=== PATIENT | female | born 1995 | race Caucasian/White ===

== ENCOUNTER → 2018-03-26 16:00 | Outpatient (REF) | payer BC, SELFPAY ==
[2018-04-01 08:29] LABS: Neisseria gonorrhoeae, NAA Negative (Negative)
== END ==
LOC: LAB 16:00
PROVIDERS: Visit Provider Obstetrics & Gynecology
DX: Z72.51 High risk heterosexual behavior (principal)
CPT/HCPCS: 87491; 87591

== ENCOUNTER → 2022-12-18 23:13 | Outpatient (CLI) | payer BC, SELFPAY ==
[2022-12-18 18:26] LABS: Alanine Aminotransferase 21 U/L (12-78); Albumin Level 4.2 g/dl (3.5-5.0); Albumin/Globulin Ratio 1.4 (1.1-1.8); Alkaline Phosphatase 84 U/L (38-126); Anion Gap 13.9 mEq/L (5-15); Aspartate Amino Transferase 23 U/L (14-36); Bilirubin,Total 0.5 mg/dl (0.2-1.3); Blood Urea Nitrogen 8 mg/dl (7-17); Calcium 8.8 mg/dl (8.4-10.2); Carbon Dioxide 27 mmol/L (22.0-30.0); Chloride 100 mmol/L (98-107); Chol/HDL Ratio 3.3 (1-3.5); Cholesterol 139 mg/dl (140-200); Estimated Glomerular Filt Rate 100 ml/min (>60); GFR (African American) 121 ML/MIN (>60); Globulin 3.1 g/dL (1.3-3.2); Glucose 91 mg/dl (74-100); HDL Cholesterol 42 mg/dl (40-60); Potassium 3.9 mmoL/L (3.5-5.1); Sodium 137 mmol/L (136-145); Total Protein,Serum 7.3 g/dl (6.3-8.2); Triglycerides 136 mg/dl (30-150); VLDL Cholesterol 27 mg/dL (0-40)
[2022-12-18 18:37] LABS: Direct LDL Cholesterol 79.33 mg/dL (100-129)
[2022-12-18 18:47] LABS: Basophils % 0.5 % (0.1-2.0); Eosinophils # 0.1 K/mm3 (0.0-0.4); Eosinophils % 1.4 % (0.1-12.0); Hematocrit 40.8 % (37.0-47.0); Hemoglobin 13.6 g/dL (12.2-16.2); Lymphocytes # 2.6 K/mm3 (0.7-4.5); Lymphocytes % 41.2 % (10-50); Mean Corpuscular HGB Conc 33.4 g/dL (31.8-35.4); Mean Corpuscular Hemoglobin 29.4 pg (27.0-31.2); Mean Corpuscular Volume 88.2 fl (81-99); Mean Platelet Volume 8.4 fl (7.4-10.4); Monocytes # 0.4 K/mm3 (0.1-1.0); Neutrophils # 3.3 K/mm3 (1.8-7.8); Neutrophils % 50.9 % (37.0-80.0); Platelet Count 321 K/mm3 (142-424); Red Blood Count 4.62 M/mm3 (4.20-5.40); Red Cell Distribution Width 13.3 % (11.5-17.5); White Blood Count 6.4 K/mm3 (4.8-10.8)
[2022-12-18 18:57] LABS: Thyroid Stimulating Hormone 1.04 uIU/mL (0.465-4.68)
[2022-12-18 19:16] LABS: Vitamin B12 236 pg/mL (239-931)
[2022-12-18 20:34] LABS: Iron 83 ug/dL (37-170)
[2022-12-18 20:44] LABS: Total Iron Binding Capacity 427 ug/dL (265-497)
[2022-12-18 21:10] LABS: Ferritin 17.1 ng/ml (6.24-137)
== END ==
PROVIDERS: PCP Physician Assistant; Visit Provider Physician Assistant
DX: R53.83 Other fatigue (principal); E55.9 Vitamin D deficiency, unspecified; Z79.899 Other long term (current) drug therapy
CPT/HCPCS: 80053; 80061; 82306; 82607; 82728; 83540; 83550; 84443; 85025

== ENCOUNTER → 2023-02-13 14:34 | Outpatient (CLI) | payer BC, SELFPAY | PROVIDERS: PCP Physician Assistant; Visit Provider Physician Assistant | DX: R07.9 Chest pain, unspecified (principal) | CPT/HCPCS: 93225; 93226 ==

== ENCOUNTER → 2023-02-20 07:24 | Outpatient (CLI) | payer BC, SELFPAY ==
--- NOTE | 2023-02-20 07:27 | NM_ITS ---
APPROVED REPORT Exam: Nuclear Stress Test Indication: chest pain..soa..fatigue Patient Location: Outpatient Stress Tech: María Elena Carrasco [place] Tech:Kori SanchezCRISTIANO RT(R)(N) Ht: 5 ft 5 in Wt: 230 lbs Bra Size: 38dd HR: 81 bpm BP: 123/64 mmHg BSA: 2.10 m2 Rhythm: NSR TID: 1.43 BMI: 38.2 History: chest pain..soa, fatigue Procedure: Patient exercised on Rishabh protocol 7 minutes and sec, resting heart rate 81 bpm, resting blood pressure 123/64 mmHg, with exercise maximum heart rate achived was 179 bpm which is 94 % of the maximum predicted heart rate and blood pressure was 170/70 mmHg. Patient denied any complaint of chest pain. Patient has average exercise capacity, achieved 10.1 METs of workload on treadmill, the blood pressure response to exercise was normal. Cardiac Stress and Resting SPECT Images: Cardiac Stress and Resting SPECT images were obtained using technetium 99m Myoview 31.1 mCi stress and 10.05 mCi at rest. Resting and stress imaging in both supine and prone positions demonstrate no evidence of fixed or reversible perfusion defects. There is marked increase in transient ischemic dilatation ratio (TID 1.43), suggestive of possible balanced ischemia or multivessel disease. Gated imaging demonstrates normal global and regional LV systolic function. LVEF is calculated at 65%. Conclusion: No evidence of fixed or reversible perfusion defects. There is marked increase in transient ischemic dilatation ratio (TID 1.43), suggestive of possible balanced ischemia or multivessel disease. Gated imaging demonstrates normal global and regional LV systolic function. LVEF is calculated at 65%. Electronically signed by : Marta Pires, 02/23/2023 16:39:30
--- NOTE | 2023-02-20 07:52 | US_ITS ---
FINAL REPORT CLINICAL HISTORY: BLE edema FINDINGS: COMPLETE ANKLE/BRACHIAL INDICES BILATERAL Complete ankle brachial indices was obtained. The right SRIDHAR is 1.1. The left SRIDHAR is 1.1. IMPRESSION: ABIs are within normal limits bilaterally. Reviewed, Interpreted and Dictated by Andrae Martinez III, MD Transcribed by Vicki Jarquin Authenticated and [facility]
--- NOTE | 2023-02-20 09:13 | CA_ITS ---
APPROVED REPORT Exam: Exercise Treadmill Technologist: María Elena Carrasco Ht: 5 ft 5 in Wt: 230 lbs BSA: 2.10 m2 HR: 74 bpm BP: 123/64 mmHg Rhythm: NSR Indications: Chest pain, BLE Edema 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 Medications: Vitamin D,,,,, Hydroxyzine pamoate,,,,, Furosemide,,,,, LUmateperone,,,,, Concerta,,,,, Stress Test Details Test: Rishabh HR Resting HR: 81 bpm Max Heart Rate (APMHR): 191 bpm Max HR Achieved: 179 bpm Target HR (85% APMHR): 162 bpm % of APMHR: 94 Recovery HR: 91 bpm HR response to stress: Normal HR response to stress BP Resting BP: 123.0/64.0 mmHg Max BP: 170.0/70.0 mmHg Recovery BP: 123.0/55.0 mmHg BP response to stress: Normal blood pressure response to stress. ECG Resting ECG: Normal sinus rhythm, incomplete right bundle branch block Stress ECG: minimal upsloping ST depression in inferolateral leads Arrhythmia: None Recovery ECG: Return to baseline within 3 minutes of recovery Recovery Arrhythmia: None Clinical Exercise duration: 07:00 min Highest Stage Achieved: Exercise capacity: 10.1 METs Overall Exercise Capacity for Age: Average Stress ECG Conclusion Patient walked 7:00 on Rishabh Protocol, achieving a total of 10.1 METs. She has an average exercise capacity compared to age and sex matched peers. She has a normal HR and BP response to exercise. Test stopped due to shortness of air, knee pain. She denied any chest pains. At baseline, ECG demonstrates normal sinus rhythm, no ST changes, incomplete RBBB. At peak stress, there are minimal upsloping ST depression in inferolateral leads. These findings are non-specific and are likely a normal response to exercise. Arrhythmias/Ectopy: None Conclusion: Normal exercise stress test. Myoview images reported separately. Test Summary REST . . . . . . . Sitting REST . . . . . . . Standing REST 06:02 0.0 0.0 81 . 123/ 64 . . Stage 1 01:00 10.0 1.7 117 . . . . Stage 1 02:00 10.0 1.7 117 . . . . Stage 1 03:00 10.0 1.7 124 . 158/ 66 . . Stage 2 01:00 12.0 2.5 133 . . . . Stage 2 02:00 12.0 2.5 149 . . . . Stage 2 03:00 12.0 2.5 161 . 170/ 70 . . Stage 3 01:00 14.0 3.4 179 . . . Stop exercise at 07:00 RECOVERY 01:00 0.0 0.0 150 . . . . RECOVERY 02:00 0.0 0.0 107 . 146/ 56 . . RECOVERY 03:00 0.0 0.0 96 . 146/ 56 . . RECOVERY 04:00 0.0 0.0 93 . 131/ 55 . . RECOVERY 05:00 0.0 0.0 92 . 123/ 55 . . RECOVERY 05:19 0.0 0.0 93 . 123/ 55 . . Electronically signed by : Marta Pires, 02/23/2023 16:35:10
== END ==
PROVIDERS: PCP Physician Assistant; Visit Provider Physician Assistant
DX: R07.9 Chest pain, unspecified (principal)
CPT/HCPCS: 78452; 93017; 93923; A9502

== ENCOUNTER → 2023-02-27 15:04 | Outpatient (CLI) | payer BC, SELFPAY | PROVIDERS: PCP Physician Assistant; Visit Provider Physician Assistant | DX: R07.9 Chest pain, unspecified (principal) | CPT/HCPCS: 93306 ==

== ENCOUNTER 2023-03-29 08:41 | Day surgery (SDC) | payer BC, SELFPAY ==
[2023-03-29] VITALS (11 sets, daily range): BP systolic 97–130; BP diastolic 49–82; PULSE 71–88; RESP 16–18; TEMP 36.9; O2SAT 94–98; BMI 37.9
--- NOTE | 2023-03-29 07:16 | IR_ITS ---
APPROVED REPORT Patient Location: Outpatient Certified Court/Medical Interpreter: CRISTIANO Tobias RT (R) PROCEDURES Left heart catheterization Left ventriculogram Selective coronary angiogram INDICATION Abnormal Myoview, Angina pectoris Informed consent was obtained prior to the procedure. COMPLICATIONS None Estimated Blood Loss: Less than 10 mls TECHNIQUE One percent lidocaine used to anesthetize the right anterior aspect of the wrist. The right radial artery was accessed via the Seldinger technique. A 6 Portuguese sheath was placed in the right radial artery. 2.5 mg of Verapamil, 800 mcg of nitroglycerin, 1mg Lidocaine and 5000 U Heparin were given through the arterial sheath. The papa catheter was also used to perform left heart catheterization, left ventriculogram and selective coronary angiogram. At the end of the procedure the sheath was removed good hemostasis was achieved using Traclet band, patient was transferred to the postop holding area in stable condition. ANGIOGRAPHIC RESULTS The left main artery Normal The left anterior descending artery Normal The circumflex artery Normal The right coronary artery Dominant normal The DE LEÓN ventriculogram reveals Normal 65% The left ventricular end-diastolic pressure 20 to 25 mmHg IMPRESSION Normal coronary arteries Normal ejection fraction Elevated LVEDP consistent with diastolic dysfunction PLAN 1. Treatment of diastolic dysfunction 2. Recommend sleep study Electronically signed by : Joe Zambrano MD 03/29/2023 11:19:39
[2023-03-29 09:22] LABS: Basophils % 0.3 % (0.1-2.0); Eosinophils # 0.1 K/mm3 (0.0-0.4); Eosinophils % 1.3 % (0.1-12.0); Hematocrit 42.3 % (37.0-47.0); Hemoglobin 14.3 g/dL (12.2-16.2); Lymphocytes # 2.4 K/mm3 (0.7-4.5); Lymphocytes % 35.4 % (10-50); Mean Corpuscular HGB Conc 33.7 g/dL (31.8-35.4); Mean Corpuscular Volume 88.9 fl (81-99); Mean Platelet Volume 8.2 fl (7.4-10.4); Monocytes # 0.3 K/mm3 (0.1-1.0); Monocytes % 4.2 % (1.7-9.3); Neutrophils # 3.9 K/mm3 (1.8-7.8); Neutrophils % 58.8 % (37.0-80.0); Platelet Count 255 K/mm3 (142-424); Red Blood Count 4.76 M/mm3 (4.20-5.40); Red Cell Distribution Width 12.6 % (11.5-17.5); White Blood Count 6.6 K/mm3 (4.8-10.8)
[2023-03-29 09:23] LABS: Chloride 104 mmol/L (98-107); Potassium 3.7 mmoL/L (3.5-5.1); Sodium 139 mmol/L (136-145)
[2023-03-29 09:26] LABS: Anion Gap 13.7 mEq/L (5-15); Blood Urea Nitrogen 9 mg/dl (7-17); Carbon Dioxide 25 mmol/L (22.0-30.0); Creatinine Clearance Estimated 194 mL/min (50-200); Estimated Glomerular Filt Rate 99 ml/min (>60); GFR (African American) 120 ML/MIN (>60)
[2023-03-29 09:27] LABS: Calcium 9.5 mg/dl (8.4-10.2); Glucose 92 mg/dl (74-100)
[2023-03-29 10:09] LABS: HCG Qualitative, Serum Negative (Negative)
== END 2023-03-29 14:39 | disposition home or self-care (01) ==
PROVIDERS: PCP Physician Assistant; Visit Provider Internal Medicine
DX: I25.118 Atherosclerotic heart disease of native coronary artery with other forms of angina pectoris (principal); F17.210 Nicotine dependence, cigarettes, uncomplicated; R94.31 Abnormal electrocardiogram [ECG] [EKG]; R94.39 Abnormal result of other cardiovascular function study; Z82.49 Family history of ischemic heart disease and other diseases of the circulatory system; Z79.899 Other long term (current) drug therapy
CPT/HCPCS: 80048; 84703; 85025; 93458; 99152; C1725; C1769; J1644; Q9967

== ENCOUNTER 2023-04-02 12:15 | Emergency (ER) | payer BC, SELFPAY ==
[2023-04-02 12:25] VITALS: BP 111/63; PULSE 104; RESP 20; TEMP 36.8; O2SAT 95; BMI 37.3
--- NOTE | 2023-04-02 13:16 | XR_ITS ---
PROCEDURE INFORMATION: Exam: XR Right Wrist Exam date and time: 04/02/2023 1:21 PM Age: 27 years old Clinical indication: Pain and injury or trauma; Fall; Blunt trauma (contusions or hematomas); Wrist; Right; Additional info: Fall, injury TECHNIQUE: Imaging protocol: Radiologic exam of the right wrist. Views: 3 or more views. COMPARISON: No relevant prior studies available. FINDINGS: Bones/joints: Osseous structures are intact. No fracture or malalignment. Visualized joint surfaces are preserved. Soft tissues: Unremarkable. IMPRESSION: Negative exam. No acute bony abnormalities.
--- NOTE | 2023-04-02 13:16 | XR_ITS ---
PROCEDURE INFORMATION: Exam: XR Right Forearm Exam date and time: 04/02/2023 1:23 PM Age: 27 years old Clinical indication: Pain and injury or trauma; Fall; Blunt trauma (contusions or hematomas); Arm, lower; Right; Lower or forearm; Additional info: Fall, injury TECHNIQUE: Imaging protocol: Radiologic exam of the right forearm. Views: 2 views. COMPARISON: CR Wrist R 04/02/2023 1:21 PM FINDINGS: Bones/joints: Osseous structures are intact. No fracture or malalignment. Visualized joint surfaces are preserved. Soft tissues: Unremarkable. IMPRESSION: Negative exam. No acute bony abnormalities.
--- NOTE | 2023-04-02 13:16 | HMH.EDGENADL ---
Discharge Plan Disposition Patient Disposition: Home, Self-Care Prescriptions Prescriptions: No Action bumetanide 0.5 mg tablet 0.5 mg PO DAILY PRN (Reason: .) cholecalciferol (vitamin D3) 1,250 mcg (50,000 unit) capsule 1,250 mcg PO WEEKLY Qty: 12 3RF Rx Instructions: Patient should also get an OTC Vitamin D 2,000 units daily. methylphenidate HCl [Concerta] 18 mg tablet extended release 24hr 18 mg PO DAILY hydroxyzine pamoate 25 mg capsule See Rx Instructions .ROUTE .COMPLEX Rx Instructions: TAKE 1 CAPSULE BY MOUTH THREE TIMES A DAY NEEDED FOR ITCHING/ANXIETY/HIVES Caplyta 21 mg capsule 21 mg PO DAILY Referrals Follow up/Referrals: Kimberly Avalos PA [Primary Care Provider] - See instructions Clinical Impressions Clinical Impression: Contusion of right wrist Discharge ED Provider: Demi Pan General Adult HPI General Chief complaint: PAIN Stated complaint: [id number], pain in Rt wrist/arm Time Seen by Provider: 04/02/23 13:13 Mode of Arrival: Ambulatory Source of Information: Patient Limitations: No Limitations Description of Symptoms (Recalled from ER Triage Doc. by RN): pt to ed c/o right wrist pain. pt states she had a heart cath on saturday, and was accesssed through her wrist. pt reports falling in the shower on saturday on the same writ. pt c/o swwelling and pain that radiates into her shoulder. pt denies LOC from the fall. History of Present Illness HPI narrative: 27-year-old female here with right upper extremity pain. States that she had a heart cath on Saturday and already had some trauma and swelling to the right wrist but was getting into a shower and she fell injuring the right wrist further subsequently having some significant soft tissue swelling and ecchymosis. She denies any injuries elsewhere. Denies any significant deformity just some nonspecific circumferential swelling of the right wrist the distal aspect. No numbness or motor weakness. No pain proximal to her elbow Related Data Home Medications Medication Instructions Recorded Confirmed bumetanide 0.5 mg tablet 0.5 mg PO DAILY PRN . 03/05/23 03/29/23 hydroxyzine pamoate 25 mg capsule See Rx Instructions .Route 03/29/23 03/29/23 .COMPLEX . lumateperone 21 mg capsule 21 mg PO DAILY . 03/29/23 03/29/23 (Caplyta) methylphenidate HCl 18 mg 18 mg PO DAILY . 03/29/23 03/29/23 tablet,extended release 24 hr (Concerta) Previous Rx's Medication Instructions Recorded cholecalciferol (vitamin D3) 1,250 1,250 mcg PO WEEKLY vitamin d 12/20/22 mcg (50,000 unit) capsule deficiency #12 caps Allergies Allergy/AdvReac Type Severity Reaction Status Date / Time morphine [MORPHINE] Allergy Unknown HALLUCINATIONS, Verified 03/05/23 09:13 PAIN ATTACKS [facility] Disclaimer: The information contained in this section may have been updated after the patient was seen, as this information can be updated by other users. Social History Smoking Status: Current every day smoker alcohol intake: never substance use type: denies use current occupational status: employed Travel in the last 8 weeks: None ROS Obtained: Yes All systems reviewed & no additional complaints except as documented Physical Exam General General appearance: alert and in no apparent distress Respiratory Respiratory exam: Present normal lung sounds bilaterally Cardiovascular Cardiovascular exam: Present regular rate; Absent tachycardia Extremities Exam Extremities exam: Present other (Right upper extremity swelling circumferentially around the distal aspect of the right forearm and mid forearm no deformity neurovascular intact distal) Neurological Exam Neurological exam: Present alert and oriented X3 Medical Decision Making Juan Antonio Inquiry Pt receiving controlled substance: No Vital Signs: 04/02/23 12:25 Temperature 98.2 F T
[2023-04-02 14:26] VITALS: BP 120/78; PULSE 78; RESP 17; TEMP 36.8; O2SAT 98
--- NOTE | 2023-04-05 02:43 | PC.NURSE ---
pt chart accessed for ortho demographics
== END 2023-04-02 14:32 | disposition home or self-care (01) ==
PROVIDERS: Emergency Provider Student in an Organized Health Care Education/Training Program; PCP Physician Assistant
DX: S60.211A Contusion of right wrist, initial encounter (principal); Y84.0 Cardiac catheterization as the cause of abnormal reaction of the patient, or of later complication, without mention of misadventure at the time of the procedure; F17.200 Nicotine dependence, unspecified, uncomplicated
CPT/HCPCS: 73090; 73110; 99284

== ENCOUNTER → 2023-08-07 23:38 | Outpatient (CLI) | payer BC, SELFPAY ==
[2023-08-07 18:55] LABS: Amphetamine/Metha Screen,Urine Negative ng/ml (<1000); Barbiturates Screen,Urine Negative ng/ml (<200)
[2023-08-07 18:57] LABS: Cannabinoid Screen,Urine Positive ng/ml (<50); Cocaine Screen,Urine Negative ng/ml (<300)
[2023-08-07 18:58] LABS: Methadone Screen,Urine Negative ng/ml (<300)
[2023-08-07 18:59] LABS: Opiate Screen,Urine Negative ng/ml (<300); Phencyclidine Screen,Urine Negative ng/ml (<25)
[2023-08-07 19:07] LABS: Benzodiazepines Screen,Urine Negative ng/ml (<200)
== END ==
PROVIDERS: PCP Internal Medicine; Visit Provider Physician Assistant
DX: F90.9 Attention-deficit hyperactivity disorder, unspecified type (principal)
CPT/HCPCS: 80305

== ENCOUNTER 2023-08-13 13:59 | Outpatient (CLI) | payer BC, SELFPAY ==
[2023-08-13 18:09] LABS: Amphetamine/Metha Screen,Urine Negative ng/ml (<1000); Barbiturates Screen,Urine Negative ng/ml (<200); Cannabinoid Screen,Urine Positive ng/ml (<50); Cocaine Screen,Urine Negative ng/ml (<300); Methadone Screen,Urine Negative ng/ml (<300); Opiate Screen,Urine Negative ng/ml (<300); Phencyclidine Screen,Urine Negative ng/ml (<25)
[2023-08-13 18:12] LABS: Benzodiazepines Screen,Urine Negative ng/ml (<200)
== END 2023-08-13 23:59 ==
LOC: LAB.DROPOF 13:59
PROVIDERS: PCP Physician Assistant; Visit Provider Physician Assistant
DX: E53.8 Deficiency of other specified B group vitamins (principal); Z79.899 Other long term (current) drug therapy
CPT/HCPCS: 80307

== ENCOUNTER 2023-09-02 18:40 | Emergency (ER) | payer BC, SELFPAY ==
[2023-09-02 19:00] VITALS: BP 144/78; PULSE 92; RESP 18; TEMP 37.2; O2SAT 98; BMI 38.1
--- NOTE | 2023-09-02 19:03 | ED_ITS ---
Discharge Plan Disposition Patient Disposition: Home, Self-Care Condition: Good Prescriptions Prescriptions: New amoxicillin [amoxicillin] 875 mg tablet 875 mg PO Q12H Qty: 20 0RF methylprednisolone 4 mg Tablets,Dose Pack 4 mg PO DIRECTED 6 Days Qty: 21 0RF Rx Instructions: Take 1 pack as directed for 6 days lpriywctudyhxwe-onjraaetu-HC [Bromfed DM] 2-30-10 mg/5 mL Syrup 5 ml PO Q6H PRN (Reason: Cough) Qty: 240 0RF No Action cholecalciferol (vitamin D3) 125 mcg (5,000 unit) capsule 125 mcg PO DAILY 30 Days Qty: 30 3RF ferrous sulfate 324 mg (65 mg iron) tablet,delayed release (DR/EC) 324 mg PO DAILY Qty: 30 5RF cholecalciferol (vitamin D3) 1,250 mcg (50,000 unit) capsule 1,250 mcg PO WEEKLY Qty: 12 3RF Rx Instructions: Patient should also get an OTC Vitamin D 2,000 units daily. bumetanide 0.5 mg tablet 0.5 mg PO DAILY PRN (Reason: .) Qty: 90 3RF Caplyta 42 mg capsule 42 mg PO DAILY Qty: 30 2RF mirtazapine [Remeron] 15 mg tablet 15 mg PO HS Qty: 30 2RF hydroxyzine pamoate 25 mg capsule See Rx Instructions .ROUTE .COMPLEX Qty: 90 0RF Dose Instruction: TAKE 1 CAPSULE BY MOUTH THREE TIMES A DAY NEEDED FOR ITCHING/ANXIETY/HIVES Rx Instructions: TAKE 1 CAPSULE BY MOUTH THREE TIMES A DAY NEEDED FOR ITCHING/ANXIETY/HIVES trazodone 50 mg tablet See Rx Instructions .ROUTE .COMPLEX Qty: 90 0RF Dose Instruction: TAKE 1 TABLET BY MOUTH EVERY NIGHT AT BEDTIME Rx Instructions: TAKE 1 TABLET BY MOUTH EVERY NIGHT AT BEDTIME methylphenidate HCl [Concerta] 27 mg tablet extended release 24hr 27 mg PO DAILY Qty: 30 0RF Referrals Follow up/Referrals: Kimberly Avalos PA [Primary Care Provider] - See instructions Activity Restrictions/Add. Instructions Additional Instructions/Restrictions: Drink plenty of fluids. Take tylenol or ibuprofen for pain or fever. Take the medications as directed. Follow up with your regular doctor. GO TO THE ER FOR ANY WORSENING SYMPTOMS Throw your tooth brush away and get a new one. Clinical Impressions Clinical Impression: Strep throat Instructions Patient Instructions: Strep Throat, DI for Strep Throat Discharge ED Provider: Chinedu Jacobson [facility] General Stated complaint: Cough,SOA Time Seen by Provider: 09/02/23 19:03 History of Present Illness Provider Complaint: She states that for the past 3 days she has had sore throat, chills, and a productive cough. Related Data Previous Rx's Medication Instructions Recorded cholecalciferol (vitamin D3) 1,250 1,250 mcg PO WEEKLY vitamin d 12/20/22 mcg (50,000 unit) capsule deficiency #12 caps bumetanide 0.5 mg tablet 0.5 mg PO DAILY PRN . #90 tabs 06/03/23 cholecalciferol (vitamin D3) 125 125 mcg PO DAILY 30 days #30 caps 06/12/23 mcg (5,000 unit) capsule lumateperone 42 mg capsule 42 mg PO DAILY #30 caps 06/21/23 (Caplyta) ferrous sulfate 324 mg (65 mg 324 mg PO DAILY #30 tabs 08/07/23 iron) tablet,delayed release mirtazapine 15 mg tablet (Remeron) 15 mg PO HS #30 tabs 08/14/23 hydroxyzine pamoate 25 mg capsule See Rx Instructions .Route 08/26/23 .COMPLEX #90 caps trazodone 50 mg tablet See Rx Instructions .Route 08/26/23 .COMPLEX #90 tabs methylphenidate HCl 27 mg 27 mg PO DAILY #30 tabs 08/27/23 tablet,extended release 24 hr (Concerta) amoxicillin 875 mg tablet 875 mg PO Q12H #20 tabs 09/02/23 wmuihsclwwgnxjm-ftfdijdedhaxljn-ON 5 ml PO Q6H PRN Cough #240 mL 09/02/23 2 mg-30 mg-10 mg/5 mL oral syrup (Bromfed DM) methylprednisolone 4 mg tablets in 4 mg PO DIRECTED 6 days #21 tabs 09/02/23 a dose pack Allergies Allergy/AdvReac Type Severity Reaction Status Date / Time morphine [MORPHINE] Allergy Unknown HALLUCINATIONS, Verified 09/02/23 19:23 PAIN ATTACKS [facility] Disclaimer: The information contained in this section may have been updated after the patient was seen, as this information can be updated by other users. Social History Smoking Status: Current every day smoker alcohol intake: never substance use type: denies use current occupational status: employed Travel in the last 8 weeks: None ROS Obtained: Yes All systems reviewed & no additional complaints except as documented Constitutional Constitutional: Reports chills and Reports fever(s) Eyes Eyes: Denies eye discharge ENT Ears, Nose, Mouth, and Throat: Reports as per HPI Cardiovascular Cardiovascular: Denies chest pain Respiratory Respiratory: Denies chest congestion and Reports cough Gastrointestinal Gastrointestingal: Reports nausea; Denies abdominal pain, constipation, cramping, diarrhea or vomiting Musculoskeletal Musculoskeletal: Denies arthralgias Integumentary/Breasts Skin/Breast: Denies rash Neurologic Neurologic: Denies paresthesias Physical Exam General General appearance: alert and in no apparent distress Head Head exam: atraumatic, normocephalic and normal inspection Eye Eye exam: Present normal appearance, PERRL and EOMI ENT ENT exam: Present mucous membranes moist and normal external ear exam Expanded ENT Exam TM/Canal exam: Bilateral TM: erythema and bulging Nose exam: Absent sinus tenderness Mouth exam: Present normal external inspection; Absent drooling Teeth exam: Present normal inspection Throat exam: Present tonsillar erythema, tonsillomegaly and tonsillar exudate Neck Neck exam: Present normal inspection, full ROM and trachea midline; Absent tenderness, meningismus or lymphadenopathy Chest Chest inspection: Present normal inspection and symmetric chest wall rise; Absent tenderness Respiratory Respiratory exam: Present normal lung sounds bilaterally; Absent respiratory distress, wheezes, stridor or accessory muscle use Cardiovascular Cardiovascular exam: Present regular rate and normal rhythm; Absent systolic murmur or diastolic murmur Abdominal Exam Abdominal exam: Present soft and normal bowel sounds; Absent distention, tenderness, guarding, rebound or rigidity Extremities Exam Extremities exam: Present normal inspection and normal capillary refill; Absent calf tenderness Back Exam Back exam: Present normal inspection and full ROM; Absent tenderness, CVA tenderness (R) or CVA tenderness (L) Neurological Exam Neurological exam: Present alert, oriented X3 and CN II-XII intact Psychiatric Psychiatric exam: Present normal affect and normal mood Skin Skin exam: Present warm, dry, intact and normal color Medical Decision Making Medical Records Medical records reviewed: No I reviewed the patient's medical records. Juan Antonio Inquiry Pt receiving controlled substance: No Lab Data Lab results reviewed: Yes I reviewed the patient's lab results.
[2023-09-02 19:24] LABS: UTC Strep Screen (Rapid) Positive (Negative)
[2023-09-02 19:47] VITALS: BP 144/78; PULSE 92; RESP 18; TEMP 37.2; O2SAT 98
== END 2023-09-02 19:46 | disposition home or self-care (01) ==
PROVIDERS: Emergency Provider Nurse Practitioner Family; PCP Physician Assistant
DX: J02.0 Streptococcal pharyngitis (principal); R07.0 Pain in throat; R05.9 Cough, unspecified; R50.9 Fever, unspecified; F17.210 Nicotine dependence, cigarettes, uncomplicated
CPT/HCPCS: 87880; 99204; 99212; G0463

== ENCOUNTER 2023-09-04 13:38 | Outpatient (CLI) | payer BC, SELFPAY ==
--- NOTE | 2023-09-04 13:44 | XR_ITS ---
FINAL REPORT CLINICAL HISTORY: foot pain for many years, no known injury. weightbearing views. FINDINGS: Right foot Three views were obtained. There is no acute fracture or dislocation. The joint spaces appear normal. No soft tissue abnormality is identified. IMPRESSION: No acute process. Reviewed, Interpreted and Dictated by Zane Maloney MD Transcribed by Vicki Jarquin Authenticated and [facility]
--- NOTE | 2023-09-04 13:44 | XR_ITS ---
FINAL REPORT CLINICAL HISTORY: foot pain for many years, no known injuries. weightbearing views. FINDINGS: Left foot Three views were obtained. There is no acute fracture or dislocation. The joint spaces appear normal. No soft tissue abnormality is identified. IMPRESSION: No acute process. Reviewed, Interpreted and Dictated by Zane Maloney MD Transcribed by Vicki Jarquin Authenticated and [facility]
== END 2023-09-04 23:59 ==
LOC: RAD 13:39
PROVIDERS: PCP Physician Assistant; Visit Provider Nurse Practitioner
DX: M79.671 Pain in right foot (principal); M79.672 Pain in left foot
CPT/HCPCS: 73630

== ENCOUNTER 2023-10-02 22:09 | Outpatient (CLI) | payer BC, SELFPAY ==
[2023-10-02 18:47] LABS: Basophils % 0.2 % (0.1-2.0); Hematocrit 42.1 % (37.0-47.0); Hemoglobin 13.7 g/dL (12.2-16.2); Lymphocytes # 2.5 K/mm3 (0.7-4.5); Lymphocytes % 31.8 % (10-50); Mean Corpuscular HGB Conc 32.6 g/dL (31.8-35.4); Mean Corpuscular Hemoglobin 30.5 pg (27.0-31.2); Mean Corpuscular Volume 93.7 fl (81-99); Mean Platelet Volume 8.3 fl (7.4-10.4); Monocytes # 0.4 K/mm3 (0.1-1.0); Monocytes % 5.4 % (1.7-9.3); Neutrophils # 4.9 K/mm3 (1.8-7.8); Neutrophils % 62.6 % (37.0-80.0); Platelet Count 274 K/mm3 (142-424); Red Blood Count 4.49 M/mm3 (4.20-5.40); Red Cell Distribution Width 13.6 % (11.5-17.5); White Blood Count 7.9 K/mm3 (4.8-10.8)
[2023-10-02 18:57] LABS: Alanine Aminotransferase 22 U/L (12-78); Albumin Level 4.6 g/dl (3.5-5.0); Albumin/Globulin Ratio 1.5 (1.1-1.8); Alkaline Phosphatase 92 U/L (38-126); Anion Gap 9.1 mEq/L (5-15); Aspartate Amino Transferase 31 U/L (14-36); Bilirubin,Total 0.2 mg/dl (0.2-1.3); Blood Urea Nitrogen 13 mg/dl (7-17); Calcium 9.7 mg/dl (8.4-10.2); Carbon Dioxide 29 mmol/L (22.0-30.0); Chloride 104 mmol/L (98-107); Cholesterol 190 mg/dl (140-200); Estimated Glomerular Filt Rate 99 ml/min (>60); GFR (African American) 120 ML/MIN (>60); Globulin 3.1 g/dL (1.3-3.2); Glucose 89 mg/dl (74-100); HDL Cholesterol 47 mg/dl (40-60); Potassium 4.1 mmoL/L (3.5-5.1); Sodium 138 mmol/L (136-145); Total Protein,Serum 7.7 g/dl (6.3-8.2); Triglycerides 231 mg/dl (30-150); VLDL Cholesterol 46 mg/dL (0-40)
[2023-10-02 19:09] LABS: Direct LDL Cholesterol 95.01 mg/dL (100-129)
[2023-10-02 19:14] LABS: 25-OH Vitamin D, Total 38.7 ng/mL (30-100)
[2023-10-02 19:27] LABS: Thyroid Stimulating Hormone 1.94 uIU/mL (0.465-4.68)
[2023-10-02 19:46] LABS: Vitamin B12 375 pg/mL (239-931)
== END 2023-10-02 23:59 ==
LOC: LAB.DROPOF 22:09
PROVIDERS: PCP Physician Assistant; Visit Provider Physician Assistant
DX: F90.9 Attention-deficit hyperactivity disorder, unspecified type; F31.9 Bipolar disorder, unspecified; E66.9 Obesity, unspecified; Z68.39 Body mass index [BMI] 39.0-39.9, adult; Z79.899 Other long term (current) drug therapy
CPT/HCPCS: 80053; 80061; 82306; 82607; 84443; 85025

== ENCOUNTER 2023-10-04 15:11 | Emergency (ER) | payer BC, SELFPAY ==
[2023-10-04 15:45] VITALS: BP 146/80; PULSE 94; RESP 18; TEMP 36.9; O2SAT 99; BMI 38.3
--- NOTE | 2023-10-04 15:47 | ED_ITS ---
Discharge Plan Disposition Patient Disposition: Home, Self-Care Condition: Good Prescriptions Prescriptions: New amoxicillin [amoxicillin] 875 mg tablet 875 mg PO Q12H Qty: 20 0RF [id number]-elollpvgs-PJ [Bromfed DM] 2-30-10 mg/5 mL Syrup 5 ml PO Q6H PRN (Reason: Cough) Qty: 240 0RF prednisone [prednisone] 20 mg tablet 20 mg PO BID 3 Days Qty: 6 0RF No Action methylphenidate HCl [Concerta] 27 mg tablet extended release 24hr 27 mg PO DAILY Qty: 30 0RF Caplyta 42 mg capsule See Rx Instructions .ROUTE .COMPLEX Qty: 30 2RF Dose Instruction: TAKE 1 CAPSULE BY MOUTH EVERY DAY Rx Instructions: TAKE 1 CAPSULE BY MOUTH EVERY DAY trazodone 50 mg tablet 50 mg PO HS Patient Comments: TAKE 1 TABLET BY MOUTH EVERY NIGHT AT BEDTIME meloxicam 7.5 mg tablet 7.5 mg PO DAILY Patient Comments: TAKE 1 TABLET BY MOUTH EVERY DAY FOR PAIN FOR 30 DAYS bumetanide 0.5 mg tablet 0.5 mg PO DAILY Patient Comments: TAKE 1 TABLET BY MOUTH EVERY DAY NEEDED mirtazapine 15 mg tablet 15 mg PO HS Patient Comments: TAKE 1 TABLET BY MOUTH EVERYDAY AT BEDTIME cholecalciferol (vitamin D3) 125 mcg (5,000 unit) capsule 125 mcg PO DAILY hydroxyzine pamoate 25 mg capsule 25 mg PO DAILY ferrous sulfate 324 mg (65 mg iron) tablet,delayed release (DR/EC) 324 mg PO DAILY Patient Comments: TAKE 1 TABLET BY MOUTH EVERY DAY Referrals Follow up/Referrals: Kimberly Avalos PA [Primary Care Provider] - See instructions Activity Restrictions/Add. Instructions Additional Instructions/Restrictions: Drink plenty of fluids. Take tylenol or ibuprofen for pain or fever. Take the medications as directed. Follow up with your regular doctor. GO TO THE ER FOR ANY WORSENING SYMPTOMS Clinical Impressions Clinical Impression: Otitis media, Pharyngitis Stand Alone Forms Stand Alone Forms: Work/School Release Instructions Patient Instructions: Middle Ear Infection Discharge ED Provider: Chinedu Jacobson [facility] [place] General Stated complaint: bilateral ear pain, sore throat, body aches Time Seen by Provider: 10/04/23 15:46 History of Present Illness Provider Complaint: She states that for the past 3 days she has had ear pain, head ache, malaise, and sinus congestion. Related Data Home Medications Medication Instructions Recorded Confirmed bumetanide 0.5 mg tablet 0.5 mg PO DAILY 10/04/23 10/04/23 cholecalciferol (vitamin D3) 125 125 mcg PO DAILY 10/04/23 10/04/23 mcg (5,000 unit) capsule ferrous sulfate 324 mg (65 mg 324 mg PO DAILY 10/04/23 10/04/23 iron) tablet,delayed release hydroxyzine pamoate 25 mg capsule 25 mg PO DAILY 10/04/23 10/04/23 meloxicam 7.5 mg tablet 7.5 mg PO DAILY 10/04/23 10/04/23 mirtazapine 15 mg tablet 15 mg PO HS 10/04/23 10/04/23 trazodone 50 mg tablet 50 mg PO HS 10/04/23 10/04/23 Previous Rx's Medication Instructions Recorded lumateperone 42 mg capsule See Rx Instructions .Route 09/30/23 (Caplyta) .COMPLEX #30 caps methylphenidate HCl 27 mg 27 mg PO DAILY #30 tabs 10/03/23 tablet,extended release 24 hr (Concerta) amoxicillin 875 mg tablet 875 mg PO Q12H #20 tabs 10/04/23 toorahzljkldbip-aeglghbscavgimo-RO 5 ml PO Q6H PRN Cough #240 mL 10/04/23 2 mg-30 mg-10 mg/5 mL oral syrup (Bromfed DM) prednisone 20 mg tablet 20 mg PO BID 3 days #6 tabs 10/04/23 Allergies Allergy/AdvReac Type Severity Reaction Status Date / Time morphine [MORPHINE] Allergy Unknown HALLUCINATIONS, Verified 10/02/23 14:37 PAIN ATTACKS [facility] Disclaimer: The information contained in this section may have been updated after the patient was seen, as this information can be updated by other users. Social History Smoking Status: Current every day smoker alcohol intake: never substance use type: denies use current occupational status: employed Travel in the last 8 weeks: None ROS Obtained: Yes All systems reviewed & no additional complaints except as documented Constitutional Constitutional: Reports chills and Reports fever(s) Eyes Eyes: Denies eye discharge ENT Ears, Nose, Mouth, and Throat: Reports as per HPI Cardiovascular Cardiovascular: Denies chest pain Respiratory Respiratory: Denies chest congestion and Reports cough Gastrointestinal Gastrointestingal: Reports nausea; Denies abdominal pain, constipation, cramping, diarrhea or vomiting Musculoskeletal Musculoskeletal: Denies arthralgias Integumentary/Breasts Skin/Breast: Denies rash Neurologic Neurologic: Denies paresthesias Physical Exam General General appearance: alert and in no apparent distress Head Head exam: atraumatic, normocephalic and normal inspection Eye Eye exam: Present normal appearance, PERRL and EOMI ENT ENT exam: Present mucous membranes moist and normal external ear exam Expanded ENT Exam TM/Canal exam: Bilateral TM: erythema and bulging Nose exam: Absent sinus tenderness Mouth exam: Present normal external inspection; Absent drooling Teeth exam: Present normal inspection Throat exam: Present tonsillar erythema, tonsillomegaly and tonsillar exudate Neck Neck exam: Present normal inspection, full ROM and trachea midline; Absent tenderness, meningismus or lymphadenopathy Chest Chest inspection: Present normal inspection and symmetric chest wall rise; Absent tenderness Respiratory Respiratory exam: Present normal lung sounds bilaterally; Absent respiratory distress, wheezes or stridor Cardiovascular Cardiovascular exam: Present regular rate and normal rhythm; Absent systolic murmur or diastolic murmur Abdominal Exam Abdominal exam: Present soft and normal bowel sounds; Absent distention, tenderness, guarding, rebound or rigidity Extremities Exam Extremities exam: Present normal inspection and normal capillary refill; Absent calf tenderness Back Exam Back exam: Present normal inspection and full ROM; Absent tenderness, CVA tenderness (R) or CVA tenderness (L) Neurological Exam Neurological exam: Present alert, oriented X3 and CN II-XII intact Psychiatric Psychiatric exam: Present normal affect and normal mood Skin Skin exam: Present warm, dry, intact and normal color Medical Decision Making Medical Records Medical records reviewed: No I reviewed the patient's medical records. Juan Antonio Inquiry Pt receiving controlled substance: No Lab Data Lab results reviewed: Yes I reviewed the patient's lab results.
[2023-10-04 16:05] LABS: UTC Strep Screen (Rapid) Negative (Negative)
[2023-10-04 16:06] LABS: UTC Influenza A Antigen Negative (Negative); UTC Influenza B Antigen Negative (Negative)
[2023-10-04 16:12] VITALS: BP 146/80; PULSE 94; RESP 18; TEMP 36.9; O2SAT 99
[2023-10-04 16:33] LABS: Coronavirus 19, PCR Not Detected (NotDetected); Influenza A, PCR Not Detected (NotDetected); Influenza B, PCR Not Detected (NotDetected)
== END 2023-10-04 16:29 | disposition home or self-care (01) ==
PROVIDERS: Emergency Provider Nurse Practitioner Family; PCP Physician Assistant
DX: H66.93 Otitis media, unspecified, bilateral (principal); J02.9 Acute pharyngitis, unspecified; R51.9 Headache, unspecified; R09.81 Nasal congestion; F17.210 Nicotine dependence, cigarettes, uncomplicated
CPT/HCPCS: 87636; 87804; 87880; 99212; 99214; G0463

== ENCOUNTER 2023-11-01 18:28 | Emergency (ER) | payer BC, SELFPAY ==
[2023-11-01 18:31] VITALS: BP 116/61; PULSE 94; RESP 16; TEMP 36.5; O2SAT 99; BMI 39.5
--- NOTE | 2023-11-01 18:49 | XR_ITS ---
PROCEDURE INFORMATION: Exam: XR Right Knee Exam date and time: 11/01/2023 6:56 PM Age: 27 years old Clinical indication: Pain; Knee; Right; Additional info: Fall in aug, persistent pain and instability TECHNIQUE: Imaging protocol: Radiologic exam of the right knee. Views: 3 views. COMPARISON: US ARTERIAL LOWER EXT REST 02/20/2023 9:05 AM FINDINGS: Bones/joints: Normal. Soft tissues: Normal. IMPRESSION: No acute findings.
--- NOTE | 2023-11-01 18:50 | HMH.EDGENADL ---
Discharge Plan Disposition Patient Disposition: Home, Self-Care Chief Complaint: Extremity Injury, Lower Prescriptions Prescriptions: No Action methylphenidate HCl [Concerta] 27 mg tablet extended release 24hr 27 mg PO DAILY Qty: 30 0RF Caplyta 42 mg capsule See Rx Instructions .ROUTE .COMPLEX Qty: 30 2RF Dose Instruction: TAKE 1 CAPSULE BY MOUTH EVERY DAY Rx Instructions: TAKE 1 CAPSULE BY MOUTH EVERY DAY cholecalciferol (vitamin D3) 125 mcg (5,000 unit) capsule See Rx Instructions .ROUTE .COMPLEX Qty: 30 3RF Dose Instruction: TAKE 1 CAPSULE BY MOUTH EVERY DAY Rx Instructions: TAKE 1 CAPSULE BY MOUTH EVERY DAY trazodone 50 mg tablet 50 mg PO HS Patient Comments: TAKE 1 TABLET BY MOUTH EVERY NIGHT AT BEDTIME meloxicam 7.5 mg tablet 7.5 mg PO DAILY Patient Comments: TAKE 1 TABLET BY MOUTH EVERY DAY FOR PAIN FOR 30 DAYS bumetanide 0.5 mg tablet 0.5 mg PO DAILY Patient Comments: TAKE 1 TABLET BY MOUTH EVERY DAY NEEDED mirtazapine 15 mg tablet 15 mg PO HS Patient Comments: TAKE 1 TABLET BY MOUTH EVERYDAY AT BEDTIME hydroxyzine pamoate 25 mg capsule 25 mg PO DAILY ferrous sulfate 324 mg (65 mg iron) tablet,delayed release (DR/EC) 324 mg PO DAILY Patient Comments: TAKE 1 TABLET BY MOUTH EVERY DAY amoxicillin [amoxicillin] 875 mg tablet 875 mg PO Q12H Qty: 20 0RF vpvwvvtrebxqxou-qlelqzcbw-JF [Bromfed DM] 2-30-10 mg/5 mL Syrup 5 ml PO Q6H PRN (Reason: Cough) Qty: 240 0RF prednisone [prednisone] 20 mg tablet 20 mg PO BID 3 Days Qty: 6 0RF Referrals Follow up/Referrals: Kimberly Avalos PA [Primary Care Provider] - See instructions Gus Ludwig DO [Staff Physician] - See instructions Activity Restrictions/Add. Instructions Additional Instructions/Restrictions: At this time it was felt you are safe to be discharged home. If new or worsening symptoms please do not hesitate to return the emergency department. Please wear your brace for stability as needed however do range her knee every day as discussed. Please call and schedule appoint with Dr. Ludwig as soon as you are able. Clinical Impressions Clinical Impression: Chronic knee pain Discharge ED Provider: Homer Coronel General Adult HPI General Chief complaint: Extremity Injury, Lower Stated complaint: Right knee swollen,painful injured in Aug 2023 Time Seen by Provider: 11/01/23 18:33 Mode of Arrival: Ambulatory Source of Information: Patient Limitations: No Limitations Description of Symptoms (Recalled from ER Triage Doc. by RN): Patient reports falling on right knee back in Aug. States since then her knee has been swollen and painful. Denies being seen for any evaluation regarding this knee. Patient states that she has bad knees and usually wears knee braces but has not been wearing them and when she does wear them it does not help her pain or swelling. Also reports taking extra of her fluid pills to reduce swelling with no results. History of Present Illness HPI narrative: Patient is a 27-year-old female who presents emergency department for evaluation of chronic knee pain and instability. In August patient fell while skating with a direct impact on her right knee. Originally she had some pain however pain has gotten progressively worse as time has gone on. She intermittently feels as if her knee locks and feels as if her knee is unstable. Has yet to receive MRI or orthopedic evaluation prior to presenting to the emergency department today. No other acute complaints at this time. Related Data Home Medications Medication Instructions Recorded Confirmed bumetanide 0.5 mg tablet 0.5 mg PO DAILY 10/04/23 10/04/23 ferrous sulfate 324 mg (65 mg 324 mg PO DAILY 10/04/23 10/04/23 iron) tablet,delayed release hydroxyzine pamoate 25 mg capsule 25 mg PO DAILY 10/04/23 10/04/23 meloxicam 7.5 mg tablet 7.5 mg PO DAILY 10/04/23 10/04/23 mirtazapine 15 mg tablet 15 mg PO HS 10/04/23 10/04/23 trazodone 50 mg tablet 50 mg PO HS 10/04/23 10/04/23 Previous Rx's Medication Instructions Recorded lumateperone 42 mg capsule See Rx Instructions .Route 09/30/23 (Caplyta) .COMPLEX #30 caps methylphenidate HCl 27 mg 27 mg PO DAILY #30 tabs 10/03/23 tablet,extended release 24 hr (Concerta) amoxicillin 875 mg tablet 875 mg PO Q12H #20 tabs 10/04/23 dypkxcsyghufyyc-sjllfztibkzkrmc-LY 5 ml PO Q6H PRN Cough #240 mL 10/04/23 2 mg-30 mg-10 mg/5 mL oral syrup (Bromfed DM) prednisone 20 mg tablet 20 mg PO BID 3 days #6 tabs 10/04/23 cholecalciferol (vitamin D3) 125 See Rx Instructions .Route 11/01/23 mcg (5,000 unit) capsule .COMPLEX #30 caps Allergies Allergy/AdvReac Type Severity Reaction Status Date / Time morphine [MORPHINE] Allergy Unknown HALLUCINATIONS, Verified 10/02/23 14:37 PAIN ATTACKS [facility] Disclaimer: The information contained in this section may have been updated after the patient was seen, as this information can be updated by other users. Social History Smoking Status: Current every day smoker alcohol intake: never substance use type: denies use current occupational status: employed Travel in the last 8 weeks: None ROS Obtained: Yes Systems reviewed as appropriate & no additional complaints except as documented Physical Exam General General appearance: alert and in no apparent distress Head Head exam: atraumatic and normocephalic Eye Eye exam: Present PERRL ENT ENT exam: Present mucous membranes moist Neck Neck exam: Present normal inspection Chest Chest inspection: Present normal inspection and symmetric chest wall rise Respiratory Respiratory exam: Absent respiratory distress Cardiovascular Cardiovascular exam: Present regular rate and normal rhythm Extremities Exam Extremities exam: Present other (Swelling of the right knee, no significant bruising, patella midline, no tenderness along the medial or lateral joint line. There appears to be anterior laxity compared to the contralateral side. Palpable dorsal pedal pulse on the right. Extensor mechanism intact.) Neurological Exam Neurological exam: Present alert Psychiatric Psychiatric exam: Present normal affect Skin Skin exam: Present warm and dry Medical Decision Making Juan Antonio Inquiry Pt receiving controlled substance: No Vital Signs: 11/01/23 18:31 Temperature 97.7 F Temperature Source Oral Pulse Rate [Radial] 94 H Respiratory Rate 16 Blood Pressure [Right Arm] 116/61 Blood Pressure Mean [Right Arm] 79 Blood Pressure Source [Right Arm] Automatic Cuff Blood Pressure Position [Right Arm] Sitting 02 Sat by Pulse Oximetry 99 Oxygen Delivery Method Room Air Orders (Tests/Meds): ED MEDICATIONS Discontinued Medications Generic Name Dose Route Start Last Admin Trade Name Freq PRN Reason Stop Dose Admin Acetaminophen 1,000 mg 11/01/23 18:49 11/01/23 19:08 Acetaminophen 500mg Tab PO 11/01/23 18:50 1,000 mg ONCE ONE Administration Ibuprofen 600 mg 11/01/23 18:49 11/01/23 19:08 Ibuprofen 600 Mg Tablet PO 11/01/23 18:50 600 mg ONCE ONE Administration ORDERS Category Date Time Status Knee XR right 3 views [XR knee RT 3V] Stat Exams 11/01/23 18:49 Completed Medical Decision Narrative: In summary patient is a 27-year-old female with past medical history described above presents emergency department for evaluation of knee pain. Patient is hemodynamically stable nontoxic-appearing upon arrival, afebrile. I suspect that patient has ligamentous or meniscal injury, however fracture cannot be ruled out and workup will be initiated with x-ray. Patient will likely require orthopedic referral and possible MRI. Initial inventions include Tylenol and ibuprofen. X-ray informally interpreted by me, no acute displaced fracture or patellar dislocation. Given this patient was placed in knee brace at bedside and is appropriate for outpatient management will be referred to Dr. Ludwig. Critical Care Critical Care Time Critical Care Time: No
[2023-11-01] MEDS: IBUPROFEN 600 MG TABLET PO (19:08)
[2023-11-01] MEDS: ACETAMINOPHEN 500MG TAB 1000 MG PO (19:08)
--- NOTE | 2023-11-01 19:29 | PC.NURSE ---
rounded on patient, no needs at this time
[2023-11-01 19:46] VITALS: BP 113/62; PULSE 82; RESP 18; TEMP 36.7; O2SAT 97
== END 2023-11-01 19:48 | disposition home or self-care (01) ==
PROVIDERS: Emergency Provider Emergency Medicine; PCP Physician Assistant
DX: M25.561 Pain in right knee (principal); G89.29 Other chronic pain; F17.200 Nicotine dependence, unspecified, uncomplicated
CPT/HCPCS: 73562; 99283

== ENCOUNTER 2023-12-07 13:19 | Emergency (ER) | payer BC, SELFPAY ==
[2023-12-07 13:19] VITALS: BP 133/63; PULSE 84; RESP 18; TEMP 36.8; O2SAT 96; BMI 39.2
[2023-12-07 14:14] LABS: UTC Strep Screen (Rapid) Negative (Negative)
--- NOTE | 2023-12-07 14:31 | EXP.UTC ---
Discharge Plan Disposition Patient Disposition: Home, Self-Care Condition: Good Prescriptions Prescriptions: No Action Caplyta 42 mg capsule See Rx Instructions .ROUTE .COMPLEX Qty: 30 2RF Dose Instruction: TAKE 1 CAPSULE BY MOUTH EVERY DAY Rx Instructions: TAKE 1 CAPSULE BY MOUTH EVERY DAY cholecalciferol (vitamin D3) 125 mcg (5,000 unit) capsule See Rx Instructions .ROUTE .COMPLEX Qty: 30 3RF Dose Instruction: TAKE 1 CAPSULE BY MOUTH EVERY DAY Rx Instructions: TAKE 1 CAPSULE BY MOUTH EVERY DAY ferrous sulfate 324 mg (65 mg iron) tablet,delayed release (DR/EC) 324 mg PO DAILY Qty: 30 2RF methylphenidate HCl [Concerta] 27 mg tablet extended release 24hr 27 mg PO DAILY 30 Days Qty: 30 0RF methylphenidate HCl [Concerta] 27 mg tablet extended release 24hr 27 mg PO DAILY Qty: 30 0RF hydroxyzine pamoate 25 mg capsule See Rx Instructions .ROUTE .COMPLEX Qty: 90 3RF Dose Instruction: TAKE 1 CAPSULE BY MOUTH THREE TIMES A DAY NEEDED FOR ITCHING/ANXIETY/HIVES Rx Instructions: TAKE 1 CAPSULE BY MOUTH THREE TIMES A DAY NEEDED FOR ITCHING/ANXIETY/HIVES trazodone 50 mg tablet See Rx Instructions .ROUTE .COMPLEX Qty: 90 0RF Dose Instruction: TAKE 1 TABLET BY MOUTH EVERY NIGHT AT BEDTIME Rx Instructions: TAKE 1 TABLET BY MOUTH EVERY NIGHT AT BEDTIME meloxicam 7.5 mg tablet 7.5 mg PO DAILY Patient Comments: TAKE 1 TABLET BY MOUTH EVERY DAY FOR PAIN FOR 30 DAYS bumetanide 0.5 mg tablet 0.5 mg PO DAILY Patient Comments: TAKE 1 TABLET BY MOUTH EVERY DAY NEEDED mirtazapine 15 mg tablet 15 mg PO HS Patient Comments: TAKE 1 TABLET BY MOUTH EVERYDAY AT BEDTIME Referrals Follow up/Referrals: Kimberly Avalos PA [Primary Care Provider] - See instructions Activity Restrictions/Add. Instructions Additional Instructions/Restrictions: No sign of a bacterial infection. Likely viral. Viruses can take 7-14 days to run their course. Nasal saline and bulb syringe or nose Verito to remove nasal drainage to help with nasal congestion. Hard to eat, drink, sleep with nasal congestion so important to keep this cleaned out. Monitor temp. Tylenol or Motrin as needed for pain or fever Encourage fluids, water, Gatorade, Powerade, Pedialyte if infant/toddler/child Warm salt water gargles Warm fluids Sore throat lozenges Sleep elevated Humidifier/vaporizer Follow-up immediately for new or worsening symptoms or no noticeable improvement over the next 48-72 hours. Clinical Impressions Clinical Impression: Upper respiratory infection, viral Stand Alone Forms Stand Alone Forms: Work/School Release Instructions Patient Instructions: DI for Viral Upper Respiratory Infection-Child Discharge ED Provider: José ([facility])Karina [facility] [place] HPI General Stated complaint: ear pain, sore throat, fever Mode of Arrival: Ambulatory Source of Information: Patient Time Seen by Provider: 12/07/23 14:31 Description of Symptoms (Recalled from Triage Doc. by RN): ears and throat are hurting HEENT Symptoms (Recalled from RN notes): Yes (hurting in ears) Resp Symptoms (Recalled from RN notes): No Skin Symptoms (Recalled from RN notes): No MS Symptoms (Recalled from RN notes): No Functional Status (Recalled from RN notes): na History of Present Illness Provider Complaint: 27 yr old female presents for congestion, sneezing, cough, ears full and sore throat Related Data Home Medications Medication Instructions Recorded Confirmed bumetanide 0.5 mg tablet 0.5 mg PO DAILY 10/04/23 11/27/23 meloxicam 7.5 mg tablet 7.5 mg PO DAILY 10/04/23 11/27/23 mirtazapine 15 mg tablet 15 mg PO HS 10/04/23 11/27/23 Previous Rx's Medication Instructions Recorded hydroxyzine pamoate 25 mg capsule See Rx Instructions .Route 11/04/23 .COMPLEX #90 caps trazodone 50 mg tablet See Rx Instructions .Route 11/25/23 .COMPLEX #90 tabs cholecalciferol (vitamin D3) 125 See Rx Instructions .Route 11/27/23 mcg (5,000 unit) capsule .COMPLEX #30 caps ferrous sulfate 324 mg (65 mg 324 mg PO DAILY #30 tabs 11/27/23 iron) tablet,delayed release lumateperone 42 mg capsule See Rx Instructions .Route 11/27/23 (Caplyta) .COMPLEX #30 caps methylphenidate HCl 27 mg 27 mg PO DAILY #30 tabs 11/28/23 tablet,extended release 24 hr (Concerta) methylphenidate HCl 27 mg 27 mg PO DAILY 30 days #30 tabs 11/28/23 tablet,extended release 24 hr (Concerta) Allergies Allergy/AdvReac Type Severity Reaction Status Date / Time morphine [MORPHINE] Allergy Unknown HALLUCINATIONS, Verified 11/27/23 13:23 PAIN ATTACKS Worker's Comp Is this a Worker's Comp case?: No [facility] Disclaimer: The information contained in this section may have been updated after the patient was seen, as this information can be updated by other users. 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) History of cholecystectomy Hx of tonsillectomy Hx of section Family History , DIAL REFINISHER) Diabetes Grandfather Cancer Mother Sister Social History , DIAL REFINISHER) Smoking Status: Current every day smoker tobacco type: e-cigarettes alcohol intake: never substance use type: denies use current occupational status: employed Travel in the last 8 weeks: None ROS Obtained: Yes All systems reviewed & no additional complaints except as documented Constitutional Constitutional: Reports system reviewed and no additional complaints, except as documented Eyes Eyes: Reports system reviewed and no additional complaints, except as documented ENT Ears, Nose, Mouth, and Throat: Reports system reviewed and no additional complaints, except as documented, Reports as per HPI, Reports otalgia, Reports nasal congestion, Reports nasal discharge and Reports sore throat Cardiovascular Cardiovascular: Reports system reviewed and no additional complaints, except as documented Respiratory Respiratory: Reports system reviewed and no additional complaints, except as documented Gastrointestinal Gastrointestingal: Reports system reviewed and no additional complaints, except as documented Musculoskeletal Musculoskeletal: Reports system reviewed and no additional complaints, except as documented Integumentary/Breasts Skin/Breast: Reports system reviewed and no additional complaints, except as documented Endocrine Endocrine: Reports system reviewed and no additional complaints, except as documented Hematologic/Lymphatic Henatologic/Lymphatic: Reports system reviewed and no additional complaints, except as documented Allergic/Immunologic Allergic/Immunologic: Reports system reviewed and no additional complaints, except as documented Physical Exam General General appearance: alert and in no apparent distress Head Head exam: atraumatic Eye Eye exam: Present normal appearance and PERRL ENT ENT exam: Present normal exam, normal oropharynx, mucous membranes moist and TM's normal bilaterally Respiratory Respiratory exam: Present normal lung sounds bilaterally Cardiovascular Cardiovascular exam: Present regular rate and normal rhythm Neurological Exam Neurological exam: Present alert and oriented X3 Skin Skin exam: Present warm and intact Medical Decision Making Medical Records Medical records reviewed: Yes I reviewed the patient's medical records. Juan Antonio Inquiry Pt receiving controlled substance: No Juan Antonio was queried for this patient: No Vital Signs: 12/07/23 13:19 Temperature 98.3 F Temperature Source Oral Pulse Rate [Left Radial] 84 Respiratory Rate 18 Blood Pressure [Right Arm] 133/63 Blood Pressure Mean [Right Arm] 86 02 Sat by Pulse Oximetry 96 Oxygen Delivery Method Room Air Lab Data Lab results reviewed: Yes I reviewed the patient's lab results. Lab Results 12/07/23 13:55: Strep Scn Rapid Clinic Negative Orders (Tests/Meds): ORDERS Category Date Time Status Strep Screen Confirmation Stat Micro 12/07/23 13:55 Received
[2023-12-07 15:00] VITALS: BP 133/63; PULSE 84; RESP 18; TEMP 36.8; O2SAT 96
[2023-12-07 15:03] LABS: Adenovirus,PCR Not Detected (NotDetected); Coronavirus 19, PCR Not Detected (NotDetected); Coronavirus 229E Not Detected (NotDetected); Coronavirus NL63 Not Detected (NotDetected); Coronavirus OC43 Not Detected (NotDetected); Coronovirus HKU1,PCR Not Detected (NotDetected); Human Metapneumovirus Not Detected (NotDetected); Influenza A, PCR Not Detected (NotDetected); Influenza AH1, 2009 Not Detected (NotDetected); Influenza AH1, PCR Not Detected (NotDetected); Influenza AH3,PCR Not Detected (NotDetected); Influenza B, PCR Not Detected (NotDetected); Parainfluenza 1, PCR Not Detected (NotDetected); Parainfluenza 2, PCR Not Detected (NotDetected); Parainfluenza 3, PCR Not Detected (NotDetected); Parainfluenza 4, PCR Not Detected (NotDetected); Respiratory Syncytial Virus Not Detected (NotDetected)
[2023-12-07 22:34] LABS: Rhinovirus/Enterovirus Detected (NotDetected)
== END 2023-12-07 15:01 | disposition home or self-care (01) ==
PROVIDERS: Emergency Provider Nurse Practitioner Family; PCP Physician Assistant
DX: R05.9 Cough, unspecified (principal); J06.9 Acute upper respiratory infection, unspecified; B34.9 Viral infection, unspecified; F17.290 Nicotine dependence, other tobacco product, uncomplicated
CPT/HCPCS: 87632; 87635; 87880; 99212; 99214; G0463

== ENCOUNTER 2024-01-22 11:07 | Outpatient (CLI) | payer BC, SELFPAY ==
[2024-01-22 21:49] LABS: Basophils % 0.4 % (0.1-2.0); Eosinophils % 0.2 % (0.1-12.0); Hematocrit 40.5 % (37.0-47.0); Hemoglobin 13.5 g/dL (12.2-16.2); Lymphocytes # 2.2 K/mm3 (0.7-4.5); Lymphocytes % 39.4 % (10-50); Mean Corpuscular HGB Conc 33.4 g/dL (31.8-35.4); Mean Corpuscular Hemoglobin 30.7 pg (27.0-31.2); Mean Corpuscular Volume 91.9 fl (81-99); Mean Platelet Volume 8.6 fl (7.4-10.4); Monocytes # 0.3 K/mm3 (0.1-1.0); Monocytes % 4.8 % (1.7-9.3); Neutrophils % 55.1 % (37.0-80.0); Platelet Count 250 K/mm3 (142-424); Red Cell Distribution Width 13.4 % (11.5-17.5); White Blood Count 5.5 K/mm3 (4.8-10.8)
[2024-01-22 22:01] LABS: Chloride 103 mmol/L (98-107)
[2024-01-22 22:02] LABS: Potassium 4.4 mmoL/L (3.5-5.1); Sodium 139 mmol/L (136-145)
[2024-01-22 22:04] LABS: Alanine Aminotransferase 22 U/L (12-78); Anion Gap 14.4 mEq/L (5-15); Aspartate Amino Transferase 27 U/L (14-36); Blood Urea Nitrogen 9 mg/dl (7-17); Carbon Dioxide 26 mmol/L (22.0-30.0); Cholesterol 179 mg/dl (140-200); Estimated Glomerular Filt Rate 74 ml/min (>60); GFR (African American) 89 ML/MIN (>60); Triglycerides 165 mg/dl (30-150); VLDL Cholesterol 33 mg/dL (0-40)
[2024-01-22 22:05] LABS: Albumin Level 4.5 g/dl (3.5-5.0); Albumin/Globulin Ratio 1.5 (1.1-1.8); Alkaline Phosphatase 74 U/L (38-126); Bilirubin,Total 0.4 mg/dl (0.2-1.3); Calcium 9.7 mg/dl (8.4-10.2); Chol/HDL Ratio 4.5 (1-3.5); Globulin 3.1 g/dL (1.3-3.2); Glucose 85 mg/dl (74-100); HDL Cholesterol 40 mg/dl (40-60); Total Protein,Serum 7.6 g/dl (6.3-8.2)
[2024-01-22 22:11] LABS: C-Reactive Protein 2.1 mg/L (0-4)
[2024-01-22 22:15] LABS: Erythrocyte Sedimentation Rate 16 mm/hr (0-20)
[2024-01-22 22:16] LABS: Direct LDL Cholesterol 100.04 mg/dL (100-129)
[2024-01-22 22:36] LABS: Thyroid Stimulating Hormone 0.68 uIU/mL (0.465-4.68)
[2024-01-24 08:20] LABS: RA Latex Turbid. 11.3 IU/mL (<14.0)
[2024-01-24 14:35] LABS: Anti-Centromere B Antibodies <0.2 AI (0.0-0.9); Anti-DNA (DS) Ab Qn 2 IU/mL (0-9); Anti-Jo-1 <0.2 AI (0.0-0.9); Anti-Smith Antibody <0.2 AI (0.0-0.9); Antichromatin Antibodies <0.2 AI (0.0-0.9); Antiscleroderma-70 Antibodies <0.2 AI (0.0-0.9); RNP Antibodies 0.3 AI (0.0-0.9); Sjogren's Anti-SS-A <0.2 AI (0.0-0.9); Sjogren's Anti-SS-B <0.2 AI (0.0-0.9)
[2024-01-24 18:10] LABS: Anti-Cyclic Citrullinated Pept 7 units (0-19)
== END 2024-01-22 23:59 | disposition home or self-care (01) ==
LOC: LAB.DROPOF 01-23 11:07
PROVIDERS: PCP Physician Assistant; Visit Provider Physician Assistant
DX: M22.41 Chondromalacia patellae, right knee (principal); R63.5 Abnormal weight gain; E55.9 Vitamin D deficiency, unspecified; Z68.38 Body mass index [BMI] 38.0-38.9, adult
CPT/HCPCS: 80050; 80053; 80061; 82306; 84443; 85025; 85651; 86140; 86200; 86225; 86235; 86431

== ENCOUNTER 2024-01-28 15:00 | Outpatient (RCR) | payer BC, SELFPAY ==
--- NOTE | 2023-11-28 16:21 | HMH.PTOPEV ---
PT Outpatient Evaluation Rehab PT Outpatient Evaluation Start: 11/28/23 15:37 Freq: Status: Active Protocol: Document 11/28/23 15:38 JHJENNIFER (Rec: 11/28/23 16:21 RAFA [id number]) E-signed By Baldev Moreno, PT Outpatient Therapy Subjective History Subjective History Pt reports h/o chronic bilateral knee pain for 'years ', with exacerbation over the last ~4 months. Pt also reports significant muscle pain in bilateral LE's from hips to feet for ~6months. ' When I got off work I can hardly walk, hardly get in and out of my car. It's terrible pain.' Pt reports left > right calf pain, as well as left > right thigh pain, and global knee pain with subluxation- type events intermittently mika . w/work-related standing- pivoting type activities. Pt also reports significant muscle weakness as well in bilateral LE's, with rapid decline since 'the beginning of the year.' New diagnosis of cancer in past 12 No months? Chief Complaint Pain,Stiff,Swelling,Weakness Symptom Type Ache,Throb,Sharp,Dull,Stabbing ,Burning Symptoms Relieved By Rest/Positioning Symptoms Aggravated By Standing,Physical Activity, Twisting,Walking Prior Functional Limitations Housework,Standing,Squatting, Walking,Stairs Current Functional Limitations Housework,Standing,Squatting, Walking,Stairs Symptom Description Constant but Variable Level of pain today (0-10) 4 Pain scale - at its best (0-10) 3 Pain scale - at its worst (0-10) 10 Hip/Knee Eval Gait Observation General Gait Pattern Observation Antalgic Gait Assistive Device Assistive Devices None / NA Palpation Tenderness bilateral Knee Palpation Finding Tenderness Knee Palpation Overall Comment 3-4/4 global gastroc,ant tib, quad,hs Hip Palpation Findings Tenderness MMT Hip Flexion Strength Grade 4- Good- Hip Abduction Strength Grade 3+ Fair+ Hip Adduction Strength Grade 4- Good- Hip Extension Strength Grade 3+ Fair+ Hip External Rotation Strength Grade 4- Good- Hip Internal Rotation Strength Grade 4- Good- Knee Extension Strength Grade 4- Good- Knee Flexion Strength Grade 4- Good- ROM right Knee Flexion Active Range of Motion ( 0-100 degrees) Knee ROM Limitations Soft Tissue Tightness,Pain left Knee Flexion Active Range of Motion ( 0-108 degrees) Knee ROM Limitations Soft Tissue Tightness,Pain Special Tests Patella Apprehension Test Positive Left,Positive Right Patellar Grind Test Positive Left,Positive Right Patellar Compression Test Positive Left,Positive Right Ankle/Foot Eval MMT bilateral Ankle Dorsiflexion Strength Grade 4- Good- Ankle Plantarflexion Strength Grade 4- Good- Lower Extremity Functional Index Activities Today, do you or would you have any difficulty at all with: a.Any of your usual work, housework or Moderate difficulty school activities b. Your usual hobbies, recreational or Extreme difficulty or unable sporting activities to perform activity c. Getting into or out of the bath Extreme difficulty or unable to perform activity d. Walking between rooms Moderate difficulty e. Putting on your shoes or socks A little bit of difficulty f. Squatting Extreme difficulty or unable to perform activity g. Lifting an object, like a bag of Moderate difficulty groceries from the floor h. Performing light activities around Moderate difficulty your home i. Performing heavy activities around Extreme difficulty or unable your home to perform activity j. Getting into or out of a car Extreme difficulty or unable to perform activity k. Walking 2 blocks Extreme difficulty or unable to perform activity l. Walking a mile Extreme difficulty or unable to perform activity m. Going up or down 10 stairs (about 1 Extreme difficulty or unable flight of stairs) to perform activity n. Standing for 1 hour Extreme difficulty or unable to perform activity o. Sitting for 1 hour No difficulty p. Running on even ground Extreme difficulty or unable to perform activity q. Running on uneven ground Extreme difficulty or unable to perform activity r. Making sharp turns while running fast Extreme difficulty or unable to perform activity s. Hopping Extreme difficulty or unable to perform activity t. Rolling over in bed Extreme difficulty or unable to perform activity LEFI Score Lower Extremity Functional Index Score 15 Outpatient Therapy Assessment Impairments Problems/Impairmments Palpation Tenderness,Impaired Range of Motion,Impaired Strength,Impaired Gait Pattern ,Impaired Walking,Impaired Standing,Impaired Household Care,Impaired Stair Climbing, Impaired Squatting,Impaired Work Activities,Subjective C/O Pain,Impaired Self Care/Self Management Prognosis Rehab Potential Good Clinical Impression Consistent with Diagnosis Yes Short Term Goals Number of Weeks 4 Decreased Palpation Tenderness Yes: 2-3/4 B/L LE'S Increase Range of Motion Yes: 0-110 B/L KNEE AROM FLX Increase Strength Yes: 4/5 B/L LE MM Increase Ability to Walk Yes: 30MIN Increase Ability to Stand Yes: 30MIN Improve Ability For Household Care Yes: 30MIN Improve LEFI Score Yes: 30-40 Decrease Subjective C/O Pain Yes: 3-4/10 W/ABOVE ACTIVITIES Patient to be Ind w/ HEP Yes Jail Goals Number of Weeks 8-10 Decreased Palpation Tenderness Yes: 0-1/4 B/L LE'S Increase Range of Motion Yes: 0-120 B/L KNEE FLX AROM Increase Strength Yes: 4+-5/5 B/L LE'S Improve Gait Pattern without Assistive Yes: WFL Device Increase Ability to Walk Yes: 60MIN Increase Ability to Stand Yes: 60MIN Improve Ability For Household Care Yes: 60MIN Improve Ability to Climb Stairs Yes: WFL Improve Ability to Squat Yes: WFL Improve Tolerance to Work Activities Yes: WFL FULL-DUTY Improve LEFI Score Yes: 45-50 Decrease Subjective C/O Pain Yes: 0-2/10 W/ABOVE ACTIVITIES Patient to be Ind w/ Advanced HEP Yes Outpatient Therapy Plan of Care Treatment Plan May Include Therapeutic Exercise Including Home Yes Exercise Program Manual Therapy Techniques Yes Neuromuscular Re-education Yes Therapeutic Activities to Return to Yes Previous Functional/Work Level Gait Training Yes ADL/Self Care Education Yes Dry Needling Yes Thermal Modalities Yes Electrical Stimulation Yes Ultrasound/Phonophoresis Yes Iontophoresis Yes Orthotics/Bracing/Splinting Yes Vasopneumatic Compression Pump Yes Manual Lymphatic Drainage Yes Eval/Re-Eval Yes Frequency Times per week 2-3 Duration Number of Weeks 8-10 Addendums This patient is a candidate for social No or vocational rehab? Patient/Guardian verbally acknowledges Yes understanding of treatment program and consents to further treatment? Patient/Guardian verbally acknowledges Yes understanding of diagnosis, prognosis and goals for treatment? Eval Complexity PT Charges 85086 - High Complexity Shoulder/Elbow Eval Shoulder Objective Measurements Elbow Objective Measurements PHYSICIAN CERTIFICATION: I certify the specified therapy services for Karlene Martinez are required, authorized, and reviewed every 30 days.
--- NOTE | 2024-01-14 15:53 | HMH.RHREAS ---
Rehab Reassessment Rehab OP Re-assessment Start: 11/28/23 15:37 Freq: Status: Active Protocol: Document 01/14/24 15:00 RAFA (Rec: 01/14/24 15:53 [employer] Laptop) E-signed By Baldev Moreno, PT Lower Extremity Functional Index Activities Today, do you or would you have any difficulty at all with: a.Any of your usual work, housework or A little bit of difficulty school activities b. Your usual hobbies, recreational or A little bit of difficulty sporting activities c. Getting into or out of the bath Quite a bit of difficulty d. Walking between rooms Moderate difficulty e. Putting on your shoes or socks No difficulty f. Squatting Moderate difficulty g. Lifting an object, like a bag of Moderate difficulty groceries from the floor h. Performing light activities around Moderate difficulty your home i. Performing heavy activities around Quite a bit of difficulty your home j. Getting into or out of a car Moderate difficulty k. Walking 2 blocks A little bit of difficulty l. Walking a mile Quite a bit of difficulty m. Going up or down 10 stairs (about 1 Quite a bit of difficulty flight of stairs) n. Standing for 1 hour A little bit of difficulty o. Sitting for 1 hour A little bit of difficulty p. Running on even ground Quite a bit of difficulty q. Running on uneven ground Quite a bit of difficulty r. Making sharp turns while running fast Quite a bit of difficulty s. Hopping Quite a bit of difficulty t. Rolling over in bed Extreme difficulty or unable to perform activity LEFI Score Lower Extremity Functional Index Score 37 Rehab Re-assessment Subjective Subjective Pt reports improved globally overall related to LE s/s, 'I don't have any issues in the left leg, it's just the right now.' Pt reports 3-4/10 right knee pain, and reports 'it feels like it's sorta out of alignment. It's all around the kneecap area.' Objective Objective Notes LEF 37 VS 15 ON I EVAL MMT: LEFT HIP ABD 4-4+/5, R HIP ABD 4+/5, B/L HIP ADD 4+-5 /5, B/L HIP IR,ER 4+-5/5, B/L KNEE FLX,EXT 5/5, B/L DF 5/5 TTP: right GASTROC 3/4, left GASTROC 1-2/4, right KNEE MEDIAL JT LINE 1/4, R KNEE LATERAL JT LINE 14 SPECIAL TESTS: right KNEE PATELLAR COMPRESSION/grind +, right KNEE PATELLAR APPREHENSION + GAIT: WFL ON LEVEL TERRAIN AROM: LEFT KNEE 0-114, RIGHT KNEE 0-98 W/PAIN Assessment Progress Assessment Progressing as Expected Assessment Notes improved left knee AROM, bilateral LE strength, gait, and LEF Patient goals met STG'S 03/20 LTG'S 09/24 Goals Not Met STG'S 08/20, LTG'S 06/24 Plan Plan Pt to continue w/skilled P.T. to make further improvements in bilateral LE/knee ROM, strength, TTP and gait to allow for optimal function Frequency of Therapy 1-2x/wk Duration of therapy 4-6wks Time and Billing Re-Eval Time 12 Re-Eval Billing Units 1 PHYSICIAN CERTIFICATION: I certify the specified therapy services for Karlene Martinez are required, authorized, and reviewed every 30 days.
== END 2024-01-28 16:30 | disposition home or self-care (01) ==
LOC: PT 15:00
PROVIDERS: Visit Provider Orthopaedic Surgery
DX: M25.562 Pain in left knee (principal); M25.561 Pain in right knee
CPT/HCPCS: 97010; 97014; 97110; 97163; 97164; G0283

== ENCOUNTER 2024-11-10 12:35 | Outpatient (CLI) | payer MEDICAID, SELFPAY ==
--- NOTE | 2024-11-10 12:38 | MR_ITS ---
FINAL REPORT TECHNIQUE: Multiplanar MR left knee without contrast CLINICAL HISTORY: INSTABILITY LT KNEE while going up steps lateral sided knee pain no injury FINDINGS: Articular cartilage: No focal defect Marrow signal: No evidence of bone contusion or fracture. Joint fluid: Small Menisci: Normal morphology without tear Ligaments: Collateral, cruciate and patellofemoral ligaments intact Tendons: Quadriceps and patellar tendon normal IMPRESSION: No meniscal or ligamentous injury. Reviewed, Interpreted and Dictated by Ирина Ramey MD Transcribed by Cheryl Feliciano Authenticated and [facility]
== END 2024-11-10 23:59 | disposition home or self-care (01) ==
LOC: RAD 12:36
PROVIDERS: PCP Physician Assistant; Visit Provider Physician Assistant
DX: M25.362 Other instability, left knee (principal); M25.562 Pain in left knee
CPT/HCPCS: 73721

== ENCOUNTER 2025-05-26 11:30 | Observation (INO) | payer MEDICAID, SELFPAY ==
[2025-05-26] VITALS (11 sets, daily range): BP systolic 105–163; BP diastolic 56–85; PULSE 78–102; RESP 13–21; TEMP 36.7–37.1; O2SAT 95–99; BMI 39.5; BMI 39.6
--- NOTE | 2025-05-26 11:35 | ED_ITS ---
<Statement entered by Mel Meneses DO - 05/26/25 15:17> I was consulted by the VINNIE, and we discussed the complexity of problems being addressed. I approved the treatment plan and management plan of this patient's care in the emergency department, thus performing a substantive portion of medical decision making. Mel Meneses DO Discharge Plan Disposition Patient Disposition: Admitted Condition: Fair Clinical Impressions Clinical Impression: Pericarditis, Myocarditis Discharge ED Provider: Mel Meneses General Adult HPI <TANK Restrepo - Last Filed: 05/26/25 14:50> General Chief complaint: Upper Respiratory Infection Stated complaint: Pain in lungs, Time Seen by Provider: 05/26/25 11:32 Mode of Arrival: Ambulatory Source of Information: Patient Limitations: No Limitations History of Present Illness HPI narrative: 29-year-old female presents emergency department with subjective fever chills, cough, congestion, shortness of air for the last 1 week, pleuritic chest pain,/ chest congestion , lung pain , for the last 2 days, patient also admits to nausea no abdominal pain, no constipation no diarrhea no melena no hematochezia no hematemesis or hemoptysis, patient denies any urinary type symptomatology, patient denies any alcohol tobacco or drug use, other past medical history is consistent with ARISTIDES, MDD, bipolar disorder, ADHD. Initial triage vitals notable for tachycardia otherwise unremarkable. Patient states I think I have a upper respiratory infection it happens to me every time this year . Please note that above description of symptoms, in this electronic medical record under categorization of recalled from ER triage doctor by RN are reflective of an initial nursing assessment, however, is not reflective of my full history and physical exam that was personally taken and clarified. Consequentially, this preceding description of symptoms, which may include the patient's categorized chief complaint in the EMR, do not reflect my personal clinical impression, and the ultimate description of history of present illness and patient stated complaints should be deferred to this section of the note. Unless stated otherwise or congruent with this section of the note, additional signs, symptoms, or incongruence should be interpreted as inaccurate with my clinical impression. Onset (ago): week(s) Related Data Home Medications ?Medication ?Instructions ?Recorded ?Confirmed ferrous sulfate 325 mg (65 mg 325 mg PO DAILY 10/15/24 05/26/25 iron) tablet mirtazapine 30 mg tablet 30 mg PO HS 10/15/24 5 cholecalciferol (vitamin D3) 125 125 mcg PO DAILY 05/1205/26/25 mcg (5,000 unit) capsule desvenlafaxine succinate 50 mg 50 mg PO DAILY 05/26/25 05/26/25 tablet,extended release 24 hr ergocalciferol (vitamin D2) 1,250 1,250 mcg PO WEEKLY 05/26/25 05/26/25 mcg (50,000 unit) capsule hydroxyzine pamoate 25 mg capsule 25 mg PO QIDP PRN An xiety 05/26/25 05/26/25 levocetirizine 5 mg tablet 5 mg PO DAILY 05/26/2505/12 lumateperone 42 mg capsule 42 mg PO DAILY 05/26/25 (Caplyta) sumatriptan succinate 100 mg tablet 100 mg PO DAILYP P RN Migraine 05/26/25 05/26/25 Headache Allergies Allergy/AdvReac Type Severity Reaction Status Date / Time morphine (MORPHINE) Allergy Unknown HALLUCINATIONS, Verified 05/13/25 15:00 PAIN ATTACKS [facility] <TANK Restrepo - Last Filed: 05/26/25 14:50> [facility] Disclaimer: The information contained in this section may have been updated after the patient was seen, as this information can be updated by other users. 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 No significant past medical history Surgical History History of cholecystectomy Hx of tonsillectomy Hx of section Family History Mother Cancer thyroid Sister Cancer thyroid Grandfather Diabetes Social History Smoking Status: Current every day smoker tobacco type: e-cigarettes alcohol intake: never substance use type: denies use current occupational status: employed Travel in the last 8 weeks?: None Have you lived/traveled outside [place] in past 30 days?: No Contact w/someone who lives/traveled outside US past 30 days?: No Exposure to someone with infectious disease in past 14 days?: No Do you have a fever (greater than 100.4 F or 38 C)?: No Have you tested positive for COVID-19?: No Exposed to someone with COVID-19 in past 14 days?: No Do you have a sore throat?: No Do you have a cough?: No Do you have any weakness?: No Do you have any diarrhea?: No Are you experiencing any unusual bleeding?: No Do you have any muscle aches/pain?: No Do you have any abdominal pain?: No Are you experiencing loss of taste or smell?: No Other 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 Have you received the Flu Vaccine for this season: No Have you received the Pneumonia Vaccine: No <TANK Restrepo - Last Filed: 05/26/25 14:50> ROS Obtained: Yes All systems reviewed & no additional complaints except as documented Physical Exam <TANK Restrepo - Last Filed: 05/26/25 14:50> General General appearance: alert and in no apparent distress Head Head exam: atraumatic and normocephalic Eye Eye exam: Present PERRL and EOMI ENT ENT exam: Present mucous membranes moist Neck Neck exam: Present normal inspection Chest Chest inspection: Present normal inspection and symmetric chest wall rise Respiratory Respiratory exam: Present normal lung sounds bilaterally; Absent respiratory distress or wheezes Cardiovascular Cardiovascular exam: Present regular rate and normal rhythm Abdominal Exam Abdominal exam: Present soft; Absent tenderness, guarding, rebound or rigidity Extremities Exam Extremities exam: Present normal inspection Neurological Exam Neurological exam: Present alert and oriented X3 Psychiatric Psychiatric exam: Present normal affect Skin Skin exam: Present warm and dry Medical Decision Making <TANK Restrepo - Last Filed: 05/26/25 14:50> Medical Records Medical records reviewed: Yes I reviewed the patient's medical records. Screening: Per USPSTF and CDC recommendations, given the prevalence of disease in our region, it is our hospital?s policy to screen for HIV and viral Hepatitis for all patients aged 18 and over and those with ongoing risk factors. Juan Antonio Inquiry Pt receiving controlled substance: No Juan Antonio was queried for this patient: No Vital Signs: 05/26/25 11:36 05/26/25 12:31 05/26/25 13:00 Temperature 98.5 F Temperature Source Oral Pulse Rate 86 Pulse Rate [Radial] 102 H Respiratory Rate 18 14 20 Blood Pressure 105/56 L 128/67 Blood Pressure [Right Arm] 130/85 Blood Pressure Mean [Right Arm] 100 Blood Pressure Source [Right Arm] Automatic Cuff Blood Pressure Position [Right Arm] Sitting 02 Sat by Pulse Oximetry 97 97 Oxygen Delivery Method Room Air 05/26/25 13:17 05/26/25 13:30 05/26/25 14:00 Temperature Temperature Source Pulse Rate 93 H 87 87 Pulse Rate [Radial] Respiratory Rate 20 21 13 Blood Pressure 128/67 126/74 120/71 Blood Pressure [Right Arm] Blood Pressure Mean [Right Arm] Blood Pressure Source [Right Arm] Blood Pressure Position [Right Arm] 02 Sat by Pulse Oximetry 96 97 95 Oxygen Delivery Method 05/26/25 14:44 Temperature 98.3 F Temperature Source Oral Pulse Rate Pulse Rate [Radial] 98 H Respiratory Rate 20 Blood Pressure Blood Pressure [Right Arm] 133/67 Blood Pressure Mean [Right Arm] 89 Blood Pressure Source [Right Arm] Automatic Cuff Blood Pressure Position [Right Arm] Supine 02 Sat by Pulse Oximetry 98 Oxygen Delivery Method Room Air Lab Data Lab results reviewed: Yes I reviewed the patient's lab results. Lab Results 05/26/25 11:36: Chlamy pneumoniae PCR Not detected, Adenovirus (PCR) Not detected, B. pertussis DNA (PCR) Not detected, Coronavirus OC43 (PCR) Not detected, Coronavirus HKU1 (PCR) Not detected, Coronavirus 229E (PCR) Not detected, SARS-CoV-2 (PCR) Not detected 05/26/25 11:36: SARS-CoV-2 (PCR) Not detected, Coronavirus NL63 (PCR) Not detected, Human Metapneumovir PCR Not detected, Influenza A (H1) PCR Not detected, Influ A (H1N1/09) PCR Not detected, Influenza A (H3) PCR Not detected, Influenza Type A (PCR) Not detected 05/26/25 11:36: Influenza Type A (PCR) Not detected, Influenza Type B (PCR) Not detected 05/26/25 11:36: Influenza Type B (PCR) Not detected, M. pneumoniae (PCR) Not detected, Parainfluenza 1 (PCR) Not detected, Parainfluenza 2 (PCR) Not detected, Parainfluenza 3 (PCR) Not detected, Parainfluenza 4 (PCR) Not detected, RSV (PCR) Not detected 05/26/25 11:36: RSV (PCR) Not detected, Rhinovirus (PCR) Not detected, Entero/Rhino (PCR) Not detected 05/26/25 11:53: WBC 6.8, RBC 4.21, Hgb 12.9, Hct 37.2, MCV 88.4, MCH 30.6, MCHC 34.7, RDW 12.4, Plt Count 218, MPV 9.6, Neut % (Auto) 65.2, Lymph % (Auto) 24.6, Lyon % (Auto) 9.5 H, Eos % (Auto) 0.0 L, Baso % (Auto) 0.3, Neut # (Auto) 4.4, Lymph # (Auto) 1.7, Lyon # (Auto) 0.7, Eos # (Auto) 0.0, Baso # (Auto) 0.0, S odium 133 L, Potassium 3.5, Chloride 98, Carbon Dioxide 27, Anion Gap 11.5, BUN 6 L, Creatinine 0.80, Estimated Creat Clear 179, Estimated GFR 84, Est GFR ( Amer) 101, Glucose 96, Calcium 8.4, Magnesium 1.9, Total Bilirubin 1.0, AST 29, ALT 22, Alkaline Phosphatase 98, Troponin I 0.59 H, NT-Pro-B Natriuret Pep 24.0, Total Protein 7.6, Albumin 4.2, Globulin 3.4 H, Albumin/Globulin Ratio 1.2, Serum HCG, Qual Negative, HCV Ab KIMBERLI w/Rflx PCR Qn Negative, HIV Ag/Ab Combo Qual Negative 05/26/25 12:56: Troponin I 0.80 H 05/26/25 11:53 05/26/25 11:53 Orders (Tests/Meds): ED MEDICATIONS Generic Name Dose Route Start Last Admin Trade Name Freq PRN Reason Stop Dose Admin Acetaminophen 650 mg 05/26/25 14:01 Acetaminophen 325mg Tab PO 06/25/25 14:00 Q4HP PRN Fever or Mild Pain (1-3) Heparin Sodium (Porcine) 5,000 unit 05/26/25 21:00 Heparin Sodium 5,000 Unit/Ml Vial SUBCUT 06/25/25 20:59 TID CECILIA Ondansetron HCl 4 mg 05/26/25 14:01 Ondansetron 4mg/2ml Vial IV 06/25/25 14:00 Q8HP PRN Nausea Discontinued Medications Generic Name Dose Route Start Last Admin Trade Name Freq PRN Reason Stop Dose Admin Acetaminophen 500 mg 05/26/25 12:32 05/26/25 12:35 Acetaminophen 500mg Tab PO 05/26/25 12:33 500 mg ONCE ONE Administration Iopamidol 85 ml 05/26/25 13:10 05/26/25 13:11 Iopamidol-370 (76%);100ml Bottle IV 05/26/25 13:11 85 ml ONCE ONE Administration Sodium Chloride 50 ml 05/26/25 13:10 05/26/25 13:11 0.9 % Sodium Chloride 50 Ml Vial IV 05/26/25 13:11 50 ml ONCE ONE Administration Sodium Chloride 10 ml 05/26/25 13:10 05/26/25 13:11 Sodium Chloride 0.9% 10ml Syr (Rad Only) IV 05/26/25 13:11 10 ml ONCE ONE Administration ORDERS Category Date Time Status CT angio chest PE protocol Stat Cat Scan 05/26/25 12:51 Completed Cardiology Consult [Consult to Cardiology] [CONS] Cons 05/26/25 14:01 Active Routine POCUS Point of Care (ER Only) Stat Exams 05/26/25 12:53 Taken XR chest portable Stat Exams 05/26/25 11:41 Completed CRP [C-Reactive Protein] Stat Lab 05/26/25 11:53 Received Complete Blood Count Auto Diff AMLAB Lab 05/27/25 06:00 Ordered Complete Blood Count Auto Diff AMLAB Lab 05/28/25 06:00 Ordered Complete Blood Count Auto Diff AMLAB Lab 05/29/25 06:00 Ordered Complete Blood Count Auto Diff Stat Lab 05/26/25 11:53 Completed Comprehensive Metabolic Panel AMLAB Lab 05/27/25 06:00 Ordered Comprehensive Metabolic Panel AMLAB Lab 05/28/25 06:00 Ordered Comprehensive Metabolic Panel AMLAB Lab 05/29/25 06:00 Ordered Comprehensive Metabolic Panel Stat Lab 05/26/25 11:53 Completed Full Resp Panel w/COVID ([facility]) Routine Lab 05/26/25 11:36 Completed HCG Qualitative, Serum Stat Lab 05/26/25 11:53 Completed HIV Combo Stat Lab 05/26/25 11:53 Completed Hepatitis C Ab Qual. W/ RFX Stat Lab 05/26/25 11:53 Completed Lipid Panel AMLAB Lab 05/27/25 06:00 Ordered Magnesium AMLAB Lab 05/27/25 06:00 Ordered Magnesium Stat Lab 05/26/25 11:53 Completed Mini Respiratory Panel Stat Lab 05/26/25 11:36 Completed NT Pro Brain Natriuretic Pep. Stat Lab 05/26/25 11:53 Completed Prothrombin Time INR Routine Lab 05/26/25 11:53 Received Trop I [Troponin I] Stat Lab 05/26/25 12:56 Completed Troponin I Q3H Lab 05/26/25 14:45 Ordered Troponin I Q3H Lab 05/26/25 17:45 Ordered Troponin I Stat Lab 05/26/25 11:53 Completed CA echo doppler complete Stat Y 05/26/25 13:33 Completed ECG Request NEEDED Y 05/26/25 14:01 Ordered Medical Decision Narrative: 29-year-old female presents emergency department with shortness of air, cough congestion fever chills, for 1 week, for the last 2 days chest tightness, differential diagnosis to include but not limited to, bronchitis, viral URI, pneumonia, pleurisy, costochondritis, cardiac arrhythmia, electrolyte disturbance, among others. I discussed this patient's case with the attending physician Dr. Meneses she saw and examined the patient as well Will obtain basic laboratory studies, hCG qualitative, magnesium level, mini respiratory panel, proBNP, troponin, CXR and EKG, will give 4 mg IV Zofran for nausea. CBC unremarkable Complaining of headache and will give 500 mg p.o. Tylenol for headache. hCG qualitative negative Hyponatremia is noted at 133 on CMP, otherwise unremarkable CMP proBNP within normal limits Initial troponin is elevated at 0.59, however unsure of validity, as patient's EKG was reviewed by myself and the attending physician and shows no ischemic changes, will obtain repeat troponin as well as CTA chest PE protocol with and without contrast. [id number] cardiac ultrasound performed with elevated troponin and chest pain limited Cardiac Ultrasound Indication: Chest pain Identified cardiac views: -Cardiac parasternal long axis -Cardiac parasternal short axis Findings: -Cardiac activity present -Gross wall motion normal -Pericardial effusion absent -Right heart strain absent Impression: - From above Images were saved/were not saved to permanent archive The study was/was not technically adequate Performed by Mel Meneses DO CPT: 07812 This study was performed by me, and I personally interpreted all images/videos. Based on my clinical judgement, these images were adequate/inadequate and did/did not necessitate further imaging. Mini respiratory panel is negative for COVID influenza RSV and rhinovirus, will expand to full respiratory panel. Repeat troponin is 0.81 which is elevated from previous. I discussed this patient's case with the on-call operations general agent Dr. Zambrano at approximately 1:30 PM, he reviewed the patient's EKGs, he believes the patient may have a david-/myocarditis, he recommends formal echocardiogram and admission to the hospital for serial troponins and to make sure the patient does not progress to fulminant myocarditis. Discussed this patient's case with Chanda Monique APRN the hospitalist service at approximately 1:45 PM pericarditis/myocarditis with serial troponins and formal echocardiogram with cardiology consultation. I did discuss that CTA formal radiology report is pending. However, per zenaida and the attending physician review, no large pulmonary embolism. I discussed need for admission with the patient at the bedside she is in agreement with current admission plan/treatment plan. I reviewed the patient's chest x-ray along the corresponding radiologic report, no acute process on portable exam. I reviewed the patient's CTA chest with and without contrast PE protocol, along the corresponding radiologic report, enlarged subcarinal and left hilar lymph nodes are present as described above, consider follow-up CT chest to reevaluate adenopathy mixed density nodule opacity in the superior segment of the left lower lobe favored infectious or inflammatory no evidence of pulmonary embolism aortic dissection. <Mel Meneses, DO - Last Filed: 05/26/25 13:19> Vital Signs: 05/26/25 11:36 05/26/25 12:31 05/26/25 13:00 Temperature 98.5 F Temperature Source Oral Pulse Rate 86 Pulse Rate [Radial] 102 H Respiratory Rate 18 14 20 Blood Pressure 105/56 L 128/67 Blood Pressure [Right Arm] 130/85 Blood Pressure Mean [Right Arm] 100 Blood Pressure Source [Right Arm] Automatic Cuff Blood Pressure Position [Right Arm] Sitting 02 Sat by Pulse Oximetry 97 97 Oxygen Delivery Method Room Air 05/26/25 13:17 05/26/25 13:30 05/26/25 14:00 Temperature Temperature Source Pulse Rate 93 H 87 87 Pulse Rate [Radial] Respiratory Rate 20 21 13 Blood Pressure 128/67 126/74 120/71 Blood Pressure [Right Arm] Blood Pressure Mean [Right Arm] Blood Pressure Source [Right Arm] Blood Pressure Position [Right Arm] 02 Sat by Pulse Oximetry 96 97 95 Oxygen Delivery Method 05/26/25 14:44 Temperature 98.3 F Temperature Source Oral Pulse Rate Pulse Rate [Radial] 98 H Respiratory Rate 20 Blood Pressure Blood Pressure [Right Arm] 133/67 Blood Pressure Mean [Right Arm] 89 Blood Pressure Source [Right Arm] Automatic Cuff Blood Pressure Position [Right Arm] Supine 02 Sat by Pulse Oximetry 98 Oxygen Delivery Method Room Air Lab Data Lab Results 05/26/25 11:36: Chlamy pneumoniae PCR Not detected, Adenovirus (PCR) Not detected, B. pertussis DNA (PCR) Not detected, Coronavirus OC43 (PCR) Not detected, Coronavirus HKU1 (PCR) Not detected, Coronavirus 229E (PCR) Not detected, SARS-CoV-2 (PCR) Not detected 05/26/25 11:36: SARS-CoV-2 (PCR) Not detected, Coronavirus NL63 (PCR) Not detected, Human Metapneumovir PCR Not detected, Influenza A (H1) PCR Not detected, Influ A (H1N1/09) PCR Not detected, Influenza A (H3) PCR Not detected, Influenza Type A (PCR) Not detected 05/26/25 11:36: Influenza Type A (PCR) Not detected, Influenza Type B (PCR) Not detected 05/26/25 11:36: Influenza Type B (PCR) Not detected, M. pneumoniae (PCR) Not detected, Parainfluenza 1 (PCR) Not detected, Parainfluenza 2 (PCR) Not detected, Parainfluenza 3 (PCR) Not detected, Parainfluenza 4 (PCR) Not detected, RSV (PCR) Not detected 05/26/25 11:36: RSV (PCR) Not detected, Rhinovirus (PCR) Not detected, Entero/Rhino (PCR) Not detected 05/26/25 11:53: WBC 6.8, RBC 4.21, Hgb 12.9, Hct 37.2, MCV 88.4, MCH 30.6, MCHC 34.7, RDW 12.4, Plt Count 218, MPV 9.6, Neut % (Auto) 65.2, Lymph % (Auto) 24.6, Lyon % (Auto) 9.5 H, Eos % (Auto) 0.0 L, Baso % (Auto) 0.3, Neut # (Auto) 4.4, Lymph # (Auto) 1.7, Lyon # (Auto) 0.7, Eos # (Auto) 0.0, Baso # (Auto) 0.0, S odium 133 L, Potassium 3.5, Chloride 98, Carbon Dioxide 27, Anion Gap 11.5, BUN 6 L, Creatinine 0.80, Estimated Creat Clear 179, Estimated GFR 84, Est GFR ( Amer) 101, Glucose 96, Calcium 8.4, Magnesium 1.9, Total Bilirubin 1.0, AST 29, ALT 22, Alkaline Phosphatase 98, Troponin I 0.59 H, NT-Pro-B Natriuret Pep 24.0, Total Protein 7.6, Albumin 4.2, Globulin 3.4 H, Albumin/Globulin Ratio 1.2, Serum HCG, Qual Negative, HCV Ab KIMBERLI w/Rflx PCR Qn Negative, HIV Ag/Ab Combo Qual Negative 05/26/25 12:56: Troponin I 0.80 H Orders (Tests/Meds): ED MEDICATIONS Generic Name Dose Route Start Last Admin Trade Name Freq PRN Reason Stop Dose Admin Acetaminophen 650 mg 05/26/25 14:01 Acetaminophen 325mg Tab PO 06/25/25 14:00 Q4HP PRN Fever or Mild Pain (1-3) Heparin Sodium (Porcine) 5,000 unit 05/26/25 21:00 Heparin Sodium 5,000 Unit/Ml Vial SUBCUT 06/25/25 20:59 TID CECILIA Ondansetron HCl 4 mg 05/26/25 14:01 Ondansetron 4mg/2ml Vial IV 06/25/25 14:00 Q8HP PRN Nausea Discontinued Medications Generic Name Dose Route Start Last Admin Trade Name Freq PRN Reason Stop Dose Admin Acetaminophen 500 mg 05/26/25 12:32 05/26/25 12:35 Acetaminophen 500mg Tab PO 05/26/25 12:33 500 mg ONCE ONE Administration Iopamidol 85 ml 05/26/25 13:10 05/26/25 13:11 Iopamidol-370 (76%);100ml Bottle IV 05/26/25 13:11 85 ml ONCE ONE Administration Sodium Chloride 50 ml 05/26/25 13:10 05/26/25 13:11 0.9 % Sodium Chloride 50 Ml Vial IV 05/26/25 13:11 50 ml ONCE ONE Administration Sodium Chloride 10 ml 05/26/25 13:10 05/26/25 13:11 Sodium Chloride 0.9% 10ml Syr (Rad Only) IV 05/26/25 13:11 10 ml ONCE ONE Administration ORDERS Category Date Time Status CT angio chest PE protocol Stat Cat Scan 05/26/25 12:51 Completed Cardiology Consult [Consult to Cardiology] [CONS] Cons 05/26/25 14:01 Active Routine POCUS Point of Care (ER Only) Stat Exams 05/26/25 12:53 Taken XR chest portable Stat Exams 05/26/25 11:41 Completed CRP [C-Reactive Protein] Stat Lab 05/26/25 11:53 Received Complete Blood Count Auto Diff AMLAB Lab 05/27/25 06:00 Ordered Complete Blood Count Auto Diff AMLAB Lab 05/28/25 06:00 Ordered Complete Blood Count Auto Diff AMLAB Lab 05/29/25 06:00 Ordered Complete Blood Count Auto Diff Stat Lab 05/26/25 11:53 Completed Comprehensive Metabolic Panel AMLAB Lab 05/27/25 06:00 Ordered Comprehensive Metabolic Panel AMLAB Lab 05/28/25 06:00 Ordered Comprehensive Metabolic Panel AMLAB Lab 05/29/25 06:00 Ordered Comprehensive Metabolic Panel Stat Lab 05/26/25 11:53 Completed Full Resp Panel w/COVID ([facility]) Routine Lab 05/26/25 11:36 Completed HCG Qualitative, Serum Stat Lab 05/26/25 11:53 Completed HIV Combo Stat Lab 05/26/25 11:53 Completed Hepatitis C Ab Qual. W/ RFX Stat Lab 05/26/25 11:53 Completed Lipid Panel AMLAB Lab 05/27/25 06:00 Ordered Magnesium AMLAB Lab 05/27/25 06:00 Ordered Magnesium Stat Lab 05/26/25 11:53 Completed Mini Respiratory Panel Stat Lab 05/26/25 11:36 Completed NT Pro Brain Natriuretic Pep. Stat Lab 05/26/25 11:53 Completed Prothrombin Time INR Routine Lab 05/26/25 11:53 Received Trop I [Troponin I] Stat Lab 05/26/25 12:56 Completed Troponin I Q3H Lab 05/26/25 14:45 Ordered Troponin I Q3H Lab 05/26/25 17:45 Ordered Troponin I Stat Lab 05/26/25 11:53 Completed CA echo doppler complete Stat Y 05/26/25 13:33 Completed ECG Request NEEDED Y 05/26/25 14:01 Ordered ECG Data Tracing #1: I reviewed this ECG and interpreted as documented below: EKG shows normal sinus rhythm at a rate of 87. Normal MD, QRS, and QTc intervals. Normal axis. No acute ST elevations or signs of acute subendocardial or transmural ischemia. Interpreted by Mel Dominguez DO Tracing #2: I reviewed this ECG and interpreted as documented below: EKG shows normal sinus rhythm at a rate of 82. Normal MD, QRS, and QTc intervals. Normal axis. No acute ST elevations or signs of acute subendocardial or transmural ischemia. No dynamic changes in comparison to first. Medical Decision Narrative: 29-year-old female presents emergency department with shortness of air, cough congestion fever chills, for 1 week, for the last 2 days chest tightness, differential diagnosis to include but not limited to, bronchitis, viral URI, pneumonia, pleurisy, costochondritis, cardiac arrhythmia, electrolyte disturbance, among others. I discussed this patient's case with the attending physician Dr. Meneses Will obtain basic laboratory studies, hCG qualitative, magnesium level, mini respiratory panel, proBNP, troponin, CXR and EKG, will give 4 mg IV Zofran for nausea, will obtain D-dimer because patient is Wells criteria negative. CBC unremarkable Complaining of headache and will give 500 mg p.o. Tylenol for headache. hCG qualitative negative Hyponatremia is noted at 133 on CMP, otherwise unremarkable CMP proBNP within normal limits Initial troponin is elevated at 0.59, however unsure of validity, as patient's EKG was reviewed by myself and the attending physician and shows no ischemic changes, will obtain repeat troponin as well as CTA chest PE protocol with and without contrast. [id number] cardiac ultrasound performed with elevated troponin and chest pain limited Cardiac Ultrasound Indication: Chest pain Identified cardiac views: -Cardiac parasternal long axis -Cardiac parasternal short axis Findings: -Cardiac activity present -Gross wall motion normal -Pericardial effusion absent -Right heart strain absent Impression: - From above Images were saved/were not saved to permanent archive The study was/was not technically adequate Performed by Mel Meneses DO CPT: 84780 This study was performed by me, and I personally interpreted all images/videos. Based on my clinical judgement, these images were adequate/inadequate and did/did not necessitate further imaging. Critical Care <TANK Restrepo - Last Filed: 05/26/25 14:50> Critical Care Time Critical Care Time: No
--- OUTSIDE RECORDS SUMMARY | 2025-05-26 11:37 | XMS_ITS | Clinical Summary ---
Author Organization Healthcare Address [address] [id number] Care Team Providers Care Cylindrical Mixer Name Role Phone Pcp, No Primary Care Provider Unavailabl e Allergies No known active allergies Medications Adderall XR 10 MG 24 hr capsule Take by mouth 1 (one) time each day. 07/12/2022 Active bumetanide (Bumex) 0.5 MG tablet Take 1 tablet (0.5 mg) by mouth 1 (one) time each day. 03/12/2023 Active Vitamin D3 1.25 MG (80356 UT) capsule TAKE 1 CAPSULE BY MOUTH ONCE WEEKLY. ALSO GET OTC VITAMIN D 200003/22/2023 Active furosemide (Lasix) 20 MG tablet Take 1 tablet (20 mg) by mouth 1 (one) time each day. 02/01/2023 Active hydrOXYzine pamoate (Vistaril) 25 MG capsule TAKE 1 CAPSULE BY MOUTH THREE TIMES A DAY NEEDED FOR ITCHING/ANXIE TY/HIVES 02/13/2023 Active Caplyta 21 MG capsule Take 1 tablet by mouth 1 (one) time each day. 03/22/2023 Active rOPINIRole (Requip) 0.25 MG tablet Take 1-2 tablets (0.25-0.5 mg) by mouth every night. 10/13/2022 Active Concerta 18 MG ER tablet Take 1 tablet (18 mg) by mouth 1 (one) time each day. 03/24/2023 Active traZODone (Desyrel) 50 MG tablet TAKE 1 TABLET BY MOUTH EVERYDAY AT BEDTIME 08/29/2022 Active Active Problems Problem Noted Date Diagnosed Date Excess skin of abdominal wall 04/05/2023 Social History Tobacco Use Types Packs/Day Years Used Date Smoking Tobacco: Heavy Smoker Cigarettes Smokeless Tobacco: Never Tobacco Cessation:Ready to Q uit: Not Asked; Counseling Given: Not Answered Alcohol Use Standard Drinks/Week Comments Never 0 (1 standard drink = 0.6 oz pur e alcohol) Comments Unknown Sex and Gender Information Value Date Recorded Sex Assigned at Not on file Legal Sex Female 6:19 PM EDT Gender Identity Not on file Sexual Orientation Not on file Last Filed Vital Signs Vital Sign Reading Time Taken Comments Blood Pressure 124/85 04/05/2023 9:33 AM EDT Pulse 98 04/05/2023 9:33 AM EDT Temperature 37.1 C (98.8 F) 04/05/2023 9:33 AM EDT Respiratory Rate 16 12/07/2019 10:19 AM EDT Oxygen Saturation 98% 04/05/2023 9:33 AM EDT Inhaled Oxygen Concentration - - Weight 104 kg (228 lb 11.2 oz) 04/05/2023 9:33 A M EDT Height 165.1 cm (5' 5 ) 04/05/2023 9:33 AM EDT Body Mass Index 38.06 04/05/2023 9:33 AM EDT Plan of Treatment Health Maintenance Due Date Last Done Comments [facility]-Depression Screening 1993 [facility]-/Child/Adol SDOH Screenings 1993 [facility]-IPV Vaccines (2 of 3 - 4-dose series) 04/29/1998 04/01/1998 [facility]-Varicella Vaccines (2 of 2 - 2-dose childhood series) 01/06/1999 10/14/1998 [facility]-DTaP,Tdap,and Td Vaccines (4 - Tdap) 03/15/2005 03/14/2005, 04/01/1998, 12/30/1995 HPV Vaccines (2 - 2-dose series) 09/04/2007 03/04/2007 [facility]- SDOH Screenings 12/29/2011 [facility]-Adult SDOH Screenings 12/29/2011 [facility]-Hepatitis B Vaccines (1 of 3 - 19+ 3-dose series) 2012 [facility]-Pap Smear 2014 [facility]-Cervical Cancer Screening 12/29/2023 [facility]-HPV/Cotest 12/29/2023 [id number] Vaccine (1 - season) 2025 [facility]-Influenza Vaccine (#1) 2025 [facility]-Zoster Vaccines (1 of 2) 12/29/2043 10/14/1998 [facility]-HIB Vaccines Aged Out No longer e ligible based on patient's age to complete this topic [facility]-Hepatitis A Vaccines Aged Out No longer eligible based on patient's age to complete this topic [facility]-Pneumococcal Vaccine: Pediatrics (0 to 5 Years) and At-Risk Patients (6 to 49 Years) Aged Out No longer eligible b ased on patient's age to complete this topic [facility]-Rotavirus Vaccines Aged Out No lo nger eligible based on patient's age to complete this topic Care Teams Cylindrical Mixer Relationship Specialty Start Date End Date Pcp, No [address] [place] [address] PCP - General 04/13/21
--- NOTE | 2025-05-26 11:41 | XR_ITS ---
FINAL REPORT CLINICAL HISTORY: Shortness of air, cough FINDINGS: A portable view of the chest is obtained. There is no prior exam for comparison. Cardiac and mediastinal silhouettes are normal. The lungs are clear. There is no pleural effusion or pneumothorax. IMPRESSION: No acute process on this portable exam. Reviewed, Interpreted and Dictated by Meera Raines MD Transcribed by Tonya Madsen Authenticated and [facility]
[2025-05-26 11:44] LABS: Coronavirus 19, PCR Not Detected (NotDetected); Influenza A, PCR Not Detected (NotDetected); Influenza B, PCR Not Detected (NotDetected)
--- NOTE | 2025-05-26 11:56 | PC.NURSE ---
Provider notified of patient having a headache. Rates pain as a 6/10
--- NOTE | 2025-05-26 11:59 | ECG_ITS ---
APPROVED REPORT Exam: Resting ECG HR:87 bpm ECG Measurements Heart Rate 87 AXES SD 162 P 19 QRSd 97 QRS 16 QT 335 T 52 QTc 380 Conclusion SINUS RHYTHM NORMAL ECG Electronically signed by : RIN SONI, 05/28/2025 16:12:29
[2025-05-26 12:01] LABS: Hematocrit 37.2 % (37.0-47.0); Hemoglobin 12.9 g/dL (12.2-16.2); Immature Granulocytes % 0.4 %; Mean Corpuscular HGB Conc 34.7 g/dL (31.8-35.4); Mean Corpuscular Hemoglobin 30.6 pg (27.0-31.2); Mean Corpuscular Volume 88.4 fl (81-99); Nucleated Red Blood Cells % 0 %; Platelet Count 218 K/mm3 (142-424); Red Blood Count 4.21 M/mm3 (4.20-5.40); Red Cell Distribution Width-SD 40.0 fL; White Blood Count 6.8 K/mm3 (4.8-10.8)
[2025-05-26 12:26] LABS: Albumin Level 4.2 g/dl (3.5-5.0); Chloride 98 mmol/L (98-107); Potassium 3.5 mmoL/L (3.5-5.1); Sodium 133 mmol/L (136-145)
[2025-05-26 12:29] LABS: Alanine Aminotransferase 22 U/L (12-78); Albumin/Globulin Ratio 1.2 (1.1-1.8); Alkaline Phosphatase 98 U/L (38-126); Anion Gap 11.5 mEq/L (5-15); Aspartate Amino Transferase 29 U/L (14-36); Bilirubin,Total 1.0 mg/dl (0.2-1.3); Blood Urea Nitrogen 6 mg/dl (7-17); Carbon Dioxide 27 mmol/L (22.0-30.0); Creatinine Clearance Estimated 179 mL/min (50-200); Creatinine,Serum 0.80 mg/dl (0.52-1.04); Estimated Glomerular Filt Rate 84 ml/min (>60); GFR (African American) 101 ML/MIN (>60); Globulin 3.4 g/dL (1.3-3.2); Total Protein,Serum 7.6 g/dl (6.3-8.2)
[2025-05-26 12:30] LABS: Calcium 8.4 mg/dl (8.4-10.2); Glucose 96 mg/dl (74-100); Magnesium 1.9 mg/dl (1.6-2.3)
[2025-05-26 12:34] LABS: HCG Qualitative, Serum Negative (Negative)
[2025-05-26] MEDS: ACETAMINOPHEN 500MG TAB 500 MG PO (12:35)
[2025-05-26 12:38] LABS: NT Pro Brain Natriuretic Pep. 24.0 pg/mL (0-125)
[2025-05-26 12:50] LABS: Troponin I 0.59 ng/ml (0.00-0.034)
--- NOTE | 2025-05-26 12:50 | PC.NURSE ---
Troponin 0.59 reported to [facility]
--- NOTE | 2025-05-26 12:51 | CT_ITS ---
FINAL REPORT TECHNIQUE: Axial imaging of the chest is obtained after the administration of contrast. 3-D MIP reformatted images were also obtained and reviewed per PE protocol. This study was performed with techniques to keep radiation doses as low as reasonably achievable (ALARA). Individualized dose reduction techniques using automated exposure control or adjustment of mA and/or kV according to the patient's size were employed. CLINICAL HISTORY: SOA/CP COMPARISON: None FINDINGS: The pulmonary arteries are well filled. There is no evidence of pulmonary embolus. There is no aortic dissection. Heart size is normal. There is no axillary lymphadenopathy. There are enlarged subcarinal and left hilar lymph nodes present. An example left hilar node measures 28 mm, with a subcarinal node measuring 29 mm. These may be reactive or neoplastic. There are mixed density nodular opacities in the superior segment of the left lower lobe, favor infectious or inflammatory. There is a trace left pleural effusion, with no right pleural effusion or pericardial effusion. There is fatty infiltration of the liver. No acute osseous abnormality. IMPRESSION: 1. Enlarged subcarinal and left hilar lymph nodes are present as described above. Consider follow-up CT of the chest to reevaluate adenopathy. 2. Mixed density nodular opacity in the superior segment of the left lower lobe, favor infectious or inflammatory. 3. No evidence of pulmonary embolus or aortic dissection. Reviewed, Interpreted and Dictated by Meera Raines MD Transcribed by Angelica Contreras Authenticated and [facility]
--- NOTE | 2025-05-26 12:57 | PC.NURSE ---
repeat trop sent to the lab, and notified lab of need to repeat trop.
--- NOTE | 2025-05-26 13:01 | PC.NURSE ---
provider at bedside performing cardiac ultrasound
[2025-05-26] MEDS: SODIUM CHLORIDE 0.9% 10ML SYR (RAD ONLY) 10 ML IV (13:11)
[2025-05-26] MEDS: IOPAMIDOL-370 (76%);100ML BOTTLE 85 ML IV (13:11)
[2025-05-26] MEDS: 0.9 % SODIUM CHLORIDE 50 ML VIAL IV (13:11)
--- NOTE | 2025-05-26 13:16 | ECG_ITS ---
APPROVED REPORT Exam: Resting ECG HR:82 bpm ECG Measurements Heart Rate 82 AXES DC 170 P 37 QRSd 100 QRS 15 QT 354 T 52 QTc 392 Conclusion SINUS RHYTHM INCOMPLETE RIGHT BUNDLE BRANCH BLOCK [90+ ms QRS DURATION, TERMINAL R IN V1/V2, 40+ ms S IN I/aVL/V4/V5/V6] BORDERLINE ECG Electronically signed by : RIN SONI, 05/28/2025 16:11:45
[2025-05-26 13:23] LABS: Troponin I 0.80 ng/ml (0.00-0.034)
[2025-05-26 13:25] LABS: Hepatitis C Ab Qual. W/ RFX NEGATIVE (Negative)
[2025-05-26 13:27] LABS: Adenovirus,PCR Not Detected (NotDetected); Chlamydophila Pneumoniae, PCR Not Detected (NotDetected); Coronavirus 19, PCR Not Detected (NotDetected); Coronovirus HKU1,PCR Not Detected (NotDetected); Influenza A, PCR Not Detected (NotDetected); Influenza AH1, 2009 Not Detected (NotDetected); Influenza AH1, PCR Not Detected (NotDetected); Influenza AH3,PCR Not Detected (NotDetected); Influenza B, PCR Not Detected (NotDetected); Mycoplasma Pneumoniae, PCR Not Detected (NotDetected); Parainfluenza 1, PCR Not Detected (NotDetected); Parainfluenza 2, PCR Not Detected (NotDetected); Parainfluenza 3, PCR Not Detected (NotDetected); Parainfluenza 4, PCR Not Detected (NotDetected)
--- NOTE | 2025-05-26 13:32 | PC.NURSE ---
Tavares FU speaking with Dr. Zambrano.
--- NOTE | 2025-05-26 13:33 | CA_ITS ---
APPROVED REPORT EXAM: Comprehensive 2D, Doppler, and color-flow Echocardiogram Second Rigger: Tracy Denson, RT(R) Ht: 5 ft 6 in Wt: 250lbs BSA: 2.20 BP: 128/67 mmHg Indications: elevated troponins, cp, smoker, shortness of breath, fever. 2D Dimensions Aortic Root 1.98 cm F: 2.7 - 3.3 LVEF (Schultz's) 59.10 % F: 54 - 74 Left Atrium 2.69 cm F: 2.7 - 3.8 LV Volume 74.10 mL F: 46 - 106 LV Volume Index 33.7 mL/m2 F: 29 - 61 EF AP4 60.50 % EF AP2 57.0 % EF BP 59.1 % GL Strain -18.4 % M-Mode Dimensions RVDd 2.36 cm (0.9-2.6) LVDd 4.75 cm (3.5-5.7) Ao Diam 2.69 cm (2.0-3.7) LVDs 3.50 cm (3.5-5.7) IVSd 0.68 cm (0.6-1.1) PWd 0.64 cm (0.6-1.1) EF (Teich) 51.50% FS 26.30% EDV (Teich) 104.90 mL ESV (Teich) 50.90 mL LV Diastology E Decel Time 156 (160-240 msec) E/A Ratio 1.5 MED E' 12.2 (>= 7 cm/sec) E'/MED E' Ratio 5.70 (<= 14) LAT E' 13.8 (>= 10 cm/sec) E/LAT E' Ratio 5.04 (<= 14) Mitral Valve MV E Max Brandyn. 69.0 (40-130 cm/s) MV A Velocity 46.0 (40-130 cm/s) E/A Ratio 1.52 MV Decel. Time 156 (160-240 ms) Left Ventricle The left ventricle is normal size. Left ventricular systolic function is normal. The left ventricular ejection fraction is within the normal range. There is normal left ventricular wall thickness. There is normal LV segmental wall motion. The left ventricular diastolic function is normal. LVEF is 55% Right Ventricle The right ventricle is normal size. The right ventricular systolic function is normal. Atria The left atrium size is normal. The right atrium size is normal. There is no color Doppler evidence of interatrial shunt. Aortic Valve The aortic valve opens well. There is no hemodynamically significant aortic valvular stenosis. No aortic regurgitation is present. Mitral Valve The mitral valve is normal in structure. No evidence of mitral valve stenosis. Trace mitral regurgitation is present. Tricuspid Valve The tricuspid valve leaflets are thin and pliable. Trace tricuspid regurgitation. There is insufficient TR jet to estimate RVSP. Pulmonic Valve The pulmonary valve is grossly normal in structure. Trace pulmonic valve regurgitation is present. Great Vessels The aortic root is normal in size. IVC is normal in size and collapses >50% with inspiration. Pericardium There is no pericardial effusion. Other Information Study Quality: Fair Conclusion Normal biventricular systolic function. No significant valvular stenosis or regurgitation. No obvious evidence of echodensities or vegetations on this TTE. Electronically signed by : Marta Pires MD 05/26/2025 14:49:57
--- NOTE | 2025-05-26 13:53 | PC.NURSE ---
supervisor wood room contacted for bed.
--- NOTE | 2025-05-26 14:22 | PC.NURSE ---
1418 report called to Anabell RUBIO
--- NOTE | 2025-05-26 14:26 | HMH.PHAINT1 ---
Pharmacy Intervention Comments: MEDICATION RECONCILIATION COMPLETED ON PATIENT USING EXTERNAL FILL HISTORY FROM PHARMACY AND KIMBERLY REPORT. -KARTHIK NAIDU, GHADAD
[2025-05-26 14:48] LABS: INR 1.05 (0.9-1.1); Prothrombin Time 11.6 seconds (10.1-12.5)
--- NOTE | 2025-05-26 14:52 | P.HP_ITS ---
<Statement entered by Chinedu Ayala MD - 05/26/25 18:44> discussed case with TOUR MANAGER, Agree with assessment and care plan as documented. History of Present Illness *Admission Date: 05/26/25 *Reason for visit:: cough, chest pain, shortness of breath *History of present illness: Ms. Martinez is a 29-year-old female who presented to the emergency department today with complaints of fever, chills, cough, congestion, nausea, shortness of air for the last week. She also complains of pleuritic chest pain/chest congestion for the last 2 days. She denies abdominal pain, diarrhea, vomiting, constipation, dysuria. Patient denies use of tobacco, alcohol, drugs. She has a primary medical history of anxiety, depression, bipolar disorder, migraines, and ADHD. Workup in the emergency department was significant for elevated troponin at 0.59 trending upward to 0.84. Patient's EKG shows no ischemic changes. Patient had CTA per PE protocol which was negative for PE or dissection, did show enlarged subcarinal and left hilar lymph nodes. Xedpm-qa-hzgi ultrasound was done at bedside to evaluate cardiac function, no notable findings. Patient had formal echo which showed a normal LVEF, no abnormalities. CMP and CBC were unremarkable, hCG was negative, mini respiratory panel also negative. Cardiology was consulted from the emergency department who recommended admission for possible david-/myocarditis. It does appear patient had a LHC approximately 2 years ago that showed normal Cors. Cardiology recommended admission and cardiac MRI for further evaluation of elevated troponin. [facility] Disclaimer: The information contained in this section may have been updated after the patient was seen, as this information can be updated by other users. 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 No significant past medical history Surgical History History of cholecystectomy Hx of tonsillectomy Hx of section Family History Mother Cancer thyroid Sister Cancer thyroid Grandfather Diabetes Social History Smoking Status: Current every day smoker tobacco type: e-cigarettes alcohol intake: never substance use type: denies use current occupational status: employed Travel in the last 8 weeks?: None Have you lived/traveled outside US in past 30 days?: No Contact w/someone who lives/traveled outside US past 30 days?: No Exposure to someone with infectious disease in past 14 days?: No Do you have a fever (greater than 100.4 F or 38 C)?: No Have you tested positive for COVID-19?: No Exposed to someone with COVID-19 in past 14 days?: No Do you have a sore throat?: No Do you have a cough?: No Do you have any weakness?: No Do you have any diarrhea?: No Are you experiencing any unusual bleeding?: No Do you have any muscle aches/pain?: No Do you have any abdominal pain?: No Are you experiencing loss of taste or smell?: No Other 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 Have you received the Flu Vaccine for this season: No Have you received the Pneumonia Vaccine: No Review of Systems Constitutional Constitutional: Reports chills, Reports fever(s), Reports headache(s), Reports lethargy and Reports malaise ENT Ears, Nose, Mouth, and Throat: Denies dizziness, Denies dysphagia, Reports headache(s), Reports sinus pain, Reports sinus pressure and Denies sore throat *Cardiovascular Cardiovascular: Reports chest pain at rest, Reports chest pain with activity, Reports dyspnea, Denies leg edema and Denies rapid heart rate *Respiratory Respiratory: Denies chest congestion, Denies cough, Reports dyspnea and Reports pain on inspiration *Gastrointestinal Gastrointestinal: Denies constipation, Denies diarrhea, Denies dysphagia and Denies vomiting *Genitourinary Genitourinary: Denies difficulty voiding, Denies dysuria and Denies pelvic pain *Neurologic Neurologic: Denies dizziness and Reports headache(s) Meds Home Medications and Allergies Home Medications ?Medication ?Instructions ?Recorded ?Confirmed ?Type ferrous sulfate 325 mg (65 mg 325 mg PO DAILY 10/15/24 05/26/25 History iron) tablet mirtazapine 30 mg tablet 30 mg PO HS 10/15/24 5 History cholecalciferol (vitamin D3) 125 125 mcg PO DAILY 05/1205/26/25 History mcg (5,000 unit) capsule desvenlafaxine succinate 50 mg 50 mg PO DAILY 05/26/25 05/26/25 History tablet,extended release 24 hr ergocalciferol (vitamin D2) 1,250 1,250 mcg PO WEEKLY 05/26/25 05/26/25 History mcg (50,000 unit) capsule hydroxyzine pamoate 25 mg capsule 25 mg PO QIDP PRN An xiety 05/26/25 05/26/25 History levocetirizine 5 mg tablet 5 mg PO DAILY 05/26/25 1001/03 History lumateperone 42 mg capsule 42 mg PO DAILY 05/26/25 History (Caplyta) sumatriptan succinate 100 mg tablet 100 mg PO DAILYP P RN Migraine 05/26/25 05/26/25 History Headache New Prescriptions to Start Prescriptions: Allergies Allergy/AdvReac Type Severity Reaction Status Date / Time morphine (MORPHINE) Allergy Unknown HALLUCINATIONS, Verified 05/13/25 15:00 PAIN ATTACKS Exam Data for Last 24 hours Vital signs and Labs for Last 24 Hours: Temp Pulse Resp BP Pulse Ox O2 Del Method 98.3 F 78 18 128/74 98 Room Air 05/26/25 14:45 05/26/25 14:45 05/26/25 14:45 05/26/25 14:45 05/26/25 14:44 05/26/25 14:45 Laboratory Results - last 24 hr 05/26/25 11:36: Chlamy pneumoniae PCR Not detected, Adenovirus (PCR) Not detected, B. pertussis DNA (PCR) Not detected, Coronavirus OC43 (PCR) Not detected, Coronavirus HKU1 (PCR) Not detected, Coronavirus 229E (PCR) Not detected, SARS-CoV-2 (PCR) Not detected 05/26/25 11:36: SARS-CoV-2 (PCR) Not detected, Coronavirus NL63 (PCR) Not detected, Human Metapneumovir PCR Not detected, Influenza A (H1) PCR Not detected, Influ A (H1N1/09) PCR Not detected, Influenza A (H3) PCR Not detected, Influenza Type A (PCR) Not detected 05/26/25 11:36: Influenza Type A (PCR) Not detected, Influenza Type B (PCR) Not detected 05/26/25 11:36: Influenza Type B (PCR) Not detected, M. pneumoniae (PCR) Not detected, Parainfluenza 1 (PCR) Not detected, Parainfluenza 2 (PCR) Not detected, Parainfluenza 3 (PCR) Not detected, Parainfluenza 4 (PCR) Not detected, RSV (PCR) Not detected 05/26/25 11:36: RSV (PCR) Not detected, Rhinovirus (PCR) Not detected, Entero/Rhino (PCR) Not detected 05/26/25 11:53: WBC 6.8, RBC 4.21, Hgb 12.9, Hct 37.2, MCV 88.4, MCH 30.6, MCHC 34.7, RDW 12.4, Plt Count 218, MPV 9.6, Neut % (Auto) 65.2, Lymph % (Auto) 24.6, [place] % (Auto) 9.5 H, Eos % (Auto) 0.0 L, Baso % (Auto) 0.3, Neut # (Auto) 4.4, Lymph # (Auto) 1.7, [place] # (Auto) 0.7, Eos # (Auto) 0.0, Baso # (Auto) 0.0, Sodium 133 L, Potassium 3.5, Chloride 98, Carbon Dioxide 27, Anion Gap 11.5, BUN 6 L, Creatinine 0.80, Estimated Creat Clear 179, Estimated GFR 84, Est GFR ( Amer) 101, Glucose 96, Calcium 8.4, Magnesium 1.9, Total Bilirubin 1.0, AST 29, ALT 22, Alkaline Phosphatase 98, Troponin I 0.59 H, NT-Pro-B Natriuret Pep 24.0, Total Protein 7.6, Albumin 4.2, Globulin 3.4 H, Albumin/Globulin Ratio 1.2, Serum HCG, Qual Negative, HCV Ab KIMBERLI w/Rflx PCR Qn Negative, HIV Ag/Ab Combo Qual Negative 05/26/25 12:56: Troponin I 0.80 H I & O for Last 24 hours: Intake & Output 05/23/25 05/24/25 05/25/25 05/26/25 23:59 23:59 23:59 23:59 Weight 111.584 kg Constitutional Constitutional: no acute distress, obese and cooperative *Routine HEENT Exam Head: Present normocephalic Eye: Present EOMI ENT: Present mucous membranes moist *Routine Neck Exam Neck: Present supple; Absent JVD *Routine Respiratory Exam Respiratory: Present CTA bilaterally and normal respiratory effort; Absent wheezes or crackles *Routine Cardiovascular Exam Cardiovascular: Present RRR; Absent murmur *Routine Abdominal Exam Abdominal: Present soft and normoactive bowel sounds; Absent tenderness or distended *Routine Rectal Exam Rectal:: deferred *Routine Genitalia Exam Genitalia:: deferred *Routine Extremities Exam Extremities: Present full ROM; Absent edema *Routine Neurological Exam Neurological: Present alert, oriented X3 and vision grossly intact Assessment and Plan *Assessment and plan (1) Elevated troponin: Status: Acute Category: Medical Code(s): R79.89 - Other specified abnormal findings of blood chemistry (2) Myocarditis: Status: Acute Qualifiers: Chronicity: acute Myocarditis type: unspecified Qualified Code(s): I40.9 - Acute myocarditis, unspecified Category: Medical Code(s): I51.4 - Myocarditis, unspecified (3) Pericarditis: Status: Acute Qualifiers: Chronicity: acute Pericarditis type: other type Qualified Code(s): I30.8 - Other forms of acute pericarditis Category: Medical Code(s): I31.9 - Disease of pericardium, unspecified (4) Depression: Status: Acute Category: Medical Code(s): F32.A - Depression, unspecified (5) Anxiety: Status: Acute Category: Medical Code(s): F41.9 - Anxiety disorder, unspecified Plan Ms. Martinez is a 29-year-old female who presented to the emergency department today with complaints of fever, chills, cough, congestion, nausea, shortness of air for the last week. She also complains of pleuritic chest pain/chest congestion for the last 2 days. She denies abdominal pain, diarrhea, vomiting, constipation, dysuria. Patient denies use of tobacco, alcohol, drugs. She has a primary medical history of anxiety, depression, bipolar disorder, migraines, and ADHD. Workup in the emergency department was significant for elevated troponin at 0.59 trending upward to 0.84. Patient's EKG shows no ischemic changes. Patient had CTA per PE protocol which was negative for PE or dissection, did show enlarged subcarinal and left hilar lymph nodes. [id number]-pbod ultrasound was done at bedside to evaluate cardiac function, no notable findings. Patient had formal echo which showed a normal LVEF, no abnormalities. CMP and CBC were unremarkable, hCG was negative, mini respiratory panel also negative. Cardiology was consulted from the emergency department who recommended admission for possible dvaid-/myocarditis. It does appear patient had a LHC approximately 2 years ago that showed normal Cors. Cardiology recommended admission and cardiac MRI for further evaluation of elevated troponin. Cardiac MRI scheduled for tomorrow morning at 11 AM. Patient does endorse claustrophobia, will order Valium 10 mg prior to cardiac MRI. Patient has remained hemodynamically stable, blood pressure within normal range. Lipid panel ordered for the a.m. Hospital medicine was consulted for admission for further management, I agreed to accept the patient. Plan of care as follows: #Elevated troponin/NSTEMI #Chest pain #Dyspnea #Myocarditis/pericarditis? ? Plans for cardiac MRI tomorrow at 11 AM. Patient placed on continuous cardiac telemetry. Currently in sinus rhythm. Patient currently denies chest pain, shortness of breath. ? CBC shows no anemia, no leukocytosis, slight hyponatremia at 133, normal kidney function, CRP elevated at 68.0. ? TSH pending, CBC, CMP, magnesium, lipid panel ordered for the a.m. #Anxiety #Mood disorder ? Continue hydroxyzine 25 mg 4 times daily as needed for anxiety, Caplyta 42 mg daily, mirtazapine 30 mg at bedtime, desvenlafaxine 50 mg daily. Full code Regular diet Heparin 5000 units 3 times daily Ambulate as tolerated
--- NOTE | 2025-05-26 15:20 | HMH.ITSTN ---
i just spoke with Lucía Ziegler, cardiac MRI to be done tomorrow (05/27) around 11:30 AM.
--- NOTE | 2025-05-26 15:21 | EXP.CARD.CON ---
History of Present Illness History of Present Illness Consult date: 05/26/25 Requesting physician: Chinedu Ayala Consult reason: chest pain and shortness of breath Chief complaint: Chest pain and shortness of breath History of present illness: This is a 29-year-old white female presented to the emergency department with a 2-day history of fever, chills, cough, congestion and shortness of breath. She states that she felt like she had pleuritic chest pain and chest congestion. The patient states that her lungs were hurting. She states that the chest pains started at the anterior top portion of her chest just below her collarbone and then started radiating down her chest with deep inhalation and cough. She states that her fevers would not go away. The patient felt like she had pneumonia or an upper respiratory infection so she decided to come to the emergency department. She denies any lower extremity edema. She denies any nausea, vomiting, diarrhea or constipation. Upon arrival to the emergency department she was initially found to be tachycardic but she is regular rate and rhythm now. The patient's troponin was initially elevated on admission and did elevate to 0.80. She was subsequently admitted to the hospital for concerns of myopericarditis. [facility] Disclaimer: The information contained in this section may have been updated after the patient was seen, as this information can be updated by other users. 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 (Updated 05/26/25 @ 15:25 by Lucía Ziegler APRN) Diastolic dysfunction Pericarditis Myocarditis Elevated troponin No significant past medical history Surgical History History of cholecystectomy Hx of tonsillectomy Hx of section Family History Mother Cancer thyroid Sister Cancer thyroid Grandfather Diabetes Social History Smoking Status: Current every day smoker tobacco type: e-cigarettes alcohol intake: never substance use type: denies use current occupational status: employed Travel in the last 8 weeks?: None Have you lived/traveled outside [place] in past 30 days?: No Contact w/someone who lives/traveled outside US past 30 days?: No Exposure to someone with infectious disease in past 14 days?: No Do you have a fever (greater than 100.4 F or 38 C)?: No Have you tested positive for COVID-19?: No Exposed to someone with COVID-19 in past 14 days?: No Do you have a sore throat?: No Do you have a cough?: No Do you have any weakness?: No Do you have any diarrhea?: No Are you experiencing any unusual bleeding?: No Do you have any muscle aches/pain?: No Do you have any abdominal pain?: No Are you experiencing loss of taste or smell?: No Review of Systems Review of Systems Review of systems:: pertinent systems reviewed and negative unless documented below Constitutional Constitutional: Reports system reviewed and no additional complaints, except as documented, Reports body ache(s), Reports chills, Reports fever(s) and Reports lethargy Eyes Eyes: Reports system reviewed and no additional complaints, except as documented ENT Ears, Nose, Mouth, and Throat: Reports system reviewed and no additional complaints, except as documented *Cardiovascular Cardiovascular: Reports system reviewed and no additional complaints, except as documented, Reports chest pain, Reports chest pain at rest, Reports chest pain with activity, Reports dyspnea and Reports dyspnea on exertion *Respiratory Respiratory: Reports system reviewed and no additional complaints, except as documented, Reports chest congestion, Reports cough, Reports dyspnea, Reports dyspnea on exertion, Reports pain on inspiration and Reports pain with cough *Gastrointestinal Gastrointestinal: Reports system reviewed and no additional complaints, except as documented *Genitourinary Genitourinary: Reports system reviewed and no additional complaints, except as documented *Musculoskeletal Musculoskeletal: Reports system reviewed and no additional complaints, except as documented Integumentary/Breasts Skin/Breast: Reports system reviewed and no additional complaints, except as documented *Neurologic Neurologic: Reports system reviewed and no additional complaints, except as documented Psychiatric Psychiatric: Reports system reviewed and no additional complaints, except as documented Endocrine Endocrine: Reports system reviewed and no additional complaints, except as documented Hematologic/Lymphatic Hematologic/Lymphatic: Reports system reviewed and no additional complaints, except as documented Allergic/Immunologic Allergic/Immunologic: Reports system reviewed and no additional complaints, except as documented Exam Data for Last 24 hours Vital signs and Labs for Last 24 Hours: Temp Pulse Resp BP Pulse Ox O2 Del Method 98.3 F 78 18 128/74 98 Room Air 05/26/25 14:45 05/26/25 14:45 05/26/25 14:45 05/26/25 14:45 05/26/25 14:44 05/26/25 14:45 Laboratory Results - last 24 hr 05/26/25 11:36: Chlamy pneumoniae PCR Not detected, Adenovirus (PCR) Not detected, B. pertussis DNA (PCR) Not detected, Coronavirus OC43 (PCR) Not detected, Coronavirus HKU1 (PCR) Not detected, Coronavirus 229E (PCR) Not detected, SARS-CoV-2 (PCR) Not detected 05/26/25 11:36: SARS-CoV-2 (PCR) Not detected, Coronavirus NL63 (PCR) Not detected, Human Metapneumovir PCR Not detected, Influenza A (H1) PCR Not detected, Influ A (H1N1/09) PCR Not detected, Influenza A (H3) PCR Not detected, Influenza Type A (PCR) Not detected 05/26/25 11:36: Influenza Type A (PCR) Not detected, Influenza Type B (PCR) Not detected 05/26/25 11:36: Influenza Type B (PCR) Not detected, M. pneumoniae (PCR) Not detected, Parainfluenza 1 (PCR) Not detected, Parainfluenza 2 (PCR) Not detected, Parainfluenza 3 (PCR) Not detected, Parainfluenza 4 (PCR) Not detected, RSV (PCR) Not detected 05/26/25 11:36: RSV (PCR) Not detected, Rhinovirus (PCR) Not detected, Entero/Rhino (PCR) Not detected 05/26/25 11:53: WBC 6.8, RBC 4.21, Hgb 12.9, Hct 37.2, MCV 88.4, MCH 30.6, MCHC 34.7, RDW 12.4, Plt Count 218, MPV 9.6, Neut % (Auto) 65.2, Lymph % (Auto) 24.6, M[place] % (Auto) 9.5 H, Eos % (Auto) 0.0 L, Baso % (Auto) 0.3, Neut # (Auto) 4.4, Lymph # (Auto) 1.7, Mingo # (Auto) 0.7, Eos # (Auto) 0.0, Baso # (Auto) 0.0, PT 11.6, INR 1.05, Sodium 133 L, Potassium 3.5, Chloride 98, Carbon Dioxide 27, Anion Gap 11.5, BUN 6 L, Creatinine 0.80, Estimated Creat Clear 179, Estimated GFR 84, Est GFR ( Amer) 101, Glucose 96, Calcium 8.4, Magnesium 1.9, Total Bilirubin 1.0, AST 29, ALT 22, Alkaline Phosphatase 98, Troponin I 0.59 H, NT-Pro-B Natriuret Pep 24.0, Total Protein 7.6, Albumin 4.2, Globulin 3.4 H, Albumin/Globulin Ratio 1.2, Serum HCG, Qual Negative, HCV Ab KIMBERLI w/Rflx PCR Qn Negative, HIV Ag/Ab Combo Qual Negative 05/26/25 12:56: Troponin I 0.80 H I & O for Last 24 hours: Intake & Output 05/23/25 05/24/25 05/25/25 05/26/25 23:59 23:59 23:59 23:59 Weight 246 lb Constitutional Constitutional: no acute distress and obese *Routine HEENT Exam Head: Present normocephalic and atraumatic ENT: Present mucous membranes moist *Routine Neck Exam Neck: Present supple, full ROM and normal carotid upstroke; Absent JVD, carotid bruit or lymphadenopathy *Routine Respiratory Exam Respiratory: Present CTA bilaterally, normal respiratory effort, able to speak in complete sentences and symmetric chest movement *Routine Cardiovascular Exam Cardiovascular: Present RRR, Normal S1 and Normal S2; Absent murmur or gallop *Routine Abdominal Exam Abdominal: Present soft and normoactive bowel sounds; Absent tenderness, distended or organomegaly *Routine Extremities Exam Extremities: Present full ROM, pulses intact and normal capillary refill; Absent cyanosis, clubbing or edema *Routine Skin Exam Skin: Present intact and warm; Absent erythema *Routine Neurological Exam Neurological: Present alert, oriented X3 and CN II-XII intact; Absent sensory deficit or motor deficit Routine Psychiatric Exam Psychiatric: Present normal affect Meds Home Medications and Allergies Home Medications ?Medication ?Instructions ?Recorded ?Confirmed ?Type ferrous sulfate 325 mg (65 mg 325 mg PO DAILY 10/15/24 05/26/25 History iron) tablet mirtazapine 30 mg tablet 30 mg PO HS 10/15/24 05/26/25 History cholecalciferol (vitamin D3) 125 125 mcg PO DAILY 05/26/25 05/26/25 History mcg (5,000 unit) capsule desvenlafaxine succinate 50 mg 50 mg PO DAILY 05/26/25 05/26/25 History tablet,extended release 24 hr ergocalciferol (vitamin D2) 1,250 1,250 mcg PO WEEKLY 05/26/25 05/26/25 History mcg (50,000 unit) capsule hydroxyzine pamoate 25 mg capsule 25 mg PO QIDP PRN Anxiety 05/26/25 05/26/25 History levocetirizine 5 mg tablet 5 mg PO DAILY 05/26/25 05/26/25 History lumateperone 42 mg capsule 42 mg PO DAILY 05/26/25 05/26/25 History (Caplyta) sumatriptan succinate 100 mg tablet 100 mg PO DAILYP PRN Migraine 05/26/25 05/26/25 History Headache New Prescriptions to Start Prescriptions: Allergies Allergy/AdvReac Type Severity Reaction Status Date / Time morphine (MORPHINE) Allergy Unknown HALLUCINATIONS, Verified 05/13/25 15:00 PAIN ATTACKS Assessment and Plan *Assessment and plan (1) Myocarditis: Status: Acute Qualifiers: Myocarditis type: unspecified Chronicity: acute Qualified Code(s): I40.9 - Acute myocarditis, unspecified Category: Medical Code(s): I51.4 - Myocarditis, unspecified (2) Pericarditis: Status: Acute Qualifiers: Pericarditis type: other type Chronicity: acute Qualified Code(s): I30.8 - Other forms of acute pericarditis Category: Medical Code(s): I31.9 - Disease of pericardium, unspecified (3) Elevated troponin: Status: Acute Category: Medical Code(s): R79.89 - Other specified abnormal findings of blood chemistry (4) Chest pain: Status: Acute Qualifiers: Chest pain type: other chest pain Qualified Code(s): R07.89 - Other chest pain Category: Medical Code(s): R07.9 - Chest pain, unspecified (5) Dyspnea: Status: Acute Qualifiers: Dyspnea type: dyspnea on exertion Qualified Code(s): R06.09 - Other forms of dyspnea Category: Medical Code(s): R06.00 - Dyspnea, unspecified Plan Plan: 1. The patient presented to the emergency department complaints of chest pain and shortness of breath. She had fever chills cough congestion for approximately 2 days prior to admission. She does have an elevated troponin. Concerned with myopericarditis. Will get a cardiac MRI to evaluate for myopericarditis. This will be completed tomorrow at around 11:15 AM. 2. The patient does have claustrophobia. Will give her Valium 10 mg x 1 dose prior to her cardiac MRI tomorrow. 3. Echocardiogram shows normal ejection fraction and no pericardial effusion. 4. Her blood pressure is well-controlled. 5. Her LDL goal is less than 100. Will get a lipid panel in the morning. 6. Further recommendations will be made pending the patient's response to treatment and the results of her cardiac MRI tomorrow. Thank you for the opportunity to help participate in the care of this patient. All recommendations and orders are per Dr. Pires.
[2025-05-26] MEDS: POTASSIUM CHLORIDE 20MEQ TAB 40 MEQ PO ×2 (15:25→18:31)
[2025-05-26 16:01] LABS: C-Reactive Protein 68.0 mg/L (0-4)
[2025-05-26 16:05] LABS: Troponin I 0.84 ng/ml (0.00-0.034)
[2025-05-26] MEDS: KETOROLAC 15MG/ML VIAL 15 MG IV (16:57)
--- NOTE | 2025-05-26 18:15 | PC.NURSE ---
pt was a new admit. Pt is A&Ox4. Vital signs stable tolerating room air. Potassium replaced per protocol. Pt c/o chest pain once this shift. Treated with pain medication per MAR with relief. KRISTEN Armas aware. Cardiac MRI ordered for tomorrow. Pt resting comfortably sitting up in bed with no further needs voiced at this time. Call light within reach.
[2025-05-26 19:23] LABS: Troponin I 1.42 ng/ml (0.00-0.034)
--- NOTE | 2025-05-26 19:26 | PC.NURSE ---
notified Jamie of critical troponin 1.42
[2025-05-26 19:38] LABS: Thyroid Stimulating Hormone 0.58 uIU/mL (0.465-4.68)
[2025-05-26] MEDS: HEPARIN SODIUM 5,000 UNIT/ML VIAL 5000 UNIT SUBCUT (20:16)
[2025-05-26] MEDS: MIRTAZAPINE 30 MG 30 EACH PO (20:16)
[2025-05-26] MEDS: ONDANSETRON 4MG/2ML VIAL 4 MG IV (23:38)
[2025-05-26] MEDS: ACETAMINOPHEN 325MG TAB 650 MG PO (23:38)
[2025-05-27] VITALS (9 sets, daily range): BP systolic 122–151; BP diastolic 54–78; PULSE 70–110; RESP 16–17; TEMP 36.4–38.3; O2SAT 97–100; BMI 40.0
[2025-05-27] MEDS: KETOROLAC 15MG/ML VIAL 15 MG IV (00:21)
[2025-05-27] MEDS: HYDROMORPHONE 2MG/ML SYRINGE 0.5 MG IV (01:07)
--- NOTE | 2025-05-27 01:10 | ECG_ITS ---
APPROVED REPORT Exam: Resting ECG HR:104 bpm ECG Measurements Heart Rate 104 AXES KS 141 P 27 QRSd 95 QRS 6 QT 311 T 52 QTc 372 Conclusion SINUS TACHYCARDIA MODERATE ST DEPRESSION [0.05+ mV ST DEPRESSION] ABNORMAL ECG UNCONFIRMED REPORT Electronically signed by : Fredy Davalos MD 05/28/2025 21:59:28
--- NOTE | 2025-05-27 02:16 | PC.NURSE ---
patient c/o nausea and was febrile, see VS - tx per OCT / roughly 30 min later pt was sitting on side of bed rocking and holding chest very anxiously gave toradol and vistral - shortly after pt chest pain was 8/10 and unrelieved - notified hospitalist, obtained EKG, administered diluadid - patient verbalized feeling better 20 minutes post medication admin and afebrile.
[2025-05-27 06:21] LABS: Hematocrit 39.9 % (37.0-47.0); Hemoglobin 13.0 g/dL (12.2-16.2); Immature Granulocytes % 0.7 %; Mean Corpuscular HGB Conc 32.6 g/dL (31.8-35.4); Mean Corpuscular Hemoglobin 29.3 pg (27.0-31.2); Mean Corpuscular Volume 90.1 fl (81-99); Nucleated Red Blood Cells % 0 %; Platelet Count 169 K/mm3 (142-424); Red Blood Count 4.43 M/mm3 (4.20-5.40); Red Cell Distribution Width-SD 41.1 fL; White Blood Count 5.8 K/mm3 (4.8-10.8)
[2025-05-27 06:30] LABS: Albumin Level 4.1 g/dl (3.5-5.0); Chloride 103 mmol/L (98-107); Sodium 136 mmol/L (136-145)
[2025-05-27 06:31] LABS: Potassium 4.6 mmoL/L (3.5-5.1)
[2025-05-27 06:33] LABS: Alanine Aminotransferase 32 U/L (12-78); Albumin/Globulin Ratio 1.3 (1.1-1.8); Alkaline Phosphatase 88 U/L (38-126); Anion Gap 12.6 mEq/L (5-15); Aspartate Amino Transferase 45 U/L (14-36); Bilirubin,Total 0.5 mg/dl (0.2-1.3); Blood Urea Nitrogen 6 mg/dl (7-17); Calcium 8.3 mg/dl (8.4-10.2); Carbon Dioxide 25 mmol/L (22.0-30.0); Cholesterol 175 mg/dl (140-200); Creatinine Clearance Estimated 182 mL/min (50-200); Creatinine,Serum 0.80 mg/dl (0.52-1.04); Estimated Glomerular Filt Rate 84 ml/min (>60); GFR (African American) 101 ML/MIN (>60); Globulin 3.2 g/dL (1.3-3.2); Glucose 104 mg/dl (74-100); Total Protein,Serum 7.3 g/dl (6.3-8.2); Triglycerides 121 mg/dl (30-150)
[2025-05-27 06:34] LABS: Magnesium 2.3 mg/dl (1.6-2.3)
[2025-05-27 07:07] LABS: HDL Cholesterol 42 mg/dl (40-60)
[2025-05-27] MEDS: VENLAFAXINE XR 75MG CAPSULE 75 MG PO (08:15)
[2025-05-27] MEDS: HEPARIN SODIUM 5,000 UNIT/ML VIAL 5000 UNIT SUBCUT ×3 (08:15→20:44)
[2025-05-27] MEDS: LORATADINE 10MG TABLET 10 MG PO (08:15)
[2025-05-27] MEDS: ACETAMINOPHEN 325MG TAB 650 MG PO (08:19)
[2025-05-27] MEDS: ONDANSETRON 4MG/2ML VIAL 4 MG IV (08:19)
--- NOTE | 2025-05-27 10:00 | MR_ITS ---
APPROVED REPORT Radiological Health Specialist: CLINICAL INDICATION Chest pain, troponin elevation. Evaluation for myocarditis. TECHNIQUE Image Acquisition: Cardiac magnetic resonance (CMR) was performed on Siemens Espree MRI 1.5T scanner. Software platform sequences were performed using the Siemens Fiteeza MR B19 platform. A set of three-plane, low-resolution, large [id number] localizers were initially acquired. Then axial, coronal, sagittal TrueFISP, as well as axial HASTE images, were obtained. These were followed by gated TrueFISP breathold cinematic sequences obtained in the short axis with 8 mm slices and 2 mm gaps, 2-chamber (vertical long axis), 3-chamber, 4-chamber (horizontal long axis). A bolus of contrast was injected intravenously with first-pass sequences obtained in the short axis and four-chamber planes. After approximately 10 minutes, a TI investigator claims sequence was performed to determine the optimal TI time. Using the optimized TI time, delayed contrast enhancement segmented inversion???recovery TurboFLASH sequences were obtained in the short axis, 2-chamber, 3-chamber, and 4-chamber projections. 2D-velocity phase mapping was performed. Functional parameters were calculated by offline analysis on an independent workstation ([employer], [employer]). Contrast: ProHance??? (Gadoteridol) FINDINGS MORPHOLOGY AND FUNCTION Left ventricle: The left ventricle is normal in size. The indexed left ventricular end-diastolic volume (LVEDVi) is 64 ml/m2 (reference range 57-105 ml/m2 in males, 56-96 ml/m2 in females). Normal left ventricular systolic function is present. There is normal left ventricular wall thickness. There are no regional wall motion abnormalities noted. LVEF is calculated at 60.6% (reference range 57-77%). Right ventricle: The right ventricle is normal in size. The indexed right ventricular end-diastolic volume (RVEDVi) is 67 ml/m2 (reference range 61-121 ml/m2 in males, 48-112 ml/m2 in females). Normal right ventricular systolic function is present. RVEF is calculated at 55.7% (reference range 52-72% in males, 51-71% in females). Atria: The left atrium is normal in size. The maximum indexed left atrial volume is 26 ml/m2 (reference range 26-52 ml/m2 in males, 27-53 ml/m2 in females). The right atrium is normal in size. The maximum indexed right atrial volume is 18 ml/m2 (reference range 18-90 ml/m2). Aorta: The diameter of the aortic annulus is normal, measuring 21 mm (coronal view reference range 21-30 mm in males, 19-27 mm in females). The diameter of the aortic sinus is normal, measuring 28 mm (coronal view reference range 25-42 mm in males, 24-36 mm in females). The diameter of the sinotubular junction is normal, measuring 22 mm (coronal view reference range 18-32 mm in males, 18-28 mm in females). The diameters of the ascending and descending thoracic aorta are normal. Main pulmonary artery: The main pulmonary artery diameter is normal. Pericardium: The pericardial thickness is normal. The pericardial thickness measures 2.0 mm (normal < 4.0 mm). There is no pericardial effusion. VALVES The valvular morphologies in the visualized sequences appear normal. There is no significant valvular stenosis or regurgitation of the mitral, aortic, tricuspid, or pulmonic valve noted visually. Systolic anterior motion of the mitral valve is not visualized. Ratio of pulmonary to systemic flow, Qp:Qs ratio = 1.04 (normal < or = 1.2, hemodynamically significant shunt > 1.5), demonstrating no evidence of hemodynamically significant shunt. TISSUE CHARACTERIZATION Resting Perfusion: Normal myocardial blood flow at rest. No evidence of resting hypoperfusion. Myocardial Fibrosis and/or edema: Normal gadolinium kinetics are present. No evidence of late gadolinium enhancement is noted, consistent with absence of myocardial scarring, infarction, or necrosis. T2-weighted imaging demonstrates no evidence of myocardial edema or inflammation. OTHER No other significant findings are noted. However, this exam is focused on the cardiac structure and function. IMPRESSION Normal LV size with normal LV systolic function. LVEDVi= 64 ml/m2 and LVEF= 60.6%. Normal RV size with normal RV systolic function. RVEDVi= 67 ml/m2 and RVEF= 55.7%. No atrial enlargement. No CMR evidence of myocardial scarring, infarction, or necrosis. No evidence of myocardial edema or inflammation. Perfusion analysis demonstrates normal blood flow at rest with no evidence of resting hypoperfusion. Ratio of pulmonary to systemic flow, Qp:Qs ratio = 1.04 (normal < or = 1.2, hemodynamically significant shunt > 1.5), demonstrating no evidence of hemodynamically significant shunt. COMPARISON None CRITICAL RESULT None COMMUNICATION The above findings were relayed to the inpatient cardiology consult team at the time of patient's hospital admission prior to dictation of this report. The findings of this cardiac MR were reviewed, reported, and signed by Walt Pires MD (Scheduling Analyst). Conclusion Electronically signed by : Marta Pires MD 06/08/2025 23:24:11
--- NOTE | 2025-05-27 10:25 | EXP.CARD.PN ---
Subjective Subjective Date: 05/27/25 Time: 09:00 Principal diagnosis: Chest pain and shortness of breath Interval history: This is a 29-year-old patient who presented to the emergency department with a 2-day history of fever, chills, cough, congestion and shortness of breath. She is being worked up for pericarditis/myocarditis. The patient states that she had a severe episode of chest pain last night. She was febrile with diaphoresis. Sharp pain in the left side of her chest radiating down her left arm. She states that she was given IV pain medications and after about an hour the pain finally resolved. This morning she is chest pain-free. She states her shortness of breath has resolved. She denies any edema. She states that she did have fevers throughout the night. She denies any chills, nausea, vomiting or diarrhea. Exam Data for Last 24 hours Vital signs and Labs for Last 24 Hours: Temp Pulse Resp BP Pulse Ox O2 Del Method 97.8 F 89 16 129/66 97 Room Air 05/27/25 08:00 05/27/25 08:00 05/27/25 08:00 05/27/25 08:00 05/27/25 08:00 05/27/25 09:00 Laboratory Results - last 24 hr 05/26/25 11:36: Chlamy pneumoniae PCR Not detected, Adenovirus (PCR) Not detected, B. pertussis DNA (PCR) Not detected, Coronavirus OC43 (PCR) Not detected, Coronavirus HKU1 (PCR) Not detected, Coronavirus 229E (PCR) Not detected, SARS-CoV-2 (PCR) Not detected 05/26/25 11:36: SARS-CoV-2 (PCR) Not detected, Coronavirus NL63 (PCR) Not detected, Human Metapneumovir PCR Not detected, Influenza A (H1) PCR Not detected, Influ A (H1N1/09) PCR Not detected, Influenza A (H3) PCR Not detected, Influenza Type A (PCR) Not detected 05/26/25 11:36: Influenza Type A (PCR) Not detected, Influenza Type B (PCR) Not detected 05/26/25 11:36: Influenza Type B (PCR) Not detected, M. pneumoniae (PCR) Not detected, Parainfluenza 1 (PCR) Not detected, Parainfluenza 2 (PCR) Not detected, Parainfluenza 3 (PCR) Not detected, Parainfluenza 4 (PCR) Not detected, RSV (PCR) Not detected 05/26/25 11:36: RSV (PCR) Not detected, Rhinovirus (PCR) Not detected, Entero/Rhino (PCR) Not detected 05/26/25 11:53: WBC 6.8, RBC 4.21, Hgb 12.9, Hct 37.2, MCV 88.4, MCH 30.6, MCHC 34.7, RDW 12.4, Plt Count 218, MPV 9.6, Neut % (Auto) 65.2, Lymph % (Auto) 24.6, [place] % (Auto) 9.5 H, Eos % (Auto) 0.0 L, Baso % (Auto) 0.3, Neut # (Auto) 4.4, Lymph # (Auto) 1.7, [place] # (Auto) 0.7, Eos # (Auto) 0.0, Baso # (Auto) 0.0, PT 11.6, INR 1.05, Sodium 133 L, Potassium 3.5, Chloride 98, Carbon Dioxide 27, Anion Gap 11.5, BUN 6 L, Creatinine 0.80, Estimated Creat Clear 179, Estimated GFR 84, Est GFR ( Amer) 101, Glucose 96, Calcium 8.4, Magnesium 1.9, Total Bilirubin 1.0, AST 29, ALT 22, Alkaline Phosphatase 98, Troponin I 0.59 H, C-Reactive Protein 68.0 H, NT-Pro-B Natriuret Pep 24.0, Total Protein 7.6, Albumin 4.2, Globulin 3.4 H, Albumin/Globulin Ratio 1.2, Serum HCG, Qual Negative, HCV Ab KIMBERLI w/Rflx PCR Qn Negative, HIV Ag/Ab Combo Qual Negative 05/26/25 12:56: Troponin I 0.80 H 05/26/25 14:45: Troponin I 0.84 H 05/26/25 18:07: Troponin I 1.42 H, TSH 0.58 05/27/25 06:12: WBC 5.8, RBC 4.43, Hgb 13.0, Hct 39.9, MCV 90.1, MCH 29.3, MCHC 32.6, RDW 12.4, Plt Count 169, MPV 10.5 H, Neut % (Auto) 57.2, Lymph % (Auto) 32.5, [place] % (Auto) 9.3, Eos % (Auto) 0.0 L, Baso % (Auto) 0.3, Neut # (Auto) 3.3, Lymph # (Auto) 1.9, [place] # (Auto) 0.5, Eos # (Auto) 0.0, Baso # (Auto) 0.0, Sodium 136, Potassium 4.6 D, Chloride 103, Carbon Dioxide 25, Anion Gap 12.6, BUN 6 L, Creatinine 0.80, Estimated Creat Clear 182, Estimated GFR 84, Est GFR ( Amer) 101, Glucose 104 H, Calcium 8.3 L, Magnesium 2.3 D, Total Bilirubin 0.5, AST 45 H D, ALT 32 D, Alkaline Phosphatase 88, Total Protein 7.3, Albumin 4.1, Globulin 3.2, Albumin/Globulin Ratio 1.3, Triglycerides 121, Cholesterol 175, LDL Cholesterol Direct 100.98, VLDL Cholesterol 24, HDL Cholesterol 42, Cholesterol/HDL Ratio 4.2 H I & O for Last 24 hours: Intake & Output 05/24/25 05/25/25 05/26/25 05/27/25 23:59 23:59 23:59 23:59 Intake Total 510 / 630 390 / 390 Output Total 300 / 300 0 / 0 Balance 210 / 330 390 / 390 Weight 246 lb 249 lb 3.2 oz Constitutional Constitutional: no acute distress and obese *Routine HEENT Exam Head: Present normocephalic and atraumatic ENT: Present mucous membranes moist *Routine Neck Exam Neck: Present supple, full ROM and normal carotid upstroke; Absent JVD, carotid bruit or lymphadenopathy *Routine Respiratory Exam Respiratory: Present CTA bilaterally, normal respiratory effort, able to speak in complete sentences and symmetric chest movement *Routine Cardiovascular Exam Cardiovascular: Present RRR, Normal S1 and Normal S2; Absent murmur or gallop *Routine Abdominal Exam Abdominal: Present soft and normoactive bowel sounds; Absent tenderness, distended or organomegaly *Routine Extremities Exam Extremities: Present full ROM, pulses intact and normal capillary refill; Absent cyanosis, clubbing or edema *Routine Skin Exam Skin: Present intact and warm; Absent erythema *Routine Neurological Exam Neurological: Present alert, oriented X3 and CN II-XII intact; Absent sensory deficit or motor deficit Routine Psychiatric Exam Psychiatric: Present normal affect Progress Note: A&P Assessment and plan (1) Elevated troponin: Status: Acute (2) Depression: Status: Acute (3) Anxiety: Status: Acute (4) Chest pain: Status: Acute (5) Dyspnea: Status: Acute (6) Hilar lymphadenopathy: Status: Acute Assessment and Plan Assessment and Plan for All Diagnoses:: Plan: 1. The patient presented to the emergency department complaints of chest pain and shortness of breath. She had fever chills cough congestion for approximately 2 days prior to admission. She does have an elevated troponin. Concerned with myopericarditis. Will get a cardiac MRI to evaluate for myopericarditis. This will be completed today at 11:15 AM. 2. The patient does have claustrophobia. Will give her Valium 10 mg x 1 dose prior to her cardiac MRI tomorrow. 3. Echocardiogram shows normal ejection fraction and no pericardial effusion. 4. Her blood pressure is well-controlled. 5. Her LDL goal is less than 100. Her LDL is 100. 6. Further recommendations will be made pending the patient's response to treatment and the results of her cardiac MRI.2 Thank you for the opportunity to help participate in the care of this patient. All recommendations and orders are per Dr. Pires. Addendum: Cardiac MRI shows no evidence of myocarditis or pericarditis. Her EF is normal. Right ventricular function is also normal. No scar no inflammation or ischemia noted. Hilar lymphadenopathy is noted. Consult pulmonology for hilar lymphadenopathy and to rule out pulmonology etiologies of her symptoms. Troponin is elevated with no visible cardiac cause. Will check urine and blood catecholamines and metanephrines.
[2025-05-27] MEDS: 0.9 % SODIUM CHLORIDE 50 ML VIAL 10 ML IV (12:07)
[2025-05-27] MEDS: GADOTERIDOL INJ 10ML SYRINGE 4 ML IV (12:07)
[2025-05-27] MEDS: GADOTERIDOL INJ 20ML SYRINGE 24 ML IV (12:07)
--- NOTE | 2025-05-27 16:14 | P.PN_ITS ---
<Statement entered by Chinedu Ayala MD - 05/27/25 17:50> Rounded on patient after nurse practitioner. Personally examined and interviewed patient. Agree with exam findings and care plan as documented. Subjective *Date: 05/27/25 *Time: 16:14 Interval history: Patient doing well, awaiting pulmonology recommendations. Cardiac MRI unremarkable. Patient feels well overall, intermittent chest pressure and dyspnea at times. Patient has been afebrile and hemodynamically stable today. Tolerating p.o. diet without issue. Medical Exam Vital signs and Labs for Last 24 Hours: Vital Signs Temp Pulse Pulse Resp BP Pulse Ox O2 Del Method 05/27/25 15:42 98.3 F 75 16 122/54 L 100 Room Air 05/27/25 15:00 Room Air 05/27/25 13:00 Room Air 05/27/25 12:00 85 16 135/76 99 Room Air 05/27/25 11:00 Room Air 05/27/25 09:00 Room Air 05/27/25 08:00 Room Air 05/27/25 08:00 97.8 F 89 16 129/66 97 Room Air 05/27/25 06:19 Room Air 05/27/25 05:00 Room Air 05/27/25 04:00 97.5 F L 77 16 131/57 L 99 Room Air 05/27/25 04:00 70 05/27/25 03:00 Room Air 05/27/25 01:05 98.7 F 92 H 17 151/78 H 97 Room Air 05/27/25 01:00 Room Air 05/27/25 00:00 100 H 05/27/25 00:00 101.0 F H 94 H 16 122/67 99 Room Air 05/26/25 23:00 Room Air 05/26/25 21:00 Room Air 05/26/25 20:00 100 H 05/26/25 20:00 Room Air 05/26/25 20:00 98.1 F 92 H 16 122/60 99 Room Air 05/26/25 18:44 Room Air 05/26/25 17:00 Room Air Intake and Output 05/27/25 05/27/25 05/27/25 07:59 15:59 23:59 Intake Total 120 / 390 270 / 390 Output Total 0 / 200 200 / 200 Balance 120 / 190 70 / 190 Intake: Intake, Oral Amount 120 / 390 270 / 390 Output: Output, Urine Amount 0 / 200 200 / 200 Other: Number of Unmeasured Voids 1 Number of Bowel Movements 3 Weight 113.035 kg Patient Weight 05/27/25 23:59 Weight 113.035 kg Laboratory Results - last 24 hr 05/26/25 18:07: Troponin I 1.42 H, TSH 0.58 05/27/25 06:12: WBC 5.8, RBC 4.43, Hgb 13.0, Hct 39.9, MCV 90.1, MCH 29.3, MCHC 32.6, RDW 12.4, Plt Count 169, MPV 10.5 H, Neut % (Auto) 57.2, Lymph % (Auto) 32.5, [place] % (Auto) 9.3, Eos % (Auto) 0.0 L, Baso % (Auto) 0.3, Neut # (Auto) 3.3, Lymph # (Auto) 1.9, [place] # (Auto) 0.5, Eos # (Auto) 0.0, Baso # (Auto) 0.0, Sodium 136, Potassium 4.6 D, Chloride 103, Carbon Dioxide 25, Anion Gap 12.6, BUN 6 L, Creatinine 0.80, Estimated Creat Clear 182, Estimated GFR 84, Est GFR ( Amer) 101, Glucose 104 H, Calcium 8.3 L, Magnesium 2.3 D, Total Bilirubin 0.5, AST 45 H D, ALT 32 D, Alkaline Phosphatase 88, Total Protein 7.3, Albumin 4.1, Globulin 3.2, Albumin/Globulin Ratio 1.3, Triglycerides 121, Cholesterol 175, LDL Cholesterol Direct 100.98, VLDL Cholesterol 24, HDL Cholesterol 42, Cholesterol/HDL Ratio 4.2 H I & O for Labs for Last 24 Hours: Intake & Output 05/24/25 05/25/25 05/26/25 05/27/25 23:59 23:59 23:59 23:59 Intake Total 510 / 630 390 / 390 Output Total 300 / 300 200 / 200 Balance 210 / 330 190 / 190 Weight 111.584 kg 113.035 kg Constitutional: Present no acute distress, morbidly obese and cooperative Head: Present atraumatic Eyes: Present as per HPI ENT: Present normal exam Neck: Present normal inspection Respiratory: Present CTA bilaterally, normal respiratory effort and symmetric chest movement; Absent wheezes or crackles Cardiac: Present Reg Rate and Rhythm; Absent No Murmur GI: Present soft and normal bowel sounds; Absent distention or tenderness Rectal (female): Present deferred (female): Present deferred Extremities: Present normal inspection and full ROM Skin: Present intact and dry; Absent erythema or rash Neuro: Present Grossly Intact, alert, awake, oriented x 3 and moves all extremities Assessment and Plan *Assessment and plan (1) Elevated troponin: Status: Acute Category: Medical Code(s): R79.89 - Other specified abnormal findings of blood chemistry (2) Myocarditis: Status: Ruled-out Qualifiers: Chronicity: acute Myocarditis type: unspecified Qualified Code(s): I40.9 - Acute myocarditis, unspecified Category: Medical Code(s): I51.4 - Myocarditis, unspecified (3) Pericarditis: Status: Resolved Qualifiers: Chronicity: acute Pericarditis type: other type Qualified Code(s): I30.8 - Other forms of acute pericarditis Category: Medical Code(s): I31.9 - Disease of pericardium, unspecified (4) Depression: Status: Acute Category: Medical Code(s): F32.A - Depression, unspecified (5) Anxiety: Status: Acute Category: Medical Code(s): F41.9 - Anxiety disorder, unspecified (6) Hilar lymphadenopathy: Status: Acute Category: Medical Code(s): R59.0 - Localized enlarged lymph nodes Plan Ms. Martinez is a 29-year-old female who presented to the emergency department today with complaints of fever, chills, cough, congestion, nausea, shortness of air for the last week. She also complains of pleuritic chest pain/chest congestion for the last 2 days. She denies abdominal pain, diarrhea, vomiting, constipation, dysuria. Patient denies use of tobacco, alcohol, drugs. She has a primary medical history of anxiety, depression, bipolar disorder, migraines, and ADHD. Workup in the emergency department was significant for elevated troponin at 0.59 trending upward to 0.84. Patient's EKG shows no ischemic changes. Patient had CTA per PE protocol which was negative for PE or dissection, did show enlarged subcarinal and left hilar lymph nodes. [id number] ultrasound was done at bedside to evaluate cardiac function, no notable findings. Patient had formal echo which showed a normal LVEF, no abnormalities. CMP and CBC were unremarkable, hCG was negative, mini respiratory panel also negative. Cardiology was consulted from the emergency department who recommended admission for possible david-/myocarditis. It does appear patient had a LHC approximately 2 years ago that showed normal Cors. Cardiology recommended admission and cardiac MRI for further evaluation of elevated troponin. Cardiac MRI scheduled for tomorrow morning at 11 AM. Patient does endorse claustrophobia, will order Valium 10 mg prior to cardiac MRI. Patient has remained hemodynamically stable, blood pressure within normal range. Lipid panel ordered for the a.. [facility] medicine was consulted for admission for further management, I agreed to accept the patient. Plan of care as follows: #Elevated troponin/NSTEMI #Chest pain #Dyspnea #Myocarditis/pericarditis-ruled out #Hilar lymphadenopathy ? Patient had cardiac MRI read by Dr. Lozano states that scan is unremarkable. Recommendations by cardiology were for patient to be seen by pulmonology for hilar lymphadenopathy that was present on CTA scan. Placed on continuous cardiac telemetry. Currently in sinus rhythm. Patient currently denies chest pain, shortness of breath. ? Patient did have episode of fever (101), diaphoresis, chest pain radiating to left arm, and dyspnea overnight. Was given Dilaudid IV which relieved symptoms. Patient denies having any further symptoms since that time. ? CBC shows no anemia, no leukocytosis, slight hyponatremia at 136, normal kidney function, CRP elevated at 68.0. TSH 0.58, ? Ordered CBC, CMP, magnesium, lipid panel ordered for the a.. #Anxiety #Mood disorder ? Continue hydroxyzine 25 mg 4 times daily as needed for anxiety, Caplyta 42 mg daily, mirtazapine 30 mg at bedtime, desvenlafaxine 50 mg daily. Full code Regular diet Heparin 5000 units 3 times daily Ambulate as tolerated
[2025-05-27 16:19] LABS: Ferritin 97.4 ng/ml (6.24-137)
[2025-05-27 16:33] LABS: C-Reactive Protein 61.1 mg/L (0-4)
--- NOTE | 2025-05-27 16:55 | EXP.PULM.CON ---
History of Present Illness History of present illness: Ms. Martinez is a 29-year-old female present to the ER complaining of nonspecific symptoms of chest tightness pressure along with difficulty breathing and burning sensation when taking deep breaths. Patient admits symptoms of exertional dyspnea at baseline with moderate to severe exertion. Family history of asthma. No childhood respiratory symptoms. [facility] Disclaimer: The information contained in this section may have been updated after the patient was seen, as this information can be updated by other users. 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 (Updated 05/27/25 @ 17:00 by Chloé Cedillo MD) Dyspnea on exertion Hilar lymphadenopathy Diastolic dysfunction Pericarditis Myocarditis Elevated troponin No significant past medical history Surgical History History of cholecystectomy Hx of tonsillectomy Hx of section Family History Mother Cancer thyroid Sister Cancer thyroid Grandfather Diabetes Social History Smoking Status: Current every day smoker tobacco type: e-cigarettes alcohol intake: never substance use type: denies use current occupational status: employed Travel in the last 8 weeks?: None Have you lived/traveled outside [place] in past 30 days?: No Contact w/someone who lives/traveled outside [place] past 30 days?: No Exposure to someone with infectious disease in past 14 days?: No Do you have a fever (greater than 100.4 F or 38 C)?: No Have you tested positive for COVID-19?: No Exposed to someone with COVID-19 in past 14 days?: No Do you have a sore throat?: No Do you have a cough?: No Do you have any weakness?: No Do you have any diarrhea?: No Are you experiencing any unusual bleeding?: No Do you have any muscle aches/pain?: No Do you have any abdominal pain?: No Are you experiencing loss of taste or smell?: No Review of Systems Constitutional Constitutional: Reports fatigue, Denies headache(s) and Reports snoring Eyes Eyes: Denies eye discharge, Denies dry eyes, Denies irritation and Denies itchy eyes ENT Ears, Nose, Mouth, and Throat: Denies dizziness, Denies headache(s), Denies lip swelling and Denies throat swelling *Cardiovascular Cardiovascular: Reports chest pain and Reports dyspnea on exertion *Respiratory Respiratory: Reports chest congestion, Reports cough, Reports dyspnea on exertion, Denies excessive phlegm production, Denies hemoptysis, Denies pain on inspiration, Denies pain with cough, Reports snoring and Reports wheezing *Gastrointestinal Gastrointestinal: Denies abdominal pain, Denies belching and Denies cramping *Musculoskeletal Musculoskeletal: Denies myalgias and Reports other (No small joint swelling or Pain) *Neurologic Neurologic: Reports system reviewed and no additional complaints, except as documented, Denies dizziness and Denies headache(s) Psychiatric Psychiatric: Denies homicidal ideation and Denies suicidal ideation Endocrine Endocrine: Reports fatigue and Denies heat intolerance Hematologic/Lymphatic Hematologic/Lymphatic: Denies easy bleeding and Denies lymphadenopathy Allergic/Immunologic Allergic/Immunologic: Denies itchy eyes, Denies lip swelling, Denies throat swelling and Reports wheezing Pulmonology Exam Inpatient Vital signs and Labs for Last 24 Hours: Temp Pulse Resp BP Pulse Ox O2 Del Method 98.3 F 75 16 122/54 L 100 Room Air 05/27/25 15:42 05/27/25 15:42 05/27/25 15:42 05/27/25 15:42 05/27/25 15:42 05/27/25 15:42 Laboratory Results - last 24 hr 05/26/25 18:07: Troponin I 1.42 H, TSH 0.58 05/27/25 06:12: WBC 5.8, RBC 4.43, Hgb 13.0, Hct 39.9, MCV 90.1, MCH 29.3, MCHC 32.6, RDW 12.4, Plt Count 169, MPV 10.5 H, Neut % (Auto) 57.2, Lymph % (Auto) 32.5, [place] % (Auto) 9.3, Eos % (Auto) 0.0 L, Baso % (Auto) 0.3, Neut # (Auto) 3.3, Lymph # (Auto) 1.9, [place] # (Auto) 0.5, Eos # (Auto) 0.0, Baso # (Auto) 0.0, Sodium 136, Potassium 4.6 D, Chloride 103, Carbon Dioxide 25, Anion Gap 12.6, BUN 6 L, Creatinine 0.80, Estimated Creat Clear 182, Estimated GFR 84, Est GFR ( Amer) 101, Glucose 104 H, Calcium 8.3 L, Magnesium 2.3 D, Total Bilirubin 0.5, AST 45 H D, ALT 32 D, Alkaline Phosphatase 88, Total Protein 7.3, Albumin 4.1, Globulin 3.2, Albumin/Globulin Ratio 1.3, Triglycerides 121, Cholesterol 175, LDL Cholesterol Direct 100.98, VLDL Cholesterol 24, HDL Cholesterol 42, Cholesterol/HDL Ratio 4.2 H 05/27/25 15:19: ESR 29 H, Ferritin 97.4 D, Lactate Dehydrogenase 226 L, C-Reactive Protein 61.1 H I & O for Labs for Last 24 Hours: Intake & Output 05/24/25 05/25/25 05/26/25 05/27/25 23:59 23:59 23:59 23:59 Intake Total 510 / 630 390 / 390 Output Total 300 / 300 200 / 200 Balance 210 / 330 190 / 190 Weight 246 lb 249 lb 3.2 oz Constitutional: Present mild distress Head: Present normocephalic and atraumatic ENT: Present normal exam, normal oropharynx and mucous membranes moist Neck: Present normal inspection and full ROM Respiratory: Present CTA bilaterally, normal respiratory effort and able to speak in complete sentences; Absent prolonged expiratory phase, respiratory distress, wheezes, crackles or diminished air movement Cardiac: Present S1/S2, Tachycardia and radial pulses present GI: Present soft and distention; Absent tenderness or guarding Rectal (female): Present deferred (female): Present deferred Skin: Present intact; Absent cyanosis or jaundice Neuro: Present alert, awake and oriented x 3 Extremities: Present normal inspection; Absent clubbing or cyanosis Psychiatric: Present normal affect and cooperative Meds Home Medications and Allergies Home Medications ?Medication ?Instructions ?Recorded ?Confirmed ?Type ferrous sulfate 325 mg (65 mg 325 mg PO DAILY 10/15/24 05/26/25 History iron) tablet mirtazapine 30 mg tablet 30 mg PO HS 10/15/24 05/26/25 History cholecalciferol (vitamin D3) 125 125 mcg PO DAILY 05/26/25 05/26/25 History mcg (5,000 unit) capsule desvenlafaxine succinate 50 mg 50 mg PO DAILY 05/26/25 05/26/25 History tablet,extended release 24 hr ergocalciferol (vitamin D2) 1,250 1,250 mcg PO WEEKLY 05/26/25 05/26/25 History mcg (50,000 unit) capsule hydroxyzine pamoate 25 mg capsule 25 mg PO QIDP PRN Anxiety 05/26/25 05/26/25 History levocetirizine 5 mg tablet 5 mg PO DAILY 05/26/25 05/26/25 History lumateperone 42 mg capsule 42 mg PO DAILY 05/26/25 05/26/25 History (Caplyta) sumatriptan succinate 100 mg tablet 100 mg PO DAILYP PRN Migraine 05/26/25 05/26/25 History Headache New Prescriptions to Start Prescriptions: Allergies Allergy/AdvReac Type Severity Reaction Status Date / Time morphine (MORPHINE) Allergy Unknown HALLUCINATIONS, Verified 05/13/25 15:00 PAIN ATTACKS Results Laboratory Findings 05/27/25 06:12 05/27/25 06:12 PT/INR, D-dimer PT 11.6 seconds (10.1-12.5) 05/26/25 11:53 INR 1.05 (0.9-1.1) 05/26/25 11:53 Abnormal lab findings: Abnormal Labs 05/26/25 05/26/25 05/26/25 11:53 12:56 14:45 MPV [place] % (Auto) 9.5 H Eos % (Auto) 0.0 L ESR Sodium 133 L BUN 6 L Glucose Calcium AST Lactate Dehydrogenase Troponin I 0.59 H 0.80 H 0.84 H C-Reactive Protein 68.0 H Globulin 3.4 H Cholesterol/HDL Ratio 05/26/25 05/27/25 05/27/25 18:07 06:12 15:19 MPV 10.5 H [place] % (Auto) Eos % (Auto) 0.0 L ESR 29 H Sodium BUN 6 L Glucose 104 H Calcium 8.3 L AST 45 H D Lactate Dehydrogenase 226 L Troponin I 1.42 H C-Reactive Protein 61.1 H Globulin Cholesterol/HDL Ratio 4.2 H Assessment and Plan *Assessment and plan (1) Hilar lymphadenopathy: Status: Acute Category: Medical Code(s): R59.0 - Localized enlarged lymph nodes (2) Dyspnea on exertion: Status: Acute Category: Medical Code(s): R06.09 - Other forms of dyspnea Plan Ms. Martinez is a 29-year-old female present to the ER complaining of nonspecific symptoms of chest tightness pressure along with difficulty breathing and burning sensation when taking deep breaths. Patient admits symptoms of exertional dyspnea at baseline with moderate to severe exertion. Family history of asthma. No childhood respiratory symptoms. Admits underwent extensive autoimmune workup around 2022 and was reported to be negative, no access to those results. CT chest no pulmonary parenchymal abnormalities, noted to have left hilar and mediastinal lymphadenopathy. Cardiac troponins continue to increase now at 1.42. Inflammatory markers elevated. It is not clear at this point of time regarding the relation between the noted lymphadenopathy on the elevated troponins in the setting of normal MRI. The possibility of sarcoid cannot be completely ruled out , within the limitations of cardiac MRI sensitivity in detecting early cardiac inflammation as without cardiac involvement troponin should likely be normal. Cardiology following. Plan: Initiate prednisone 40 mg daily Follow with autoimmune workup Advair 500 twice daily Follow-up with repeat CRP and lab work
[2025-05-27] MEDS: BELLADONNA ALKALOIDS 60 ML ML PO (18:17)
[2025-05-27] MEDS: MIRTAZAPINE 15 MG TABLET 30 MG PO (20:42)
[2025-05-27] MEDS: PANTOPRAZOLE 40MG VIAL 40 MG IV (20:49)
[2025-05-28] VITALS: BP 117/70; PULSE 75; PULSE 80; RESP 16; TEMP 36.8; O2SAT 97
--- NOTE | 2025-05-28 03:47 | PC.NURSE ---
Pt. is alert and orientated x 4. Pt. is on room air. Pt. c/o one or two twinges of burning type of pain in the left chest. Pt. had a GI cocktail at change of shift and it helped the pain. Pt. has a history of anxiety but states it has not been bad today or this evening. She did not want PRN anxiety med. Pt. states that when she is sitting up in bed or resting in bed she has minimal shortness of breath . When up to bathroom , Pt. c/o increased shortness of breath and heaviness to chest at times. Also c/o intermittent dizziness when up to bathroom. Pt, has had a hard time to fall asleep this shift. When sleeping pt. appears comfortable, resp. easy and non labored. Personal items and call cervantes in reach. Bed in low and locked position. safety measures in place.
[2025-05-28 04:00] VITALS: BP 122/71; PULSE 60; PULSE 63; RESP 16; TEMP 36.4; O2SAT 95; BMI 39.6
[2025-05-28 06:33] LABS: Hematocrit 39.1 % (37.0-47.0); Hemoglobin 12.9 g/dL (12.2-16.2); Immature Granulocytes % 0.8 %; Mean Corpuscular HGB Conc 33.0 g/dL (31.8-35.4); Mean Corpuscular Hemoglobin 29.5 pg (27.0-31.2); Mean Corpuscular Volume 89.5 fl (81-99); Nucleated Red Blood Cells % 0 %; Platelet Count 247 K/mm3 (142-424); Red Blood Count 4.37 M/mm3 (4.20-5.40); Red Cell Distribution Width-SD 40.5 fL; White Blood Count 6.1 K/mm3 (4.8-10.8)
[2025-05-28 06:44] LABS: Albumin Level 4.2 g/dl (3.5-5.0); Chloride 101 mmol/L (98-107); Potassium 4.7 mmoL/L (3.5-5.1); Sodium 138 mmol/L (136-145)
[2025-05-28 06:47] LABS: Alanine Aminotransferase 38 U/L (12-78); Albumin/Globulin Ratio 1.2 (1.1-1.8); Alkaline Phosphatase 94 U/L (38-126); Anion Gap 15.7 mEq/L (5-15); Aspartate Amino Transferase 37 U/L (14-36); Bilirubin,Total 0.3 mg/dl (0.2-1.3); Blood Urea Nitrogen 8 mg/dl (7-17); Carbon Dioxide 26 mmol/L (22.0-30.0); Creatinine Clearance Estimated 180 mL/min (50-200); Creatinine,Serum 0.80 mg/dl (0.52-1.04); Estimated Glomerular Filt Rate 84 ml/min (>60); GFR (African American) 101 ML/MIN (>60); Globulin 3.6 g/dL (1.3-3.2); Total Protein,Serum 7.8 g/dl (6.3-8.2)
[2025-05-28 06:48] LABS: Calcium 8.8 mg/dl (8.4-10.2); Glucose 115 mg/dl (74-100)
[2025-05-28 06:58] LABS: Troponin I 0.18 ng/ml (0.00-0.034)
[2025-05-28 07:39] LABS: C-Reactive Protein 54.0 mg/L (0-4)
[2025-05-28 08:00] VITALS: BP 121/70; PULSE 100; PULSE 75; RESP 20; TEMP 36.5; O2SAT 98
[2025-05-28] MEDS: HEPARIN SODIUM 5,000 UNIT/ML VIAL 5000 UNIT SUBCUT (09:11)
[2025-05-28] MEDS: VENLAFAXINE XR 75MG CAPSULE 75 MG PO (09:11)
[2025-05-28] MEDS: LORATADINE 10MG TABLET 10 MG PO (09:11)
--- NOTE | 2025-05-28 09:38 | P.DS_ITS ---
<Statement entered by Chinedu Ayala MD - 05/28/25 18:00> Rounded on patient after nurse practitioner. Personally examined and interviewed patient. Agree with exam findings and care plan as documented. General Admission date:: 05/26/25 Discharge date: 05/28/25 HPI HPI HPI: Ms. Martinez is a 29-year-old female who presented to the emergency department today with complaints of fever, chills, cough, congestion, nausea, shortness of air for the last week. She also complains of pleuritic chest pain/chest congestion for the last 2 days. She denies abdominal pain, diarrhea, vomiting, constipation, dysuria. Patient denies use of tobacco, alcohol, drugs. She has a primary medical history of anxiety, depression, bipolar disorder, migraines, and ADHD. Workup in the emergency department was significant for elevated troponin at 0.59 trending upward to 0.84. Patient's EKG shows no ischemic changes. Patient had CTA per PE protocol which was negative for PE or dissection, did show enlarged subcarinal and left hilar lymph nodes. [id number] ultrasound was done at bedside to evaluate cardiac function, no notable findings. Patient had formal echo which showed a normal LVEF, no abnormalities. CMP and CBC were unremarkable, hCG was negative, mini respiratory panel also negative. Cardiology was consulted from the emergency department who recommended admission for possible david-/myocarditis. It does appear patient had a LHC approximately 2 years ago that showed normal Cors. Cardiology recommended admission and cardiac MRI for further evaluation of elevated troponin. Hospital Course Hospital Course Hospital Course: Ms. Martinez is a 29-year-old female who presented to the emergency department with complaints of fever, chills, cough, congestion, nausea, shortness of air for the last week. She also complains of pleuritic chest pain/chest congestion for the last 2 days. She denies abdominal pain, diarrhea, vomiting, constipation, dysuria. Patient denies use of tobacco, alcohol, drugs. She has a primary medical history of anxiety, depression, bipolar disorder, migraines, and ADHD. Workup in the emergency department was significant for elevated troponin at 0.59 trending upward to 0.84. Patient's EKG shows no ischemic changes. Patient had CTA per PE protocol which was negative for PE or dissection, did show enlarged subcarinal and left hilar lymph nodes. [id number] ultrasound was done at bedside to evaluate cardiac function, no notable findings. Patient had formal echo which showed a normal LVEF, no abnormalities. CMP and CBC were unremarkable, hCG was negative, mini respiratory panel also negative. Cardiology was consulted from the emergency department who recommended admission for possible david-/myocarditis. It does appear patient had a LHC approximately 2 years ago that showed normal Cors. Cardiology recommended admission and cardiac MRI for further evaluation of elevated troponin. atient has remained hemodynamically stable, blood pressure within normal range. Hospital medicine was consulted for admission for further management, I agreed to accept the patient. Plan of care as follows: #Elevated troponin/NSTEMI #Chest pain #Dyspnea #Myocarditis/pericarditis-ruled out #Hilar lymphadenopathy ? Patient had cardiac MRI read by Dr. Lozano states that scan is unremarkable. Recommendations by cardiology were for patient to be seen by pulmonology for hilar lymphadenopathy that was present on CTA scan. Patient had continuous cardiac telemetry during admission which showed sinus rhythm. Day of discharge patient denies any chest pain or shortness of breath. States she feels well. Pulmonology was consulted who recommended autoimmune testing and possible EBUS FNA outpatient. They also recommended prednisone taper 40 mg x 5 days, 20 mg x 5 days, and 10 mg x 5 days. Additionally they started a Advair 500 inhaler twice daily. Patient discharged home with inhaler and instruction. ?Patient repeat troponin yesterday evening had trended downward to 0.18. CRP originally elevated at 68 also trending downward. Patient continued to have no anemia, no leukocytosis, normal kidney function. TSH WNL. ?Patient will follow-up with cardiology and pulmonology as an outpatient. Patient will follow-up with PCP on Saturday. #Anxiety #Mood disorder ? Continue hydroxyzine 25 mg 4 times daily as needed for anxiety, Caplyta 42 mg daily, mirtazapine 30 mg at bedtime, desvenlafaxine 50 mg daily at discharge. Total time spent on discharge 32 minutes in counseling, documentation, chart review, and direct care with patient. Exam Data for Last 24 hours Vital signs and Labs for Last 24 Hours: Temp Pulse Resp BP Pulse Ox O2 Del Method 97.7 F 75 20 121/70 98 Room Air 05/28/25 08:00 05/28/25 08:00 05/28/25 08:00 05/28/25 08:00 05/28/25 08:00 05/28/25 08:00 Laboratory Results - last 24 hr 05/27/25 15:19: ESR 29 H, Ferritin 97.4 D, Lactate Dehydrogenase 226 L, C- Reactive Protein 61.1 H 05/28/25 06:20: WBC 6.1, RBC 4.37, Hgb 12.9, Hct 39.1, MCV 89.5, MCH 29.5, MCHC 33.0, RDW 12.3, Plt Count 247 D, MPV 9.8, Neut % (Auto) 54.1, Lymph % (Auto) 36.6, [place] % (Auto) 8.3, Eos % (Auto) 0.0 L, Baso % (Auto) 0.2, Neut # (Auto) 3.3, Lymph # (Auto) 2.3, [place] # (Auto) 0.5, Eos # (Auto) 0.0, Baso # (Auto) 0.0, Sodium 138, Potassium 4.7, Chloride 101, Carbon Dioxide 26, Anion Gap 15.7 H, BUN 8 D, Creatinine 0.80, Estimated Creat Clear 180, Estimated GFR 84, Est GFR ( Amer) 101, Glucose 115 H, Calcium 8.8, Total Bilirubin 0.3, AST 37 H, ALT 38, Alkaline Phosphatase 94, Troponin I 0.18 H, C-Reactive Protein 54.0 H, Total Protein 7.8, Albumin 4.2, Globulin 3.6 H, Albumin/Globulin Ratio 1.2 I & O for Last 24 hours: Intake & Output 05/25/25 05/26/25 05/27/25 05/28/25 23:59 23:59 23:59 23:59 Intake Total 510 / 630 390 / 510 390 / 390 Output Total 300 / 300 550 / 850 1050 / 1050 Balance 210 / 330 -160 / -340 -660 / -660 Weight 111.584 kg 113.035 kg 112.03 kg Constitutional Constitutional: no acute distress, obese and cooperative *Routine HEENT Exam Head: Present normocephalic and atraumatic Eye: Present EOMI ENT: Present mucous membranes moist *Routine Neck Exam Neck: Present supple and full ROM; Absent JVD *Routine Respiratory Exam Respiratory: Present CTA bilaterally, normal respiratory effort, able to speak in complete sentences and symmetric chest movement; Absent wheezes or crackles *Routine Cardiovascular Exam Cardiovascular: Present RRR, Normal S1 and Normal S2; Absent murmur *Routine Abdominal Exam Abdominal: Present soft and normoactive bowel sounds; Absent tenderness, distended or organomegaly *Routine Rectal Exam Patient deferred: visual exam *Routine Exam Patient deferred: external exam *Routine Extremities Exam Extremities: Present full ROM, pulses intact and normal capillary refill; Absent cyanosis, clubbing or edema *Routine Skin Exam Skin: Present intact, dry and warm; Absent erythema or rash *Routine Neurological Exam Neurological: Present alert, oriented X3, CN II-XII intact, vision grossly intact, hearing grossly intact and normal speech; Absent sensory deficit or motor deficit Routine Psychiatric Exam Psychiatric: Present normal affect Results Data Completed and Pending Labs on day of discharge: Labs from last 24 hours 05/28/25 05/27/25 06:20 15:19 WBC 6.1 RBC 4.37 Hgb 12.9 Hct 39.1 MCV 89.5 MCH 29.5 MCHC 33.0 RDW 12.3 Plt Count 247 D MPV 9.8 Neut % (Auto) 54.1 Lymph % (Auto) 36.6 [place] % (Auto) 8.3 Eos % (Auto) 0.0 L Baso % (Auto) 0.2 Neut # (Auto) 3.3 Lymph # (Auto) 2.3 [place] # (Auto) 0.5 Eos # (Auto) 0.0 Baso # (Auto) 0.0 ESR 29 H Sodium 138 Potassium 4.7 Chloride 101 Carbon Dioxide 26 Anion Gap 15.7 H BUN 8 D Creatinine 0.80 Estimated Creat Clear 180 Estimated GFR 84 Est GFR ( Amer) 101 Glucose 115 H Calcium 8.8 Ferritin 97.4 D Total Bilirubin 0.3 AST 37 H ALT 38 Alkaline Phosphatase 94 Lactate Dehydrogenase 226 L Troponin I 0.18 H C-Reactive Protein 54.0 H 61.1 H Total Protein 7.8 Albumin 4.2 Globulin 3.6 H Albumin/Globulin Ratio 1.2 DS: Diagnosis Discharge Diagnosis (1) Hilar lymphadenopathy: Status: Acute Code(s): R59.0 - Localized enlarged lymph nodes (2) Dyspnea on exertion: Status: Acute Code(s): R06.09 - Other forms of dyspnea (3) Anxiety: Status: Acute Code(s): F41.9 - Anxiety disorder, unspecified (4) Elevated troponin: Status: Acute Code(s): R79.89 - Other specified abnormal findings of blood chemistry (5) Depression: Status: Acute Code(s): F32.A - Depression, unspecified (6) BMI 39.0-39.9,adult: Status: Chronic Code(s): Z68.39 - Body mass index [BMI] 39.0-39.9, adult Meds Home Medications and Allergies Home Medications ?Medication ?Instructions ?Recorded ?Confirmed ?Type ferrous sulfate 325 mg (65 mg 325 mg PO DAILY 10/15/24 05/26/25 History iron) tablet mirtazapine 30 mg tablet 30 mg PO HS 10/15/24 5 History cholecalciferol (vitamin D3) 125 125 mcg PO DAILY 05/1205/26/25 History mcg (5,000 unit) capsule desvenlafaxine succinate 50 mg 50 mg PO DAILY 05/26/25 05/26/25 History tablet,extended release 24 hr ergocalciferol (vitamin D2) 1,250 1,250 mcg PO WEEKLY 05/26/25 05/26/25 History mcg (50,000 unit) capsule hydroxyzine pamoate 25 mg capsule 25 mg PO QIDP PRN An xiety 05/26/25 05/26/25 History levocetirizine 5 mg tablet 5 mg PO DAILY 05/26/2505/12 History lumateperone 42 mg capsule 42 mg PO DAILY 05/26/25 History (Caplyta) sumatriptan succinate 100 mg tablet 100 mg PO DAILYP P RN Migraine 05/26/25 05/26/25 History Headache fluticasone 500 mcg-salmeterol 50 1 inh inhalation BID RT #60 ea 05/28/25 Rx mcg/dose blistr powdr for inhalation prednisone 10 mg tablet 10 mg PO DAILY #5 tabs 05/28 Rx prednisone 20 mg tablet 20 mg PO DAILY #5 tabs 05/28 Rx prednisone 20 mg tablet 40 mg (2 x 20 mg) PO DAILY 3 days 05/28/25 Rx #6 tabs New Prescriptions to Start Prescriptions: fluticasone propion-salmeterol Kayden,Chanda prednisone Kayden,Chanda prednisone [place],Chanda prednisone Chanda Monique Allergies Allergy/AdvReac Type Severity Reaction Status Date / Time morphine (MORPHINE) Allergy Unknown HALLUCINATIONS, Verified 05/13/25 15:00 PAIN ATTACKS Discharge Plan Disposition Patient Disposition: Home, Self-Care Condition: Fair Follow up Plan Follow up with: Kimberly Avalos PA [Primary Care Provider, Medical] - 05/31/25 Chloé Cedillo MD [Physician, Pulmonology] - 2 weeks Walt Pires MD [Staff Physician, Cardiology] - 1 week Prescriptions/Medication Reconciliation: New fluticasone propion-salmeterol 500-50 mcg/dose Blister With Device 1 inh inhalation BIDRT Qty: 60 0RF prednisone 20 mg Tablet 40 mg PO DAILY 3 Days Qty: 6 0RF prednisone 20 mg tablet 20 mg PO DAILY Qty: 5 0RF Rx Instructions: 40 mg x 5 days, 20 mg x 5 days, 10 mg x 5 days prednisone 10 mg tablet 10 mg PO DAILY Qty: 5 0RF Rx Instructions: 40 mg x 5 days, 20 mg x 5 days, 10 mg x 5 days Continued mirtazapine 30 mg tablet 30 mg PO HS Patient Comments: TAKE 1 TABLETBY MOUTH EVERY DAY AT BEDTIME FOR 90 DAYS, FOR SLEEP ferrous sulfate 325 mg (65 mg iron) tablet 325 mg PO DAILY Patient Comments: TAKE 1 TABLET EVERY DAY BY ORAL ROUTE DIRECTED FOR 90 DAYS, FOR IRON DEFICIENCY ANEMIA. sumatriptan succinate 100 mg tablet 100 mg PO DAILYP PRN (Reason: Migraine Headache) ergocalciferol (vitamin D2) 1,250 mcg (50,000 unit) capsule 1,250 mcg PO WEEKLY Patient Comments: TAKE 1 CAPSULE EVERY WEEK BY ORAL ROUTE FOR 90 DAYS, FOR VITAMIN D DEFICIENCY. levocetirizine 5 mg tablet 5 mg PO DAILY Caplyta 42 mg capsule 42 mg PO DAILY Patient Comments: TAKE 1 CAPSULE EVERY DAY BY ORAL ROUTE DIRECTED FOR 90 DAYS, FOR MOOD. cholecalciferol (vitamin D3) 125 mcg (5,000 unit) capsule 125 mcg PO DAILY hydroxyzine pamoate 25 mg capsule 25 mg PO QIDP PRN (Reason: Anxiety) desvenlafaxine succinate 50 mg tablet extended release 24 hr 50 mg PO DAILY Problem Reconciliation Problems Reviewed?: Yes Patient Discharge Instructions ACTIVITY: Continue current activity DIET: continue same diet Stand Alone Forms: [facility] Work Release Print Language: Mozambican Providers Primary Care Provider: Kimberly Avalos Admit Provider: Chinedu Ayala Attending Provider: Chinedu Ayala
--- NOTE | 2025-05-28 11:17 | P.PN_ITS ---
Subjective *Date: 05/28/25 *Time: 12:41 Interval history: No acute respiratory events overnight. Patient denies any new respiratory complaints. Pulmonology Exam Inpatient Vital signs and Labs for Last 24 Hours: Temp Pulse Resp BP Pulse Ox O2 Del Method 97.7 F 75 20 121/70 98 Room Air 05/28/25 08:00 05/28/25 08:00 05/28/25 08:00 05/28/25 08:00 05/28/25 08:00 05/28/25 08:00 Laboratory Results - last 24 hr 05/27/25 15:19: ESR 29 H, Ferritin 97.4 D, Lactate Dehydrogenase 226 L, C- Reactive Protein 61.1 H 05/28/25 06:20: WBC 6.1, RBC 4.37, Hgb 12.9, Hct 39.1, MCV 89.5, MCH 29.5, MCHC 33.0, RDW 12.3, Plt Count 247 D, MPV 9.8, Neut % (Auto) 54.1, Lymph % (Auto) 36.6, [place] % (Auto) 8.3, Eos % (Auto) 0.0 L, Baso % (Auto) 0.2, Neut # (Auto) 3.3, Lymph # (Auto) 2.3, [place] # (Auto) 0.5, Eos # (Auto) 0.0, Baso # (Auto) 0.0, Sodium 138, Potassium 4.7, Chloride 101, Carbon Dioxide 26, Anion Gap 15.7 H, BUN 8 D, Creatinine 0.80, Estimated Creat Clear 180, Estimated GFR 84, Est GFR ( Amer) 101, Glucose 115 H, Calcium 8.8, Total Bilirubin 0.3, AST 37 H, ALT 38, Alkaline Phosphatase 94, Troponin I 0.18 H, C-Reactive Protein 54.0 H, Total Protein 7.8, Albumin 4.2, Globulin 3.6 H, Albumin/Globulin Ratio 1.2 Temp Pulse Resp BP Pulse Ox O2 Del Method 98.3 F 75 16 122/54 L 100 Room Air 05/27/25 15:42 05/27/25 15:42 05/27/25 15:42 05/27/25 15:42 05/27/25 15:42 05/27/25 15:42 Laboratory Results - last 24 hr 05/26/25 18:07: Troponin I 1.42 H, TSH 0.58 05/27/25 06:12: WBC 5.8, RBC 4.43, Hgb 13.0, Hct 39.9, MCV 90.1, MCH 29.3, MCHC 32.6, RDW 12.4, Plt Count 169, MPV 10.5 H, Neut % (Auto) 57.2, Lymph % (Auto) 32.5, [place] % (Auto) 9.3, Eos % (Auto) 0.0 L, Baso % (Auto) 0.3, Neut # (Auto) 3.3, Lymph # (Auto) 1.9, [place] # (Auto) 0.5, Eos # (Auto) 0.0, Baso # (Auto) 0.0, Sodium 136, Potassium 4.6 D, Chloride 103, Carbon Dioxide 25, Anion Gap 12.6, BUN 6 L, Creatinine 0.80, Estimated Creat Clear 182, Estimated GFR 84, Est GFR ( Amer) 101, Glucose 104 H, Calcium 8.3 L, Magnesium 2.3 D, Total Bilirubin 0.5, AST 45 H D, ALT 32 D, Alkaline Phosphatase 88, Total Protein 7.3, Albumin 4.1, Globulin 3.2, Albumin/Globulin Ratio 1.3, Triglycerides 121, Cholesterol 175, LDL Cholesterol Direct 100.98, VLDL Cholesterol 24, HDL Cholesterol 42, Cholesterol/HDL Ratio 4.2 H 05/27/25 15:19: ESR 29 H, Ferritin 97.4 D, Lactate Dehydrogenase 226 L, C- Reactive Protein 61.1 H I & O for Labs for Last 24 Hours: Intake & Output 05/25/25 05/26/25 05/27/25 05/28/25 23:59 23:59 23:59 23:59 Intake Total 510 / 630 390 / 510 390 / 390 Output Total 300 / 300 550 / 850 1050 / 1050 Balance 210 / 330 -160 / -340 -660 / -660 Weight 246 lb 249 lb 3.2 oz 246 lb 15.742 oz Intake & Output 05/24/25 05/25/25 05/26/25 05/27/25 23:59 23:59 23:59 23:59 Intake Total 510 / 630 390 / 390 Output Total 300 / 300 200 / 200 Balance 210 / 330 190 / 190 Weight 246 lb 249 lb 3.2 oz Constitutional: Present mild distress Head: Present normocephalic and atraumatic ENT: Present normal exam, normal oropharynx and mucous membranes moist Neck: Present normal inspection and full ROM Respiratory: Present CTA bilaterally, normal respiratory effort and able to speak in complete sentences; Absent prolonged expiratory phase, respiratory distress, wheezes, crackles or diminished air movement Cardiac: Present S1/S2, Tachycardia and radial pulses present GI: Present soft and distention; Absent tenderness or guarding Rectal (female): Present deferred (female): Present deferred Skin: Present intact; Absent cyanosis or jaundice Neuro: Present alert, awake and oriented x 3 Extremities: Present normal inspection; Absent clubbing or cyanosis Psychiatric: Present normal affect and cooperative Assessment and Plan *Assessment and plan (1) Hilar lymphadenopathy: Status: Acute Category: Medical Code(s): R59.0 - Localized enlarged lymph nodes (2) Dyspnea on exertion: Status: Acute Category: Medical Code(s): R06.09 - Other forms of dyspnea Plan Ms. Martinez is a 29-year-old female present to the ER complaining of nonspecific symptoms of chest tightness pressure along with difficulty breathing and burning sensation when taking deep breaths. Patient admits symptoms of exertional dyspnea at baseline with moderate to severe exertion. Family history of asthma. No childhood respiratory symptoms. Admits underwent extensive autoimmune workup around 2022 and was reported to be negative, no access to those results. CT chest no pulmonary parenchymal abnormalities, noted to have left hilar and mediastinal lymphadenopathy. Cardiac troponins continue to increase now at 1.42. Inflammatory markers elevated. It is not clear at this point of time regarding the relation between the noted lymphadenopathy on the elevated troponins in the setting of normal MRI. The possibility of sarcoid cannot be completely ruled out , within the limitations of cardiac MRI sensitivity in detecting early cardiac inflammation as without cardiac involvement troponin carlos uld likely be normal. Cardiology following. Interval update: No acute respiratory vents overnight. Continue to remain on room air. CRP slightly improved from admission at 54.0. Troponins trending down. Patient admits slight improvement in her respiratory distress and chest burning sensation after using Advair inhaler. She still complains of intermittent chest tightness and chest discomfort. Plan: Continue prednisone 40 mg dailyx 5 days followed by 20mg x 5 days dayd and 10mg x 5 days Follow with autoimmune workup Continue Advair 500 twice daily #Will follow as an outpatient basis to schedule for EBUS FNA.
--- NOTE | 2025-05-31 09:58 | SW/DCPLANNER ---
Patient was discharged on the 28 of May and was readmitted on the 29 of May. I will do a follow up phone call when patient is discharged this last admission. Chris Mayer
[2025-05-31 15:14] LABS: Antinuclear Antibodies (ANA) Negative (Negative)
[2025-06-04 14:34] LABS: Dopamine, Plasma < 10.0 pg/mL (0.0-36.7); Epinephrine, Plasma 18.2 pg/mL (0.0-55.4); Norepinephrine, Plasma 580 pg/mL (115-524)
[2025-06-10 11:43] LABS: Metanephrine, U,24hr 86 ug/24 hr (36-209); Metanephrine, Ur 49 ug/L (Undefined); Normetanephr.,U,24h 380 ug/24 hr (131-612)
[2025-06-12 09:25] LABS: Dopamine, Ur, 24hr 226 ug/24 hr (0-510); Dopamine, Urine 129 ug/L (Undefined); Epinephrine, U, 24hr <5 ug/24 hr (0-20); Epinephrine, Urine <3 ug/L (Undefined); Norepinephrine, Ur <15 ug/L (Undefined); Norepinephrine,U,24h <26 ug/24 hr (0-135); VMA, Urine 2.1 mg/L (Undefined); VMA, Urine, 24hr 3.7 mg/24 hr (0.0-7.5)
== END 2025-05-28 12:43 | disposition home or self-care (01) ==
LOC: ER 13:48 → 2ND 14:17
PROVIDERS: Internal Medicine Pulmonary Disease; Nurse Practitioner Family; Physician Assistant; Admitting Provider Internal Medicine Adolescent Medicine; Emergency Provider Student in an Organized Health Care Education/Training Program; PCP Physician Assistant; Visit Provider Internal Medicine Adolescent Medicine
DX: R79.89 Other specified abnormal findings of blood chemistry (principal); J45.909 Unspecified asthma, uncomplicated; I51.4 Myocarditis, unspecified; I31.9 Disease of pericardium, unspecified; Z90.49 Acquired absence of other specified parts of digestive tract; F17.290 Nicotine dependence, other tobacco product, uncomplicated; Z88.5 Allergy status to narcotic agent; R59.0 Localized enlarged lymph nodes; R06.09 Other forms of dyspnea; F41.9 Anxiety disorder, unspecified; F31.9 Bipolar disorder, unspecified; F90.9 Attention-deficit hyperactivity disorder, unspecified type; G43.909 Migraine, unspecified, not intractable, without status migrainosus; I45.10 Unspecified right bundle-branch block; R00.0 Tachycardia, unspecified
CPT/HCPCS: 0223U; 36415; 71045; 71275; 75561; 80053; 80061; 82384; 82728; 83615; 83735; 83835; 83880; 84443; 84484; 84585; 84703; 85025; 85610; 85651; 86038; 86140; 86803; 87389; 87631; 93005; 93306; 94640; 96374; 96375; 96376; 99285; A9576; G0378; J1171; J1644; J1885; J2405; J2470; Q9967

== ENCOUNTER 2025-05-29 22:34 | Observation (INO) | payer MEDICAID, SELFPAY ==
--- NOTE | 2025-05-29 22:29 | ECG_ITS ---
APPROVED REPORT Exam: Resting ECG HR:90 bpm ECG Measurements Heart Rate 90 AXES HI 144 P 47 QRSd 101 QRS 23 QT 331 T 45 QTc 379 Conclusion SINUS RHYTHM WITH SINUS ARRHYTHMIA INCOMPLETE RIGHT BUNDLE BRANCH BLOCK [90+ ms QRS DURATION, TERMINAL R IN V1/V2, 40+ ms S IN I/aVL/V4/V5/V6] BORDERLINE ECG UNCONFIRMED REPORT Normal sinus rhythm. No ST elevation or depression. QTc normal at 379 Electronically signed by : COOPER PENA, 06/03/2025 10:41:59
[2025-05-29 22:36] VITALS: BP 126/76; PULSE 83; RESP 20; TEMP 36.6; O2SAT 98; BMI 39.6
--- OUTSIDE RECORDS SUMMARY | 2025-05-29 22:44 | XMS_ITS | Clinical Summary ---
Author Organization Healthcare Address [address] [id number] Care Team Providers Care Electronic Data Processing Auditor Name Role Phone Pcp, No Primary Care Provider Unavailabl e Allergies No known active allergies Medications Adderall XR 10 MG 24 hr capsule Take by mouth 1 (one) time each day. 07/12/2022 Active bumetanide (Bumex) 0.5 MG tablet Take 1 tablet (0.5 mg) by mouth 1 (one) time each day. 03/12/2023 Active Vitamin D3 1.25 MG (80423 UT) capsule TAKE 1 CAPSULE BY MOUTH [...] 2014 [facility]-Cervical Cancer Screening 12/29/2023 [facility]HPV/Cotest 12/29/2023 [id number] Vaccine (1 - season) 2025 [facility]-Influenza Vaccine [...] age to complete this topic Care Teams Electronic Data Processing Auditor Relationship Specialty Start Date End Date Pcp, No [address] [place] [address] PCP - General 04/13/21
--- OUTSIDE RECORDS SUMMARY | 2025-05-29 22:44 | XMS_ITS | Continuity of Care Document ---
Author Organization [place] [employer] [facility] Address [address] [place] [address] Assessment No assessment recorded. Plan of Treatment Reminders Order Date Submit Date Provider Last Modified By Organization Details Last Modified Time Details Appointments FOLLOW UP 15 2024 04:45P Brea Avalos PA-C Not available Not available Not available FOLLOW UP 30 2024 01:00P Brea Avalos PA-C Not available Not available Not available Lab None recorded. Referral None recorded. Procedures None recorded. Surgeries None recorded. Imaging None recorded. Medication Orders Imitrex 100 mg tablet 2024 025 [facility]3016, [address] [place], [address], 04/15/2025 14:12:45 Xifaxan 550 mg tablet 2024 025 [facility] #3016, [address] [place], [address], 05/06/2025 05:01:23 mirtazapi ne 30 mg tablet 2024 025 [facility]3016, [address] [place], [address], 04/15/2025 14:29:42 Caplyta 42 mg capsule 2024 025 [facility]3016, [address] [place], [address], 04/15/2025 14:29:41 desvenlaf axine succinate ER 50 mg tablet,ex tended release 24 hr 2024 025 [facility] [address] [place], [address], 04/15/2025 14:29:41 Xyzal 5 mg tablet 2024 025 [facility] [address] [place] [address], [address], 04/15/2025 14:12:44 hydroxyzi ne pamoate 25 mg capsule 2024 025 [facility] [address] [place] [address], [address], 04/15/2025 14:29:41 cholecalc iferol (vitamin D3) 125 mcg (5,000 unit) capsule 2024 025 [facility] [address] [place] [address], [address], 04/15/2025 14:29:41 ergocalci ferol (vitamin D2) 1,250 mcg (50,000 unit) capsule 2024 025 [facility] [address] [place] [address], [address], 04/15/2025 14:29:41 ferrous sulfate 324 mg (65 mg iron) tablet,de layed release 2024 025 [facility] [address] [place] [address], [address], 04/15/2025 14:29:40 Patient TargetsNo targets recorded. Patient InstructionsNo instructions recorded. Reason for Referral None Reported. Results Created Date Observation Date Name Description Value Unit Range Abnormal Flag Note LastModifiedBy Organization Detail LastModifiedTime 05/26/20 25 05/26/2025 XR, chest , 2 view No observ ation record ed. [email or web address] [facility] [address], [place], [address], 05/27/2025 12:09:22 05/26/2005/26/2025 CT, angio gram, chest , w/wo contr ast No observ ation record ed. [address], [place], [address], 05/27/2025 12:10:09 05/26/2005/26/2025 , [facility] ardio gram No observ ation record ed. [address], [place], [address], 05/27/2025 12:10:30 05/28/2005/26/2025 imagi ng/di agnos tic resul t No observ ation record ed. [address], [place], [address], 05/28/2025 16:20:49 05/28/2005/26/2025 imagi ng/di agnos tic resul t No observ ation record ed. [address], [place], [address], 05/28/2025 16:20:49 05/28/2005/27/2025 imagi ng/di agnos tic resul t No observ ation record ed. [facility] [address], [place], [address], 05/28/2025 22:01:39 Result Notes None recorded. Problems Name Problem SNOMED Code Status Onset Date Resolution Date Notes Provider Name and Address Organization Details Recorded Time Bipolar disorder 76769733 Active 2023 TANK Arango [address] [place] [address], [address], [facility] 4 15:16:30 Attention deficit hyperactivi ty disorder, predominant ly inattentive type 73933088 Active 2023 TANK Arango [address] [place] [address], [address], [employer] 4 15:16:24 Vitamin D deficiency 22629548 Active 2023 TANK Arango [address] [place] [address], [address], [employer] 4 15:16:33 Iron deficiency anemia 33139065 Active 2023 TANK Arango [address] [place] [address], [address] 8, [employer] 4 15:16:39 Generalized anxiety disorder 75684540 Active 2023 TANK Arango [address] [place] [address], [address], [employer] 4 15:16:35 Post-trauma tic stress disorder 50413143 Active 2023 TANK Arango [address] [place] [address], [address], [employer] 4 15:16:42 Vertigo 669909098 Active 2023 TANK Arango [address] [place] [address], [address], [employer] 4 15:31:47 Insomnia 985118589 Active 2023 TANK Arango [address] [place] [address], [address], [employer] 4 13:19:43 Pain in bilateral feet 8286602975410 9102 Active 2024 TANK Arango [address] [place] [address], [address], [employer] 5 13:58:03 Migraine without aura, not refractory 790317627 Active 2024 TANK Arango [address] [place] [address], [address], [employer] 5 14:09:19 Irritable bowel syndrome with diarrhea 892337433 Active 2024 TANK Arango [address] [place], [address], [employer] 5 14:09:33 Dysfunction of bilateral eustachian tubes 2865527192829 100 Active 2024 TANK Arango [address] [place], [address], [employer] 5 14:11:45 Problem Notes None recorded. Procedures Surgical History Date Name Laterality Status Provider Name and Address Organization Details Recorded Time Gallbladder Surgery completed [employer] 06/05/2024 14:41:59 Caesarean Section completed [employer] 06/05/2024 14:42:11 Imaging Results None recorded. Procedure Notes None recorded. Medical Equipment None Reported. Allergies Allergen ID Allergen Name Allergen Category Reaction Reaction Severity Criticality Documentation Date Start Date Code Code System Note Provider Name and Address Organization Details Recorded Time 05931 morphine medicatio n Not available Not available Not available 06/05/2024 7052 [facility] [employer] [facility], [employer] 14:29:38 Medications Name Sig Start Date Stop Date Status Note LastModified by Organization Details LastModified Time trazodone 50 mg tablet TAKE 1 TABLET BY MOUTH EVERY NIGHT AT BEDTIME 06/05 completed Not Available Not Available Not Available sumatriptan 100 mg tablet TAKE 1 TABLET EVERY DAY BY ORAL ROUTE FOR 30 DAYS, FOR MIGRAINE. 2024 active Not Available Not Available Not Avai lable prednisone 20 mg tablet TAKE 1 TABLET BY MOUTH TWICE A DAY FOR 5 DAYS 06/05 completed Not Available Not Available Not Available meloxicam 7.5 mg tablet TAKE 1 TABLET BY MOUTH EVERY DAY FOR PAIN FOR 30 DAYS 06/05 completed Not Available Not Available Not Available amoxicillin 875 mg tablet TAKE 1 TABLET BY MOUTH TWICE A DAY UNTIL FINISHED 06/05 completed Not Available Not Available Not Available temazepam 15 mg capsule TAKE 1 CAPSULE BY MOUTH NIGHTLY AT BEDTIME 06/05 completed Not Available Not Available Not Available mirtazapine 30 mg tablet TAKE 1 TABLET BY MOUTH EVERY DAY AT BEDTIME FOR SLEEP active Not Available Not Available No t Available ferrous sulfate 325 mg (65 mg iron) tablet TAKE 1 TABLET EVERY DAY BY ORAL ROUTE DIRECTED FOR 90 DAYS, FOR IRON DEFICIENC Y ANEMIA. 10/30 completed Not Available Not Available Not Available bumetanide 0.5 mg tablet TAKE 1 TABLET BY MOUTH EVERY DAY NEEDED active Not Available Not Available No t Available Concerta 36 mg tablet,exte nded release TAKE 1 TABLET BY MOUTH EVERY DAY active Not Available Not Available No t Available mirtazapine 15 mg tablet TAKE 1 TABLET EVERY DAY BY ORAL ROUTE AT BEDTIME FOR 90 DAYS, FOR ANXIETY/S LEEP. 12/31 completed Not Available Not Available Not Available ergocalcife rol (vitamin D2) 1,250 mcg (50,000 unit) capsule Take 1 capsule every week by oral route for 90 days, for Vitamin D deficienc y. 2024 active Not Available Not Available Not Avai lable methylpredn isolone 4 mg tablets in a dose pack TAKE 6 TABLETS ON DAY 1 DIRECTED ON PACKAGE AND DECREASE BY 1 TAB EACH DAY FOR A TOTAL OF 6 DAYS 06/05 completed Not Available Not Available Not Available bromphenira mine-pseudo ephedrine-D M 2 mg-30 mg-10 mg/5 mL oral syrup TAKE 5 ML ORALLY EVERY 6 HOURS NEEDED FOR COUGH 06/05 completed Not Available Not Available Not Available cefdinir 300 mg capsule TAKE ONE CAPSULE BY MOUTH TWICE A DAY 06/05 completed Not Available Not Available Not Available cholecalcif kayli (vitamin D3) 125 mcg (5,000 unit) capsule Take 1 capsule every day by oral route as directed for 90 days, for Vitamin D deficienc y. 2024 active Not Available Not Available Not Avai lable hydroxyzine pamoate 25 mg capsule Take 1 capsule 4 times a day by oral route as directed for 90 days, for anxiety. 2024 active Not Available Not Available Not Avai lable Concerta 27 mg tablet,exte nded release TAKE 1 TABLET BY MOUTH DAILY 06/05 completed Not Available Not Available Not Available cholecalcif kayli (vitamin D3) 1,250 mcg (50,000 unit) capsule Take 1 capsule every week by oral route as directed for 90 days, for Vitamin D deficienc y. 06/26 completed Not Available Not Available Not Available ferrous sulfate 324 mg (65 mg iron) tablet,braydon yed release Take 1 tablet every day by oral route for 90 days. 2024 active Not Available Not Available Not Avai lable Xyzal 5 mg tablet Take 1 tablet every day by oral route for 30 days. 2024 active Not Available Not Available Not Avai lable 12 Hour Decongestan t ER 120 mg tablet,exte nded release TAKE 1 TABLET BY MOUTH EVERY 12 HOURS 06/05 completed Not Available Not Available Not Available desvenlafax ine succinate ER 50 mg tablet,exte nded release 24 hr Take 1 tablet every day by oral route as directed for 90 days, for depressio n. 2024 active Not Available Not Available Not Avai lable Xifaxan 550 mg tablet TAKE 1 TABLET BY MOUTH THREE TIMES A DAY FOR 14 DAYS active Not Available Not Available No t Available Caplyta 42 mg capsule TAKE 1 CAPSULE EVERY DAY BY ORAL ROUTE DIRECTED FOR 90 DAYS, FOR MOOD. active Not Available Not Available No t Available Caplyta 21 mg capsule TAKE 1 CAPSULE BY MOUTH EVERY DAY 06/05 completed Not Available Not Available Not Available Auvelity 45 mg-105 mg tablet, extended release TAKE 1 TABLET BY MOUTH EVERY DAY FOR 3 DAYS,THEN TWICE A DAY 06/05 completed Not Available Not Available Not Available Vitals Date Recorded Body height Body mass index (BMI) Body weight Heart rate Oxygen saturation Oxygen saturation in Arterial blood by Pulse oximetry Body temperature Systolic And Diastolic Provider Name and Address Organization Details Last Updated DateTime 5 165.1 cm 41.7 kg/m2 698994. 97 g 88 /min 98 % 98 % 98.4 [degF] 114/80 mm[Hg] Katja Barbour [employer] 13:50:47 Social History Question Answer Notes LastModified by Organizat ion Details LastModified Time Tobacco Smoking Status Former Smoker Katja hedrick [employer] 06/05/2024 14:38:45 Do You Have An Advance Directive? No Information not available 06/05/2024 Is Your Home Air Conditioned? Yes Information not available 06/05/2024 Are You Blind Or Do You Have Difficulty Seeing? No Information not available 06/05/2024 What Is Your Level Of Caffeine Consumption? Heavy Information not available 06/05/2024 Have You Been To An Area Known To Be High Risk For COVID-19? No Information not available 06/05/2024 Are You Deaf Or Do You Have Serious Difficulty Hearing? No Information not available 06/05/2024 What Type Of Diet Are You Following? REGULAR Information not available 06/05/2024 Which Illicit Or Recreational Drugs Have You Used? Marijuana Information not available 06/05/2024 What Is The Highest Grade Or Level Of School You Have Completed Or The Highest Degree You Have Received? [id number] Information not available 06/05/2024 Who Is Your Employer? [employer] Information not available 06/05/2024 Have There Been Any Changes To Your Family Or Social Situation? No Information no t available 06/05/2024 When Did You Quit Smoking? 1-5yearssincel astcigarette Information not available 06/05/2024 Are There Any Guns Present In Your Home? No Information not available 06/05/2024 Which Of Your Hands Is Dominant? Right Information not available 06/05/2024 Do You Have A Medical Power Of Ground Support Agent? No Information not available 06/05/2024 What Was The Date Of Your Most Recent Tobacco Screening? 04/15/2025 Information not available 04/15/2025 Have You Ever Been Counseled For Unhealthy Alcohol Use? No Information not available 06/05/2024 Do You Have Any Pets? No Information not available 06/05/2024 What Is Your Relationship Status? Single Information not available 06/05/2024 Do You Use Your Seat Belt Or Car Seat Routinely? Yes Information not available 06/05/2024 Are You Sexually Active? No Information not available 06/05/2024 Do You Have Smoke And Carbon Monoxide Detectors In Your Home? Yes Information not available 06/05/2024 At What Age Did You Start Smoking Tobacco? 18 Information not available 06/05/2024 Are You Passively Exposed To Smoke? No Information no t available 06/05/2024 Are There Any Smokers In Your House? No Information not available 06/05/2024 Do You Participate In Social Media? Yes Information not available 06/05/2024 Do You Use Sunscreen Routinely? No Information not available 06/05/2024 Has Tobacco Cessation Counseling Been Provided? Yes Information not available 06/26/2024 On What Date Was Tobacco Cessation Counseling Provided? 04/15/2025 Information not available 04/15/2025 Have You Recently Traveled Abroad? No Information not available 06/05/2024 Have You Used IV Drugs? No Information not available 06/05/2024 Do You Have Difficulty Walking Or Climbing Stairs? No Information not available 06/05/2024 Are You Currently In School? No Information not available 06/05/2024 Do You Have Any Dietary Restrictions? Yes Information not available 06/05/2024 Sex: Female Functional Status Question Answer Note LastModified by GLG ion Details LastModified Time Do you use any illicit or recreational drugs? Yes Information not available 06/05/2024 Do you or have you ever used any other forms of tobacco or nicotine? Yes Information not available 06/05/2024 What is your level of alcohol consumption? Occasional Information not available 06/05/2024 Do you or have you ever used smokeless tobacco? Never used smokeless tobacco Information not available 06/05/2024 Are you currently employed? Yes Information not available 06/05/2024 Do you have transportation difficulties? No Information not available 06/05/2024 Are you able to walk independently without assistance or assistive devices? YESWOREST Information not available 06/05/2024 Do you have difficulty doing errands alone? No Information not available 06/05/2024 Are you able to care for yourself independently? 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 No Information not available 06/05/2024 Do you or have you ever used e-cigarettes or vape? Current user of electronic cigarettes Information not available 06/26/2024 Mental Status Question Answer Note LastModified by Organizat ion Details LastModified Time Do you feel stressed (tense, restless, nervous, or anxious, or unable to sleep at night)? [id number] Information not available 06/05/2024 Do you have difficulty concentrating, remembering or making decisions? No Information no t available 06/05/2024 Family History Relationship Description Onset Age of this Age Resolved Age Notes LastModified by Organization Details LastModified Time Mother Heart disease Not available 2023 14:34:50 Mother Diabetes mellitus Not available 2023 14:34:59 Mother Malignant neoplasm of cervix uteri Not available 14:35:11 Mother Malignant neoplasm of thyroid gland Not available 2023 14:35:35 Maternal Uncle Malignant neoplasm of colon Not available 2023 14:35:22 Maternal Uncle Malignant neoplasm of thyroid gland Not available 2023 14:35:43 Maternal Uncle Seizure Not available 06/05/2024 14:36:13 Paternal Grandmother Dementia Not available 06/05 14:35:52 Sister Seizure Not available 14:36:05 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 Condition Response Coronary Artery Disease N Other N Gout N Blood Diseases N Kidney Stones N Hyperthyroidism N Blood Transfusion N Breast Cancer N Emergency room visit since last appointm ent. N Lung Disease N COPD N Depression Y Hypothyroidism N Dermatologic Disorders N Defects or Inherited Disease N Developmental or Behavioral Disorders N Breast Problem N Difficulty Swallowing N Anesthesia Complications N History of STI N Anxiety Disorder Y Meniere's disease N Autoimmune disease N Muscle, Joint, or Bone Problems Y Vision or Eye Problems N Arthritis Y Infertility N Polyps N Mental Disorder Y Congenital Anomalies N Acid Reflux (GERD) N Cancer N Stroke N Neurologic/Epilepsy N Endometriosis N Bladder or Kidney Problems N High Cholesterol N Liver Disease N Organ Transplant N Psychiatric/Mental Health Condition N Dialysis N Headaches N Fibromyalgia N Schizophrenia N Kidney Disease N Allergies/Hayfever Y Heart Problems N Ear or Hearing Problems N Hospitalizations N Learning Disorder N Artificial Joints N Thyroid Problems N GI Problems N Acne N ADD/ADHD Y Eating Disorder N Anemia Y Constipation N Mental Illness Y Diabetes N Ovarian Cancer N Bedwetting N Hepatitis/Liver Disease N Tuberculosis N Eczema N Abuse/Domestic Violence N Diverticulitis N Asthma N Trauma/Violence N Substance Abuse N Reflux/GERD N Depression/ depression N Hepatitis N Heart Disease N Pulmonary Embolism N Tourette Syndrome N Chronic Ear Infections N Pre-Eclampsia N Hypertension N Chicken Pox N Autism Spectrum Disorder (ASD) N Osteoporosis N Thrombophilias N Gynecological History Statement/Question Response Flow Moderate Date of LMP 04/01/2025 Menses Monthly Y Date of Last Pap Smear Current Control Method None Most Recent Mammogram LMP Approximate Obstetrics History GPAL:G 3 P 2 0 1 2 Type Value Multiple Births 0 Full Term 2 Induced 0 Spontaneous 1 Premature 0 Living 2 Ectopics 0 Total 3 Immunizations Vaccine Type Date Status Note Provider Nam e and Address Organization Details Recorded Time Tdap 4 completed TANK Aarngo [address] [place] [address], [phone], [employer] 08/03/2024 14:27:57 MMR 8 completed Katja Vice null, [employer] 08/03/2024 12:59:13 varicella 9 completed Katja Vice null, [employer] 08/03/2024 12:59:13 OPV, trivalent 8 completed Katja Vice null, [employer] 08/03/2024 12:59:13 HPV, quadrivalent 7 completed Katja Vice null, [employer] 08/03/2024 12:59:13 Td (adult), 2 Lf tetanus toxoid, preservative free, adsorbed 5 completed Katja Vice null, [employer] 08/03/2024 12:59:13 DTaP, unspecified formulation 6 completed Katja Vice null, [employer] 08/03/2024 12:59:13 DTaP, unspecified formulation 8 completed Katja Vice null, [employer] 08/03/2024 12:59:13 Past Encounters Encounter ID Performer Location Encounter Start Date Encounter Closed Date Diagnosis/Indication Diagnosis SNOMED-CT Code Diagnosis ICD10 Code Diagnosis IMO Codes Diagnosis Note [id number] TANK Arango [facility] [address] [place] [address] 04/15/2025 13:40:23 04/15/2025 15:33:50 Migraine without aura, not refractory 906595883 G43.940 0416475 Irritable bowel syndrome with diarrhea 609173869 K58.0 169677 Dysfunctio n of bilateral eustachian tubes 8925107371 039630 H69.93 11964988 Bipolar disorder 1325852 4 F31.9 Vitamin D deficiency 347 45485 E55.9 Iron defic iency anemia 60727685 D50.9 Generalize d anxiety disorder 55590855 F41.1 Insomnia 337419274 G47.0 0 Health Concerns Section Related Observation LastModified by Organization Detai ls LastModified Time None Recorded Concern Status LastModified by Organization Details LastModified Time None Recorded Payers Encounter Date Sequence Insurance Name Policy Number Policy Bean Covered Member ID Bean Member ID Guarantor Name 04/15/2025 1 [facility] (MEDICAID REPLACEMENT - HMO) Karlene Martinez [id number] Karlene Martinez Notes Date Note Type Note Provider Name and Address Organization Details Recorded Time 04/15/2025 text/html ROS as noted in the HPI Patient states she has diarrhea pretty much every time she eats. Had gallbladder removed 10 or so years ago. Gets crampy pain, followed by loose stools. Doesn't seem to matter what she eats. Has tried to cut out dairy, gluten. Has urgency and bloating.Has also been having migraine headaches. Takes Motrin, Excedrin migraine which sometimes helps. TANK Arango [address] [place] [address], [phone], [place] [employer] [facility] 04/15/2025 16:31:06 OBGyn Episode No OBEpisode recorded.
--- OUTSIDE RECORDS SUMMARY | 2025-05-29 22:45 | XMS_ITS | Data Portability ---
Author Organization [facility] Address [address] [place] [address] Assessment No assessment recorded. Plan of Treatment Reminders Order Date Submit Date Provider Last Modified By Organization Details Last Modified Time Details Appointments FOLLOW UP 15 2024 04:45P Brea Avalos PA-C Not available Not available Not available FOLLOW UP 30 2024 01:00P Brea Avalos PA-C Not available Not available Not available Lab unlisted lab - toxassure flex 19, [id number] -[id number] 2024 025 [facility] [address] [place], [address], 01/06/2025 18:08:08 lipid panel, serum 2024 025 [facility] [address] [place], [address], 10/31/2024 11:08:01 CMP, serum or plasma 2024 025 [facility] [address] [place], [address], 10/31/2024 11:08:01 CBC w/ auto diff 2024 025 [facility] [address] [place], [address], 10/31/2024 11:08:00 TSH, ultra-sen sitive, serum 2024 025 JALEN [facility] ([place]), [address] [place], [address], 10/31/2024 11:08:02 cobalamin and folate panel, serum 2024 025 [facility] [address] [place], [address], 10/31/2024 11:08:02 vitamin D, 25-hydrox y, total, serum 2024 025 [facility] [address] [place], [address], 10/31/2024 11:08:02 iron + TIBC + ferritin, serum 2024 025 [facility] ([place]), [address] [place], [address], 10/31/2024 11:08:00 TSH, ultra-sen sitive, serum 2023 024 [facility] [address] [place], [address], 08/08/2024 12:06:46 unlisted lab - toxassure flex 19, [id number] -P 2023 024 [facility] ([place]), [address] [place], [address], 08/08/2024 12:06:44 CBC w/ auto diff 2023 024 [facility] [address] [place], [address], 07/09/2024 10:08:11 CMP, serum or plasma 2023 024 [facility] [address] [place], [address], 07/09/2024 10:08:12 vitamin D, 25-hydrox y, total, serum 2023 024 [facility] [address] [facility], [place], [address], 07/09/2024 10:08:14 TSH, ultra-sen sitive, serum 2023 024 [facility] [address] [place], [address], 07/09/2024 10:08:14 lipid panel, serum 2023 024 [facility] [address] [place], [address], 07/09/2024 10:08:12 vitamin B12 + folate, serum or blood 2023 024 [facility] ([place]), [address] [place], [address], 07/09/2024 10:08:13 iron + TIBC + ferritin, serum 2023 024 [facility] ([place]), [address] [facility], [place], [address], 07/09/2024 10:08:11 beta-HCG, qualitati ve, serum or plasma 2023 024 [facility] ([place]), [address] [place], [address], 07/09/2024 10:08:15 Referral podiatris t referral - first available appt 2024 025 [facility], [address], [place], [address], 11/16/2024 11:50:30 gynecolog ist referral 2023 024 RHINELANDER Yoanna Best DO, [address], [place], [place], [address], 12/03/2024 10:47:44 Procedures None recorded. Surgeries None recorded. Imaging MRI, knee, w/o contrast - first available appt 2024 025 [facility] [address], [place], [address], 11/17/2024 09:12:33 Medication Orders Imitrex 100 mg tablet 2024 025 [facility], [address] [place] [address], [address], 04/15/2025 14:12:45 Xifaxan 550 mg tablet 2024 025 [facility], [address] [place] [address], [address], 05/06/2025 05:01:23 mirtazapi ne 30 mg tablet 2024 025 [facility], [address] [place] [address], [address], 04/15/2025 14:29:42 Caplyta 42 mg capsule 2024 025 [facility], [address] [place] [address], [address], 04/15/2025 14:29:41 desvenlaf axine succinate ER 50 mg tablet,ex tended release 24 hr 2024 025 [facility], [address] [place] [address], [address], 04/15/2025 14:29:41 Xyzal 5 mg tablet 2024 025 [facility], [address] [place] [address], [address], 04/15/2025 14:12:44 hydroxyzi ne pamoate 25 mg capsule 2024 025 [facility], [address] [place], [place] [address], [place], [address], 04/15/2025 14:29:41 cholecalc iferol (vitamin D3) 125 mcg (5,000 unit) capsule 2024 025 [facility], [address] [place], [address], 04/15/2025 14:29:41 ergocalci ferol (vitamin D2) 1,250 mcg (50,000 unit) capsule 2024 025 [facility], [address] [place], [address], 04/15/2025 14:29:41 ferrous sulfate 324 mg (65 mg iron) tablet,de layed release 2024 025 [facility], [address] [place], [address], 04/15/2025 14:29:40 mirtazapi ne 30 mg tablet 2024 025 [facility], [address] [place], [address], 12/31/2024 13:26:35 Caplyta 42 mg capsule 2024 025 [facility], [address] [place], [address], 12/31/2024 13:26:36 desvenlaf axine succinate ER 50 mg tablet,ex tended release 24 hr 2024 025 [facility], [address] [place], [address], 12/31/2024 13:26:36 hydroxyzi ne pamoate 25 mg capsule 2024 025 [facility], [address] [place], [address], 12/31/2024 13:26:36 cholecalc iferol (vitamin D3) 125 mcg (5,000 unit) capsule 2024 025 [facility], [address] [place], [address], 12/31/2024 13:26:35 ergocalci ferol (vitamin D2) 1,250 mcg (50,000 unit) capsule 2024 025 [facility], [address] [place], [address], 12/31/2024 13:26:36 ferrous sulfate 324 mg (65 mg iron) tablet,de layed release 2024 025 [facility], [address] [place], [address], 12/31/2024 13:26:36 Remeron 30 mg tablet 2023 025 [facility], [address] [place], [address], 10/30/2024 13:22:55 hydroxyzi ne pamoate 25 mg capsule 2023 024 [facility], [address] [place], [address], 08/03/2024 13:20:56 Patient TargetsNo targets recorded. Patient Instructions Encounter Date Encounter Id Patient Instructions Last Modified By Organization Details Last Modified Time 08/03/2024 [id number] insomnia: care instructions [id number] Not available 08/03/2024 13:20:54 tetanus and diphtheria booster: care instructions [id number] Not available 08/03/2024 13:23:00 body mass index: care instructions [email or web address] Not available 08/03/2024 13:21:40 learning about healthy weight [id number] Not available 08/03/2024 13:21:40 10/30/2024 [id number] post-traumatic stress disorder (PTSD): care instructions [email or web address] Not available 10/30/2024 13:59:38 attention defici t hyperactivity disorder (ADHD) in adults: care instructions [email or web address] Not available 10/30/2024 13:59:37 body mass index: care instructions [email or web address] Not available 11/02/2024 12:09:10 learning about healthy weight [email or web address] Not available 11/02/2024 12:09:10 bipolar disorder : care instructions Not available 10/30/2024 13:59:37 learning about mood disorders Not available 10/30/2024 13:59:37 iron deficiency anemia: care instructions Not available 10/30/2024 13:59:38 12/31/2024 [id number] post-traumatic stress disorder (PTSD): care instructions [email or web address] Not available 12/31/2024 13:26:31 attention defici t hyperactivity disorder (ADHD) in adults: care instructions [email or web address] Not available 12/31/2024 13:26:31 bipolar disorder : care instructions [email or web address] Not available 12/31/2024 13:26:30 learning about mood disorders [email or web address] Not available 12/31/2024 13:26:30 iron deficiency anemia: care instructions [email or web address] Not available 12/31/2024 13:26:31 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) [address] [facility], [place], [address], 07/09/2024 08:13:39 07/07/2007/09/2024 HCV ANTIB JOSE MANUEL CASCA DE(PC R/GEN O) interpretati on: Commen t Not infec you with HCV unles s early or acute infec tion is suspe cted (whic h may be delay ed in an immun ocomp romis ed indiv idual ), or other evide nce exist s to indic ate HCV infec tion. Not Available [facility] ([facility]) [address] [place], [address], 07/09/2024 08:13:39 07/07/20 24 07/09/2024 HIV AB/P2 4 AG WITH REFLE X HIV Ab/P24 Ag screen Non Reacti ve non reacti ve HIV-1 /HIV- 2 antib odies and HIV-1 p24 antig en were NOT detec you. There is no labor atory evide nce of HIV infec tion. HIV Negat amy Not Available [facility] ([facility]) [address] [facility], [place], [address], 07/09/2024 08:13:40 07/07/2007/09/2024 FE+TI BC+FE R iron bind.cap.(TI BC) 347 ug/dL 250-45 0 normal Not Available [facility] ([facility]) [address] [facility], [place], [address], 07/09/2024 10:08:10 07/07/20 24 07/09/2024 FE+TI BC+FE R UIBC 302 ug/dL 131-42 5 normal Not Available [facility] ([facility]) [address] [place], [address], 07/09/2024 10:08:10 07/07/20 24 07/09/2024 FE+TI BC+FE R iron 45 ug/dL 27-159 normal Not Available [facility] ([facility]) [address] [place], [address], 07/09/2024 10:08:10 07/07/20 24 07/09/2024 FE+TI BC+FE R iron saturation 13 % 15-55 below low normal Not Available [facility] ([facility]) [address] [place], [address], 07/09/2024 10:08:10 07/07/20 24 07/09/2024 FE+TI BC+FE R ferritin 88 NG/mL 15-150 normal Not Available [facility] ([facility]) [address] [place], [address], 07/09/2024 10:08:10 07/07/20 24 07/09/2024 CBC WITH DIFFE RENTI AL/PL ATELE T WBC 5.7 x10e3 /uL 3.4-10 .8 normal Eff ectiv e Decem rosanna 2023 profi le [id number] 5 WBC will be made* * non-o rdera ble as a stand -luba e order code. Not Available [facility] ([facility]) [address] [facility], [place], [address], 07/09/2024 10:08:11 07/07/20 24 07/09/2024 CBC WITH DIFFE RENTI AL/PL ATELE T RBC 4.49 x10e6 /uL 3.77-5 .28 normal Not Available [facility] ([facility]) [address] [place], [address], 07/09/2024 10:08:11 07/07/20 24 07/09/2024 CBC WITH DIFFE RENTI AL/PL ATELE T hemoglobin 13.0 g/dL 11.1-1 5.9 normal Not Available [facility] ([facility]) [address] [facility], [place], [address], 07/09/2024 10:08:11 07/07/20 24 07/09/2024 CBC WITH DIFFE RENTI AL/PL ATELE T hematocrit 41.6 % 34.0-4 6.6 normal Not Available [facility] ([facility]) [address] [place], [address], 07/09/2024 10:08:11 07/07/20 24 07/09/2024 CBC WITH DIFFE RENTI AL/PL ATELE T MCV 93 fL 79-97 normal Not Available [facility] ([facility]) [address] [place], [address], 07/09/2024 10:08:11 07/07/20 24 07/09/2024 CBC WITH DIFFE RENTI AL/PL ATELE T MCH 29.0 pg 26.6-3 3.0 normal Not Available [facility] ([facility]) [address] [place], [address], 07/09/2024 10:08:11 07/07/20 24 07/09/2024 CBC WITH DIFFE RENTI AL/PL ATELE T MCHC 31.3 g/dL 31.5-3 5.7 below low normal Not Available [facility] ([facility]) [address] [place], [address], 07/09/2024 10:08:11 07/07/20 24 07/09/2024 CBC WITH DIFFE RENTI AL/PL ATELE T RDW 12.5 % 11.7-1 5.4 Not Available [facility] ([facility]) [address] [place], [address], 07/09/2024 10:08:11 07/07/20 24 07/09/2024 CBC WITH DIFFE RENTI AL/PL ATELE T platelets 257 x10e3 /uL 150-45 0 normal Not Available [facility] ([facility]) [address] [place], [address], 07/09/2024 10:08:11 07/07/20 24 07/09/2024 CBC WITH DIFFE RENTI AL/PL ATELE T neutrophils 50 % not estab. normal Not Available [facility] ([facility]) [address] [place], [address], 07/09/2024 10:08:11 07/07/20 24 07/09/2024 CBC WITH DIFFE RENTI AL/PL ATELE T lymphs 44 % not estab. normal Not Available [facility] ([facility]) [address] [facility], [place], [address], 07/09/2024 10:08:11 07/07/20 24 07/09/2024 CBC WITH DIFFE RENTI AL/PL ATELE T monocytes 6 % not estab. normal Not Available [facility] ([facility]) [address] [facility], [place], [address], 07/09/2024 10:08:11 07/07/20 24 07/09/2024 CBC WITH DIFFE RENTI AL/PL ATELE T eos 0 % not estab. normal Not Available [facility] ([facility]) [address] [facility], [place], [address], 07/09/2024 10:08:11 07/07/20 24 07/09/2024 CBC WITH DIFFE RENTI AL/PL ATELE T basos 0 % not estab. normal Not Available [facility] (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) [address] [place], [address], 07/09/2024 10:08:11 07/07/20 24 07/09/2024 CBC WITH DIFFE RENTI AL/PL ATELE T neutrophils (absolute) 2.9 x10e3 /uL 1.4-7. 0 normal Not Available [facility] ([facility]) [address] [place], [address], 07/09/2024 10:08:11 07/07/20 24 07/09/2024 CBC WITH DIFFE RENTI AL/PL ATELE T lymphs (absolute) 2.5 x10e3 /uL 0.7-3. 1 normal Not Available [facility] ([facility]) [address] [facility], [place], [address], 07/09/2024 10:08:11 07/07/20 24 07/09/2024 CBC WITH DIFFE RENTI AL/PL ATELE T monocytes(ab solute) 0.3 x10e3 /uL 0.1-0. 9 normal Not Available [facility] ([facility]) [address] [facility], [place], [address], 07/09/2024 10:08:11 07/07/20 24 07/09/2024 CBC WITH DIFFE RENTI AL/PL ATELE T eos (absolute) 0.0 x10e3 /uL 0.0-0. 4 normal Not Available [facility] ([facility]) [address] [facility], [place], [address], 07/09/2024 10:08:11 07/07/20 24 07/09/2024 CBC WITH DIFFE RENTI AL/PL ATELE T baso (absolute) 0.0 x10e3 /uL 0.0-0. 2 normal Not Available [facility] ([facility]) [address] [facility], [place], [address], 07/09/2024 10:08:11 07/07/20 24 07/09/2024 CBC WITH DIFFE RENTI AL/PL ATELE T immature granulocytes 0 % not estab. Not Available [facility] ([facility]) [address] [facility], [place], [address], 07/09/2024 10:08:11 07/07/20 24 07/09/2024 CBC WITH DIFFE RENTI AL/PL ATELE T immature grans (abs) 0.0 x10e3 /uL 0.0-0. 1 Not Available [facility] ([facility]) [address] [facility], [place], [address], 07/09/2024 10:08:11 07/07/20 24 07/09/2024 CBC WITH DIFFE RENTI AL/PL ATELE T NRBC MACHINIST SUPERVISOR OUTSIDE Not Available [facility] ([facility]) [address] [facility], [place], [address], 07/09/2024 10:08:11 07/07/20 24 07/09/2024 CBC WITH DIFFE MAURICIO AL/PL CHULA Holt hematology comments: MACHINIST SUPERVISOR OUTSIDE Not Available [facility] ([facility]) [address] [facility], [place], [address], 07/09/2024 10:08:11 07/07/20 24 07/09/2024 COMP. METAB OLIC PANEL (14) glucose 100 mg/dL 70-99 above high normal Not Available [facility] ([facility]) [address] [facility], [place], [address], 07/09/2024 10:08:12 07/07/20 24 07/09/2024 COMP. METAB OLIC PANEL (14) BUN 12 mg/dL 6-20 normal Not Available [facility] ([facility]) [address] [facility], [place], [address], 07/09/2024 10:08:12 07/07/20 24 07/09/2024 COMP. METAB OLIC PANEL (14) creatinine 0.75 mg/dL 0.57-1 .00 normal Not Available [facility] ([facility]) [address] [facility], [place], [address], 07/09/2024 10:08:12 07/07/20 24 07/09/2024 COMP. METAB OLIC PANEL (14) eGFR 110 mL/mi n/1.7 3 >59 normal Not Available [facility] ([facility]) [address] [facility] [place], [address], 07/09/2024 10:08:12 07/07/20 24 07/09/2024 COMP. METAB OLIC PANEL (14) BUN/creatini ne ratio 16 9-23 normal Not Available [facility] ([facility]) [address] [facility], [place], [address], 07/09/2024 10:08:12 07/07/20 24 07/09/2024 COMP. METAB OLIC PANEL (14) sodium 139 mmol/ L 134-14 4 normal Not Available [facility] ([facility]) [address] [facility] [place], [address], 07/09/2024 10:08:12 07/07/20 24 07/09/2024 COMP. METAB OLIC PANEL (14) potassium 4.3 mmol/ L 3.5-5. 2 normal Not Available [facility] ([facility]) [address] [facility] [place], [address], 07/09/2024 10:08:12 07/07/20 24 07/09/2024 COMP. METAB OLIC PANEL (14) chloride 105 mmol/ L 96-106 normal Not Available [facility] ([facility]) [address] [facility] [place], [address], 07/09/2024 10:08:12 07/07/20 24 07/09/2024 COMP. METAB OLIC PANEL (14) carbon dioxide, total 21 mmol/ L 20-29 normal Not Available [facility] ([facility]) [address] [facility] [place], [address], 07/09/2024 10:08:12 07/07/20 24 07/09/2024 COMP. METAB OLIC PANEL (14) calcium 9.1 mg/dL 8.7-10 .2 normal Not Available [facility] ([facility]) [address] [facility] [place], [address], 07/09/2024 10:08:12 07/07/20 24 07/09/2024 COMP. METAB OLIC PANEL (14) protein, total 6.9 g/dL 6.0-8. 5 normal Not Available [facility] ([facility]) [address] [facility] [place], [address], 07/09/2024 10:08:12 07/07/20 24 07/09/2024 COMP. METAB OLIC PANEL (14) albumin 4.1 g/dL 4.0-5. 0 normal Not Available [facility] ([facility]) [address] [facility] [place], [address], 07/09/2024 10:08:12 07/07/20 24 07/09/2024 COMP. METAB OLIC PANEL (14) globulin, total 2.8 g/dL 1.5-4. 5 Not Available [facility] ([facility]) [address] [facility] [place], [address], 07/09/2024 10:08:12 07/07/20 24 07/09/2024 COMP. METAB OLIC PANEL (14) bilirubin, total <0.2 mg/dL 0.0-1. 2 Not Available [facility] ([facility]) [address] [facility] [place], [address], 07/09/2024 10:08:12 07/07/20 24 07/09/2024 COMP. METAB OLIC PANEL (14) alkaline phosphatase 86 IU/L 44-121 normal Not Available [facility]) [address] [facility], [place], [address], 07/09/2024 10:08:12 07/07/20 24 07/09/2024 COMP. METAB OLIC PANEL (14) AST (SGOT) 19 IU/L 0-40 normal Not Available [facility] ([facility]) [address] [facility] [place], [address], 07/09/2024 10:08:12 07/07/20 24 07/09/2024 COMP. METAB OLIC PANEL (14) ALT (SGPT) 17 IU/L 0-32 normal Not Available [facility] ([facility]) [address] [facility] [place], [address], 07/09/2024 10:08:12 07/07/20 24 07/09/2024 LIPID PANEL cholesterol, total 161 mg/dL 100-19 9 normal Not Available [facility] ([facility]) [address] [facility], [place], [address], 07/09/2024 10:08:12 07/07/20 24 07/09/2024 LIPID PANEL triglyceride s 144 mg/dL 0-149 normal Not Available [facility] ([facility]) [address] [facility], [place], [address], 07/09/2024 10:08:12 07/07/20 24 07/09/2024 LIPID PANEL HDL cholesterol 39 mg/dL >39 below low normal Not Available [facility] ([facility]) [address] [facility], [place], [address], 07/09/2024 10:08:12 07/07/20 24 07/09/2024 LIPID PANEL VLDL cholesterol nurys 26 mg/dL 5-40 Not Available [facility] ([facility]) [address] [facility], [place], [address], 07/09/2024 10:08:12 07/07/20 24 07/09/2024 LIPID PANEL LDL chol calc ([facility]) 96 mg/dL 0-99 Not Available 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) [address] [facility], [place], [address], 07/09/2024 10:08:12 07/07/20 24 07/09/2024 VITAM IN B12 AND FOLAT E vitamin B12 381 pg/mL 232-12 45 normal Not Available [facility] ([facility]) [address] [facility], [place], [address], 07/09/2024 10:08:13 07/07/20 24 07/09/2024 VITAM IN B12 AND FOLAT E folate (folic acid), serum 7.0 NG/mL >3.0 normal A serum folat e west ntrat ion of less than 3.1 ng/mL is consi dered to repre sent clini nurys defic iency . Not Available [facility] ([facility]) [address] [facility], [place], [address], 07/09/2024 10:08:13 07/07/20 24 07/09/2024 TSH TSH 0.421 uIU/m L 0.450- 4.500 below low normal Not Available [facility] ([facility]) [address] [facility], [place], [address], 07/09/2024 10:08:13 07/07/20 24 07/09/2024 VITAM IN D, 25-HY DROXY vitamin D, 25-hydroxy 31.3 NG/mL 30.0-1 00.0 Vitam in D defic iency has been defin ed by the Insti tute of Medic ine and an Endoc rine Socie ty pract ice guide line as a level of serum 25-OH vitam in D less than 20 ng/mL (1,2) . The Endoc rine Socie ty went on to furth er defin e vitam in D insuf ficie ncy as a level betwe en 21 and 29 ng/mL (2). 1. IOM (Inst itute of Medic ine). 2010. Dieta ry refer ence jason es for calci um and D. iRk ibarra [place]: The Natio nal [facility] Press . 2. Cate valerio [place], Silvano rojas [place], Kaylan off-F errar i CAMARENA, et al. Evalu ation , treat ment, and preve ntion of vitam in D defic iency : an Endoc rine Socie ty clini nurys pract ice guide line. JCEM. 2010; 96(7) :1911 -30. Not Available [facility] ([facility]) [address] [facility], [place], [address], 07/09/2024 10:08:14 07/07/20 24 07/09/2024 HCG QL W/REF PONCE TO HCG QN HCG,beta subunit,qual Negati ve mIU/m L negati ve <6 Not Available [facility] ([facility]) [address] [facility], [place], [address], 07/09/2024 10:08:15 08/03/20 24 08/08/2024 TOXAS SURE FLEX 19, UR summary report FINAL ===== ===== ===== ===== ===== ===== ===== ===== ===== ===== ===== ===== ===== === Canna binoi ds, MS, Ur RFX ToxAs sure Flex 19, Ur Methy lphen idate , MS, Ur RFX ===== ===== ===== ===== ===== ===== ===== ===== ===== ===== ===== ===== ===== === Test Resul t Flag Units Drug Prese nt Carbo xy-TH C >313 ng/mg creat Carbo xy-TH C is a metab olite of tetra hydro canna binol (THC) . Sourc e of THC is most commo nly herba l marij uana or marij uana- based produ cts, but THC is also prese nt in a sched uled presc ripti on medic ation . Trace amoun ts of THC can be prese nt in hemp and canna bidio l (CBD) produ cts. This test is not inten ded to disti nguis h betwe en delta -9-te trahy droca nnabi nol, the predo minan t form of THC in most herba l or marij uana- based produ cts, and delta -8-te trahy droca nnabi nol. Rital inic Acid PRESE NT Rital inic acid is an expec you metab olite of methy lphen idate . Sourc e of methy lphen idate is a sched uled presc ripti on medic ation . ===== ===== ===== ===== ===== ===== ===== ===== ===== ===== ===== ===== ===== === Test Resul t Flag Units Ref Range Creat inine 319 mg/dL >=20 ===== ===== ===== ===== ===== ===== ===== ===== ===== ===== ===== ===== ===== === Decla red Medic ation s: Medic ation list was not provi ded. ===== ===== ===== ===== ===== ===== ===== ===== ===== ===== ===== ===== ===== === For clini nurys consu ltati on, pleas e call [phone]. ===== ===== ===== ===== ===== ===== ===== ===== ===== ===== ===== ===== ===== === Not Available [facility] ([facility]) [address] [place], [address], 08/08/2024 12:06:44 08/03/20 24 08/08/2024 TOXAS SURE FLEX 19, UR pdf . Not Available [facility] ([facility]) [address] [facility], [place], [address], 08/08/2024 12:06:44 08/03/20 24 08/08/2024 TOXAS SURE FLEX 19, UR creatinine 319 mg/dL REFER ENCE RANGE : Ref Range >=20 Not Available [facility] ([facility]) [address] [place], [address], 08/08/2024 12:06:44 08/03/20 24 08/08/2024 TOXAS SURE FLEX 19, UR amphetamines ia Negati ve NG/mL cutoff :300 Not Available [facility] ([facility]) [address] [place], [address], 08/08/2024 12:06:44 08/03/20 24 08/08/2024 TOXAS SURE FLEX 19, UR benzodiazepi dariel Negati ve Not Available [facility] ([facility]) [address] [place], [address], 08/08/2024 12:06:44 08/03/20 24 08/08/2024 TOXAS SURE FLEX 19, UR diazepam Not Detect ed NG/mg _crea t Not Available [facility] ([facility]) [address] [place], [address], 08/08/2024 12:06:44 08/03/20 24 08/08/2024 TOXAS SURE FLEX 19, UR desmethyldia zepam Not Detect ed NG/mg _crea t Not Available [facility] ([facility]) [address] [place], [address], 08/08/2024 12:06:44 08/03/20 24 08/08/2024 TOXAS SURE FLEX 19, UR oxazepam Not Detect ed NG/mg _crea t Not Available [facility] ([facility]) [address] [place], [address], 08/08/2024 12:06:44 08/03/20 24 08/08/2024 TOXAS SURE FLEX 19, UR temazepam Not Detect ed NG/mg _crea t Expec you metab olism of benzo diaze pine class drugs : Paren t Drug Detec you Metab olite s ----- ----- - ----- ----- ----- ----- Diaze gerard: Desme thyld iazep am, Temaz epam, Oxaze gerard Chlor diaze poxid e: Desme thyld iazep am, Oxaze gerard Clora zepat e: Desme thyld iazep am, Oxaze gerard Halaz epam: Desme thyld iazep am, Oxaze gerard Temaz epam: Oxaze gerard Oxaze gerard: None Not Available [facility] ([facility]) [address] [facility], [place], [address], 08/08/2024 12:06:44 08/03/20 24 08/08/2024 TOXAS SURE FLEX 19, UR alprazolam Not Detect ed NG/mg _crea t Not Available [facility] ([facility]) [address] [place], [address], 08/08/2024 12:06:44 08/03/20 24 08/08/2024 TOXAS SURE FLEX 19, UR alpha-hydrox yalprazolam Not Detect ed NG/mg _crea t Not Available [facility] ([facility]) [address] [place], [address], 08/08/2024 12:06:44 08/03/20 24 08/08/2024 TOXAS SURE FLEX 19, UR desalkylflur azepam Not Detect ed NG/mg _crea t Not Available [facility] ([facility]) [address] [place], [address], 08/08/2024 12:06:44 08/03/20 24 08/08/2024 TOXAS SURE FLEX 19, UR lorazepam Not Detect ed NG/mg _crea t Not Available [facility] ([facility]) [address] [place], [address], 08/08/2024 12:06:44 08/03/20 24 08/08/2024 TOXAS SURE FLEX 19, UR alpha-hydrox ytriazolam Not Detect ed NG/mg _crea t Not Available [facility] ([facility]) [address] [facility], [place], [address], 08/08/2024 12:06:44 08/03/20 24 08/08/2024 TOXAS SURE FLEX 19, UR clonazepam Not Detect ed NG/mg _crea t Not Available [facility] ([facility]) [address] [place], [address], 08/08/2024 12:06:44 08/03/20 24 08/08/2024 TOXAS SURE FLEX 19, UR 7-aminoclona zepam Not Detect ed NG/mg _crea t Not Available [facility] ([facility]) [address] [place], [address], 08/08/2024 12:06:44 08/03/20 24 08/08/2024 TOXAS SURE FLEX 19, UR midazolam Not Detect ed NG/mg _crea t Not Available [facility] ([facility]) [address] [place], [address], 08/08/2024 12:06:44 08/03/20 24 08/08/2024 TOXAS SURE FLEX 19, UR alpha-hydrox ymidazolam Not Detect ed NG/mg _crea t Not Available [facility] ([facility]) [address] [place], [address], 08/08/2024 12:06:44 08/03/20 24 08/08/2024 TOXAS SURE FLEX 19, UR flunitrazepa m Not Detect ed NG/mg _crea t Not Available [facility] ([facility]) [address] [place], [address], 08/08/2024 12:06:44 08/03/20 24 08/08/2024 TOXAS SURE FLEX 19, UR desmethylflu nitrazepam Not Detect ed NG/mg _crea t Not Available [facility] ([facility]) [address] [place], [address], 08/08/2024 12:06:44 08/03/20 24 08/08/2024 TOXAS SURE FLEX 19, UR cocaine metabolite ia Negati ve NG/mL cutoff :150 Not Available [facility] ([facility]) [address] [place], [address], 08/08/2024 12:06:44 08/03/20 24 08/08/2024 TOXAS SURE FLEX 19, UR ethanol biomarkers ia Negati ve NG/mL cutoff :500 Not Available [facility] ([facility]) [address] [place], [address], 08/08/2024 12:06:44 08/03/20 24 08/08/2024 TOXAS SURE FLEX 19, UR cannabinoids ia COMMEN T NG/mL cutoff :20 Furth er testi ng indic ated Not Available [facility] ([facility]) [address] [place], [address], 08/08/2024 12:06:44 08/03/20 24 08/08/2024 TOXAS SURE FLEX 19, UR 6-acetylmorp ciro ia Negati ve NG/mL cutoff :10 Not Available [facility] ([facility]) [address] [place], [address], 08/08/2024 12:06:44 08/03/20 24 08/08/2024 TOXAS SURE FLEX 19, UR opiate class ia Negati ve NG/mL cutoff :100 Not Available [facility] ([facility]) [address] [place], [address], 08/08/2024 12:06:44 08/03/20 24 08/08/2024 TOXAS SURE FLEX 19, UR oxycodone class ia Negati ve NG/mL cutoff :100 Not Available [facility] ([facility]) [address] [place], [address], 08/08/2024 12:06:44 08/03/20 24 08/08/2024 TOXAS SURE FLEX 19, UR methadone ia Negati ve NG/mL cutoff :100 Not Available [facility] ([facility]) [address] [place], [address], 08/08/2024 12:06:44 08/03/20 24 08/08/2024 TOXAS SURE FLEX 19, UR methadone mtb ia Negati ve NG/mL cutoff :100 Not Available [facility] ([facility]) [address] [place], [address], 08/08/2024 12:06:44 08/03/20 24 08/08/2024 TOXAS SURE FLEX 19, UR buprenorphin e ia Negati ve NG/mL cutoff :5.0 Not Available [facility] ([facility]) [address] [place], [address], 08/08/2024 12:06:44 08/03/20 24 08/08/2024 TOXAS SURE FLEX 19, UR fentanyl ia Negati ve NG/mL cutoff :2.0 Not Available [facility] ([facility]) [address] [place], [address], 08/08/2024 12:06:44 08/03/20 24 08/08/2024 TOXAS SURE FLEX 19, UR tapentadol ia Negati ve NG/mL cutoff :200 Not Available [facility] ([facility]) [address] [place] [address], [address], 08/08/2024 12:06:44 08/03/20 24 08/08/2024 TOXAS SURE FLEX 19, UR propoxyphene ia Negati ve NG/mL cutoff :300 Not Available [facility] ([facility]) [address] [place] [address], [address], 08/08/2024 12:06:44 08/03/20 24 08/08/2024 TOXAS SURE FLEX 19, UR tramadol ia Negati ve NG/mL cutoff :200 Not Available [facility] ([facility]) [address] [place], [address], 08/08/2024 12:06:44 08/03/20 24 08/08/2024 TOXAS SURE FLEX 19, UR methylphenid ate ia Commen t NG/mL cutoff :100 Furth er testi ng indic ated Not Available [facility] ([facility]) [address] [place], [address], 08/08/2024 12:06:44 08/03/20 24 08/08/2024 TOXAS SURE FLEX 19, UR barbiturates ia Negati ve NG/mL cutoff :200 Not Available [facility] ([facility]) [address] [place], [address], 08/08/2024 12:06:44 08/03/20 24 08/08/2024 TOXAS SURE FLEX 19, UR phencyclidin e ia Negati ve NG/mL cutoff :25 Not Available [facility] ([facility]) [address] [place], [address], 08/08/2024 12:06:44 08/03/20 24 08/08/2024 TOXAS SURE FLEX 19, UR gabapentin ia Negati ve ug/mL cutoff :1.0 Not Available [facility] ([facility]) [address] [place], [address], 08/08/2024 12:06:44 08/03/20 24 08/08/2024 TOXAS SURE FLEX 19, UR anticonvulsa nts Negati ve Not Available [facility] ([facility]) [address] [place], [address], 08/08/2024 12:06:44 08/03/20 24 08/08/2024 TOXAS SURE FLEX 19, UR pregabalin Not Detect ed Not Available [facility] ([facility]) [address] [place], [address], 08/08/2024 12:06:44 08/03/20 24 08/08/2024 TOXAS SURE FLEX 19, UR carisoprodol ia Negati ve NG/mL cutoff :100 Not Available [facility] ([facility]) [address] [facility], [place], [address], 08/08/2024 12:06:44 08/03/20 24 08/08/2024 RICHARDSON YOUNGER DS, MS, UR RFX cannabinoids +POSIT AMY+ Not Available [facility] ([facility]) [address] [facility], [place], [address], 08/08/2024 12:06:45 08/03/20 24 08/08/2024 RICHARDSON YOUNGER DS, MS, UR RFX carboxy-THC >313 NG/mg _crea t This test is not inten ded to jo ann peace en the metab olite s of delta -9-te trahy droca nnabi nol, the predo minan t form of THC in most herba l or marij uana- based produ cts, and delta -8-te trahy droca nnabi nol, a psych oacti ve compo und gener ally synth esize d from other krysa karleneoi ds. Not Available [facility] ([facility]) [address] [facility], [place], [address], 08/08/2024 12:06:45 08/03/20 24 08/04/2024 TSH TSH 1.040 uIU/m L 0.450- 4.500 normal Not Available [facility] ([facility]) [address] [place], [address], 08/08/2024 12:06:46 08/03/20 24 08/08/2024 METHY LPHEN IDATE , MS, UR RFX sympathomime tics +POSIT AMY+ Not Available [facility] ([facility]) [address] [place], [address], 08/08/2024 12:06:46 08/03/20 24 08/08/2024 METHY LPHEN IDATE , MS, UR RFX methylphenid ate Not Detect ed Not Available [facility] ([facility]) [address] [place], [address], 08/08/2024 12:06:46 08/03/20 24 08/08/2024 METHY LPHEN IDATE , MS, UR RFX ritalinic acid PRESEN T Not Available [facility] ([facility]) [address] [place], [address], 08/08/2024 12:06:46 10/31/1910/31/2024 FE+TI BC+FE R iron bind.cap.(TI BC) 370 ug/dL 250-45 0 normal Not Available [facility] ([facility]) [address] [place], [address], 10/31/2024 11:08:00 10/31/19 25 10/31/2024 FE+TI BC+FE R UIBC 299 ug/dL 131-42 5 normal Not Available [facility] ([facility]) [address] [place], [address], 10/31/2024 11:08:00 10/31/19 25 10/31/2024 FE+TI BC+FE R iron 71 ug/dL 27-159 normal Not Available [facility] ([facility]) [address] [place], [address], 10/31/2024 11:08:00 10/31/19 25 10/31/2024 FE+TI BC+FE R iron saturation 19 % 15-55 normal Not Available [facility] ([facility]) [address] [place], [address], 10/31/2024 11:08:00 10/31/19 25 10/31/2024 FE+TI BC+FE R ferritin 115 NG/mL 15-150 normal Not Available [facility] ([facility]) [address] [place], [address], 10/31/2024 11:08:00 10/31/19 25 10/31/2024 CBC WITH DIFFE RENTI AL/PL ATELE T WBC 7.0 x10e3 /uL 3.4-10 .8 normal Not Available [facility] ([facility]) [address] [facility], [place], [address], 10/31/2024 11:08:00 10/31/19 25 10/31/2024 CBC WITH DIFFE RENTI AL/PL ATELE T RBC 4.76 x10e6 /uL 3.77-5 .28 normal Not Available [facility] ([facility]) [address] [place], [address], 10/31/2024 11:08:00 10/31/19 25 10/31/2024 CBC WITH DIFFE RENTI AL/PL ATELE T hemoglobin 13.8 g/dL 11.1-1 5.9 normal Not Available [facility] ([facility]) [address] [place], [address], 10/31/2024 11:08:00 10/31/19 25 10/31/2024 CBC WITH DIFFE RENTI AL/PL ATELE T hematocrit 41.9 % 34.0-4 6.6 normal Not Available [facility] ([facility]) [address] [place], [address], 10/31/2024 11:08:00 10/31/19 25 10/31/2024 CBC WITH DIFFE RENTI AL/PL ATELE T MCV 88 fL 79-97 normal Not Available [facility] ([facility]) [address] [place], [address], 10/31/2024 11:08:00 10/31/19 25 10/31/2024 CBC WITH DIFFE RENTI AL/PL ATELE T MCH 29.0 pg 26.6-3 3.0 normal Not Available [facility] ([facility]) [address] [facility], [place], [address], 10/31/2024 11:08:00 10/31/19 25 10/31/2024 CBC WITH DIFFE RENTI AL/PL ATELE T MCHC 32.9 g/dL 31.5-3 5.7 normal Not Available [facility] ([facility]) [address] [facility], [place], [address], 10/31/2024 11:08:00 10/31/19 25 10/31/2024 CBC WITH DIFFE RENTI AL/PL ATELE T RDW 12.9 % 11.7-1 5.4 Not Available [facility] ([facility]) [address] [facility], [place], [address], 10/31/2024 11:08:00 10/31/19 25 10/31/2024 CBC WITH DIFFE RENTI AL/PL ATELE T platelets 280 x10e3 /uL 150-45 0 normal Not Available [facility] ([facility]) [address] [place], [address], 10/31/2024 11:08:00 10/31/19 25 10/31/2024 CBC WITH DIFFE RENTI AL/PL ATELE T neutrophils 56 % not estab. normal Not Available [facility] ([facility]) [address] [facility], [place], [address], 10/31/2024 11:08:00 10/31/19 25 10/31/2024 CBC WITH DIFFE RENTI AL/PL ATELE T lymphs 38 % not estab. normal Not Available [facility] ([facility]) [address] [place], [address], 10/31/2024 11:08:00 10/31/19 25 10/31/2024 CBC WITH DIFFE RENTI AL/PL ATELE T monocytes 6 % not estab. normal Not Available [facility] ([facility]) [address] [facility], [place], [address], 10/31/2024 11:08:00 10/31/19 25 10/31/2024 CBC WITH DIFFE RENTI AL/PL ATELE T eos 0 % not estab. normal Not Available [facility] ([facility]) [address] [facility], [place], [address], 10/31/2024 11:08:00 10/31/19 25 10/31/2024 CBC WITH DIFFE RENTI AL/PL ATELE T basos 0 % not estab. normal Not Available [facility] (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) [address] [facility], [place], [address], 10/31/2024 11:08:00 10/31/19 25 10/31/2024 CBC WITH DIFFE RENTI AL/PL ATELE T neutrophils (absolute) 3.9 x10e3 /uL 1.4-7. 0 normal Not Available [facility] ([facility]) [address] [place], [address], 10/31/2024 11:08:00 10/31/19 25 10/31/2024 CBC WITH DIFFE RENTI AL/PL ATELE T lymphs (absolute) 2.7 x10e3 /uL 0.7-3. 1 normal Not Available [facility] ([facility]) [address] [place], [address], 10/31/2024 11:08:00 10/31/19 25 10/31/2024 CBC WITH DIFFE RENTI AL/PL ATELE T monocytes(ab solute) 0.4 x10e3 /uL 0.1-0. 9 normal Not Available [facility] ([facility]) [address] [facility], [place], [address], 10/31/2024 11:08:00 10/31/19 25 10/31/2024 CBC WITH DIFFE RENTI AL/PL ATELE T eos (absolute) 0.0 x10e3 /uL 0.0-0. 4 normal Not Available [facility] ([facility]) [address] [facility], [place], [address], 10/31/2024 11:08:00 10/31/19 25 10/31/2024 CBC WITH DIFFE RENTI AL/PL ATELE T baso (absolute) 0.0 x10e3 /uL 0.0-0. 2 normal Not Available [facility] ([facility]) [address] [facility], [place], [address], 10/31/2024 11:08:00 10/31/19 25 10/31/2024 CBC WITH DIFFE RENTI AL/PL ATELE T immature granulocytes 0 % not estab. Not Available [facility] ([facility]) [address] [facility], [place], [address], 10/31/2024 11:08:00 10/31/19 25 10/31/2024 CBC WITH DIFFE RENTI AL/PL ATELE T immature grans (abs) 0.0 x10e3 /uL 0.0-0. 1 Not Available [facility] ([facility]) [address] [place], [address], 10/31/2024 11:08:00 10/31/19 25 10/31/2024 CBC WITH DIFFE RENTI AL/PL ATELE T NRBC MACHINIST SUPERVISOR OUTSIDE Not Available [facility] ([facility]) [address] [facility], [place], [address], 10/31/2024 11:08:00 10/31/19 25 10/31/2024 CBC WITH DIFFE RENTI AL/PL ATELE T hematology comments: MACHINIST SUPERVISOR OUTSIDE Not Available [facility] ([facility]) [address] [facility] [place], [address], 10/31/2024 11:08:00 10/31/19 25 10/31/2024 COMP. METAB OLIC PANEL (14) glucose 90 mg/dL 70-99 normal Not Available [facility] ([facility]) [address] [facility] [place], [address], 10/31/2024 11:08:01 10/31/19 25 10/31/2024 COMP. METAB OLIC PANEL (14) BUN 8 mg/dL 6-20 normal Not Available [facility] ([facility]) [address] [facility] [place], [address], 10/31/2024 11:08:01 10/31/19 25 10/31/2024 COMP. METAB OLIC PANEL (14) creatinine 0.68 mg/dL 0.57-1 .00 normal Not Available [facility] ([facility]) [address] [facility] [place], [address], 10/31/2024 11:08:01 10/31/19 25 10/31/2024 COMP. METAB OLIC PANEL (14) eGFR 120 mL/mi n/1.7 3 >59 normal Not Available [facility] ([facility]) [address] [facility] [place], [address], 10/31/2024 11:08:01 10/31/19 25 10/31/2024 COMP. METAB OLIC PANEL (14) BUN/creatini ne ratio 12 9-23 normal Not Available [facility] ([facility]) [address] [facility] [place], [address], 10/31/2024 11:08:01 10/31/19 25 10/31/2024 COMP. METAB OLIC PANEL (14) sodium 140 mmol/ L 134-14 4 normal Not Available [facility] ([facility]) [address] [facility] [place], [address], 10/31/2024 11:08:01 10/31/19 25 10/31/2024 COMP. METAB OLIC PANEL (14) potassium 4.1 mmol/ L 3.5-5. 2 normal Not Available [facility] ([facility]) [address] [facility], [place], [address], 10/31/2024 11:08:01 10/31/19 25 10/31/2024 COMP. METAB OLIC PANEL (14) chloride 104 mmol/ L 96-106 normal Not Available [facility] ([facility]) [address] [facility], [place], [address], 10/31/2024 11:08:01 10/31/19 25 10/31/2024 COMP. METAB OLIC PANEL (14) carbon dioxide, total 22 mmol/ L 20-29 normal Not Available [facility] ([facility]) [address] [facility], [place], [address], 10/31/2024 11:08:01 10/31/19 25 10/31/2024 COMP. METAB OLIC PANEL (14) calcium 9.0 mg/dL 8.7-10 .2 normal Not Available [facility] ([facility]) [address] [facility], [place], [address], 10/31/2024 11:08:01 10/31/19 25 10/31/2024 COMP. METAB OLIC PANEL (14) protein, total 7.3 g/dL 6.0-8. 5 normal Not Available [facility] ([facility]) [address] [facility], [place], [address], 10/31/2024 11:08:01 10/31/19 25 10/31/2024 COMP. METAB OLIC PANEL (14) albumin 4.4 g/dL 4.0-5. 0 normal Not Available [facility] ([facility]) [address] [facility] [place], [address], 10/31/2024 11:08:01 10/31/19 25 10/31/2024 COMP. METAB OLIC PANEL (14) globulin, total 2.9 g/dL 1.5-4. 5 Not Available [facility] ([facility]) [address] [place], [address], 10/31/2024 11:08:01 10/31/19 25 10/31/2024 COMP. METAB OLIC PANEL (14) bilirubin, total 0.2 mg/dL 0.0-1. 2 normal Not Available [facility] ([facility]) [address] [place], [address], 10/31/2024 11:08:01 10/31/19 25 10/31/2024 COMP. METAB OLIC PANEL (14) alkaline phosphatase 94 IU/L 44-121 normal Not Available [facility] ([facility]) [address] [place], [address], 10/31/2024 11:08:01 10/31/19 25 10/31/2024 COMP. METAB OLIC PANEL (14) AST (SGOT) 33 IU/L 0-40 normal Not Available [facility] ([facility]) [address] [place], [address], 10/31/2024 11:08:01 10/31/19 25 10/31/2024 COMP. METAB OLIC PANEL (14) ALT (SGPT) 35 IU/L 0-32 above high normal Not Available [facility] ([facility]) [address] [place], [address], 10/31/2024 11:08:01 10/31/19 25 10/31/2024 LIPID PANEL cholesterol, total 165 mg/dL 100-19 9 normal Not Available [facility] ([facility]) [address] [place], [address], 10/31/2024 11:08:01 10/31/19 25 10/31/2024 LIPID PANEL triglyceride s 203 mg/dL 0-149 above high normal Not Available [facility] ([facility]) [address] [facility] [place], [address], 10/31/2024 11:08:01 10/31/19 25 10/31/2024 LIPID PANEL HDL cholesterol 39 mg/dL >39 below low normal Not Available [facility] ([facility]) [address] [facility] [place], [address], 10/31/2024 11:08:01 10/31/19 25 10/31/2024 LIPID PANEL VLDL cholesterol nurys 35 mg/dL 5-40 Not Available [facility] ([facility]) [address] [facility] [place], [address], 10/31/2024 11:08:01 10/31/19 25 10/31/2024 LIPID PANEL LDL chol calc ([facility]) 91 mg/dL 0-99 Not Available [facility] (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) [address] [place], [address], 10/31/2024 11:08:01 10/31/19 25 10/31/2024 VITAM IN B12 AND FOLAT E vitamin B12 406 pg/mL 232-12 45 normal Not Available [facility] ([facility]) [address] [place], [address], 10/31/2024 11:08:01 10/31/19 25 10/31/2024 VITAM IN B12 AND FOLAT E folate (folic acid), serum 11.2 NG/mL >3.0 normal A serum folat e west ntrat ion of less than 3.1 ng/mL is consi dered to repre sent clini nurys defic iency . Not Available [facility] ([facility]) [address] [place], [address], 10/31/2024 11:08:01 10/31/19 25 10/31/2024 TSH TSH 0.828 uIU/m L 0.450- 4.500 normal Not Available [facility] ([facility]) [address] [facility], [place], [address], 10/31/2024 11:08:02 10/31/19 25 10/31/2024 VITAM IN D, 25-HY DROXY vitamin D, 25-hydroxy 27.0 NG/mL 30.0-1 00.0 below low normal Vitam in D defic iency has been defin ed by the Insti tute of Medic ine and an Endoc rine Socie ty pract ice guide line as a level of serum 25-OH vitam in D less than 20 ng/mL (1,2) . The Endoc rine Socie ty went on to furth er defin e vitam in D insuf ficie ncy as a level betwe en 21 and 29 ng/mL (2). 1. IOM (Inst itute of Medic ine). 2010. Dieta ry refer ence intak es for calci um and D. Rik ibarra DC: [facility] . 2. Cate valerio MF, Silvano rojas [place], Kaylan off-F errar i CAMARENA, et al. Evalu ation , treat ment, and preve ntion of vitam in D defic iency : an Endoc rine Socie ty clini nurys pract ice guide line. JCEM. 2010; 96(7) :1911 -30. Not Available [facility] ([facility]) [address] [facility], [place], [address], 10/31/2024 11:08:02 01/01/20 25 01/06/2025 TOXAS SURE FLEX 19, UR summary report FINAL ===== ===== ===== ===== ===== ===== ===== ===== ===== ===== ===== ===== ===== === Canna binoi ds, MS, Ur RFX ToxAs sure Flex 19, Ur Methy lphen idate , MS, Ur RFX ===== ===== ===== ===== ===== ===== ===== ===== ===== ===== ===== ===== ===== === Test Resul t Flag Units Drug Prese nt Carbo xy-TH C >325 ng/mg creat Carbo xy-TH C is a metab olite of tetra hydro canna binol (THC) . Sourc e of THC is most commo nly herba l marij uana or marij uana- based produ cts, but THC is also prese nt in a sched uled presc ripti on medic ation . Trace amoun ts of THC can be prese nt in hemp and canna bidio l (CBD) produ cts. This test is not inten ded to disti nguis h betwe en delta -9-te trahy droca nnabi nol, the predo minan t form of THC in most herba l or marij uana- based produ cts, and delta -8-te trahy droca nnabi nol. Rital inic Acid PRESE NT Rital inic acid is an expec you metab olite of methy lphen idate . Sourc e of methy lphen idate is a sched uled presc ripti on medic ation . ===== ===== ===== ===== ===== ===== ===== ===== ===== ===== ===== ===== ===== === Test Resul t Flag Units Ref Range Creat inine 308 mg/dL >=20 ===== ===== ===== ===== ===== ===== ===== ===== ===== ===== ===== ===== ===== === Decla red Medic ation s: Medic ation list was not provi ded. ===== ===== ===== ===== ===== ===== ===== ===== ===== ===== ===== ===== ===== === For clini nurys consu ltati on, pleas e call [phone]. ===== ===== ===== ===== ===== ===== ===== ===== ===== ===== ===== ===== ===== === Not Available [facility] ([facility]) [address] [place], [address], 01/06/2025 18:08:08 01/01/20 25 01/06/2025 TOXAS SURE FLEX 19, UR pdf . Not Available [facility] ([facility]) [address] [place], [address], 01/06/2025 18:08:08 01/01/2001/06/2025 TOXAS SURE FLEX 19, UR creatinine 308 mg/dL >=20 REFER ENCE RANGE : Ref Range >=20 Not Available [facility] ([facility]) [address] [place], [address], 01/06/2025 18:08:08 01/01/2001/06/2025 TOXAS SURE FLEX 19, UR amphetamines ia Negati ve NG/mL cutoff :300 Not Available [facility] ([facility]) [address] [place], [address], 01/06/2025 18:08:08 01/01/20 25 01/06/2025 TOXAS SURE FLEX 19, UR benzodiazepi dariel Negati ve Not Available [facility] ([facility]) [address] [place], [address], 01/06/2025 18:08:08 01/01/20 25 01/06/2025 TOXAS SURE FLEX 19, UR diazepam Not Detect ed NG/mg _crea t Not Available [facility] ([facility]) [address] [place], [address], 01/06/2025 18:08:08 01/01/20 25 01/06/2025 TOXAS SURE FLEX 19, UR desmethyldia zepam Not Detect ed NG/mg _crea t Not Available [facility] ([facility]) [address] [place], [address], 01/06/2025 18:08:08 01/01/20 25 01/06/2025 TOXAS SURE FLEX 19, UR oxazepam Not Detect ed NG/mg _crea t Not Available [facility] ([facility]) [address] [place], [address], 01/06/2025 18:08:08 01/01/20 25 01/06/2025 TOXAS SURE FLEX 19, UR temazepam Not Detect ed NG/mg _crea t Expec you metab olism of benzo diaze pine class drugs : Paren t Drug Detec you Metab olite s ----- ----- - ----- ----- ----- ----- Diaze gerard: Desme thyld iazep am, Temaz epam, Oxaze gerard Chlor diaze poxid e: Desme thyld iazep am, Oxaze gerard Clora zepat e: Desme thyld iazep am, Oxaze gerard Halaz epam: Desme thyld iazep am, Oxaze gerard Temaz epam: Oxaze gerard Oxaze gerard: None Not Available [facility] ([facility]) [address] [place], [address], 01/06/2025 18:08:08 01/01/20 25 01/06/2025 TOXAS SURE FLEX 19, UR alprazolam Not Detect ed NG/mg _crea t Not Available [facility] ([facility]) [address] [place], [address], 01/06/2025 18:08:08 01/01/20 25 01/06/2025 TOXAS SURE FLEX 19, UR alpha-hydrox yalprazolam Not Detect ed NG/mg _crea t Not Available [facility] ([facility]) [address] [place], [address], 01/06/2025 18:08:08 01/01/20 25 01/06/2025 TOXAS SURE FLEX 19, UR desalkylflur azepam Not Detect ed NG/mg _crea t Not Available [facility] ([facility]) [address] [facility], [place], [address], 01/06/2025 18:08:08 01/01/20 25 01/06/2025 TOXAS SURE FLEX 19, UR lorazepam Not Detect ed NG/mg _crea t Not Available [facility] ([facility]) [address] [place], [address], 01/06/2025 18:08:08 01/01/20 25 01/06/2025 TOXAS SURE FLEX 19, UR alpha-hydrox ytriazolam Not Detect ed NG/mg _crea t Not Available [facility] ([facility]) [address] [place], [address], 01/06/2025 18:08:08 01/01/20 25 01/06/2025 TOXAS SURE FLEX 19, UR clonazepam Not Detect ed NG/mg _crea t Not Available [facility] ([facility]) [address] [place], [address], 01/06/2025 18:08:08 01/01/20 25 01/06/2025 TOXAS SURE FLEX 19, UR 7-aminoclona zepam Not Detect ed NG/mg _crea t Not Available [facility] ([facility]) [address] [place], [address], 01/06/2025 18:08:08 01/01/20 25 01/06/2025 TOXAS SURE FLEX 19, UR midazolam Not Detect ed NG/mg _crea t Not Available [facility] ([facility]) [address] [place], [address], 01/06/2025 18:08:08 01/01/20 25 01/06/2025 TOXAS SURE FLEX 19, UR alpha-hydrox ymidazolam Not Detect ed NG/mg _crea t Not Available [facility] ([facility]) [address] [place], [address], 01/06/2025 18:08:08 01/01/20 25 01/06/2025 TOXAS SURE FLEX 19, UR flunitrazepa m Not Detect ed NG/mg _crea t Not Available [facility] ([facility]) [address] [place], [address], 01/06/2025 18:08:08 01/01/20 25 01/06/2025 TOXAS SURE FLEX 19, UR desmethylflu nitrazepam Not Detect ed NG/mg _crea t Not Available [facility] ([facility]) [address] [place], [address], 01/06/2025 18:08:08 01/01/20 25 01/06/2025 TOXAS SURE FLEX 19, UR cocaine metabolite ia Negati ve NG/mL cutoff :150 Not Available [facility] ([facility]) [address] [place], [address], 01/06/2025 18:08:08 01/01/20 25 01/06/2025 TOXAS SURE FLEX 19, UR ethanol biomarkers ia Negati ve NG/mL cutoff :500 Not Available [facility] ([facility]) [address] [place], [address], 01/06/2025 18:08:08 01/01/20 25 01/06/2025 TOXAS SURE FLEX 19, UR cannabinoids ia COMMEN T NG/mL cutoff :20 Furth er testi ng indic ated Not Available [facility] ([facility]) [address] [place], [address], 01/06/2025 18:08:08 01/01/20 25 01/06/2025 TOXAS SURE FLEX 19, UR 6-acetylmorp ciro ia Negati ve NG/mL cutoff :10 Not Available [facility] ([facility]) [address] [place], [address], 01/06/2025 18:08:08 01/01/20 25 01/06/2025 TOXAS SURE FLEX 19, UR opiate class ia Negati ve NG/mL cutoff :100 Not Available [facility] ([facility]) [address] [place], [address], 01/06/2025 18:08:08 01/01/20 25 01/06/2025 TOXAS SURE FLEX 19, UR oxycodone class ia Negati ve NG/mL cutoff :100 Not Available [facility] ([facility]) [address] [place], [address], 01/06/2025 18:08:08 01/01/20 25 01/06/2025 TOXAS SURE FLEX 19, UR methadone ia Negati ve NG/mL cutoff :100 Not Available [facility] ([facility]) [address] [place], [address], 01/06/2025 18:08:08 01/01/20 25 01/06/2025 TOXAS SURE FLEX 19, UR methadone mtb ia Negati ve NG/mL cutoff :100 Not Available [facility] ([facility]) [address] [place], [address], 01/06/2025 18:08:08 01/01/20 25 01/06/2025 TOXAS SURE FLEX 19, UR buprenorphin e ia Negati ve NG/mL cutoff :5.0 Not Available [facility] ([facility]) [address] [place], [address], 01/06/2025 18:08:08 01/01/20 25 01/06/2025 TOXAS SURE FLEX 19, UR fentanyl ia Negati ve NG/mL cutoff :2.0 Not Available [facility] ([facility]) [address] [place], [address], 01/06/2025 18:08:08 01/01/20 25 01/06/2025 TOXAS SURE FLEX 19, UR tapentadol ia Negati ve NG/mL cutoff :200 Not Available [facility] ([facility]) [address] [place], [address], 01/06/2025 18:08:08 01/01/20 25 01/06/2025 TOXAS SURE FLEX 19, UR propoxyphene ia Negati ve NG/mL cutoff :300 Not Available [facility] ([facility]) [address] [place], [address], 01/06/2025 18:08:08 01/01/20 25 01/06/2025 TOXAS SURE FLEX 19, UR tramadol ia Negati ve NG/mL cutoff :200 Not Available [facility] ([facility]) [address] [place], [address], 01/06/2025 18:08:08 01/01/20 25 01/06/2025 TOXAS SURE FLEX 19, UR methylphenid ate ia COMMEN T NG/mL cutoff :100 Furth er testi ng indic ated Not Available [facility] ([facility]) [address] [place], [address], 01/06/2025 18:08:08 01/01/20 25 01/06/2025 TOXAS SURE FLEX 19, UR barbiturates ia Negati ve NG/mL cutoff :200 Not Available [facility] ([facility]) [address] [place], [address], 01/06/2025 18:08:08 01/01/20 25 01/06/2025 TOXAS SURE FLEX 19, UR phencyclidin e ia Negati ve NG/mL cutoff :25 Not Available [facility] ([facility]) [address] [place], [address], 01/06/2025 18:08:08 01/01/20 25 01/06/2025 TOXAS SURE FLEX 19, UR gabapentin ia Negati ve ug/mL cutoff :1.0 Not Available [facility] ([facility]) [address] [place], [address], 01/06/2025 18:08:08 01/01/20 25 01/06/2025 TOXAS SURE FLEX 19, UR anticonvulsa nts Negati ve Not Available [facility] ([facility]) [address] [place], [address], 01/06/2025 18:08:08 01/01/20 25 01/06/2025 TOXAS SURE FLEX 19, UR pregabalin Not Detect ed Not Available [facility] ([facility]) [address] [place], [address], 01/06/2025 18:08:08 01/01/20 25 01/06/2025 TOXAS SURE FLEX 19, UR carisoprodol ia Negati ve NG/mL cutoff :100 Not Available [facility] ([facility]) [address] [place], [address], 01/06/2025 18:08:08 01/01/20 25 01/06/2025 CANNA KARLENEOI DS, MS, UR RFX cannabinoids +POSIT AMY+ Not Available [facility] ([facility]) [address] [place], [address], 01/06/2025 18:08:09 01/01/20 25 01/06/2025 RICHARDSON YOUNGER DS, MS, UR RFX carboxy-THC >325 NG/mg _crea t This test is not inten ded to disti antonio peace en the metab olite s of delta -9-te trahy droca nnabi nol, the predo minan t form of THC in most herba l or marij uana- based produ cts, and delta -8-te trahy droca nnabi nol, a psych oacti ve compo und gener ally synth esize d from other richardson younger ds. Not Available [facility] ([facility]) [address] [facility], [place], [address], 01/06/2025 18:08:09 01/01/20 25 01/06/2025 METHY LPHEN IDATE , MS, UR RFX sympathomime tics +POSIT AMY+ Not Available [facility] ([facility]) [address] [facility], [place], [address], 01/06/2025 18:08:09 01/01/20 25 01/06/2025 METHY LPHEN IDATE , MS, UR RFX methylphenid ate Not Detect ed Not Available [facility] ([facility]) [address] [facility], [place], [address], 01/06/2025 18:08:09 01/01/20 25 01/06/2025 METHY LPHEN IDATE , MS, UR RFX ritalinic acid PRESEN T Not Available [facility] ([facility]) [address] [place], [address], 01/06/2025 18:08:09 11/18/19 25 11/10/2024 MRI, knee, w/o contr ast No observ ation record ed. [facility] ([facility]) [address], [place], [address], 11/17/2024 11:34:12 05/26/2005/26/2025 XR, chest , 2 view No observ ation record ed. [address], [place], [address], 05/27/2025 12:09:22 05/26/2005/26/2025 CT, angio gram, chest , w/wo contr ast No observ ation record ed. [address], [place], [address], 05/27/2025 12:10:09 05/26/2005/26/2025 US, echoc ardio gram No observ ation record ed. [address], [place], [address], 05/27/2025 12:10:30 05/28/2005/26/2025 imagi ng/di agnos tic resul t No observ ation record ed. [address], [place], [address], 05/28/2025 16:20:49 05/28/2005/26/2025 imagi ng/di agnos tic resul t No observ ation record ed. [address], [place], [place], [address], 05/28/2025 16:20:49 05/28/2005/27/2025 imagi ng/di agnos tic resul t No observ ation record ed. [facility] [address], [place], [address], 05/28/2025 22:01:39 Result Notes None recorded. Problems Name Problem SNOMED Code Status Onset Date Resolution Date Notes Provider Name and Address Organization Details Recorded Time Bipolar disorder 72897536 Active 2023 TANK Arango [address] [place] [address], [address], [facility] [employer] 15:16:30 Attention deficit hyperactivi ty disorder, predominant ly inattentive type 31208848 Active 2023 TANK Arango [address] [place] [address], 86[address] 8, [employer] 15:16:24 Vitamin D deficiency 67172460 Active 2023 TANK Arango [address] [place] [address], 42930-[address] 8, [employer] 15:16:33 Iron deficiency anemia 15280813 Active 2023 TANK Arango [address] [place] [address], 872[address] 8, [employer] 15:16:39 Generalized anxiety disorder 28813133 Active 2023 TANK Arango [address] [place] [address], 95515-[address] 8, [employer] 15:16:35 Post-trauma tic stress disorder 67485952 Active 2023 TANK Arango [address] [place] [address], 76068-296 8, [employer] 15:16:42 Vertigo 311892870 Active 2023 TANK Arango [address] [place] [address], 09900[address]69 8, [employer] 4 15:31:47 Insomnia 448296933 Active 2023 TANK Arango [address] [place] [address], 14455-355 8, [employer] 4 13:19:43 Pain in bilateral feet 9254982086511 9102 Active 2024 TANK Arango [address] [place] [address], 10394-161 8, [employer] 5 13:58:03 Migraine without aura, not refractory 773088487 Active 2024 TANK Arango [address] [place] [address] [place], [address], [employer] 5 14:09:19 Irritable bowel syndrome with diarrhea 699724522 Active 2024 TANK Arango [address] [place] [address], 42988-755 8, [employer] 5 14:09:33 Dysfunction of bilateral eustachian tubes 6290220237111 100 Active 2024 TANK Arango [address] [place] [address], [address] 8, [employer] 5 14:11:45 Problem Notes None recorded. Procedures Surgical History Date Name Laterality Status Provider Name and Address Organization Details Recorded Time Gallbladder Surgery completed [employer] 06/05/2024 14:41:59 Caesarean Section completed [employer] 06/05/2024 14:42:11 Imaging Results None recorded. Procedure Notes None recorded. Medical Equipment None Reported. Allergies Allergen ID Allergen Name Allergen Category Reaction Reaction Severity Criticality Documentation Date Start Date Code Code System Note Provider Name and Address Organization Details Recorded Time 51231 morphine medicatio n Not available Not available Not available 06/05/2024 7052 RxNorm [employer] [facility], [employer] 4 14:29:38 Medications Name Sig Start Date Stop [...] height Body mass index (BMI) Body weight Oxygen saturation Oxygen saturation in Arterial blood by Pulse oximetry Heart rate Body temperature Systolic And Diastolic Provider Name and Address Organization Details Last Updated DateTime 5 165.1 cm 43.1 kg/m2 196898. 42 g 98 % 98 % 100 /min 98.3 [degF] 122/80 mm[Hg] [facility] [employer], [facility]. 5 13:19:07 Date Recorded Body height Body mass index (BMI) Body weight Body temperature Heart rate Oxygen saturation Oxygen saturation in Arterial blood by Pulse oximetry Systolic And Diastolic Provider Name and Address Organization Details Last Updated DateTime 5 165.1 cm 42.3 kg/m2 144302. 86 g 98.5 [degF] 79 /min 96 % 96 % 121/76 mm[Hg] Lucía Healy [employer]. 5 13:03:47 Date Recorded Body height Body mass index (BMI) Body weight Heart rate Oxygen saturation Oxygen saturation in Arterial blood by Pulse oximetry Body temperature Systolic And Diastolic Provider Name and Address Organization Details Last Updated DateTime 5 165.1 cm 41.7 kg/m2 702132. 97 g 88 /min 98 % 98 % 98.4 [degF] 114/80 mm[Hg] Katja [employer]. 5 13:50:47 Date Recorded Body height Body mass index (BMI) Body weight Oxygen saturation Oxygen saturation in Arterial blood by Pulse oximetry Heart rate Systolic And Diastolic Provider Name and Address Organization Details Last Updated DateTime 4 165.1 cm 43.2 kg/m2 071149. 58 g 96 % 96 % 82 /min 113/73 mm[Hg] Katja [employer]. 4 15:11:48 Date Recorded Body height Body mass index (BMI) Body weight Oxygen saturation Oxygen saturation in Arterial blood by Pulse oximetry Heart rate Systolic And Diastolic Provider Name and Address Organization Details Last Updated DateTime 4 165.1 cm 42.2 kg/m2 323467. 31 g 98 % 98 % 86 /min 123/63 mm[Hg] Katja [employer]. 4 13:01:21 Social History Question Answer Notes LastModified by Organizat ion Details LastModified Time Tobacco Smoking Status Former Smoker [employer] 06/05/2024 14:38:45 Do You Have An Advance [...] Or The Highest Degree You Have Received? [id number] Information not available 06/05/2024 Who Is Your Employer? [employer] Information not available 06/05/2024 Have There Been Any Changes To Your Family Or Social Situation? No Information no t available 06/05/2024 When Did You Quit Smoking? 1-5yearssincel astcigarette Information not available 06/05/2024 Are There Any Guns Present In Your Home? No Information not available 06/05/2024 Which Of Your Hands Is Dominant? Right Information not available 06/05/2024 Do You Have A Medical Power Of Mower Mechanic? No Information not available 06/05/2024 What Was [...] Functional Status Question Answer Note LastModified by [employer] Details LastModified Time Do you use [...] anxious, or unable to sleep at night)? [id number] Information not available 06/05/2024 Do you have [...] History Condition Response Coronary Artery Disease N Gout N Other N Blood Diseases N Kidney Stones N Hyperthyroidism N Blood Transfusion N Breast Cancer N Emergency room visit since last appointm ent. N COPD N Depression Y Dermatologic Disorders N Lung Disease N Hypothyroidism N Defects or Inherited Disease N Developmental or Behavioral Disorders N Breast Problem N Difficulty Swallowing N Anesthesia Complications N History of STI N Meniere's disease N Anxiety Disorder Y Muscle, Joint, or Bone Problems Y Autoimmune disease N Vision or Eye Problems N Arthritis Y Polyps N Infertility N Mental Disorder Y Congenital Anomalies N Acid Reflux (GERD) N Cancer N Stroke N Neurologic/Epilepsy N Endometriosis N Bladder or Kidney Problems N High Cholesterol N Liver Disease N Psychiatric/Mental Health Condition N Organ Transplant N Fibromyalgia N Dialysis N Schizophrenia N Headaches N Kidney Disease N Allergies/Hayfever Y Heart Problems N Ear or Hearing Problems N Hospitalizations N Learning Disorder N Artificial Joints N Thyroid Problems N GI Problems N Acne N ADD/ADHD Y Eating Disorder N Anemia Y Constipation N Mental Illness Y Ovarian Cancer N Diabetes N Bedwetting N Hepatitis/Liver Disease N Tuberculosis N Eczema N Diverticulitis N Abuse/Domestic Violence N Asthma N Trauma/Violence N Substance Abuse N Reflux/GERD N Depression/ depression N Hepatitis N Heart Disease N Pulmonary Embolism N Tourette Syndrome N Pre-Eclampsia N Hypertension N Chronic Ear Infections N Osteoporosis N Chicken Pox N Autism Spectrum Disorder (ASD) N Thrombophilias N Gynecological History Statement/Question Response [...] Details Recorded Time Tdap 4 completed TANK Arango [address] [place] [address], [address], [employer] 08/03/2024 14:27:57 MMR 8 completed Katja Vice null, [employer] 08/03/2024 12:59:13 varicella 9 completed Katja Vice null, [employer] 08/03/2024 12:59:13 OPV, trivalent 8 completed Katja Vice null, [employer] 08/03/2024 12:59:13 HPV, quadrivalent 7 completed Katja Vice null, [employer] 08/03/2024 12:59:13 Td (adult), 2 Lf tetanus toxoid, preservative free, adsorbed 5 completed Katja Vice null, [employer] 08/03/2024 12:59:13 DTaP, unspecified formulation 6 completed Katja Vice null, [employer] 08/03/2024 12:59:13 DTaP, unspecified formulation 8 completed Katja Vice null, [employer] 08/03/2024 12:59:13 Past Encounters Encounter ID Performer Location Encounter Start Date Encounter Closed Date Diagnosis/Indication Diagnosis SNOMED-CT Code Diagnosis ICD10 Code Diagnosis IMO Codes Diagnosis Note [id number] TANK Arango [address] [address] 06/05/2024 14:12:54 06/05/2024 15:07:03 Bipolar disorder 91866033 F31.9 Restart Caplyta and PristiqMHI packet givenSpoke at length about PHQ/[place] screen and she states that she has no intention of ever acting on the intrusive thoughts, but would like to seek more treatment to get them to stop Counseling 783956004 Z71 .9 Attention deficit hyperactivity disorder, predominantly inattentive type 40435992 F90.0 Vitamin D deficiency 347 78827 E55.9 Iron defic iency anemia 31132465 D50.9 Generalize d anxiety disorder 62362817 F41.1 Post-traum atic stress disorder 12983676 F43.10 [id number] TANK Arango [address] [address] 06/26/2024 14:38:23 06/26/2024 16:17:44 Vertigo 637220294 R42 [id number] TANK Arango [address] [address] 08/03/2024 12:50:35 08/03/2024 13:51:18 Thyroid stimulating hormone level below reference range 440552734 R94.6 Insomnia 068201818 G47.0 0 Generalize d anxiety disorder 00558662 F41.1 Body mass index 40+ - severely obese 357598692 Z68.41 Administra tion of diphtheria, pertussis, and tetanus vaccine 828307431 Z23 penitentiary current use of drug therapy for attention deficit hyperactivity disorder 0402505465 06264 Z79.899 Gynecologi c examination 29152512 Z01.419 Adult heal th examination 544374688 Z00.00 [id number] TANK Arango [address] [address] 10/30/2024 12:47:01 10/30/2024 13:57:33 Attention deficit hyperactivity disorder, predominantly inattentive type 97587306 F90.0 Bipolar disorder 4438923 4 F31.9 Generalize d anxiety disorder 99259671 F41.1 Iron defic iency anemia 17046344 D50.9 Post-traum atic stress disorder 53462809 F43.10 Vitamin D deficiency 347 81061 E55.9 Pain in bi lateral feet 8429158626 1281160 M79.671 M79.672 Instabilit y of joint of left knee 8655814352 967004 M25.362 Vertigo 035298819 R42 Body mass index 40+ - severely obese 292396138 Z68.41 [id number] Kimberly Avalos[address] [address] 12/31/2024 12:37:59 12/31/2024 13:24:43 Long-term current use of drug therapy 862632011 Z79.899 44808935 Bipolar disorder 2704948 4 F31.9 Attention deficit hyperactivity disorder, predominantly inattentive type 43411868 F90.[address] Geoffrey garay done today Generalize d anxiety disorder 39936355 F41.1 Post-traum atic stress disorder 26581485 F43.10 Iron defic iency anemia 16266504 D50.9 Vitamin D deficiency 347 21070 E55.9 Insomnia 199735320 G47.0 0 [id number] Kimberly [address] [address] 04/15/2025 13:40:23 04/15/2025 15:33:50 Migraine without aura, not refractory 828378417 G43.031 5698049 Irritable bowel syndrome with diarrhea 180642651 K58.0 573727 Dysfunctio n of bilateral eustachian tubes 8712862036 902254 H69.93 83343828 Bipolar disorder 3465365 4 F31.9 Vitamin D deficiency 347 40283 E55.9 Iron defic iency anemia 80716465 D50.9 Generalize d anxiety disorder 20661322 F41.1 Insomnia 472047444 G47.0 0 Health Concerns Section Related Observation LastModified by Organization Detai ls LastModified Time None Recorded Concern Status LastModified by Organization Details LastModified Time None Recorded Advance Directives Directive N: Payers Insurance Date Sequence Insurance Name Policy Number Policy Bean Covered Member ID Bean Member ID Guarantor Name 05/29/2025 1 [employer] - [place] (MEDICAID REPLACEMENT - HMO) Karlene Guidry Juan [id number] Karlene Juan 10/30/2024 1 [place] [id number] Karlene Guidry Martinez [id number] Karlene Juan Notes Date Note Type Note Provider Name and Address Organization Details Recorded Time 06/26/2024 text/html Patient states that she has had several episodes where she is shaky, sweaty, nauseous. Sees spots and feels like she will pass out. Happened at work and they checked her blood pressure and said it was normal. Checked her blood sugar and states it was 100. Sometimes she feels better when she eats and sometimes she doesn't. Family history of diabetes. [address] [place], [id number], [employer]. 06/26/2024 17:38:21 08/03/2024 text/html Patient presents for followup on ADHD. States Concerta is working well. Denies side effects. Due for refills.Anxiety is better at times, but is not sleeping well. Due for refills on hydroxyzine. Would like to increase Remeron.Needs repeat TSH due to abnormal TSH last visit. [address] [place], [id number], [employer] 08/03/2024 14:30:48 10/30/2024 text/html ROS as noted in the HPI Patient presents for followup.History of ADHD - doing well. Due for refills.HIstory of anxiety, bipolar disorder, PTSD, iron deficiency anemia.C/O pain in both feet. Has seen podiatry in the past and gotten injections. Needs new referral.Left knee clicking, catching, giving out. Nearly fell down the stairs because her knee just collapsed. No injury. [address] [place], [id number], [employer]. 11/03/2024 09:51:09 12/31/2024 text/html ROS as noted in the HPI Patient presents for followup. History of bipolar disorder, anxiety, ADHD. She has been taking her Caplyta as directed and is doing well. She stopped her Pristiq for a bit because she thought it was causing constipation, but restarted it a few weeks ago and has been fine. She stopped Concerta for a while because she forgot to go pick it up, then the script , and then she states she just wanted to see how she did without it. She recently started a new job and states that she can definitely tell that she needs it when she is working. Cannot focus or block out distractions and makes mistakes. [address] [place], [id number], [employer], [employer]. 12/31/2024 16:19:51 04/15/2025 text/html ROS as noted in the [...] Excedrin migraine which sometimes helps. [address] [place], [id number], [employer] 04/15/2025 16:31:06 OBGyn Episode No OBEpisode recorded.
--- NOTE | 2025-05-29 22:49 | XR_ITS ---
PROCEDURE INFORMATION: Exam: XR Chest Exam date and time: 05/29/2025 11:14 PM Age: 29 years old Clinical indication: Pain; Shortness of breath; Additional info: Chest pain, shortness of breath TECHNIQUE: Imaging protocol: Radiologic exam of the chest. Views: 1 view. COMPARISON: CT ANGIO CHEST PE PROTOCOL 05/26/2025 1:11 PM FINDINGS: Lungs: Unremarkable. No consolidation. Pleural spaces: Unremarkable. No pleural effusion. No pneumothorax. Heart/Mediastinum: Unremarkable. No cardiomegaly. Bones/joints: Unremarkable. IMPRESSION: No acute findings.
[2025-05-29 22:54] LABS: Hematocrit 42.8 % (37.0-47.0); Hemoglobin 14.3 g/dL (12.2-16.2); Immature Granulocytes % 1.5 %; Mean Corpuscular HGB Conc 33.4 g/dL (31.8-35.4); Mean Corpuscular Hemoglobin 30.1 pg (27.0-31.2); Mean Corpuscular Volume 90.1 fl (81-99); Nucleated Red Blood Cells % 0 %; Platelet Count 354 K/mm3 (142-424); Red Blood Count 4.75 M/mm3 (4.20-5.40); Red Cell Distribution Width-SD 41.4 fL; White Blood Count 10.7 K/mm3 (4.8-10.8)
[2025-05-29] MEDS: KETOROLAC 15MG/ML VIAL 15 MG IV (22:55)
[2025-05-29 22:58] LABS: Albumin Level 4.6 g/dl (3.5-5.0); Chloride 100 mmol/L (98-107); Sodium 137 mmol/L (136-145)
[2025-05-29 22:59] LABS: Potassium 3.5 mmoL/L (3.5-5.1)
[2025-05-29 23:01] VITALS: BP 122/69; PULSE 78; RESP 12; O2SAT 92
[2025-05-29 23:01] LABS: Alanine Aminotransferase 44 U/L (12-78); Alkaline Phosphatase 114 U/L (38-126); Anion Gap 14.5 mEq/L (5-15); Aspartate Amino Transferase 45 U/L (14-36); Bilirubin,Total 0.4 mg/dl (0.2-1.3); Blood Urea Nitrogen 7 mg/dl (7-17); Carbon Dioxide 26 mmol/L (22.0-30.0); Creatinine Clearance Estimated 205 mL/min (50-200); Creatinine,Serum 0.70 mg/dl (0.52-1.04); Estimated Glomerular Filt Rate 98 ml/min (>60); GFR (African American) 118 ML/MIN (>60)
[2025-05-29 23:02] LABS: Albumin/Globulin Ratio 1.2 (1.1-1.8); Calcium 9.1 mg/dl (8.4-10.2); Globulin 4.0 g/dL (1.3-3.2); Glucose 88 mg/dl (74-100); Lipase 60 U/L (23-300); Total Protein,Serum 8.6 g/dl (6.3-8.2)
[2025-05-29 23:11] LABS: NT Pro Brain Natriuretic Pep. 63.4 pg/mL (0-125)
[2025-05-29 23:25] LABS: Troponin I 0.21 ng/ml (0.00-0.034)
[2025-05-29 23:26] LABS: C-Reactive Protein 10.3 mg/L (0-4)
--- NOTE | 2025-05-29 23:48 | ED_ITS ---
Discharge Plan Disposition Patient Disposition: Admitted Condition: Good Clinical Impressions Clinical Impression: Elevated troponin Chest pain Qualifiers: Chest pain type: other chest pain Qualified Code(s): R07.89 - Other chest pain Discharge ED Provider: Conor Joel General Chief Complaint: Chest Pain Stated Complaint: chest pain Time Seen by Provider: 05/29/25 22:40 Mode of Arrival: Ambulatory Source of Information: Patient Description of Symptoms (Recalled from ER Triage Doc. by RN): patient states she was discharged from the hospital yesterday. she was admitted for elevated heart enzymes and is having chest pain and SOB. History of Present Illness HPI narrative: Karlene Martinez is a 29y female with a history of bipolar disorder, ADHD, diastolic heart failure, and recent admission for elevated troponin with concern for perimyocarditis who presents tot he emergency department for complaints of worsening chest pain, shortness of breath, and dizziness. Patient reports that on Saturday of this week, she had chest pain that is not worsened with positional changes, shortness of breath and was seen in the emergency department at that time with a diagnosis of myopericarditis from unknown cause. She had elevated troponin x 2 in the emergency department and subsequently admitted. She reports that she had a cardiac MRI that was negative. She reports having echocardiograms in the past that showed diastolic heart failure but had an echo on admission and was told that it was okay. She was discharged from the hospital yesterday and stated that she was overall having improvement in her symptoms and is currently taking steroids. She states that her troponin was downtrending at the time of discharge. She states that today, however, her symptoms returned with worsening chest pain, shortness of breath and dizziness. She states it was difficult to walk to the mailbox due to her symptoms. She reports that there concerned that the cause of her perimyocarditis is likely autoimmune in nature and was good to have this worked up on an outpatient basis. She denies any recent fevers or cough. Related Data Home Medications ?Medication ?Instructions ?Recorded ?Confirmed ferrous sulfate 325 mg (65 mg 325 mg PO DAILY 10/15/24 05/26/25 iron) tablet mirtazapine 30 mg tablet 30 mg PO HS 10/15/24 5 cholecalciferol (vitamin D3) 125 125 mcg PO DAILY 05/1205/26/25 mcg (5,000 unit) capsule desvenlafaxine succinate 50 mg 50 mg PO DAILY 05/26/25 05/26/25 tablet,extended release 24 hr ergocalciferol (vitamin D2) 1,250 1,250 mcg PO WEEKLY 05/26/25 05/26/25 mcg (50,000 unit) capsule hydroxyzine pamoate 25 mg capsule 25 mg PO QIDP PRN An xiety 05/26/25 05/26/25 levocetirizine 5 mg tablet 5 mg PO DAILY 05/26/2505/12 lumateperone 42 mg capsule 42 mg PO DAILY 05/26/25 (Caplyta) sumatriptan succinate 100 mg tablet 100 mg PO DAILYP P RN Migraine 05/26/25 05/26/25 Headache Previous Rx's ?Medication ?Instructions ?Recorded fluticasone 500 mcg-salmeterol 50 1 inh inhalation BID RT #60 ea 05/28/25 mcg/dose blistr powdr for inhalation prednisone 20 mg tablet 20 mg PO DAILY #14 tabs 05/12 03/05 Allergies Allergy/AdvReac Type Severity Reaction Status Date / Time morphine (MORPHINE) Allergy Unknown HALLUCINATIONS, Verified 05/13/25 15:00 PAIN ATTACKS [facility] Disclaimer: The information contained in this section may have been updated after the patient was seen, as this information can be updated by other users. 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 (Updated 05/30/25 @ 02:01 by Conor Joel MD) Dyspnea on exertion Hilar lymphadenopathy Diastolic dysfunction Pericarditis Myocarditis Elevated troponin Surgical History History of cholecystectomy Hx of tonsillectomy Hx of section Family History Mother Cancer thyroid Sister Cancer thyroid Grandfather Diabetes Social History (Updated 05/30/25 @ 00:53 by Rose Rivera RN) Smoking Status: Current every day smoker tobacco type: e-cigarettes alcohol intake: never substance use type: denies use current occupational status: employed Travel in the last 8 weeks?: None Have you lived/traveled outside US in past 30 days?: No Contact w/someone who lives/traveled outside US past 30 days?: No Exposure to someone with infectious disease in past 14 days?: No Do you have a fever (greater than 100.4 F or 38 C)?: No Have you tested positive for COVID-19?: No Exposed to someone with COVID-19 in past 14 days?: No Do you have a sore throat?: No Do you have a cough?: No Do you have any weakness?: No Are you experiencing any nausea/vomitting?: No Do you have any diarrhea?: No Are you experiencing any unusual bleeding?: No Do you have any muscle aches/pain?: No Do you have any abdominal pain?: No Are you experiencing loss of taste or smell?: No Other 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 Have you received the Flu Vaccine for this season: No Have you received the Pneumonia Vaccine: No ROS Obtained: Yes Systems reviewed as appropriate & no additional complaints except as documented Physical Exam General General appearance: alert, in no apparent distress and anxious Head Head exam: atraumatic Eye Eye exam: Present normal appearance ENT ENT exam: Present normal external ear exam Neck Neck exam: Present full ROM Chest Chest inspection: Present symmetric chest wall rise Respiratory Respiratory exam: Present normal lung sounds bilaterally; Absent respiratory distress, wheezes or stridor Cardiovascular Cardiovascular exam: Present normal rhythm and tachycardia Abdominal Exam Abdominal exam: Present soft and tenderness (Epigastric); Absent guarding or rigidity Extremities Exam Extremities exam: Present normal inspection Back Exam Back exam: Present normal inspection Neurological Exam Neurological exam: Present alert and oriented X3 Psychiatric Psychiatric exam: Present normal affect and anxious Skin Skin exam: Present warm and dry HEART Score HEART Score HEART Score assessment performed?: Yes History (anamnesis): Slightly suspicious ECG: Normal Age: <45 years Risk factors: 1-2 risk factors Troponin: > 3x normal limit HEART Score: 3 Critical Care Critical Care Time Critical Care Time: No Medical Decision Making Juan Antonio Inquiry Pt receiving controlled substance: No Vital Signs Vital Signs: 05/29/25 22:36 05/29/25 23:01 05/30/25 00:00 Temperature 97.8 F 97.7 F Temperature Source Oral Oral Pulse Rate 78 Pulse Rate [Left] 83 85 Respiratory Rate 20 12 19 Blood Pressure 122/69 Blood Pressure [Right Arm] 126/76 134/87 Blood Pressure Mean [Right Arm] 92 102 Blood Pressure Source [Right Arm] Automatic Cuff Automatic Cuff Blood Pressure Position [Right Arm] Sitting 02 Sat by Pulse Oximetry 98 92 L 95 Oxygen Delivery Method Room Air Room Air 05/30/25 00:18 Temperature 98.4 F Temperature Source Pulse Rate 109 H Pulse Rate [Left] Respiratory Rate 17 Blood Pressure 117/49 L Blood Pressure [Right Arm] Blood Pressure Mean [Right Arm] Blood Pressure Source [Right Arm] Blood Pressure Position [Right Arm] 02 Sat by Pulse Oximetry Oxygen Delivery Method Room Air Lab Data Labs: Lab Results 05/29/25 22:37: WBC 10.7 D, RBC 4.75, Hgb 14.3, Hct 42.8, MCV 90.1, MCH 30.1, MCHC 33.4, RDW 12.4, Plt Count 354 D, MPV 10.0, Neut % (Auto) 45.1, Lymph % (Auto) 44.6, [place] % (Auto) 8.3, Eos % (Auto) 0.0 L, Baso % (Auto) 0.5, Neut # (Auto) 4.8, Lymph # (Auto) 4.8 H, [place] # (Auto) 0.9, Eos # (Auto) 0.0, Baso # (Auto) 0.1, ESR 19, Sodium 137, Potassium 3.5 D, Chloride 100, Carbon Dioxide 26, Anion Gap 14.5, BUN 7, Creatinine 0.70, Estimated Creat Clear 205, Estimated GFR 98, Est GFR ( Amer) 118, Glucose 88, Calcium 9.1, Total Bilirubin 0.4, AST 45 H, ALT 44, Alkaline Phosphatase 114, Troponin I 0.21 H, C-Reactive Protein 10.3 H D, NT-Pro-B Natriuret Pep 63.4, Total Protein 8.6 H, Albumin 4.6, Globulin 4.0 H, Albumin/Globulin Ratio 1.2, Lipase 60 05/29/25 22:37 05/29/25 22:37 Response Orders (Tests/Meds): ED MEDICATIONS Generic Name Dose Route Start Last Admin Trade Name Freq PRN Reason Stop Dose Admin Hydrocodone Bitart/Acetaminophen 1 tab 05/29/25 23:35 Hydrocodone/Apap 5/325 Mg Tablet PO 06/28/25 23:34 Q4HP PRN Mild to Moderate Pain (1-6) Enoxaparin Sodium 40 mg 05/30/25 09:00 Enoxaparin 40mg/0.4ml Syringe SUBCUT 06/29/25 08:59 DAILY [facility] Ketorolac Tromethamine 30 mg 05/29/25 23:35 Ketorolac 30mg/Ml Vial IV 06/03/25 23:34 Q6HP PRN Moderate Pain (4-6) Ondansetron HCl 4 mg 05/29/25 23:35 Ondansetron 4mg/2ml Vial IV 06/28/25 23:34 Q8HP PRN Nausea Pantoprazole Sodium 40 mg 05/30/25 21:00 Pantoprazole 40mg Tablet PO 06/29/25 20:59 HS CECILIA Prednisone 40 mg 05/30/25 09:00 Prednisone 20mg Tab PO 06/29/25 08:59 DAILY CECILIA Discontinued Medications Generic Name Dose Route Start Last Admin Trade Name Freq PRN Reason Stop Dose Admin Hydromorphone HCl 0.5 mg 05/29/25 23:37 05/30/25 00:17 Hydromorphone 2mg/Ml Syringe IV 05/29/25 23:38 0.5 mg ONCE ONE Administration Ketorolac Tromethamine 15 mg 05/29/25 22:49 05/29/25 22:55 Ketorolac 15mg/Ml Vial IV 05/29/25 22:50 15 mg ONCE ONE Administration ORDERS Category Date Time Status CXR --portable [XR chest portable] Stat Exams 05/29/25 22:49 Completed BNP [NT Pro Brain Natriuretic Pep.] Stat Lab 05/29/25 22:37 Completed CBC w/Auto Diff [Complete Blood Count Auto Diff] Stat Lab 05/29/25 22:37 Completed CMP [Comprehensive Metabolic Panel] Stat Lab 05/29/25 22:37 Completed CRP [C-Reactive Protein] Stat Lab 05/29/25 22:37 Completed Complete Blood Count Auto Diff AMLAB Lab 05/30/25 06:00 Ordered Comprehensive Metabolic Panel AMLAB Lab 05/30/25 06:00 Ordered ESR [Erythrocyte Sedimentation Rate] Stat Lab 05/29/25 22:37 Completed Lipase Stat Lab 05/29/25 22:37 Completed Troponin I Q3H Lab 05/30/25 02:00 Ordered Troponin I Q3H Lab 05/30/25 05:00 Ordered Troponin I Stat Lab 05/29/25 22:37 Completed 12-lead EKG Request [ECG Request] Stat Y 05/29/25 22:37 Ordered ECG Data Tracing #1: Attestation: I reviewed this ECG and interpreted as documented below: ECG Narrative: Normal sinus rhythm. No ST elevation or depression. Unchanged from previous EKG MDM Narrative Medical Decision Narrative: Karlene Martinez is a 29y female with a history of bipolar disorder, ADHD, diastolic heart failure, and recent admission for elevated troponin with concern for perimyocarditis who presents tot he emergency department for complaints of worsening chest pain, shortness of breath, and dizziness. Patient reports that on Saturday of this week, she had chest pain that is not worsened with positional changes, shortness of breath and was seen in the emergency department at that time with a diagnosis of myopericarditis from unknown cause. She had elevated troponin x 2 in the emergency department and subsequently admitted. She reports that she had a cardiac MRI that was negative. She reports having echocardiograms in the past that showed diastolic heart failure but had an echo on admission and was told that it was okay. She was discharged from the hospital yesterday and stated that she was overall having improvement in her symptoms and is currently taking steroids. She states that her troponin was downtrending at the time of discharge. She states that today, however, her symptoms returned with worsening chest pain, shortness of breath and dizziness. She states it was difficult to walk to the mailbox due to her symptoms. She reports that there concerned that the cause of her perimyocarditis is likely autoimmune in nature and was good to have this worked up on an outpatient basis. She denies any recent fevers or cough. On arrival, patient is normotensive, heart rate within normal limits but borderline tachycardic at the time my evaluation, afebrile, breathing comfortably on room air with appropriate oxygen saturation. Physical exam, as stated above, feeling anxious. Female in no respiratory distress. She is speaking full sentences and is alert and oriented. She has some mild epigastric tenderness on exam but without guarding or rebound. Cardiopulmonary exam is unremarkable with no wheezing or rhonchi and no murmurs or rubs. Differential diagnosis includes, but is not limited to: Myocarditis, pericarditis, ACS, pneumonia, pleural effusion, pericardial effusion, among others. The most morbid conditions were considered and workup was based on these. Workup in the emergency department included: EKG, troponin, CRP, ESR, BNP, CBC, CMP, lipase, chest x-ray. Patient was treated with 15 mg of IV Toradol given her recent workup was concerning for myopericarditis and may be responsive to anti-inflammatories. EKG without STEMI or significant changes from previous EKGs. See interpretation above. Workup showed no leukocytosis but white blood cell count is elevated compared to yesterday. It is 10.7 today it was 6.1 yesterday , however this could be secondary to her steroid use. No anemia. Platelets within normal limits. ESR is normal at 19. Electrolytes gross unremarkable nonactionable. Patient's potassium is borderline low at 3.5 and was 4.7 yesterday. AST is mildly elevated at 45 but liver enzymes otherwise within normal limits. Bilirubin normal. Patient's troponin is continuing to elevate and is 0.21 today (was 0.18 on discharge yesterday). Her CRP is continuing to downtrend and is 10.3 (was 54 upon discharge yesterday). Chart review shows the patient had an echocardiogram performed on 05/26/2025 that showed normal biventricular systolic function. No significant valvular stenosis or regurgitation. No obvious evidence of echodensities or vegetation on TTE. No report is available for patient's cardiac MRI that was performed on 05/27/2025. Chest x-ray interpreted by me personally. No focal consolidation, no pneumothorax, no widened mediastinum, no enlargement of the cardiac silhouette. Unremarkable chest x-ray. See radiology report for details. Given concern for worsening myocarditis from unknown cause with worsening symptoms, I do feel that patient would benefit for admission for continued trending of her troponin and symptomatic control. On reassessment, patient is still in pain and will be given 0.5 mg of Dilaudid IV. I discussed admission with the patient and she is in agreement with admission at this time. I discussed patient's case with the hospitalist KRISTEN who was in agreement to admit the patient. Patient was subsequently admitted to the hospital service for further management.
[2025-05-30] VITALS (9 sets, daily range): BP systolic 109–147; BP diastolic 49–87; PULSE 70–118; RESP 14–20; TEMP 35.9–36.9; O2SAT 95–100; BMI 39.4
[2025-05-30] MEDS: HYDROMORPHONE 2MG/ML SYRINGE 0.5 MG IV (00:17)
--- NOTE | 2025-05-30 00:20 | PC.NURSE ---
Admission report called to Sofiya RUBIO.
--- NOTE | 2025-05-30 00:56 | P.HP_ITS ---
<Statement entered by Chinedu Ayala MD - 05/30/25 20:10> Rounded on patient after nurse practitioner. Personally examined and interviewed patient. Agree with exam findings and care plan as documented. History of Present Illness *Admission Date: 05/30/25 *Reason for visit:: chest pain, dyspnea, weakness *History of present illness: 29-year-old female patient presents to ER with complaints of fatigue, weakness and no energy. She was discharged from the hospital just yesterday. She had initially been admitted for suspicion of pericarditis/myocarditis. She was evaluated by cardiology as well as pulmonology. It was felt her symptoms were more likely due to an autoimmune disorder. CRP and sed rate were elevated. During that admission she was started on prednisone and given NSAIDs. Her symptoms did improve. When she was home she states she felt pretty good for a while and decided to run some errands. By the time she got done going to the gas station and the post office she had no energy. She states she felt like she was too weak to walk. She did rest but had no improvement. She did continue to have some chest pain. Initially it was a slight squeeze intermittently and then it became achy and constant. She does complain of some shortness of breath and epigastric abdominal pain. She does have history of GERD. She tried hydroxyzine at home because she thought it may be her anxiety but that did not help. She also took an albuterol inhaler without relief. Denied fever or chills. Had some nausea but no vomiting. Lightheadedness and dizziness present. Workup in the ER showed an essentially normal CBC and chemistry panel. Troponin peaked at 0.84 during her last visit, upon discharge it was 0.18 and tonight it is 0.21. CRP has improved from 61 to10.3. Sed rate improved from 29-19. In the ER she received Toradol as well as Dilaudid and she states her symptoms are much better. She does report she feels anxiety and reflux are playing a role in her symptoms. [facility] Disclaimer: The information contained in this section may have been updated after the patient was seen, as this information can be updated by other users. 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 (Updated 05/30/25 @ 01:52 by Yoanna Sanon APRN) Dyspnea on exertion Hilar lymphadenopathy Diastolic dysfunction Pericarditis Myocarditis Elevated troponin Surgical History History of cholecystectomy Hx of tonsillectomy Hx of section Family History Mother Cancer thyroid Sister Cancer thyroid Grandfather Diabetes Social History (Updated 05/30/25 @ 00:53 by Rose Rivera RN) Smoking Status: Current every day smoker tobacco type: e-cigarettes alcohol intake: never substance use type: denies use current occupational status: employed Travel in the last 8 weeks?: None Have you lived/traveled outside [place] in past 30 days?: No Contact w/someone who lives/traveled outside US past 30 days?: No Exposure to someone with infectious disease in past 14 days?: No Do you have a fever (greater than 100.4 F or 38 C)?: No Have you tested positive for COVID-19?: No Exposed to someone with COVID-19 in past 14 days?: No Do you have a sore throat?: No Do you have a cough?: No Do you have any weakness?: No Are you experiencing any nausea/vomitting?: No Do you have any diarrhea?: No Are you experiencing any unusual bleeding?: No Do you have any muscle aches/pain?: No Do you have any abdominal pain?: No Are you experiencing loss of taste or smell?: No Other 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 Have you received the Flu Vaccine for this season: No Have you received the Pneumonia Vaccine: No Review of Systems Constitutional Constitutional: Denies body ache(s), Denies chills, Reports fatigue, Denies fever(s) and Reports weakness Eyes Eyes: Denies change in vision ENT Ears, Nose, Mouth, and Throat: Reports dizziness, Denies dysphagia, Denies hoarseness and Denies sore throat *Cardiovascular Cardiovascular: Reports chest pain and Reports dyspnea on exertion *Respiratory Respiratory: Reports dyspnea on exertion *Gastrointestinal Gastrointestinal: Denies dysphagia, Reports heartburn and Reports nausea *Musculoskeletal Musculoskeletal: Denies arthralgias and Denies back pain Integumentary/Breasts Skin/Breast: Denies erythema, Denies lesions and Denies rash *Neurologic Neurologic: Denies confusion, Reports dizziness and Reports weakness Psychiatric Psychiatric: Reports anxiety, Denies confusion and Denies depression Endocrine Endocrine: Reports fatigue Hematologic/Lymphatic Hematologic/Lymphatic: Denies easy bleeding and Denies easy bruising Meds Home Medications and Allergies Home Medications ?Medication ?Instructions ?Recorded ?Confirmed ?Type ferrous sulfate 325 mg (65 mg 325 mg PO DAILY 10/15/24 05/26/25 History iron) tablet mirtazapine 30 mg tablet 30 mg PO HS 10/15/24 10/ 5 History cholecalciferol (vitamin D3) 125 125 mcg PO DAILY 05/1205/26/25 History mcg (5,000 unit) capsule desvenlafaxine succinate 50 mg 50 mg PO DAILY 05/26/25 05/26/25 History tablet,extended release 24 hr ergocalciferol (vitamin D2) 1,250 1,250 mcg PO WEEKLY 05/26/25 05/26/25 History mcg (50,000 unit) capsule hydroxyzine pamoate 25 mg capsule 25 mg PO QIDP PRN An xiety 05/26/25 05/26/25 History levocetirizine 5 mg tablet 5 mg PO DAILY 05/26/2505/12 History lumateperone 42 mg capsule 42 mg PO DAILY 05/26/25 History (Caplyta) sumatriptan succinate 100 mg tablet 100 mg PO DAILYP P RN Migraine 05/26/25 05/26/25 History Headache fluticasone 500 mcg-salmeterol 50 1 inh inhalation BID RT #60 ea 05/28/25 Rx mcg/dose blistr powdr for inhalation prednisone 20 mg tablet 20 mg PO DAILY #14 tabs 05/12 03/05 Rx New Prescriptions to Start Prescriptions: Allergies Allergy/AdvReac Type Severity Reaction Status Date / Time morphine (MORPHINE) Allergy Unknown HALLUCINATIONS, Verified 05/13/25 15:00 PAIN ATTACKS Exam Data for Last 24 hours Vital signs and Labs for Last 24 Hours: Temp Pulse Resp BP Pulse Ox O2 Del Method 98.4 F 109 H 17 117/49 L 92 L Room Air 05/30/25 00:18 05/30/25 00:18 05/30/25 00:18 05/30/25 00:18 05/29/25 23:01 05/30/25 00:18 Laboratory Results - last 24 hr 05/29/25 22:37: WBC 10.7 D, RBC 4.75, Hgb 14.3, Hct 42.8, MCV 90.1, MCH 30.1, MCHC 33.4, RDW 12.4, Plt Count 354 D, MPV 10.0, Neut % (Auto) 45.1, Lymph % (Auto) 44.6, [place] % (Auto) 8.3, Eos % (Auto) 0.0 L, Baso % (Auto) 0.5, Neut # (Auto) 4.8, Lymph # (Auto) 4.8 H, [place] # (Auto) 0.9, Eos # (Auto) 0.0, Baso # (Auto) 0.1, ESR 19, Sodium 137, Potassium 3.5 D, Chloride 100, Carbon Dioxide 26, Anion Gap 14.5, BUN 7, Creatinine 0.70, Estimated Creat Clear 205, Estimated GFR 98, Est GFR ( Amer) 118, Glucose 88, Calcium 9.1, Total Bilirubin 0.4, AST 45 H, ALT 44, Alkaline Phosphatase 114, Troponin I 0.21 H, C-Reactive Protein 10.3 H D, NT-Pro-B Natriuret Pep 63.4, Total Protein 8.6 H, Albumin 4.6, Globulin 4.0 H, Albumin/Globulin Ratio 1.2, Lipase 60 I & O for Last 24 hours: Intake & Output 05/27/25 05/28/25 05/29/25 05/30/25 23:59 23:59 23:59 23:59 Weight 111.584 kg Constitutional Constitutional: no acute distress and cooperative *Routine HEENT Exam Head: Present normocephalic and atraumatic Eye: Present PERRL ENT: Present mucous membranes moist *Routine Neck Exam Neck: Present supple *Routine Respiratory Exam Respiratory: Present CTA bilaterally *Routine Cardiovascular Exam Cardiovascular: Present RRR, Normal S1 and Normal S2 *Routine Abdominal Exam Abdominal: Present soft and normoactive bowel sounds; Absent tenderness *Routine Rectal Exam Rectal:: deferred *Routine Genitalia Exam Genitalia:: deferred *Routine Extremities Exam Extremities: Present pulses intact *Routine Skin Exam Skin: Present intact *Routine Neurological Exam Neurological: Present alert, oriented X3 and moving all extremities Routine Psychiatric Exam Psychiatric: Present anxious Assessment and Plan *Assessment and plan (1) Weakness: Status: Acute Category: Medical Code(s): R53.1 - Weakness (2) Inflammatory process: Status: Acute Category: Medical (3) Chest pain: Status: Acute Qualifiers: Chest pain type: other chest pain Qualified Code(s): R07.89 - Other chest pain Category: Medical Code(s): R07.9 - Chest pain, unspecified (4) Elevated troponin: Status: Acute Category: Medical Code(s): R79.89 - Other specified abnormal findings of blood chemistry (5) GERD (gastroesophageal reflux disease): Status: Acute Category: Medical Code(s): K21.9 - Gastro-esophageal reflux disease without esophagitis (6) Anxiety: Status: Acute Category: Medical Code(s): F41.9 - Anxiety disorder, unspecified (7) Hilar lymphadenopathy: Status: Acute Category: Medical Code(s): R59.0 - Localized enlarged lymph nodes Plan After discussion with the ER this patient will be admitted observation. EKG no eveidence of ischemia. Will continue oral prednisone, Toradol and pantoprazole. Trend troponins and monitor on telemetry. Will continue her home medications once reconciled and reviewed. Will need further autoimmune workup once discharged. She has been taking her medications which include some psychiatric medicines, these may need to be adjusted to help control some of her anxiety.
[2025-05-30 03:37] LABS: Troponin I 0.23 ng/ml (0.00-0.034)
[2025-05-30 07:30] LABS: Hematocrit 37.5 % (37.0-47.0); Immature Granulocytes % 1.3 %; Mean Corpuscular HGB Conc 33.3 g/dL (31.8-35.4); Mean Corpuscular Hemoglobin 30.3 pg (27.0-31.2); Mean Corpuscular Volume 91.0 fl (81-99); Nucleated Red Blood Cells % 0 %; Platelet Count 275 K/mm3 (142-424); Red Blood Count 4.12 M/mm3 (4.20-5.40); Red Cell Distribution Width-SD 41.9 fL; White Blood Count 7.2 K/mm3 (4.8-10.8)
[2025-05-30 07:36] LABS: Albumin Level 3.9 g/dl (3.5-5.0); Chloride 100 mmol/L (98-107); Sodium 136 mmol/L (136-145)
[2025-05-30 07:37] LABS: Potassium 3.6 mmoL/L (3.5-5.1)
[2025-05-30 07:39] LABS: Alanine Aminotransferase 33 U/L (12-78); Anion Gap 11.6 mEq/L (5-15); Aspartate Amino Transferase 28 U/L (14-36); Blood Urea Nitrogen 11 mg/dl (7-17); Carbon Dioxide 28 mmol/L (22.0-30.0); Creatinine Clearance Estimated 159 mL/min (50-200); Creatinine,Serum 0.90 mg/dl (0.52-1.04); Estimated Glomerular Filt Rate 73 ml/min (>60); GFR (African American) 88 ML/MIN (>60)
[2025-05-30 07:40] LABS: Albumin/Globulin Ratio 1.2 (1.1-1.8); Alkaline Phosphatase 94 U/L (38-126); Bilirubin,Total 0.2 mg/dl (0.2-1.3); Calcium 8.2 mg/dl (8.4-10.2); Globulin 3.2 g/dL (1.3-3.2); Glucose 94 mg/dl (74-100); Total Protein,Serum 7.1 g/dl (6.3-8.2)
[2025-05-30 07:51] LABS: Troponin I 0.16 ng/ml (0.00-0.034)
[2025-05-30 08:04] LABS: Hemoglobin 12.4 g/dL (12.2-16.2)
[2025-05-30] MEDS: INDOMETHACIN 25 MG CAPSULE 50 MG PO ×3 (08:22→17:02)
[2025-05-30 09:17] LABS: Adenovirus,PCR Not Detected (NotDetected); Chlamydophila Pneumoniae, PCR Not Detected (NotDetected); Coronavirus 19, PCR Not Detected (NotDetected); Coronovirus HKU1,PCR Not Detected (NotDetected); Influenza A, PCR Not Detected (NotDetected); Influenza AH1, 2009 Not Detected (NotDetected); Influenza AH1, PCR Not Detected (NotDetected); Influenza AH3,PCR Not Detected (NotDetected); Influenza B, PCR Not Detected (NotDetected); Mycoplasma Pneumoniae, PCR Not Detected (NotDetected); Parainfluenza 1, PCR Not Detected (NotDetected); Parainfluenza 2, PCR Not Detected (NotDetected); Parainfluenza 3, PCR Not Detected (NotDetected); Parainfluenza 4, PCR Not Detected (NotDetected)
[2025-05-30] MEDS: VENLAFAXINE XR 75MG CAPSULE 75 MG PO (09:29)
[2025-05-30] MEDS: HYDROCODONE/APAP 5/325 MG TABLET 1 TAB PO ×2 (09:32→20:52)
[2025-05-30 09:49] LABS: Amphetamine/Metha Screen,Urine Negative ng/ml (<1000)
[2025-05-30 09:50] LABS: Barbiturates Screen,Urine Positive ng/ml (<200)
[2025-05-30 09:51] LABS: Benzodiazepines Screen,Urine Positive ng/ml (<200)
[2025-05-30 09:52] LABS: Methadone Screen,Urine Negative ng/ml (<300)
[2025-05-30 09:53] LABS: Opiate Screen,Urine Negative ng/ml (<300)
[2025-05-30 09:54] LABS: Phencyclidine Screen,Urine Negative ng/ml (<25)
--- NOTE | 2025-05-30 10:00 | HMH.PHAINT1 ---
Pharmacy Intervention Comments: MEDICATION RECONCILIATION COMPLETED ON PATIENT USING EXTERNAL FILL HISTORY FROM PHARMACY AND DISCHARGE SUMMARY FROM PREVIOUS ADMISSION. -KARTHIK NAIDU, GHADAD
[2025-05-30] MEDS: ISOSORBIDE MONO 30MG TAB.ER.24H 30 MG PO (10:55)
[2025-05-30] MEDS: NICOTINE 21MG/24HR PATCH 21 MG TD (10:55)
[2025-05-30] MEDS: LACTATED RINGERS 1000ML 500 ML IV (10:57)
[2025-05-30] MEDS: ONDANSETRON 4MG/2ML VIAL 4 MG IV (18:28)
--- NOTE | 2025-05-30 19:10 | EXP.ACUTE.PN ---
Subjective *Date: 05/30/25 *Time: 23:39 Interval history: Patient very anxious this morning. States she did not sleep well. Frustrated that we did not provide something for sleep at 5 this morning. Explained the impact that would have had on her ability to have conversation today. Extensive discussion about her symptoms and presentation with chest pain. Seems to be made worse by her anxiety. Worsened after using albuterol as well. Denies any nausea or vomiting at home. Attempted to review other etiologies for possible chest pain and elevated troponin. Concerned she may be having some vaso arterial spasm given her negative MRI and unremarkable heart catheter earlier this year. Has been on sumatriptan before but did not tolerated due to full body cramping. Takes stimulant medication for ADHD. Vapes daily and smokes marijuana. Given worsening pain with a beta agonist (albuterol), will evaluate this potential with cardiology in the morning. Medical Exam Vital signs and Labs for Last 24 Hours: Vital Signs Temp Pulse Pulse Resp BP BP Pulse Ox 05/30/25 17:00 05/30/25 16:00 70 05/30/25 15:38 98.1 F 84 20 117/65 100 05/30/25 14:09 05/30/25 13:00 05/30/25 12:00 90 05/30/25 11:56 98.3 F 87 18 121/71 96 05/30/25 08:43 05/30/25 08:00 110 H 05/30/25 08:00 05/30/25 08:00 98.1 F 118 H 20 147/80 H 99 05/30/25 06:42 05/30/25 05:00 05/30/25 04:00 96.6 F L 93 H 20 109/60 L 96 05/30/25 04:00 90 05/30/25 03:00 05/30/25 01:00 05/30/25 00:21 05/30/25 00:18 98.4 F 109 H 17 117/49 L 05/30/25 00:00 97.7 F 85 19 134/87 95 05/29/25 23:01 78 12 122/69 92 L 05/29/25 22:36 97.8 F 83 20 126/76 98 O2 Del Method 05/30/25 17:00 Room Air 05/30/25 16:00 05/30/25 15:38 Room Air 05/30/25 14:09 Room Air 05/30/25 13:00 Room Air 05/30/25 12:00 05/30/25 11:56 Room Air 05/30/25 08:43 Room Air 05/30/25 08:00 05/30/25 08:00 Room Air 05/30/25 08:00 Room Air 05/30/25 06:42 Room Air 05/30/25 05:00 Room Air 05/30/25 04:00 Room Air 05/30/25 04:00 05/30/25 03:00 Room Air 05/30/25 01:00 Room Air 05/30/25 00:21 Room Air 05/30/25 00:18 Room Air 05/30/25 00:00 Room Air 05/29/25 23:01 05/29/25 22:36 Room Air Intake and Output 05/30/25 05/30/25 05/30/25 07:59 15:59 23:59 Intake Total 860 / 1120 260 / 1120 Output Total 0 / 200 200 / 200 Balance 0 / 920 660 / 920 260 / 920 Intake: Intake, Oral Amount 360 / 620 260 / 620 Intake, Total IV Amount 500 / 500 Lactated Ringers 1000ML 500 ml 500 / 500 @ 500 mls/hr IV .Q1H ONE Rx#: [id number] Output: Output, Urine Amount 0 / 200 200 / 200 Other: Number of Unmeasured Voids 1 0 Weight 111.5 kg Patient Weight 05/30/25 23:59 Weight 111.5 kg Laboratory Results - last 24 hr 05/29/25 22:37: WBC 10.7 D, RBC 4.75, Hgb 14.3, Hct 42.8, MCV 90.1, MCH 30.1, MCHC 33.4, RDW 12.4, Plt Count 354 D, MPV 10.0, Neut % (Auto) 45.1, Lymph % (Auto) 44.6, [place] % (Auto) 8.3, Eos % (Auto) 0.0 L, Baso % (Auto) 0.5, Neut # (Auto) 4.8, Lymph # (Auto) 4.8 H, [place] # (Auto) 0.9, Eos # (Auto) 0.0, Baso # (Auto) 0.1, ESR 19, Sodium 137, Potassium 3.5 D, Chloride 100, Carbon Dioxide 26, Anion Gap 14.5, BUN 7, Creatinine 0.70, Estimated Creat Clear 205, Estimated GFR 98, Est GFR ( Amer) 118, Glucose 88, Calcium 9.1, Total Bilirubin 0.4, AST 45 H, ALT 44, Alkaline Phosphatase 114, Troponin I 0.21 H, C-Reactive Protein 10.3 H D, NT-Pro-B Natriuret Pep 63.4, Total Protein 8.6 H, Albumin 4.6, Globulin 4.0 H, Albumin/Globulin Ratio 1.2, Lipase 60 05/30/25 02:48: Troponin I 0.23 H 05/30/25 06:55: WBC 7.2 D, RBC 4.12 L, Hgb 12.4 D, Hct 37.5, MCV 91.0, MCH 30.3, MCHC 33.3, RDW 12.6, Plt Count 275, MPV 9.8, Neut % (Auto) 51.6, Lymph % (Auto) 38.1, [place] % (Auto) 8.7, Eos % (Auto) 0.0 L, Baso % (Auto) 0.3, Neut # (Auto) 3.7, Lymph # (Auto) 2.7, [place] # (Auto) 0.6, Eos # (Auto) 0.0, Baso # (Auto) 0.0, Sodium 136, Potassium 3.6, Chloride 100, Carbon Dioxide 28, Anion Gap 11.6, BUN 11 D, Creatinine 0.90 D, Estimated Creat Clear 159, Estimated GFR 73, Est GFR ( Amer) 88 D, Glucose 94, Calcium 8.2 L, Total Bilirubin 0.2, AST 28 D, ALT 33, Alkaline Phosphatase 94, Troponin I 0.16 H, Total Protein 7.1, Albumin 3.9 D, Globulin 3.2, Albumin/Globulin Ratio 1.2 05/30/25 08:10: Chlamy pneumoniae PCR Not detected, Adenovirus (PCR) Not detected, B. pertussis DNA (PCR) Not detected, Coronavirus OC43 (PCR) Not detected, Coronavirus HKU1 (PCR) Not detected, Coronavirus 229E (PCR) Not detected, SARS-CoV-2 (PCR) Not detected, Coronavirus NL63 (PCR) Not detected, Human Metapneumovir PCR Not detected, Influenza A (H1) PCR Not detected, Influ A (H1N1/09) PCR Not detected, Influenza A (H3) PCR Not detected, Influenza Type A (PCR) Not detected, Influenza Type B (PCR) Not detected, M. pneumoniae (PCR) Not detected, Parainfluenza 1 (PCR) Not detected, Parainfluenza 2 (PCR) Not detected, Parainfluenza 3 (PCR) Not detected, Parainfluenza 4 (PCR) Not detected, RSV (PCR) Not detected, Entero/Rhino (PCR) Not detected 05/30/25 09:31: Urine Opiates Screen Negative, Urine Methadone Screen Negative, Ur Barbituates Screen Positive H, Ur Phencyclidine Scrn Negative, Ur Amphetamines Screen Negative, U Benzodiazepines Scrn Positive H, Urine Cocaine Screen Negative, U Marijuana (THC) Screen Positive H I & O for Labs for Last 24 Hours: Intake & Output 05/27/25 05/28/25 05/29/25 05/30/25 23:59 23:59 23:59 23:59 Intake Total 1120 / 1120 Output Total 200 / 200 Balance 920 / 920 Weight 111.584 kg 111.5 kg Constitutional: Present no acute distress, morbidly obese and cooperative Head: Present atraumatic Eyes: Present as per HPI ENT: Present normal exam Neck: Present normal inspection Respiratory: Present CTA bilaterally, normal respiratory effort and symmetric chest movement; Absent wheezes or crackles Cardiac: Present Reg Rate and Rhythm; Absent No Murmur GI: Present soft and normal bowel sounds; Absent distention or tenderness Rectal (female): Present deferred (female): Present deferred Extremities: Present normal inspection and full ROM Skin: Present intact and dry; Absent erythema or rash Neuro: Present Grossly Intact, alert, awake, oriented x 3 and moves all extremities Comment:: Patient very anxious today Assessment and Plan *Assessment and plan (1) Elevated troponin: Status: Acute Category: Medical Code(s): R79.89 - Other specified abnormal findings of blood chemistry (2) Myocarditis: Status: Ruled-out Qualifiers: Chronicity: acute Myocarditis type: unspecified Qualified Code(s): I40.9 - Acute myocarditis, unspecified Category: Medical Code(s): I51.4 - Myocarditis, unspecified (3) Pericarditis: Status: Resolved Qualifiers: Chronicity: acute Pericarditis type: other type Qualified Code(s): I30.8 - Other forms of acute pericarditis Category: Medical Code(s): I31.9 - Disease of pericardium, unspecified (4) Depression: Status: Acute Category: Medical Code(s): F32.A - Depression, unspecified (5) Anxiety: Status: Acute Category: Medical Code(s): F41.9 - Anxiety disorder, unspecified (6) Hilar lymphadenopathy: Status: Acute Category: Medical Code(s): R59.0 - Localized enlarged lymph nodes Plan Ms. Martinez is a 29-year-old female who presented with recurrent chest pain. Found to have slight increase in her troponin. Readmitted for evaluation of unexplained troponemia. Still having some chest pain. Had fever overnight to 102.9. Cardiology and pulmonology consulted to evaluate in the morning. Problems addressed as follows: #Elevated troponin/NSTEMI #Chest pain #Dyspnea #Myocarditis/pericarditis-ruled out #Hilar lymphadenopathy ? Patient had cardiac MRI read by Dr. Lozano last week at previous visit that was unremarkable for pericarditis or myocarditis. Left heart cath performed earlier this year with no significant CAD. - Unexplained elevation in her troponin. Concerned it may be from vasospastic angina. On review of history, does vape nicotine, smokes marijuana, takes stimulant medication occasionally with Concerta for her ADHD. Symptoms made worse by beta agonist (albuterol) - Will trial long-acting nitrate 30 mg isosorbide mononitrate today. Monitor for improvement. - Troponin trended down to 0.16 this morning - Repeat troponin, CRP, ESR, CBC, CMP, magnesium ordered for the morning -Kidney function remains normal BUN 11, creatinine 0.9. Hemoglobin 12.4. -Continuing steroids 40 mg prednisone daily - Indomethacin 50 mg 3 times a day with meals for pain #Anxiety #Mood disorder ? Continue hydroxyzine 25 mg 4 times daily as needed for anxiety, Caplyta 42 mg daily, mirtazapine 30 mg at bedtime, desvenlafaxine 50 mg daily. - Mirtazapine 30 mg nightly for sleep disorder Full code Regular diet [place] 40 mg subcu daily Ambulate as tolerated
[2025-05-30] MEDS: PANTOPRAZOLE 40MG TABLET 40 MG PO (20:46)
[2025-05-30] MEDS: MIRTAZAPINE 15 MG TABLET 30 MG PO (20:46)
[2025-05-30] MEDS: LUMATEPERONE 42 MG 42 EACH PO (20:46)
[2025-05-30] MEDS: PROMETHAZINE HCL 25MG/ML 1ML VIAL 12.5 MG IV (20:52)
[2025-05-31] VITALS: PULSE 70
[2025-05-31 04:00] VITALS: PULSE 80
--- NOTE | 2025-05-31 04:23 | PC.NURSE ---
Pt AOx4, pleasant. Reported some nausea and pain earlier in the shift. Treated with prn medications, given per OCT. New IV inserted in NATACHA, d/t old one being occluded. Currently resting in bed with eyes closed. Respirations even and unlabored. Bed is low, locked, and call light is in reach.
[2025-05-31 06:36] LABS: Hematocrit 35.4 % (37.0-47.0); Hemoglobin 11.7 g/dL (12.2-16.2); Immature Granulocytes % 1.9 %; Mean Corpuscular HGB Conc 33.1 g/dL (31.8-35.4); Mean Corpuscular Hemoglobin 30.1 pg (27.0-31.2); Mean Corpuscular Volume 91.0 fl (81-99); Nucleated Red Blood Cells % 0 %; Platelet Count 273 K/mm3 (142-424); Red Blood Count 3.89 M/mm3 (4.20-5.40); Red Cell Distribution Width-SD 41.1 fL; White Blood Count 6.7 K/mm3 (4.8-10.8)
[2025-05-31 06:39] LABS: Albumin Level 3.6 g/dl (3.5-5.0); Chloride 102 mmol/L (98-107); Potassium 3.8 mmoL/L (3.5-5.1); Sodium 138 mmol/L (136-145)
[2025-05-31 06:42] LABS: Alanine Aminotransferase 40 U/L (12-78); Albumin/Globulin Ratio 1.2 (1.1-1.8); Alkaline Phosphatase 88 U/L (38-126); Anion Gap 11.8 mEq/L (5-15); Aspartate Amino Transferase 27 U/L (14-36); Bilirubin,Total 0.2 mg/dl (0.2-1.3); Blood Urea Nitrogen 13 mg/dl (7-17); Calcium 8.6 mg/dl (8.4-10.2); Carbon Dioxide 28 mmol/L (22.0-30.0); Creatinine Clearance Estimated 159 mL/min (50-200); Creatinine,Serum 0.90 mg/dl (0.52-1.04); Estimated Glomerular Filt Rate 73 ml/min (>60); GFR (African American) 88 ML/MIN (>60); Globulin 3.1 g/dL (1.3-3.2); Glucose 146 mg/dl (74-100); Total Protein,Serum 6.7 g/dl (6.3-8.2)
[2025-05-31 06:43] LABS: Magnesium 1.9 mg/dl (1.6-2.3)
[2025-05-31 06:53] LABS: Troponin I 0.04 ng/ml (0.00-0.034)
[2025-05-31 07:15] LABS: C-Reactive Protein 11.1 mg/L (0-4)
[2025-05-31 08:00] VITALS: BP 125/66; PULSE 79; PULSE 81; RESP 15; TEMP 36.9; O2SAT 97
[2025-05-31] MEDS: INDOMETHACIN 25 MG CAPSULE 50 MG PO ×2 (08:14→12:18)
[2025-05-31] MEDS: ISOSORBIDE MONO 30MG TAB.ER.24H 30 MG PO ×2 (08:15→12:17)
[2025-05-31] MEDS: VENLAFAXINE XR 75MG CAPSULE 75 MG PO (08:15)
--- NOTE | 2025-05-31 09:29 | EXP.PULM.CON ---
History of Present Illness History of present illness: Ms. Martinez is a 29-year-old female recently seen in the hospital for symptoms of chest pain tightness and difficulty breathing discharged home on steroid taper along with Advair inhaler presented to the ER again presented with complaint of continued symptoms of chest pain tightness along with shortness of breath and pulmonary was called for further evaluation and management. [facility] Disclaimer: The information contained in this section may have been updated after the patient was seen, as this information can be updated by other users. 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 (Updated 05/30/25 @ 02:01 by Conor Joel MD) Dyspnea on exertion Hilar lymphadenopathy Diastolic dysfunction Pericarditis Myocarditis Elevated troponin Surgical History History of cholecystectomy Hx of tonsillectomy Hx of section Family History Mother Cancer thyroid Sister Cancer thyroid Grandfather Diabetes Social History (Updated 05/30/25 @ 00:53 by Rose Rivera RN) Smoking Status: Current every day smoker tobacco type: e-cigarettes alcohol intake: never substance use type: denies use current occupational status: employed Travel in the last 8 weeks?: None Have you lived/traveled outside [place] in past 30 days?: No Contact w/someone who lives/traveled outside [place] past 30 days?: No Exposure to someone with infectious disease in past 14 days?: No Do you have a fever (greater than 100.4 F or 38 C)?: No Have you tested positive for COVID-19?: No Exposed to someone with COVID-19 in past 14 days?: No Do you have a sore throat?: No Do you have a cough?: No Do you have any weakness?: No Are you experiencing any nausea/vomitting?: No Do you have any diarrhea?: No Are you experiencing any unusual bleeding?: No Do you have any muscle aches/pain?: No Do you have any abdominal pain?: No Are you experiencing loss of taste or smell?: No Review of Systems Constitutional Constitutional: Reports fatigue and Reports snoring Eyes Eyes: Denies eye discharge, Denies dry eyes, Denies irritation and Denies itchy eyes ENT Ears, Nose, Mouth, and Throat: Denies dizziness, Denies lip swelling and Denies throat swelling *Cardiovascular Cardiovascular: Reports chest pain and Reports dyspnea on exertion *Respiratory Respiratory: Reports chest congestion, Reports dyspnea on exertion, Denies excessive phlegm production, Denies hemoptysis, Denies pain on inspiration, Denies pain with cough, Reports snoring and Denies wheezing *Gastrointestinal Gastrointestinal: Denies abdominal pain, Denies belching and Denies cramping *Musculoskeletal Musculoskeletal: Denies myalgias *Neurologic Neurologic: Denies confusion and Denies dizziness Psychiatric Psychiatric: Denies confusion Endocrine Endocrine: Reports fatigue and Denies heat intolerance Hematologic/Lymphatic Hematologic/Lymphatic: Denies easy bleeding and Denies lymphadenopathy Allergic/Immunologic Allergic/Immunologic: Denies itchy eyes, Denies lip swelling, Denies throat swelling and Denies wheezing Pulmonology Exam Inpatient Vital signs and Labs for Last 24 Hours: Temp Pulse Resp BP Pulse Ox O2 Del Method 98.4 F 79 15 125/66 97 Room Air 05/31/25 08:00 05/31/25 08:00 05/31/25 08:00 05/31/25 08:00 05/31/25 08:00 05/31/25 08:00 Laboratory Results - last 24 hr 05/30/25 08:10: Chlamy pneumoniae PCR Not detected, Adenovirus (PCR) Not detected, B. pertussis DNA (PCR) Not detected, Coronavirus OC43 (PCR) Not detected, Coronavirus HKU1 (PCR) Not detected, Coronavirus 229E (PCR) Not detected, SARS-CoV-2 (PCR) Not detected, Coronavirus NL63 (PCR) Not detected, Human Metapneumovir PCR Not detected, Influenza A (H1) PCR Not detected, Influ A (H1N1/09) PCR Not detected, Influenza A (H3) PCR Not detected, Influenza Type A (PCR) Not detected, Influenza Type B (PCR) Not detected, M. pneumoniae (PCR) Not detected, Parainfluenza 1 (PCR) Not detected, Parainfluenza 2 (PCR) Not detected, Parainfluenza 3 (PCR) Not detected, Parainfluenza 4 (PCR) Not detected, RSV (PCR) Not detected, Entero/Rhino (PCR) Not detected 05/30/25 09:31: Urine Opiates Screen Negative, Urine Methadone Screen Negative, Ur Barbituates Screen Positive H, Ur Phencyclidine Scrn Negative, Ur Amphetamines Screen Negative, U Benzodiazepines Scrn Positive H, Urine Cocaine Screen Negative, U Marijuana (THC) Screen Positive H 05/31/25 05:51: WBC 6.7, RBC 3.89 L, Hgb 11.7 L, Hct 35.4 L, MCV 91.0, MCH 30.1, MCHC 33.1, RDW 12.5, Plt Count 273, MPV 9.9, Neut % (Auto) 46.9, Lymph % (Auto) 44.2, [place] % (Auto) 6.8, Eos % (Auto) 0.1, Baso % (Auto) 0.1, Neut # (Auto) 3.1, Lymph # (Auto) 3.0, [place] # (Auto) 0.5, Eos # (Auto) 0.0, Baso # (Auto) 0.0, ESR 23 H, Sodium 138, Potassium 3.8, Chloride 102, Carbon Dioxide 28, Anion Gap 11.8, BUN 13, Creatinine 0.90, Estimated Creat Clear 159, Estimated GFR 73, Est GFR ( Amer) 88, Glucose 146 H D, Calcium 8.6, Magnesium 1.9, Total Bilirubin 0.2, AST 27, ALT 40, Alkaline Phosphatase 88, Troponin I 0.04 H, C-Reactive Protein 11.1 H, Total Protein 6.7, Albumin 3.6, Globulin 3.1, Albumin/Globulin Ratio 1.2 I & O for Labs for Last 24 Hours: Intake & Output 05/28/25 05/29/25 05/30/25 05/31/25 23:59 23:59 23:59 23:59 Intake Total 1120 / 1120 840 / 840 Output Total 200 / 200 Balance 920 / 920 840 / 840 Weight 246 lb 245 lb 13.047 oz Constitutional: Present mild distress Head: Present normocephalic and atraumatic ENT: Present normal exam, normal oropharynx and mucous membranes moist Neck: Present normal inspection and full ROM Respiratory: Present CTA bilaterally, normal respiratory effort and able to speak in complete sentences; Absent prolonged expiratory phase, respiratory distress, wheezes, crackles or diminished air movement Cardiac: Present S1/S2, Tachycardia and radial pulses present GI: Present soft and distention; Absent tenderness or guarding Rectal (female): Present deferred (female): Present deferred Skin: Present intact; Absent cyanosis or jaundice Neuro: Present alert, awake and oriented x 3 Extremities: Present normal inspection; Absent clubbing or cyanosis Psychiatric: Present normal affect and cooperative Meds Home Medications and Allergies Home Medications ?Medication ?Instructions ?Recorded ?Confirmed ?Type ferrous sulfate 325 mg (65 mg 325 mg PO DAILY 10/15/24 05/30/25 History iron) tablet mirtazapine 30 mg tablet 30 mg PO HS 10/15/24 05/30/25 History cholecalciferol (vitamin D3) 125 125 mcg PO DAILY 05/26/25 05/30/25 History mcg (5,000 unit) capsule desvenlafaxine succinate 50 mg 50 mg PO DAILY 05/26/25 05/30/25 History tablet,extended release 24 hr ergocalciferol (vitamin D2) 1,250 1,250 mcg PO WEEKLY 05/26/25 05/30/25 History mcg (50,000 unit) capsule hydroxyzine pamoate 25 mg capsule 25 mg PO QIDP PRN Anxiety 05/26/25 05/30/25 History levocetirizine 5 mg tablet 5 mg PO DAILY 05/26/25 05/30/25 History lumateperone 42 mg capsule 42 mg PO HS 05/26/25 05/30/25 History (Caplyta) sumatriptan succinate 100 mg tablet 100 mg PO DAILYP PRN Migraine 05/26/25 05/30/25 History Headache fluticasone 500 mcg-salmeterol 50 1 inh inhalation BIDRT #60 ea 05/28/25 05/30/25 Rx mcg/dose blistr powdr for inhalation prednisone 20 mg tablet 20 mg PO DAILY #14 tabs 05/28/25 05/30/25 Rx New Prescriptions to Start Prescriptions: Allergies Allergy/AdvReac Type Severity Reaction Status Date / Time morphine (MORPHINE) Allergy Unknown HALLUCINATIONS, Verified 05/13/25 15:00 PAIN ATTACKS Results Laboratory Findings 05/31/25 05:51 05/31/25 05:51 Abnormal lab findings: Abnormal Labs 05/29/25 05/30/25 05/30/25 22:37 02:48 06:55 RBC 4.12 L Hgb Hct Eos % (Auto) 0.0 L 0.0 L Lymph # (Auto) 4.8 H ESR Glucose Calcium 8.2 L AST 45 H Troponin I 0.21 H 0.23 H 0.16 H C-Reactive Protein 10.3 H D Total Protein 8.6 H Globulin 4.0 H Ur Barbituates Screen U Benzodiazepines Scrn U Marijuana (THC) Screen 05/30/25 05/31/25 09:31 05:51 RBC 3.89 L Hgb 11.7 L Hct 35.4 L Eos % (Auto) Lymph # (Auto) ESR 23 H Glucose 146 H D Calcium AST Troponin I 0.04 H C-Reactive Protein 11.1 H Total Protein Globulin Ur Barbituates Screen Positive H U Benzodiazepines Scrn Positive H U Marijuana (THC) Screen Positive H Assessment and Plan *Assessment and plan (1) Dyspnea on exertion: Status: Acute Category: Medical Code(s): R06.09 - Other forms of dyspnea Plan Ms. Martinez is a 29-year-old female recently seen in the hospital for symptoms of chest pain tightness and difficulty breathing discharged home on steroid taper along with Advair inhaler presented to the ER again presented with complaint of continued symptoms of chest pain tightness along with shortness of breath and pulmonary was called for further evaluation and management. Afebrile. Hemodynamically stable. No evidence of leukocytosis. CRP improving now at 11. Chest x-ray upon admission clear with no acute pulmonary infiltrates. ENIO screen negative. RF and CCP within normal limits. Hypocalcemia with serum calcium at 8.2. Renal function within normal limits. Admits smoking marijuana. UDS positive for benzodiazepines barbiturates and marijuana. Taking medications for her bipolar disease and migraine disorder including sumatriptan Predominant complaints including chest tightness shortness of breath. Significant symptoms of acid reflux disease. Chest clear to auscultate. No respiratory distress. Plan: Continue Advair 500 along with albuterol 4 times daily as needed Continue prednisone taper as planned uncontrolled most recent discharge Will schedule for outpatient bronchoscopy EBUS FNA as planned previously.
--- NOTE | 2025-05-31 09:32 | CA_ITS ---
APPROVED REPORT EXAM: Limited 2D Echocardiogram Canvas Shrinker: Tracy Denson RT(R) Ht: 5 ft 6 in Wt: 246lbs BSA: 2.18 BP: 117/49 mmHg Indications: concern for myopericarditis, chest pain. Recent echo 05/26/25, ordered as a limited. 2D Dimensions EF AP4 72.10 % GL Strain -19.5 % M-Mode Dimensions RVDd 2.74 cm (0.9-2.6) LVDd 4.64 cm (3.5-5.7) LVDs 3.46 cm (3.5-5.7) IVSd 0.99 cm (0.6-1.1) PWd 0.91 cm (0.6-1.1) EF (Teich) 50.20% FS 25.40% EDV (Teich) 99.30 mL ESV (Teich) 49.50 mL Other Information Study Quality: Fair Conclusion This is a limited TTE to evaluate for possible myopericarditis. Limited windows are obtained. The left ventricle is normal in size. There is normal LV wall thickness. There is normal global LV systolic function. No regional wall motion abnormalities are noted. LVEF is 60%. There is a trivial, anterior pericardial effusion noted. No evidence of chamber collapse or tamponade. Compared to recent TTE from 05/26/2025, the trivial pericardial effusion is new. Electronically signed by : Marta Pires MD 05/31/2025 23:33:44
[2025-05-31 11:50] VITALS: BP 126/65; PULSE 78; RESP 18; TEMP 36.7; O2SAT 98
[2025-05-31 12:00] VITALS: PULSE 80
--- NOTE | 2025-05-31 12:04 | P.DS_ITS ---
<Statement entered by Chinedu Ayala MD - 05/31/25 14:10> Rounded on patient after nurse practitioner. Personally examined and interviewed patient. Agree with exam findings and care plan as documented. In discussion about plan, 0.6 mg colchicine was sent due to difficulty getting medication approved by insurance. No other changes General Admission date:: 05/29/25 Discharge date: 05/31/25 HPI HPI HPI: 29-year-old female patient presents to ER with complaints of fatigue, weakness and no energy. She was discharged from the hospital just yesterday. She had initially been admitted for suspicion of pericarditis/myocarditis. She was evaluated by cardiology as well as pulmonology. It was felt her symptoms were more likely due to an autoimmune disorder. CRP and sed rate were elevated. During that admission she was started on prednisone and given NSAIDs. Her symptoms did improve. When she was home she states she felt pretty good for a while and decided to run some errands. By the time she got done going to the gas station and the post office she had no energy. She states she felt like she was too weak to walk. She did rest but had no improvement. She did continue to have some chest pain. Initially it was a slight squeeze intermittently and then it became achy and constant. She does complain of some shortness of breath and epigastric abdominal pain. She does have history of GERD. She tried hydroxyzine at home because she thought it may be her anxiety but that did not help. She also took an albuterol inhaler without relief. Denied fever or chills. Had some nausea but no vomiting. Lightheadedness and dizziness present. Workup in the ER showed an essentially normal CBC and chemistry panel. Troponin peaked at 0.84 during her last visit, upon discharge it was 0.18 and tonight it is 0.21. CRP has improved from 61 to10.3. Sed rate improved from 29-19. In the ER she received Toradol as well as Dilaudid and she states her symptoms are much better. She does report she feels anxiety and reflux are playing a role in her symptoms. Hospital Course Hospital Course Hospital Course: Ms. Martinez is a 29-year-old female who presented to the emergency department with recurrent chest pain. Patient was recently admitted to our facility for elevated troponin, chest pain, and dyspnea. Troponin last admission peaked at 1.42. Patient was evaluated in the emergency department and continued to have elevated troponin of 0.21, trending downward day of discharge 0.04. During previous admission patient had extensive cardiac and pulmonary workup. Patient had LHC in 03/2023 which showed normal Cors. She had a cardiac MRI and CT which were both unremarkable. Cardiology her chest pain and dyspnea could be of pulmonary origin, pulmonary was consulted and recommended a steroid taper for hilar lymphadenopathy found on CT and to follow-up for possible outpatient bronchoscopy. Autoimmune workup was also done which resulted with no acute findings. Patient was discharged home on Advair 500 twice daily and steroid taper. Patient was subsequently admitted to hospital medicine for further recommendations due to continued elevated troponin and chest pain. Plan of care was as follows: #Elevated troponin/NSTEMI #Chest pain #Dyspnea #Myocarditis/pericarditis, suspected #Hilar lymphadenopathy ? On previous admission patient had cardiac MRI read by Dr. Lozano states that scan is unremarkable for pericarditis or myocarditis. LHC performed 03/2023 showed no significant CAD. Patient had echo on previous admission which showed normal EF and normal function, repeat limited echo day of discharge continues to show normal EF and no abnormalities. Cardiology consulted and recommended colchicine 1.2 mg x 2 doses, then decrease to 0.5 mg twice daily, as well as Indocin 50 mg 3 times daily with meals for suspected myocarditis/pericarditis. While cardiac MRI was unremarkable patient continues to have symptomatic angina with elevated troponin-cardiology recommends adding these medications out of precaution. Patient started on isosorbide 60 mg daily for anginal chest pain. In addition to isosorbide patient was discharged home with nitro 0.4 mg sublingual as needed for chest pain/pressure. ? Concern for vasospastic angina, patient does vape nicotine and smokes marijuana. These aspects may increase chest pain, she also takes stimulant medication for her ADHD which may also increase chance of vasospasm which could increase her chest pain/pressure. Patient will follow-up with Dr. Lozano tomorrow afternoon. ? Day of discharge patient denies any chest pain or shortness of breath. States she feels well. Pulmonology also saw patient and recommends continuing prednisone taper, Advair 500 twice daily, and adding an albuterol inhaler 4 times daily as needed for shortness of breath. Patient's lungs have remained CTA during admission, no shortness of breath noted on any exam. Pulmonology recommends possible bronchoscopy with FNA as an outpatient, will have patient follow-up in 1 to 2 weeks. ? Inflammatory markers have trended downward, ESR initially 29, trending downward to 23. CRP trending downward to 11.1. No other electrolyte abnormalities noted, BUN and creatinine within normal limits, AST and ALT within normal limits. ? Discharged home with pantoprazole 40 mg at bedtime due to increased use of NSAIDs and steroids for GI protection. #Anxiety #Mood disorder ? Continue hydroxyzine 25 mg 4 times daily as needed for anxiety, Caplyta 42 mg daily, mirtazapine 30 mg at bedtime, desvenlafaxine 50 mg daily at discharge. Total time spent on discharge 32 minutes in counseling, documentation, chart review, and direct care with patient. Exam Data for Last 24 hours Vital signs and Labs for Last 24 Hours: Temp Pulse Resp BP Pulse Ox O2 Del Method 98.0 F 78 18 126/65 98 Room Air 05/31/25 11:50 05/31/25 11:50 05/31/25 11:50 05/31/25 11:50 05/31/25 11:50 05/31/25 11:50 Laboratory Results - last 24 hr 05/31/25 05:51: WBC 6.7, RBC 3.89 L, Hgb 11.7 L, Hct 35.4 L, MCV 91.0, MCH 30.1, MCHC 33.1, RDW 12.5, Plt Count 273, MPV 9.9, Neut % (Auto) 46.9, Lymph % (Auto) 44.2, [place] % (Auto) 6.8, Eos % (Auto) 0.1, Baso % (Auto) 0.1, Neut # (Auto) 3.1, Lymph # (Auto) 3.0, [place] # (Auto) 0.5, Eos # (Auto) 0.0, Baso # (Auto) 0.0, ESR 23 H, Sodium 138, Potassium 3.8, Chloride 102, Carbon Dioxide 28, Anion Gap 11.8, BUN 13, Creatinine 0.90, Estimated Creat Clear 159, Estimated GFR 73, Est GFR ( Amer) 88, Glucose 146 H D, Calcium 8.6, Magnesium 1.9, Total Bilirubin 0.2, AST 27, ALT 40, Alkaline Phosphatase 88, Troponin I 0.04 H, C- Reactive Protein 11.1 H, Total Protein 6.7, Albumin 3.6, Globulin 3.1, Albumin/Globulin Ratio 1.2 I & O for Last 24 hours: Intake & Output 05/28/25 05/29/25 05/30/25 05/31/25 23:59 23:59 23:59 23:59 Intake Total 1120 / 1120 840 / 840 Output Total 200 / 200 0 / 0 Balance 920 / 920 840 / 840 Weight 111.584 kg 111.5 kg Constitutional Constitutional: no acute distress, obese and cooperative *Routine HEENT Exam Head: Present normocephalic and atraumatic Eye: Present EOMI ENT: Present mucous membranes moist *Routine Neck Exam Neck: Present supple and full ROM; Absent JVD *Routine Respiratory Exam Respiratory: Present CTA bilaterally, normal respiratory effort, able to speak in complete sentences and symmetric chest movement; Absent wheezes or crackles *Routine Cardiovascular Exam Cardiovascular: Present RRR, Normal S1 and Normal S2; Absent murmur *Routine Abdominal Exam Abdominal: Present soft and normoactive bowel sounds; Absent tenderness, distended or organomegaly *Routine Rectal Exam Patient deferred: visual exam *Routine Exam Patient deferred: external exam *Routine Extremities Exam Extremities: Present full ROM, pulses intact and normal capillary refill; Absent cyanosis, clubbing or edema *Routine Skin Exam Skin: Present intact, dry and warm; Absent erythema or rash *Routine Neurological Exam Neurological: Present alert, oriented X3, CN II-XII intact, vision grossly intact, hearing grossly intact and normal speech; Absent sensory deficit or motor deficit Routine Psychiatric Exam Psychiatric: Present normal affect Results Data Completed and Pending Labs on day of discharge: Labs from last 24 hours 05/31/25 05:51 WBC 6.7 RBC 3.89 L Hgb 11.7 L Hct 35.4 L MCV 91.0 MCH 30.1 MCHC 33.1 RDW 12.5 Plt Count 273 MPV 9.9 Neut % (Auto) 46.9 Lymph % (Auto) 44.2 [place] % (Auto) 6.8 Eos % (Auto) 0.1 Baso % (Auto) 0.1 Neut # (Auto) 3.1 Lymph # (Auto) 3.0 [place] # (Auto) 0.5 Eos # (Auto) 0.0 Baso # (Auto) 0.0 ESR 23 H Sodium 138 Potassium 3.8 Chloride 102 Carbon Dioxide 28 Anion Gap 11.8 BUN 13 Creatinine 0.90 Estimated Creat Clear 159 Estimated GFR 73 Est GFR ( Amer) 88 Glucose 146 H D Calcium 8.6 Magnesium 1.9 Total Bilirubin 0.2 AST 27 ALT 40 Alkaline Phosphatase 88 Troponin I 0.04 H C-Reactive Protein 11.1 H Total Protein 6.7 Albumin 3.6 Globulin 3.1 Albumin/Globulin Ratio 1.2 DS: Diagnosis Discharge Diagnosis (1) Dyspnea on exertion: Status: Acute Code(s): R06.09 - Other forms of dyspnea (2) Elevated troponin: Status: Acute Code(s): R79.89 - Other specified abnormal findings of blood chemistry (3) Weakness: Status: Acute Code(s): R53.1 - Weakness (4) Chest pain: Status: Acute Code(s): R07.9 - Chest pain, unspecified Qualifiers: Chest pain type: other chest pain Qualified Code(s): R07.89 - Other chest pain (5) Anxiety: Status: Acute Code(s): F41.9 - Anxiety disorder, unspecified (6) BMI 39.0-39.9,adult: Status: Chronic Code(s): Z68.39 - Body mass index [BMI] 39.0-39.9, adult (7) Depression: Status: Acute Code(s): F32.A - Depression, unspecified (8) Bipolar depression: Status: Chronic Code(s): F31.9 - Bipolar disorder, unspecified Problem details: Patient had marked on her intake forms that she had periods of sadness. Meds Home Medications and Allergies Home Medications ?Medication ?Instructions ?Recorded ?Confirmed ?Type ferrous sulfate 325 mg (65 mg 325 mg PO DAILY 10/15/24 05/30/25 History iron) tablet mirtazapine 30 mg tablet 30 mg PO HS 10/15/24 5 History cholecalciferol (vitamin D3) 125 125 mcg PO DAILY 05/1205/30/25 History mcg (5,000 unit) capsule desvenlafaxine succinate 50 mg 50 mg PO DAILY 05/26/25 05/30/25 History tablet,extended release 24 hr ergocalciferol (vitamin D2) 1,250 1,250 mcg PO WEEKLY 05/26/25 05/30/25 History mcg (50,000 unit) capsule hydroxyzine pamoate 25 mg capsule 25 mg PO QIDP PRN An xiety 05/26/25 05/30/25 History levocetirizine 5 mg tablet 5 mg PO DAILY 05/26/2505/12 History lumateperone 42 mg capsule 42 mg PO HS 05/26/25 History (Caplyta) sumatriptan succinate 100 mg tablet 100 mg PO DAILYP P RN Migraine 05/26/25 05/30/25 History Headache fluticasone 500 mcg-salmeterol 50 1 inh inhalation BID RT #60 ea 05/28/25 05/30/25 Rx mcg/dose blistr powdr for inhalation prednisone 20 mg tablet 20 mg PO DAILY #14 tabs 05/1205/30/25 Rx albuterol sulfate 90 mcg/actuation 2 puff inhalation Q ID PRN 05/31/25 Rx aerosol inhaler (Ventolin HFA) shortness of breath or wheezing #6.7 grams colchicine 0.6 mg capsule 0.6 mg PO BID #60 caps 05/31 Rx indomethacin 25 mg capsule 50 mg (2 x 25 mg) PO TIDWME AL 30 05/31/25 Rx days #180 caps isosorbide mononitrate 60 mg 60 mg PO DAILY 30 days #3 0 tabs 05/31/25 Rx tablet,extended release 24 hr nitroglycerin 0.4 mg sublingual 0.4 mg sublingual Q5M PRN chest 05/31/25 Rx tablet pain #14 tabs pantoprazole 40 mg tablet,delayed 40 mg PO HS 30 days #30 tabs 05/31/25 Rx release New Prescriptions to Start Prescriptions: albuterol sulfate [Ventolin HFA] Chanda Monique colchicine Chanda Monique indomethacin Chanda Monique isosorbide mononitrate Chanda Monique nitroglycerin [place],Chanda pantoprazole Chanda Monique Allergies Allergy/AdvReac Type Severity Reaction Status Date / Time morphine (MORPHINE) Allergy Unknown HALLUCINATIONS, Verified 05/13/25 15:00 PAIN ATTACKS Discharge Plan Disposition Patient Disposition: Home, Self-Care Condition: Good Follow up Plan Follow up with: Kimberly Avalos PA [Primary Care Provider, Medical] - 06/07/25 10:00 am Chloé Cedillo MD [Physician, Pulmonology] - 06/10/25 11:40 am Walt Pires MD [Staff Physician, Cardiology] - 06/01/25 2:15 pm Prescriptions/Medication Reconciliation: New isosorbide mononitrate 60 mg Tablet Extended Release 24 Hr 60 mg PO DAILY 30 Days Qty: 30 0RF nitroglycerin 0.4 mg tablet, sublingual 0.4 mg sublingual Q5M PRN (Reason: chest pain) Qty: 14 0RF Rx Instructions: do not exceed 3 doses per episode albuterol sulfate [Ventolin HFA] 90 mcg/actuation HFA aerosol inhaler 2 puff inhalation QID PRN (Reason: shortness of breath or wheezing) Qty: 6.7 0RF indomethacin 25 mg Capsule 50 mg PO TIDWMEAL 30 Days Qty: 180 0RF pantoprazole 40 mg Tablet,Delayed Release (Dr/Ec) 40 mg PO HS 30 Days Qty: 30 0RF colchicine 0.6 mg capsule 0.6 mg PO BID Qty: 60 0RF Continued mirtazapine 30 mg tablet 30 mg PO HS Patient Comments: TAKE 1 TABLETBY MOUTH EVERY DAY AT BEDTIME FOR 90 DAYS, FOR SLEEP ferrous sulfate 325 mg (65 mg iron) tablet 325 mg PO DAILY Patient Comments: TAKE 1 TABLET EVERY DAY BY ORAL ROUTE DIRECTED FOR 90 DAYS, FOR IRON DEFICIENCY ANEMIA. sumatriptan succinate 100 mg tablet 100 mg PO DAILYP PRN (Reason: Migraine Headache) ergocalciferol (vitamin D2) 1,250 mcg (50,000 unit) capsule 1,250 mcg PO WEEKLY Patient Comments: TAKE 1 CAPSULE EVERY WEEK BY ORAL ROUTE FOR 90 DAYS, FOR VITAMIN D DEFICIENCY. levocetirizine 5 mg tablet 5 mg PO DAILY Caplyta 42 mg capsule 42 mg PO HS Patient Comments: TAKE 1 CAPSULE EVERY DAY BY ORAL ROUTE DIRECTED FOR 90 DAYS, FOR MOOD. cholecalciferol (vitamin D3) 125 mcg (5,000 unit) capsule 125 mcg PO DAILY hydroxyzine pamoate 25 mg capsule 25 mg PO QIDP PRN (Reason: Anxiety) desvenlafaxine succinate 50 mg tablet extended release 24 hr 50 mg PO DAILY fluticasone propion-salmeterol 500-50 mcg/dose Blister With Device 1 inh inhalation BIDRT Qty: 60 0RF prednisone 20 mg tablet 20 mg PO DAILY Qty: 14 0RF Rx Instructions: 40 mg (2 tabs) x 3 days, 20 mg (1 tab) x 5 days, 10 mg (0.5 tab) x 5 days Problem Reconciliation Problems Reviewed?: Yes Patient Discharge Instructions ACTIVITY: Continue current activity and Ambulate as tolerated DIET: continue same diet Patient Instructions: Cardiac Troponin, Depression, DI for Anxiety in Adults, DI for Fatigue Print Language: Spanish Providers Primary Care Provider: Kimberly Avalos Admit Provider: Chinedu Ayala Attending Provider: Chinedu Ayala
--- NOTE | 2025-05-31 12:27 | EXP.CARD.CON ---
History of Present Illness History of Present Illness Consult date: 05/31/25 Requesting physician: Chinedu Ayala Consult reason: chest pain Chief complaint: chest pain, weakness, sob History of present illness: Hospitalist note: 29-year-old female patient presents to ER with complaints of fatigue, weakness and no energy. She was discharged from the hospital just yesterday. She had initially been admitted for suspicion of pericarditis/myocarditis. She was evaluated by cardiology as well as pulmonology. It was felt her symptoms were more likely due to an autoimmune disorder. CRP and sed rate were elevated. During that admission she was started on prednisone and given NSAIDs. Her symptoms did improve. When she was home she states she felt pretty good for a while and decided to run some errands. By the time she got done going to the gas station and the post office she had no energy. She states she felt like she was too weak to walk. She did rest but had no improvement. She did continue to have some chest pain. Initially it was a slight squeeze intermittently and then it became achy and constant. She does complain of some shortness of breath and epigastric abdominal pain. She does have history of GERD. She tried hydroxyzine at home because she thought it may be her anxiety but that did not help. She also took an albuterol inhaler without relief. Denied fever or chills. Had some nausea but no vomiting. Lightheadedness and dizziness present. Workup in the ER showed an essentially normal CBC and chemistry panel. Troponin peaked at 0.84 during her last visit, upon discharge it was 0.18 and tonight it is 0.21. CRP has improved from 61 to10.3. Sed rate improved from 29-19. In the ER she received Toradol as well as Dilaudid and she states her symptoms are much better. She does report she feels anxiety and reflux are playing a role in her symptoms. Cardiology note: Cardiology was asked to evaluate for ongoing symptoms of chest pain and shortness of breath. Patient was discharged home from hospital on 05/28/2025. She reports that at first she was feeling good with improvement of initial symptoms after starting prednisone. She reports on Saturday she was running errands and became extremely fatigued and developed chest pain and shortness of breath again prompting her to return to ER. EKG remains negative for STEMI. Chest CTA 05/26/2025 negative for PE or dissection. Echo last week showed normal biventricular systolic function with no signs of valvular stenosis or regurg noted. No echodensities or vegetation noted. Cardiac MRI was unremarkable. Repeat limited echo today shows a normal EF. Troponin 0.23 trending down to 0.04. ESR and C-reactive protein both improving. This morning patient is resting comfortably in bed. She denies chest pain or shortness of breath. Patient had normal coronaries noted on cath 03/2023. Pulmonology is following. [facility] Disclaimer: The information contained in this section may have been updated after the patient was seen, as this information can be updated by other users. 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 (Updated 05/31/25 @ 13:51 by Chanda Monique APRN) Pericarditis Dyspnea on exertion Hilar lymphadenopathy Diastolic dysfunction Myocarditis Elevated troponin Surgical History History of cholecystectomy Hx of tonsillectomy Hx of section Family History Mother Cancer thyroid Sister Cancer thyroid Grandfather Diabetes Social History (Updated 05/30/25 @ 00:53 by Rose Rivera RN) Smoking Status: Current every day smoker tobacco type: e-cigarettes alcohol intake: never substance use type: denies use current occupational status: employed Travel in the last 8 weeks?: None Review of Systems Review of Systems Review of systems:: pertinent systems reviewed and negative unless documented below Constitutional Constitutional: Reports weakness ENT Ears, Nose, Mouth, and Throat: Denies dizziness *Cardiovascular Cardiovascular: Reports system reviewed and no additional complaints, except as documented *Respiratory Respiratory: Reports system reviewed and no additional complaints, except as documented *Gastrointestinal Gastrointestinal: Reports system reviewed and no additional complaints, except as documented *Neurologic Neurologic: Denies confusion, Denies dizziness and Reports weakness Psychiatric Psychiatric: Denies confusion Exam Data for Last 24 hours Vital signs and Labs for Last 24 Hours: Temp Pulse Resp BP Pulse Ox O2 Del Method 98.0 F 78 18 126/65 98 Room Air 05/31/25 11:50 05/31/25 11:50 05/31/25 11:50 05/31/25 11:50 05/31/25 11:50 05/31/25 11:50 Laboratory Results - last 24 hr 05/31/25 05:51: WBC 6.7, RBC 3.89 L, Hgb 11.7 L, Hct 35.4 L, MCV 91.0, MCH 30.1, MCHC 33.1, RDW 12.5, Plt Count 273, MPV 9.9, Neut % (Auto) 46.9, Lymph % (Auto) 44.2, [place] % (Auto) 6.8, Eos % (Auto) 0.1, Baso % (Auto) 0.1, Neut # (Auto) 3.1, Lymph # (Auto) 3.0, [place] # (Auto) 0.5, Eos # (Auto) 0.0, Baso # (Auto) 0.0, ESR 23 H, Sodium 138, Potassium 3.8, Chloride 102, Carbon Dioxide 28, Anion Gap 11.8, BUN 13, Creatinine 0.90, Estimated Creat Clear 159, Estimated GFR 73, Est GFR ( Amer) 88, Glucose 146 H D, Calcium 8.6, Magnesium 1.9, Total Bilirubin 0.2, AST 27, ALT 40, Alkaline Phosphatase 88, Troponin I 0.04 H, C-Reactive Protein 11.1 H, Total Protein 6.7, Albumin 3.6, Globulin 3.1, Albumin/Globulin Ratio 1.2 I & O for Last 24 hours: Intake & Output 05/28/25 05/29/25 05/30/25 05/31/25 23:59 23:59 23:59 23:59 Intake Total 1120 / 1120 840 / 840 Output Total 200 / 200 0 / 0 Balance 920 / 920 840 / 840 Weight 246 lb 245 lb 13.047 oz Constitutional Constitutional: no acute distress *Routine Respiratory Exam Respiratory: Present CTA bilaterally and symmetric chest movement *Routine Cardiovascular Exam Cardiovascular: Present RRR, Normal S1 and Normal S2 *Routine Abdominal Exam Abdominal: Present soft and normoactive bowel sounds; Absent tenderness *Routine Extremities Exam Extremities: Present full ROM and normal capillary refill; Absent edema *Routine Skin Exam Skin: Present intact, dry and warm Detailed Neck Exam: Thyroids Thyroid: Absent bruit Meds Home Medications and Allergies Home Medications ?Medication ?Instructions ?Recorded ?Confirmed ?Type ferrous sulfate 325 mg (65 mg 325 mg PO DAILY 10/15/24 05/30/25 History iron) tablet mirtazapine 30 mg tablet 30 mg PO HS 10/15/24 05/30/25 History cholecalciferol (vitamin D3) 125 125 mcg PO DAILY 05/26/25 05/30/25 History mcg (5,000 unit) capsule desvenlafaxine succinate 50 mg 50 mg PO DAILY 05/26/25 05/30/25 History tablet,extended release 24 hr ergocalciferol (vitamin D2) 1,250 1,250 mcg PO WEEKLY 05/26/25 05/30/25 History mcg (50,000 unit) capsule hydroxyzine pamoate 25 mg capsule 25 mg PO QIDP PRN Anxiety 05/26/25 05/30/25 History levocetirizine 5 mg tablet 5 mg PO DAILY 05/26/25 05/30/25 History lumateperone 42 mg capsule 42 mg PO HS 05/26/25 05/30/25 History (Caplyta) sumatriptan succinate 100 mg tablet 100 mg PO DAILYP PRN Migraine 05/26/25 05/30/25 History Headache fluticasone 500 mcg-salmeterol 50 1 inh inhalation BIDRT #60 ea 05/28/25 05/30/25 Rx mcg/dose blistr powdr for inhalation prednisone 20 mg tablet 20 mg PO DAILY #14 tabs 05/28/25 05/30/25 Rx albuterol sulfate 90 mcg/actuation 2 puff inhalation QID PRN 05/31/25 Rx aerosol inhaler (Ventolin HFA) shortness of breath or wheezing #6.7 grams colchicine 0.6 mg capsule 0.6 mg PO BID #60 caps 05/31/25 Rx indomethacin 25 mg capsule 50 mg (2 x 25 mg) PO TIDWMEAL 30 05/31/25 Rx days #180 caps isosorbide mononitrate 60 mg 60 mg PO DAILY 30 days #30 tabs 05/31/25 Rx tablet,extended release 24 hr nitroglycerin 0.4 mg sublingual 0.4 mg sublingual Q5M PRN chest 05/31/25 Rx tablet pain #14 tabs pantoprazole 40 mg tablet,delayed 40 mg PO HS 30 days #30 tabs 05/31/25 Rx release New Prescriptions to Start Prescriptions: albuterol sulfate [Ventolin HFA] Chanda Monique colchicine Chanda Monique indomethacin Chanda Monique isosorbide mononitrate [place],Chanda nitroglycerin [place],Chanda pantoprazole Kayden,Chanda Allergies Allergy/AdvReac Type Severity Reaction Status Date / Time morphine (MORPHINE) Allergy Unknown HALLUCINATIONS, Verified 05/13/25 15:00 PAIN ATTACKS Assessment and Plan *Assessment and plan (1) Elevated troponin: Status: Acute Category: Medical Code(s): R79.89 - Other specified abnormal findings of blood chemistry (2) Chest pain: Status: Acute Qualifiers: Chest pain type: other chest pain Qualified Code(s): R07.89 - Other chest pain Category: Medical Code(s): R07.9 - Chest pain, unspecified (3) Dyspnea on exertion: Status: Acute Category: Medical Code(s): R06.09 - Other forms of dyspnea (4) Pericarditis: Status: Suspected Qualifiers: Chronicity: acute Pericarditis type: other type Qualified Code(s): I30.8 - Other forms of acute pericarditis Category: Medical Code(s): I31.9 - Disease of pericardium, unspecified Plan Elevated troponin Chest pain Dyspnea Questionable-Myopericarditis Troponin 0.23 trending down to 0.04 EKG negative for STEMI Normal coronaries noted on cath 03/2023 Normal cardiac MRI last week Normal echo with a repeat limited echo today- normal Continue prednisone per pulmonology Add colchicine 1.2 mg p.o. twice daily x 1 day followed by 0.5 mg p.o. twice daily Add indomethacin 50 mg 3 times daily Can continue Imdur 30 mg p.o. daily initiated per primary service Follow-up with pulmonology as previously scheduled CV summary 05/31/2025: Patient is CV stable for discharge home. Patient can follow-up with Dr. Lozano tomorrow afternoon in clinic. Continue medications as outlined above.
[2025-05-31] MEDS: COLCHICINE 0.6MG TABLET 1.2 MG PO (13:45)
--- NOTE | 2025-06-01 09:56 | SW/DCPLANNER ---
Spoke with patient on the phone. Patient stated that she is doing good. Patient stated that she is aware of her upcoming appointments. Patient stated that she was able to get her new medicine picked up from clinic pharmacy. Patient stated that she has no concerns or questions at this time. Chris Mayer
== END 2025-05-31 14:03 | disposition home or self-care (01) ==
LOC: ER 22:53 → 2ND 23:53
PROVIDERS: Nurse Practitioner Acute Care; Admitting Provider Internal Medicine Adolescent Medicine; Emergency Provider Student in an Organized Health Care Education/Training Program; PCP Physician Assistant; Visit Provider Internal Medicine Adolescent Medicine
DX: I40.9 Acute myocarditis, unspecified (principal); I31.39 Other pericardial effusion (noninflammatory); I21.4 Non-ST elevation (NSTEMI) myocardial infarction; R79.89 Other specified abnormal findings of blood chemistry; I50.30 Unspecified diastolic (congestive) heart failure; R59.0 Localized enlarged lymph nodes; F41.9 Anxiety disorder, unspecified; F39 Unspecified mood [affective] disorder; F31.9 Bipolar disorder, unspecified; G47.9 Sleep disorder, unspecified; E83.51 Hypocalcemia; F90.9 Attention-deficit hyperactivity disorder, unspecified type; E66.01 Morbid (severe) obesity due to excess calories; K21.9 Gastro-esophageal reflux disease without esophagitis; G43.909 Migraine, unspecified, not intractable, without status migrainosus; F17.290 Nicotine dependence, other tobacco product, uncomplicated; Z88.5 Allergy status to narcotic agent; Z68.39 Body mass index [BMI] 39.0-39.9, adult; Z79.899 Other long term (current) drug therapy
CPT/HCPCS: 0223U; 36415; 71045; 80053; 80307; 83690; 83735; 83880; 84484; 85025; 85651; 86140; 93005; 93308; 94640; 96361; 96372; 96374; 96375; 99285; G0378; J1171; J1650; J1885; J2405; J2550; J7120

== ENCOUNTER 2025-06-02 07:58 | Outpatient (CLI) | payer MEDICAID, SELFPAY ==
--- OUTSIDE RECORDS SUMMARY | 2025-06-02 08:00 | XMS_ITS | Clinical Summary ---
Author Organization Healthcare Address [address] [id number] Care Team Providers Care Product Craftsman Name Role Phone Pcp, No Primary Care Provider Unavailabl e Allergies No known active allergies Medications Adderall XR 10 MG 24 hr capsule Take by mouth 1 (one) time each day. 07/12/2022 Active bumetanide (Bumex) 0.5 MG tablet Take 1 tablet (0.5 mg) by mouth 1 (one) time each day. 03/12/2023 Active Vitamin D3 1.25 MG (31259 UT) capsule TAKE 1 CAPSULE BY MOUTH [...] 2014 [facility]-Cervical Cancer Screening 12/29/2023 [facility]HPV/Cotest 12/29/2023 [id number] Vaccine (1 - season) 2025 [facility]-Influenza Vaccine [...] age to complete this topic Care Teams Product Craftsman Relationship Specialty Start Date End Date Pcp, No [address] [place] [address] PCP - General 04/13/21
[2025-06-02 09:56] LABS: C-Reactive Protein 2.6 mg/L (0-4)
[2025-06-03 16:13] LABS: Cortisol,AM 2.0 ug/dL (6.2-19.4)
== END 2025-06-02 23:59 | disposition home or self-care (01) ==
LOC: LAB 07:59
PROVIDERS: PCP Physician Assistant; Visit Provider Internal Medicine
DX: I51.89 Other ill-defined heart diseases (principal); R10.9 Unspecified abdominal pain; R11.0 Nausea; K21.9 Gastro-esophageal reflux disease without esophagitis; R53.1 Weakness; R59.0 Localized enlarged lymph nodes; R79.0 Abnormal level of blood mineral; E53.8 Deficiency of other specified B group vitamins; E55.9 Vitamin D deficiency, unspecified
CPT/HCPCS: 36415; 82533; 83520; 85651; 86140; 86225; 86235; 87040

== ENCOUNTER 2025-06-06 21:06 | Emergency (ER) | payer MEDICAID, SELFPAY ==
[2025-06-06] VITALS (12 sets, daily range): BP systolic 122–176; BP diastolic 68–90; PULSE 75–112; RESP 13–24; TEMP 36.9; O2SAT 95–99; BMI 40.3
--- NOTE | 2025-06-06 21:11 | ECG_ITS ---
APPROVED REPORT Exam: Resting ECG HR:105 bpm ECG Measurements Heart Rate 105 AXES ID 128 P 47 QRSd 96 QRS 20 QT 321 T 43 QTc 382 Conclusion SINUS TACHYCARDIA POSSIBLE RIGHT VENTRICULAR CONDUCTION DELAY [RSR (QR) IN V1/V2] MINIMAL ST DEPRESSION [0.025+ mV ST DEPRESSION] ABNORMAL RHYTHM ECG UNCONFIRMED REPORT Electronically signed by : PABLO MERLOS, 06/08/2025 06:30:53
--- NOTE | 2025-06-06 21:24 | XR_ITS ---
PROCEDURE INFORMATION: Exam: XR Chest Exam date and time: 06/07/2025 12:45 AM Age: 29 years old Clinical indication: Pain; Shortness of breath; Left-sided; Additional info: Cp SOA TECHNIQUE: Imaging protocol: Radiologic exam of the chest. Views: 1 view. COMPARISON: CR XR CHEST PORTABLE 05/29/2025 11:14 PM FINDINGS: Lungs: Focal medial right basilar opacity. Pleural spaces: No pleural effusion. No pneumothorax. Heart/Mediastinum: No acute findings or cardiomegaly. Bones/joints: No acute findings. IMPRESSION: Medial right basilar opacity related to atelectasis or possibly pneumonia.
--- NOTE | 2025-06-06 21:25 | [facility].EDCP ---
Discharge Plan Disposition Patient Disposition: Home, Self-Care Prescriptions Prescriptions: No Action mirtazapine 30 mg tablet 30 mg PO HS Patient Comments: TAKE 1 TABLETBY MOUTH EVERY DAY AT BEDTIME FOR 90 DAYS, FOR SLEEP ferrous sulfate 325 mg (65 mg iron) tablet 325 mg PO DAILY Patient Comments: TAKE 1 TABLET EVERY DAY BY ORAL ROUTE DIRECTED FOR 90 DAYS, FOR IRON DEFICIENCY ANEMIA. promethazine 25 mg tablet 25 mg PO BID PRN (Reason: nausea/vomiting) Qty: 14 0RF pantoprazole 40 mg tablet,delayed release (DR/EC) 40 mg PO BID 30 Days Qty: 60 1RF ergocalciferol (vitamin D2) 1,250 mcg (50,000 unit) capsule 1,250 mcg PO WEEKLY Patient Comments: TAKE 1 CAPSULE EVERY WEEK BY ORAL ROUTE FOR 90 DAYS, FOR VITAMIN D DEFICIENCY. levocetirizine 5 mg tablet 5 mg PO DAILY Caplyta 42 mg capsule 42 mg PO HS Patient Comments: TAKE 1 CAPSULE EVERY DAY BY ORAL ROUTE DIRECTED FOR 90 DAYS, FOR MOOD. cholecalciferol (vitamin D3) 125 mcg (5,000 unit) capsule 125 mcg PO DAILY hydroxyzine pamoate 25 mg capsule 25 mg PO QIDP PRN (Reason: Anxiety) desvenlafaxine succinate 50 mg tablet extended release 24 hr 50 mg PO DAILY fluticasone propion-salmeterol 500-50 mcg/dose Blister With Device 1 inh inhalation BIDRT Qty: 60 0RF prednisone 20 mg tablet 20 mg PO DAILY Qty: 14 0RF Rx Instructions: 40 mg (2 tabs) x 3 days, 20 mg (1 tab) x 5 days, 10 mg (0.5 tab) x 5 days isosorbide mononitrate 60 mg Tablet Extended Release 24 Hr 60 mg PO DAILY 30 Days Qty: 30 0RF nitroglycerin 0.4 mg tablet, sublingual 0.4 mg sublingual Q5M PRN (Reason: chest pain) Qty: 14 0RF Rx Instructions: do not exceed 3 doses per episode albuterol sulfate [Ventolin HFA] 90 mcg/actuation HFA aerosol inhaler 2 puff inhalation QID PRN (Reason: shortness of breath or wheezing) Qty: 6.7 0RF indomethacin 25 mg Capsule 50 mg PO TIDWMEAL 30 Days Qty: 180 0RF colchicine 0.6 mg capsule 0.6 mg PO BID Qty: 60 0RF Referrals Follow up/Referrals: Provider,Referral, [Referring, Medical] - See instructions Activity Restrictions/Add. Instructions Additional Instructions/Restrictions: Please follow-up with your primary care provider. Please return to the emergency department if you develop any new or worsening symptoms or become concerned for your health. Clinical Impressions Clinical Impression: Chest pain Print Language Print Language: Citizen Of [place] Discharge ED Provider: Elvira Wren HPI <Jaky Elliott APRN - Last Filed: 06/06/25 21:41> General Chief Complaint: Chest Pain Stated Complaint: chest pain Time Seen by Provider: 06/06/25 21:18 Mode of Arrival: Ambulatory Source of Information: Patient Description of Symptoms (Recalled from ER Triage Doc. by RN): Pt presents for evaluation of chest pain that started earlier today. Pt states that pain initially dull and progressively became worse. rates pain as a 6/10. Pt appears to be swollen in her ankles, and states she was recently admitted to [facility] for elevated heart enzymes History of Present Illness HPI narrative: patient is a 29-year-old female PMHx anxiety, elevated troponin, history of abnormal EKGs, history of abnormal stress test, ADHD, currently being worked up for autoimmune disease causing cardiac issues by the production technician at [facility], presents to the ED for centrally located chest pain that occurred a few hours prior to arrival and bilateral lower extremity edema that has been present for 4 to 5 days. Patient states that she was told during her admission at [facility] last week that she had a heart attack that was possibly caused by an autoimmune disease. Related Data Home Medications ?Medication ?Instructions ?Recorded ?Confirmed ferrous sulfate 325 mg (65 mg 325 mg PO DAILY 10/15/24 06/01/25 iron) tablet mirtazapine 30 mg tablet 30 mg PO HS 10/15/24 06/01/25 cholecalciferol (vitamin D3) 125 125 mcg PO DAILY 05/26/25 06/01/25 mcg (5,000 unit) capsule desvenlafaxine succinate 50 mg 50 mg PO DAILY 05/26/25 06/01/25 tablet,extended release 24 hr ergocalciferol (vitamin D2) 1,250 1,250 mcg PO WEEKLY 05/26/25 06/01/25 mcg (50,000 unit) capsule hydroxyzine pamoate 25 mg capsule 25 mg PO QIDP PRN Anxiety 05/26/25 06/01/25 levocetirizine 5 mg tablet 5 mg PO DAILY 05/26/25 06/01/25 lumateperone 42 mg capsule 42 mg PO HS 05/26/25 06/01/25 (Caplyta) Previous Rx's ?Medication ?Instructions ?Recorded fluticasone 500 mcg-salmeterol 50 1 inh inhalation BIDRT #60 ea 05/28/25 mcg/dose blistr powdr for inhalation prednisone 20 mg tablet 20 mg PO DAILY #14 tabs 05/28/25 albuterol sulfate 90 mcg/actuation 2 puff inhalation QID PRN 05/31/25 aerosol inhaler (Ventolin HFA) shortness of breath or wheezing #6.7 grams colchicine 0.6 mg capsule 0.6 mg PO BID #60 caps 05/31/25 indomethacin 25 mg capsule 50 mg (2 x 25 mg) PO TIDWMEAL 30 05/31/25 days #180 caps isosorbide mononitrate 60 mg 60 mg PO DAILY 30 days #30 tabs 05/31/25 tablet,extended release 24 hr nitroglycerin 0.4 mg sublingual 0.4 mg sublingual Q5M PRN chest 05/31/25 tablet pain #14 tabs pantoprazole 40 mg tablet,delayed 40 mg PO BID 30 days #60 tabs 06/01/25 release promethazine 25 mg tablet 25 mg PO BID PRN nausea/vomiting 06/01/25 #14 tabs Allergies Allergy/AdvReac Type Severity Reaction Status Date / Time morphine (MORPHINE) Allergy Unknown HALLUCINATIONS, Verified 06/01/25 14:17 PAIN ATTACKS [facility] <Jaky Elliott, MANAGEMENT TECHNICIAN - Last Filed: 06/06/25 21:41> [facility] Disclaimer: The information contained in this section may have been updated after the patient was seen, as this information can be updated by other users. 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 (Updated 06/07/25 @ 01:07 by Leo Lincoln MD) Nausea Abdominal pain Edema Atypical angina Pericarditis Dyspnea on exertion Hilar lymphadenopathy Diastolic dysfunction Myocarditis Elevated troponin Surgical History History of cholecystectomy Hx of tonsillectomy Hx of section Family History Mother Cancer thyroid Sister Cancer thyroid Grandfather Diabetes Social History Smoking Status: Never smoker alcohol intake: never substance use type: denies use current occupational status: employed Travel in the last 8 weeks?: None Have you lived/traveled outside US in past 30 days?: No Contact w/someone who lives/traveled outside US past 30 days?: No Exposure to someone with infectious disease in past 14 days?: No Do you have a fever (greater than 100.4 F or 38 C)?: No Have you tested positive for COVID-19?: No Exposed to someone with COVID-19 in past 14 days?: No Do you have a sore throat?: No Do you have a cough?: No Do you have any weakness?: No Do you have any diarrhea?: No Are you experiencing any unusual bleeding?: No Do you have any muscle aches/pain?: No Do you have any abdominal pain?: No Are you experiencing loss of taste or smell?: No Other 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 Have you received the Flu Vaccine for this season: No Have you received the Pneumonia Vaccine: No <Jaky Elliott APRN - Last Filed: 06/06/25 21:41> ROS Obtained: Yes Systems reviewed as appropriate & no additional complaints except as documented Physical Exam <Jaky Elliott APRN - Last Filed: 06/06/25 21:41> General General appearance: alert Eye Eye exam: Present PERRL and EOMI Neck Neck exam: Present full ROM Chest Chest inspection: Present normal inspection Respiratory Respiratory exam: Present normal lung sounds bilaterally Cardiovascular Cardiovascular exam: Present tachycardia Extremities Exam Extremities exam: Present full ROM and other (Bilateral lower extremity edema, nonpitting) Neurological Exam Neurological exam: Present alert and oriented X3 HEART Score <Jaky Elliott APRN - Last Filed: 06/06/25 21:41> HEART Score HEART Score assessment performed?: No Critical Care <Jaky lEliott APRN - Last Filed: 06/06/25 21:41> Critical Care Time Critical Care Time: No Medical Decision Making <Jaky Elliott APRN - Last Filed: 06/06/25 21:41> Juan Antonio Inquiry Pt receiving controlled substance: No Vital Signs Vital Signs: 06/06/25 21:07 06/06/25 21:31 06/06/25 21:45 Temperature 98.4 F Temperature Source Temporal Artery Scan Pulse Rate Pulse Rate [Right] 112 H Respiratory Rate 18 13 19 Blood Pressure Blood Pressure [Right Arm] 176/90 H Blood Pressure Mean Blood Pressure Mean [Right Arm] 118 Blood Pressure Source Blood Pressure Source [Right Arm] Automatic Cuff Blood Pressure Position Blood Pressure Position [Right Arm] Sitting 02 Sat by Pulse Oximetry 99 Oxygen Delivery Method Room Air 06/06/25 22:15 06/06/25 22:30 06/06/25 22:39 Temperature Temperature Source Pulse Rate Pulse Rate [Right] Respiratory Rate 24 20 Blood Pressure 135/68 Blood Pressure [Right Arm] Blood Pressure Mean 93 Blood Pressure Mean [Right Arm] Blood Pressure Source Blood Pressure Source [Right Arm] Blood Pressure Position Blood Pressure Position [Right Arm] 02 Sat by Pulse Oximetry Oxygen Delivery Method 06/06/25 22:39 06/06/25 22:45 06/06/25 23:00 Temperature Temperature Source Pulse Rate 84 86 84 Pulse Rate [Right] Respiratory Rate 19 23 22 Blood Pressure Blood Pressure [Right Arm] Blood Pressure Mean Blood Pressure Mean [Right Arm] Blood Pressure Source Blood Pressure Source [Right Arm] Blood Pressure Position Blood Pressure Position [Right Arm] 02 Sat by Pulse Oximetry 98 97 96 Oxygen Delivery Method Mechanical Ventilation Room Air Room Air 06/06/25 23:00 06/06/25 23:15 06/06/25 23:30 Temperature Temperature Source Pulse Rate 83 75 Pulse Rate [Right] Respiratory Rate 22 19 Blood Pressure 137/88 Blood Pressure [Right Arm] Blood Pressure Mean 103 Blood Pressure Mean [Right Arm] Blood Pressure Source Blood Pressure Source [Right Arm] Blood Pressure Position Blood Pressure Position [Right Arm] 02 Sat by Pulse Oximetry 95 97 Oxygen Delivery Method Room Air Room Air 06/06/25 23:31 06/06/25 23:45 06/07/25 00:00 Temperature Temperature Source Pulse Rate 76 Pulse Rate [Right] Respiratory Rate 19 Blood Pressure 122/69 129/78 Blood Pressure [Right Arm] Blood Pressure Mean 86 89 Blood Pressure Mean [Right Arm] Blood Pressure Source Blood Pressure Source [Right Arm] Blood Pressure Position Blood Pressure Position [Right Arm] 02 Sat by Pulse Oximetry 96 Oxygen Delivery Method Room Air 06/07/25 00:15 06/07/25 00:30 06/07/25 00:30 Temperature Temperature Source Pulse Rate 80 Pulse Rate [Right] Respiratory Rate 18 20 Blood Pressure 130/79 Blood Pressure [Right Arm] Blood Pressure Mean 92 Blood Pressure Mean [Right Arm] Blood Pressure Source Blood Pressure Source [Right Arm] Blood Pressure Position Blood Pressure Position [Right Arm] 02 Sat by Pulse Oximetry 96 Oxygen Delivery Method Room Air 06/07/25 00:45 06/07/25 01:00 06/07/25 01:00 Temperature Temperature Source Pulse Rate Pulse Rate [Right] Respiratory Rate 22 22 Blood Pressure 122/71 Blood Pressure [Right Arm] Blood Pressure Mean 88 Blood Pressure Mean [Right Arm] Blood Pressure Source Blood Pressure Source [Right Arm] Blood Pressure Position Blood Pressure Position [Right Arm] 02 Sat by Pulse Oximetry Oxygen Delivery Method 06/07/25 01:15 06/07/25 01:30 06/07/25 01:30 Temperature Temperature Source Pulse Rate Pulse Rate [Right] Respiratory Rate 20 18 Blood Pressure 122/70 Blood Pressure [Right Arm] Blood Pressure Mean 88 Blood Pressure Mean [Right Arm] Blood Pressure Source Blood Pressure Source [Right Arm] Blood Pressure Position Blood Pressure Position [Right Arm] 02 Sat by Pulse Oximetry Oxygen Delivery Method 06/07/25 01:45 06/07/25 01:54 Temperature 98.4 F Temperature Source Pulse Rate 78 Pulse Rate [Right] Respiratory Rate 21 16 Blood Pressure 122/70 Blood Pressure [Right Arm] Blood Pressure Mean Blood Pressure Mean [Right Arm] Blood Pressure Source Automatic Cuff Blood Pressure Source [Right Arm] Blood Pressure Position Sitting Blood Pressure Position [Right Arm] 02 Sat by Pulse Oximetry Oxygen Delivery Method Room Air Lab Data Labs: Lab Results 06/06/25 22:20: WBC 14.5 H, RBC 4.03 L, Hgb 12.4, Hct 36.5 L, MCV 90.6, MCH 30.8, MCHC 34.0, RDW 12.6, Plt Count 357, MPV 9.2, Neut % (Auto) 53.8, Lymph % (Auto) 33.4, [place] % (Auto) 8.0, Eos % (Auto) 0.0 L, Baso % (Auto) 0.3, Neut # (Auto) 7.8, Lymph # (Auto) 4.9 H, [place] # (Auto) 1.2 H, Eos # (Auto) 0.0, Baso # (Auto) 0.0, Total Counted 100, Neutrophils % (Manual) 52, Lymphocytes % (Manual) 39, Monocytes % (Manual) 9, Platelet Estimate Moderate increase, RBC Morphology Normal, PT 10.8, INR 0.97, APTT 22.3 L, Sodium 133 L, Potassium 3.4 L, Chloride 101, Carbon Dioxide 29, Anion Gap 6.4, BUN 21 H, Creatinine 0.90, Estimated Creat Clear 162, Estimated GFR 73, Est GFR ( Amer) 88, Glucose 117 H, Calcium 9.0, Total Bilirubin 0.3, AST 32, ALT 32, Alkaline Phosphatase 118, Troponin I < 0.01, NT-Pro-B Natriuret Pep 109, Total Protein 7.2, Albumin 3.3 L, Globulin 3.9 H, Albumin/Globulin Ratio 0.8 L, Serum HCG, Qual Negative 06/07/25 00:25: Troponin I < 0.01 06/06/25 22:20 06/06/25 22:20 Response Orders (Tests/Meds): ED MEDICATIONS Discontinued Medications Generic Name Dose Route Start Last Admin Trade Name Freq PRN Reason Stop Dose Admin Acetaminophen 1,000 mg 06/07/25 00:06 06/07/25 00:17 Acetaminophen 500mg Tab PO 06/07/25 00:07 1,000 mg ONCE ONE Administration Belladonna Alkaloids 60 ml 06/07/25 00:21 06/07/25 00:31 Belladonna Alkaloids 60 Ml Ml PO 06/07/25 00:22 60 ml ONCE ONE Administration Ketorolac Tromethamine 30 mg 06/07/25 00:06 06/07/25 00:17 Ketorolac 30mg/Ml Vial IV 06/07/25 00:07 30 mg ONCE ONE Administration ORDERS Category Date Time Status CXR --portable [XR chest portable] Stat Exams 06/06/25 21:24 Completed POCUS Point of Care (ER Only) Stat Exams 06/06/25 21:24 Completed BNP [NT Pro Brain Natriuretic Pep.] Stat Lab 06/06/25 22:20 Completed CBC w/Auto Diff [Complete Blood Count Auto Diff] Stat Lab 06/06/25 22:20 Completed CMP [Comprehensive Metabolic Panel] Stat Lab 06/06/25 22:20 Completed HCG Qualitative, Serum Stat Lab 06/07/25 00:08 Completed PT/PTT Stat Lab 06/06/25 22:20 Completed Trop I [Troponin I] Stat Lab 06/06/25 22:20 Completed Trop I [Troponin I] Stat Lab 06/07/25 00:25 Completed MDM Narrative Medical Decision Narrative: In summary, patient is a 29-year-old female PMHx anxiety, elevated troponin, history of abnormal EKGs, history of abnormal stress test, ADHD, currently being worked up for autoimmune disease causing cardiac issues by the production technician at [facility], presents to the ED for centrally located chest pain that occurred a few hours prior to arrival and bilateral lower extremity edema that has been present for 4 to 5 days. Patient states that she was told during her admission at [facility] last week that she had a heart attack that was possibly caused by an autoimmune disease. Patient states prior to arrival she took aspirin. She states she feels like she is having chest pressure and shortness of breath. She states she has also taken her anxiety medication today as directed. She states she feels like she does not have a lot of answers as to what is going on since she has had so many new and recent findings and diagnoses. Upon initial evaluation patient is tearful, tachycardic, has a hand over her chest. Bilateral lower extremity ankle edema, nonpitting. Discussed with patient we will proceed with cardiac workup. Records reviewed, reviewed notes from 05/31/2025, patient was recently admitted to the hospital for workup for myocarditis/pericarditis. Patient was given prednisone and NSAIDs which did improve her symptoms. It is noted that she took hydroxyzine which did not improve her symptoms. Patient noted that she had lightheadedness, dizziness and weakness. She did have elevated troponins during her stay. Elevated CRP and sed rate. Cardiology visit from 06/01/2025 LVEF is 60%. It is noted the patient is evaluated for possible myopericarditis. Advised to increase pantoprazole to 40 mg twice daily, start Phenergan as needed, be off work for 2 weeks and return to the clinic in 10 days. care transferred to attending <Elvira Wren DO - Last Filed: 06/07/25 00:46> Vital Signs Vital Signs: 06/06/25 21:07 06/06/25 21:31 06/06/25 21:45 Temperature 98.4 F Temperature Source Temporal Artery Scan Pulse Rate Pulse Rate [Right] 112 H Respiratory Rate 18 13 19 Blood Pressure Blood Pressure [Right Arm] 176/90 H Blood Pressure Mean Blood Pressure Mean [Right Arm] 118 Blood Pressure Source Blood Pressure Source [Right Arm] Automatic Cuff Blood Pressure Position Blood Pressure Position [Right Arm] Sitting 02 Sat by Pulse Oximetry 99 Oxygen Delivery Method Room Air 06/06/25 22:15 06/06/25 22:30 06/06/25 22:39 Temperature Temperature Source Pulse Rate Pulse Rate [Right] Respiratory Rate 24 20 Blood Pressure 135/68 Blood Pressure [Right Arm] Blood Pressure Mean 93 Blood Pressure Mean [Right Arm] Blood Pressure Source Blood Pressure Source [Right Arm] Blood Pressure Position Blood Pressure Position [Right Arm] 02 Sat by Pulse Oximetry Oxygen Delivery Method 06/06/25 22:39 06/06/25 22:45 06/06/25 23:00 Temperature Temperature Source Pulse Rate 84 86 84 Pulse Rate [Right] Respiratory Rate 19 23 22 Blood Pressure Blood Pressure [Right Arm] Blood Pressure Mean Blood Pressure Mean [Right Arm] Blood Pressure Source Blood Pressure Source [Right Arm] Blood Pressure Position Blood Pressure Position [Right Arm] 02 Sat by Pulse Oximetry 98 97 96 Oxygen Delivery Method Mechanical Ventilation Room Air Room Air 06/06/25 23:00 06/06/25 23:15 06/06/25 23:30 Temperature Temperature Source Pulse Rate 83 75 Pulse Rate [Right] Respiratory Rate 22 19 Blood Pressure 137/88 Blood Pressure [Right Arm] Blood Pressure Mean 103 Blood Pressure Mean [Right Arm] Blood Pressure Source Blood Pressure Source [Right Arm] Blood Pressure Position Blood Pressure Position [Right Arm] 02 Sat by Pulse Oximetry 95 97 Oxygen Delivery Method Room Air Room Air 06/06/25 23:31 06/06/25 23:45 06/07/25 00:00 Temperature Temperature Source Pulse Rate 76 Pulse Rate [Right] Respiratory Rate 19 Blood Pressure 122/69 129/78 Blood Pressure [Right Arm] Blood Pressure Mean 86 89 Blood Pressure Mean [Right Arm] Blood Pressure Source Blood Pressure Source [Right Arm] Blood Pressure Position Blood Pressure Position [Right Arm] 02 Sat by Pulse Oximetry 96 Oxygen Delivery Method Room Air 06/07/25 00:15 06/07/25 00:30 06/07/25 00:30 Temperature Temperature Source Pulse Rate 80 Pulse Rate [Right] Respiratory Rate 18 20 Blood Pressure 130/79 Blood Pressure [Right Arm] Blood Pressure Mean 92 Blood Pressure Mean [Right Arm] Blood Pressure Source Blood Pressure Source [Right Arm] Blood Pressure Position Blood Pressure Position [Right Arm] 02 Sat by Pulse Oximetry 96 Oxygen Delivery Method Room Air 06/07/25 00:45 06/07/25 01:00 06/07/25 01:00 Temperature Temperature Source Pulse Rate Pulse Rate [Right] Respiratory Rate 22 22 Blood Pressure 122/71 Blood Pressure [Right Arm] Blood Pressure Mean 88 Blood Pressure Mean [Right Arm] Blood Pressure Source Blood Pressure Source [Right Arm] Blood Pressure Position Blood Pressure Position [Right Arm] 02 Sat by Pulse Oximetry Oxygen Delivery Method 06/07/25 01:15 06/07/25 01:30 06/07/25 01:30 Temperature Temperature Source Pulse Rate Pulse Rate [Right] Respiratory Rate 20 18 Blood Pressure 122/70 Blood Pressure [Right Arm] Blood Pressure Mean 88 Blood Pressure Mean [Right Arm] Blood Pressure Source Blood Pressure Source [Right Arm] Blood Pressure Position Blood Pressure Position [Right Arm] 02 Sat by Pulse Oximetry Oxygen Delivery Method 06/07/25 01:45 06/07/25 01:54 Temperature 98.4 F Temperature Source Pulse Rate 78 Pulse Rate [Right] Respiratory Rate 21 16 Blood Pressure 122/70 Blood Pressure [Right Arm] Blood Pressure Mean Blood Pressure Mean [Right Arm] Blood Pressure Source Automatic Cuff Blood Pressure Source [Right Arm] Blood Pressure Position Sitting Blood Pressure Position [Right Arm] 02 Sat by Pulse Oximetry Oxygen Delivery Method Room Air Lab Data Lab results reviewed: Yes I reviewed the patient's lab results. Labs: Lab Results 06/06/25 22:20: WBC 14.5 H, RBC 4.03 L, Hgb 12.4, Hct 36.5 L, MCV 90.6, MCH 30.8, MCHC 34.0, RDW 12.6, Plt Count 357, MPV 9.2, Neut % (Auto) 53.8, Lymph % (Auto) 33.4, [place] % (Auto) 8.0, Eos % (Auto) 0.0 L, Baso % (Auto) 0.3, Neut # (Auto) 7.8, Lymph # (Auto) 4.9 H, [place] # (Auto) 1.2 H, Eos # (Auto) 0.0, Baso # (Auto) 0.0, Total Counted 100, Neutrophils % (Manual) 52, Lymphocytes % (Manual) 39, Monocytes % (Manual) 9, Platelet Estimate Moderate increase, RBC Morphology Normal, PT 10.8, INR 0.97, APTT 22.3 L, Sodium 133 L, Potassium 3.4 L, Chloride 101, Carbon Dioxide 29, Anion Gap 6.4, BUN 21 H, Creatinine 0.90, Estimated Creat Clear 162, Estimated GFR 73, Est GFR ( Amer) 88, Glucose 117 H, Calcium 9.0, Total Bilirubin 0.3, AST 32, ALT 32, Alkaline Phosphatase 118, Troponin I < 0.01, NT-Pro-B Natriuret Pep 109, Total Protein 7.2, Albumin 3.3 L, Globulin 3.9 H, Albumin/Globulin Ratio 0.8 L, Serum HCG, Qual Negative 06/07/25 00:25: Troponin I < 0.01 Response Orders (Tests/Meds): ED MEDICATIONS Discontinued Medications Generic Name Dose Route Start Last Admin Trade Name Freq PRN Reason Stop Dose Admin Acetaminophen 1,000 mg 06/07/25 00:06 06/07/25 00:17 Acetaminophen 500mg Tab PO 06/07/25 00:07 1,000 mg ONCE ONE Administration Belladonna Alkaloids 60 ml 06/07/25 00:21 06/07/25 00:31 Belladonna Alkaloids 60 Ml Ml PO 06/07/25 00:22 60 ml ONCE ONE Administration Ketorolac Tromethamine 30 mg 06/07/25 00:06 06/07/25 00:17 Ketorolac 30mg/Ml Vial IV 06/07/25 00:07 30 mg ONCE ONE Administration ORDERS Category Date Time Status CXR --portable [XR chest portable] Stat Exams 06/06/25 21:24 Completed POCUS Point of Care (ER Only) Stat Exams 06/06/25 21:24 Completed BNP [NT Pro Brain Natriuretic Pep.] Stat Lab 06/06/25 22:20 Completed CBC w/Auto Diff [Complete Blood Count Auto Diff] Stat Lab 06/06/25 22:20 Completed CMP [Comprehensive Metabolic Panel] Stat Lab 06/06/25 22:20 Completed HCG Qualitative, Serum Stat Lab 06/07/25 00:08 Completed PT/PTT Stat Lab 06/06/25 22:20 Completed Trop I [Troponin I] Stat Lab 06/06/25 22:20 Completed Trop I [Troponin I] Stat Lab 06/07/25 00:25 Completed MDM Narrative Medical Decision Narrative: In summary, patient is a 29-year-old female PMHx anxiety, elevated troponin, history of abnormal EKGs, history of abnormal stress test, ADHD, currently being worked up for autoimmune disease causing cardiac issues by the production technician at [facility], presents to the ED for centrally located chest pain that occurred a few hours prior to arrival and bilateral lower extremity edema that has been present for 4 to 5 days. Patient states that she was told during her admission at [facility] last week that she had a heart attack that was possibly caused by an autoimmune disease. Patient states prior to arrival she took aspirin. She states she feels like she is having chest pressure and shortness of breath. She states she has also taken her anxiety medication today as directed. She states she feels like she does not have a lot of answers as to what is going on since she has had so many new and recent findings and diagnoses. Upon initial evaluation patient is tearful, tachycardic, has a hand over her chest. Bilateral lower extremity ankle edema, nonpitting. Discussed with patient we will proceed with cardiac workup. Records reviewed, reviewed notes from 05/31/2025, patient was recently admitted to the hospital for workup for myocarditis/pericarditis. Patient was given prednisone and NSAIDs which did improve her symptoms. It is noted that she took hydroxyzine which did not improve her symptoms. Patient noted that she had lightheadedness, dizziness and weakness. She did have elevated troponins during her stay. Elevated CRP and sed rate. Cardiology visit from 06/01/2025 LVEF is 60%. It is noted the patient is evaluated for possible myopericarditis. Advised to increase pantoprazole to 40 mg twice daily, start Phenergan as needed, be off work for 2 weeks and return to the clinic in 10 days. Care transferred to attending Elvira Wren DO I assumed care of the patient at 2200. Labs showed mild leukocytosis of 14, hemoglobin was stable. CMP was unremarkable. INR was normal at 0.97. Initial troponin less than 0.01. test negative. EKG was reviewed and interpreted by myself and showed normal sinus rhythm without acute ST or T wave changes concerning for ischemia. Patient was given Tylenol Toradol as well as a GI cocktail here in the emergency department. Patient was recently seen at cardiology and patient has close follow-up. Patient was signed out to the oncoming provider pending repeat troponin, chest x-ray and final disposition and reassessment. <Leo Lincoln MD - Last Filed: 06/07/25 03:29> Vital Signs Vital Signs: 06/06/25 21:07 06/06/25 21:31 06/06/25 21:45 Temperature 98.4 F Temperature Source Temporal Artery Scan Pulse Rate Pulse Rate [Right] 112 H Respiratory Rate 18 13 19 Blood Pressure Blood Pressure [Right Arm] 176/90 H Blood Pressure Mean Blood Pressure Mean [Right Arm] 118 Blood Pressure Source Blood Pressure Source [Right Arm] Automatic Cuff Blood Pressure Position Blood Pressure Position [Right Arm] Sitting 02 Sat by Pulse Oximetry 99 Oxygen Delivery Method Room Air 06/06/25 22:15 06/06/25 22:30 06/06/25 22:39 Temperature Temperature Source Pulse Rate Pulse Rate [Right] Respiratory Rate 24 20 Blood Pressure 135/68 Blood Pressure [Right Arm] Blood Pressure Mean 93 Blood Pressure Mean [Right Arm] Blood Pressure Source Blood Pressure Source [Right Arm] Blood Pressure Position Blood Pressure Position [Right Arm] 02 Sat by Pulse Oximetry Oxygen Delivery Method 06/06/25 22:39 06/06/25 22:45 06/06/25 23:00 Temperature Temperature Source Pulse Rate 84 86 84 Pulse Rate [Right] Respiratory Rate 19 23 22 Blood Pressure Blood Pressure [Right Arm] Blood Pressure Mean Blood Pressure Mean [Right Arm] Blood Pressure Source Blood Pressure Source [Right Arm] Blood Pressure Position Blood Pressure Position [Right Arm] 02 Sat by Pulse Oximetry 98 97 96 Oxygen Delivery Method Mechanical Ventilation Room Air Room Air 06/06/25 23:00 06/06/25 23:15 06/06/25 23:30 Temperature Temperature Source Pulse Rate 83 75 Pulse Rate [Right] Respiratory Rate 22 19 Blood Pressure 137/88 Blood Pressure [Right Arm] Blood Pressure Mean 103 Blood Pressure Mean [Right Arm] Blood Pressure Source Blood Pressure Source [Right Arm] Blood Pressure Position Blood Pressure Position [Right Arm] 02 Sat by Pulse Oximetry 95 97 Oxygen Delivery Method Room Air Room Air 06/06/25 23:31 06/06/25 23:45 06/07/25 00:00 Temperature Temperature Source Pulse Rate 76 Pulse Rate [Right] Respiratory Rate 19 Blood Pressure 122/69 129/78 Blood Pressure [Right Arm] Blood Pressure Mean 86 89 Blood Pressure Mean [Right Arm] Blood Pressure Source Blood Pressure Source [Right Arm] Blood Pressure Position Blood Pressure Position [Right Arm] 02 Sat by Pulse Oximetry 96 Oxygen Delivery Method Room Air 06/07/25 00:15 06/07/25 00:30 06/07/25 00:30 Temperature Temperature Source Pulse Rate 80 Pulse Rate [Right] Respiratory Rate 18 20 Blood Pressure 130/79 Blood Pressure [Right Arm] Blood Pressure Mean 92 Blood Pressure Mean [Right Arm] Blood Pressure Source Blood Pressure Source [Right Arm] Blood Pressure Position Blood Pressure Position [Right Arm] 02 Sat by Pulse Oximetry 96 Oxygen Delivery Method Room Air 06/07/25 00:45 06/07/25 01:00 06/07/25 01:00 Temperature Temperature Source Pulse Rate Pulse Rate [Right] Respiratory Rate 22 22 Blood Pressure 122/71 Blood Pressure [Right Arm] Blood Pressure Mean 88 Blood Pressure Mean [Right Arm] Blood Pressure Source Blood Pressure Source [Right Arm] Blood Pressure Position Blood Pressure Position [Right Arm] 02 Sat by Pulse Oximetry Oxygen Delivery Method 06/07/25 01:15 06/07/25 01:30 06/07/25 01:30 Temperature Temperature Source Pulse Rate Pulse Rate [Right] Respiratory Rate 20 18 Blood Pressure 122/70 Blood Pressure [Right Arm] Blood Pressure Mean 88 Blood Pressure Mean [Right Arm] Blood Pressure Source Blood Pressure Source [Right Arm] Blood Pressure Position Blood Pressure Position [Right Arm] 02 Sat by Pulse Oximetry Oxygen Delivery Method 06/07/25 01:45 06/07/25 01:54 Temperature 98.4 F Temperature Source Pulse Rate 78 Pulse Rate [Right] Respiratory Rate 21 16 Blood Pressure 122/70 Blood Pressure [Right Arm] Blood Pressure Mean Blood Pressure Mean [Right Arm] Blood Pressure Source Automatic Cuff Blood Pressure Source [Right Arm] Blood Pressure Position Sitting Blood Pressure Position [Right Arm] 02 Sat by Pulse Oximetry Oxygen Delivery Method Room Air Lab Data Labs: Lab Results 06/06/25 22:20: WBC 14.5 H, RBC 4.03 L, Hgb 12.4, Hct 36.5 L, MCV 90.6, MCH 30.8, MCHC 34.0, RDW 12.6, Plt Count 357, MPV 9.2, Neut % (Auto) 53.8, Lymph % (Auto) 33.4, [place] % (Auto) 8.0, Eos % (Auto) 0.0 L, Baso % (Auto) 0.3, Neut # (Auto) 7.8, Lymph # (Auto) 4.9 H, [place] # (Auto) 1.2 H, Eos # (Auto) 0.0, Baso # (Auto) 0.0, Total Counted 100, Neutrophils % (Manual) 52, Lymphocytes % (Manual) 39, Monocytes % (Manual) 9, Platelet Estimate Moderate increase, RBC Morphology Normal, PT 10.8, INR 0.97, APTT 22.3 L, Sodium 133 L, Potassium 3.4 L, Chloride 101, Carbon Dioxide 29, Anion Gap 6.4, BUN 21 H, Creatinine 0.90, Estimated Creat Clear 162, Estimated GFR 73, Est GFR ( Amer) 88, Glucose 117 H, Calcium 9.0, Total Bilirubin 0.3, AST 32, ALT 32, Alkaline Phosphatase 118, Troponin I < 0.01, NT-Pro-B Natriuret Pep 109, Total Protein 7.2, Albumin 3.3 L, Globulin 3.9 H, Albumin/Globulin Ratio 0.8 L, Serum HCG, Qual Negative 06/07/25 00:25: Troponin I < 0.01 Response Orders (Tests/Meds): ED MEDICATIONS Discontinued Medications Generic Name Dose Route Start Last Admin Trade Name Noble PRN Reason Stop Dose Admin Acetaminophen 1,000 mg 06/07/25 00:06 06/07/25 00:17 Acetaminophen 500mg Tab PO 06/07/25 00:07 1,000 mg ONCE ONE Administration Belladonna Alkaloids 60 ml 06/07/25 00:21 06/07/25 00:31 Belladonna Alkaloids 60 Ml Ml PO 06/07/25 00:22 60 ml ONCE ONE Administration Ketorolac Tromethamine 30 mg 06/07/25 00:06 06/07/25 00:17 Ketorolac 30mg/Ml Vial IV 06/07/25 00:07 30 mg ONCE ONE Administration ORDERS Category Date Time Status CXR --portable [XR chest portable] Stat Exams 06/06/25 21:24 Completed POCUS Point of Care (ER Only) Stat Exams 06/06/25 21:24 Completed BNP [NT Pro Brain Natriuretic Pep.] Stat Lab 06/06/25 22:20 Completed CBC w/Auto Diff [Complete Blood Count Auto Diff] Stat Lab 06/06/25 22:20 Completed CMP [Comprehensive Metabolic Panel] Stat Lab 06/06/25 22:20 Completed HCG Qualitative, Serum Stat Lab 06/07/25 00:08 Completed PT/PTT Stat Lab 06/06/25 22:20 Completed Trop I [Troponin I] Stat Lab 06/06/25 22:20 Completed Trop I [Troponin I] Stat Lab 06/07/25 00:25 Completed MDM Narrative Medical Decision Narrative: In summary, patient is a 29-year-old female PMHx anxiety, elevated troponin, history of abnormal EKGs, history of abnormal stress test, ADHD, currently being worked up for autoimmune disease causing cardiac issues by the production technician at [facility], presents to the ED for centrally located chest pain that occurred a few hours prior to arrival and bilateral lower extremity edema that has been present for 4 to 5 days. Patient states that she was told during her admission at [facility] last week that she had a heart attack that was possibly caused by an autoimmune disease. Patient states prior to arrival she took aspirin. She states she feels like she is having chest pressure and shortness of breath. She states she has also taken her anxiety medication today as directed. She states she feels like she does not have a lot of answers as to what is going on since she has had so many new and recent findings and diagnoses. Upon initial evaluation patient is tearful, tachycardic, has a hand over her chest. Bilateral lower extremity ankle edema, nonpitting. Discussed with patient we will proceed with cardiac workup. Records reviewed, reviewed notes from 05/31/2025, patient was recently admitted to the hospital for workup for myocarditis/pericarditis. Patient was given prednisone and NSAIDs which did improve her symptoms. It is noted that she took hydroxyzine which did not improve her symptoms. Patient noted that she had lightheadedness, dizziness and weakness. She did have elevated troponins during her stay. Elevated CRP and sed rate. Cardiology visit from 06/01/2025 LVEF is 60%. It is noted the patient is evaluated for possible myopericarditis. Advised to increase pantoprazole to 40 mg twice daily, start Phenergan as needed, be off work for 2 weeks and return to the clinic in 10 days. Care transferred to attending Elvira Wren DO I assumed care of the patient at 2200. Labs showed mild leukocytosis of 14, hemoglobin was stable. CMP was unremarkable. INR was normal at 0.97. Initial troponin less than 0.01. test negative. EKG was reviewed and interpreted by myself and showed normal sinus rhythm without acute ST or T wave changes concerning for ischemia. Patient was given Tylenol Toradol as well as a GI cocktail here in the emergency department. Patient was recently seen at cardiology and patient has close follow-up. Patient was signed out to the oncoming provider pending repeat troponin, chest x-ray and final disposition and reassessment. Salazar FOWLER: I assumed care of the patient at the time of handoff from the prior provider. On reassessment patient's second troponin returns undetectably low. Chest x-ray shows likely atelectasis on my independent interpretation. Clear lungs bilaterally on repeat lung exam. Interactive discussion was had with patient regarding presentation. She was discharged in stable condition with return precautions.
--- OUTSIDE RECORDS SUMMARY | 2025-06-06 21:39 | XMS_ITS | Clinical Summary ---
Author Organization Healthcare Address [address] [id number] Care Team Providers Care Computer Training Specialist Name Role Phone Pcp, No Primary Care Provider Unavailabl e Allergies No known active allergies Medications Adderall XR 10 MG 24 hr capsule Take by mouth 1 (one) time each day. 07/12/2022 Active bumetanide (Bumex) 0.5 MG tablet Take 1 tablet (0.5 mg) by mouth 1 (one) time each day. 03/12/2023 Active Vitamin D3 1.25 MG (85333 UT) capsule TAKE 1 CAPSULE BY MOUTH [...] 2014 [facility]-Cervical Cancer Screening 12/29/2023 [facility]-HPV/Cotest 12/29/2023 [id number] Vaccine (1 - season) 2025 [facility]-Influenza Vaccine [...] age to complete this topic Care Teams Computer Training Specialist Relationship Specialty Start Date End Date Pcp, No [address] [place] [address] PCP - General 04/13/21
--- OUTSIDE RECORDS SUMMARY | 2025-06-06 21:39 | XMS_ITS | Data Portability ---
Author Organization [email or web address] [place] [facility] Address [address] [place] [address] Assessment No assessment recorded. Plan of Treatment Reminders Order Date Submit Date Provider Last Modified By Organization Details Last Modified Time Details Appointments FOLLOW UP 30 2024 10:00A Brea Avalos PA-C Not available Not available Not available FOLLOW UP 30 2024 01:00P Brea Avalos PA-C Not available Not available Not available Lab unlisted lab - toxassure flex 19, [id number] 2024 025 [facility] [address] [place], [address], 01/06/2025 18:08:08 lipid panel, serum 2024 025 [facility] [address] [place], [address], 10/31/2024 11:08:01 CMP, serum or plasma 2024 025 [facility] [address] [place], [address], 10/31/2024 11:08:01 CBC w/ auto diff 2024 025 [facility] [address] [place], [address], 10/31/2024 11:08:00 TSH, ultra-sen sitive, serum 2024 025 [facility] ([place]), [address] [place], [address], 10/31/2024 11:08:02 cobalamin and folate panel, serum 2024 [address] [facility] [address] [place], [address], 10/31/2024 11:08:02 vitamin D, 25-hydrox y, total, serum 2024 [address] [facility] [address] [place], [address], 10/31/2024 11:08:02 iron + TIBC + ferritin, serum 2024 025 [facility] ([place]), [address] [place], [address], 10/31/2024 11:08:00 TSH, ultra-sen sitive, serum 2023 [address] [facility] [address] [place], [address], 08/08/2024 12:06:46 unlisted lab - toxassure flex 19, [id number] 2023 024 [facility] ([place]), [address] [place], [address], 08/08/2024 12:06:44 CBC w/ auto diff 2023 [address] [facility] [address] [place], [address], 07/09/2024 10:08:11 CMP, serum or plasma 2023 [address] [facility] [address] [place], [address], 07/09/2024 10:08:12 vitamin D, 25-hydrox y, total, serum 2023 [address] [facility]), [address] [facility], [place], [address], 07/09/2024 10:08:14 TSH, ultra-sen sitive, serum 2023 [address] [facility] [address] [place], [address], 07/09/2024 10:08:14 lipid panel, serum 2023 [address] [facility] [address] [place], [address], 07/09/2024 10:08:12 vitamin B12 + folate, serum or blood 2023 024 [facility] ([place]), [address] [place], [address], 07/09/2024 10:08:13 iron + TIBC + ferritin, serum 2023 024 [facility] ([place]), [address] [facility], [place], [address], 07/09/2024 10:08:11 beta-HCG, qualitati ve, serum or plasma 2023 024 [facility] ([place]), [address] [place], [address], 07/09/2024 10:08:15 Referral podiatris t referral - first available appt 2024 025 [facility], [address], [place], [address], 11/16/2024 11:50:30 gynecolog ist referral 2023 024 [facility] Yoanna Best DO, [address], [place] [address], [place], [address], 12/03/2024 10:47:44 Procedures None recorded. Surgeries None recorded. Imaging MRI, knee, w/o contrast - first available appt 2024 025 [facility] ([facility]), [address], [place], [address], 11/17/2024 09:12:33 Medication Orders Imitrex 100 mg tablet 2024 025 [facility] [address] [place] [address], [address], 04/15/2025 14:12:45 Xifaxan 550 mg tablet 2024 025 [facility], [address] [place] [address], [address], 05/06/2025 05:01:23 mirtazapi ne 30 mg tablet 2024 025 [facility], [address] [place] [address], [address], 04/15/2025 14:29:42 Caplyta 42 mg capsule 2024 025 [facility] [address] [place] [address], [address], 04/15/2025 14:29:41 desvenlaf axine succinate ER 50 mg tablet,ex tended release 24 hr 2024 025 [facility], [address] [place] [address], [address], 04/15/2025 14:29:41 Xyzal 5 mg tablet 2024 025 [facility], [address] [place] [address], [address], 04/15/2025 14:12:44 hydroxyzi ne pamoate 25 mg capsule 2024 025 [facility], [address] [place], [place] [address], [address], 04/15/2025 14:29:41 cholecalc iferol (vitamin D3) 125 mcg (5,000 unit) capsule 2024 025 [facility], [address] [place], [address], 04/15/2025 14:29:41 ergocalci ferol (vitamin D2) 1,250 mcg (50,000 unit) capsule 2024 025 [facility] [address] [place], [address], 04/15/2025 14:29:41 ferrous sulfate 324 mg (65 mg iron) tablet,de layed release 2024 025 [facility] [address] [place], [address], 04/15/2025 14:29:40 mirtazapi ne 30 mg tablet 2024 025 [facility], [address] [place], [address], 12/31/2024 13:26:35 Caplyta 42 mg capsule 2024 025 [facility] [address] [place], [address], 12/31/2024 13:26:36 desvenlaf axine succinate ER 50 mg tablet,ex tended release 24 hr 2024 025 [facility] [address] [place], [address], 12/31/2024 13:26:36 hydroxyzi ne pamoate 25 mg capsule 2024 025 [facility], [address] [place], [address], 12/31/2024 13:26:36 cholecalc iferol (vitamin D3) 125 mcg (5,000 unit) capsule 2024 025 [facility], [address] [place], [address], 12/31/2024 13:26:35 ergocalci ferol (vitamin D2) 1,250 mcg (50,000 unit) capsule 2024 025 [facility], [address] [place], [address], 12/31/2024 13:26:36 ferrous sulfate 324 mg (65 mg iron) tablet,de layed release 2024 025 [facility], [address] [place], [address], 12/31/2024 13:26:36 Remeron 30 mg tablet 2023 025 [facility], [address] [place], [address], 10/30/2024 13:22:55 hydroxyzi ne pamoate 25 mg capsule 2023 024 [facility] [address] [place], [address], 08/03/2024 13:20:56 Patient TargetsNo targets recorded. Patient Instructions Encounter Date Encounter Id Patient Instructions Last Modified By Organization Details Last Modified Time 08/03/2024 [id number] insomnia: care instructions [id number] Not available 08/03/2024 13:20:54 tetanus and diphtheria booster: care instructions [email or web address] Not available 08/03/2024 13:23:00 body mass index: care instructions [email or web address] Not available 08/03/2024 13:21:40 learning about healthy weight [email or web address] Not available 08/03/2024 13:21:40 10/30/2024 [id number] post-traumatic stress disorder (PTSD): care instructions Not available 10/30/2024 13:59:38 attention defici t hyperactivity disorder (ADHD) in adults: care instructions [email or web address] Not available 10/30/2024 13:59:37 body mass index: care instructions [email or web address] Not available 11/02/2024 12:09:10 learning about healthy weight [email or web address] Not available 11/02/2024 12:09:10 bipolar disorder : care instructions [email or web address] Not available 10/30/2024 13:59:37 learning about mood disorders [email or web address] Not available 10/30/2024 13:59:37 iron deficiency anemia: care instructions Not available 10/30/2024 13:59:38 12/31/2024 [id number] post-traumatic stress disorder (PTSD): care instructions Not available 12/31/2024 13:26:31 attention defici t hyperactivity disorder (ADHD) in adults: care instructions Not available 12/31/2024 13:26:31 bipolar disorder : care instructions [email or web address] Not available 12/31/2024 13:26:30 learning about mood disorders [email or web address] Not available 12/31/2024 13:26:30 iron deficiency anemia: care instructions [email or web address] Not available 12/31/2024 13:26:31 Reason for Referral Custodial Manager Referral for Gy necologic examination Referring Physician: [facility], Encounter Date: 08/03/2024 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 Referral for Pain in bilateral feet first available appt Referring Physician: [facility], Encounter Date: 10/30/2024 Results Created Date Observation Date Name Description Value Unit Range Abnormal Flag Note LastModifiedBy Organization Detail LastModifiedTime 07/07/2007/09/2024 HCV ANTIB JOSE MANUEL CASCA DE(PC R/GEN O) HCV Ab Non Reacti ve non reacti ve Not Available [facility] ([facility]) [address], [place], [address], 07/09/2024 08:13:39 07/07/2007/09/2024 HCV ANTIB JOSE MANUEL CASCA DE(PC R/GEN O) interpretati on: Commen t Not infec you with HCV unles s early or acute infec tion is suspe cted (whic h may be delay ed in an immun ocomp romis ed indiv idual ), or other evide nce exist s to indic ate HCV infec tion. Not Available [facility] ([facility]) [address] [place], [address], 07/09/2024 08:13:39 07/07/20 24 07/09/2024 HIV AB/P2 4 AG WITH REFLE X HIV Ab/P24 Ag screen Non Reacti ve non reacti ve HIV-1 /HIV- 2 antib odies and HIV-1 p24 antig en were NOT detec you. There is no labor atory evide nce of HIV infec tion. HIV Negat amy Not Available [facility] ([facility]) [address], [place], [address], 07/09/2024 08:13:40 07/07/2007/09/2024 FE+TI BC+FE R iron bind.cap.(TI BC) 347 ug/dL 250-45 0 normal Not Available [facility] ([facility]) [address], [place], [address], 07/09/2024 10:08:10 07/07/20 24 07/09/2024 FE+TI BC+FE R UIBC 302 ug/dL 131-42 5 normal Not Available [facility] ([facility]) [address] [place], [address], 07/09/2024 10:08:10 07/07/20 24 07/09/2024 FE+TI BC+FE R iron 45 ug/dL 27-159 normal Not Available [facility] ([facility]) [address] [place], [address], 07/09/2024 10:08:10 07/07/20 24 07/09/2024 FE+TI BC+FE R iron saturation 13 % 15-55 below low normal Not Available [facility] ([facility]) [address] [place], [address], 07/09/2024 10:08:10 07/07/20 24 07/09/2024 FE+TI BC+FE R ferritin 88 NG/mL 15-150 normal Not Available [facility] ([facility]) [address] [place], [address], 07/09/2024 10:08:10 07/07/20 24 07/09/2024 CBC WITH DIFFE RENTI AL/PL ATELE T WBC 5.7 x10e3 /uL 3.4-10 .8 normal Eff ectiv e Decem rosanna 2023 [place] [id number] 5 WBC will be made* * non-o rdera ble as a stand -luba e order code. Not Available [facility] ([facility]) [address], [place], [address], 07/09/2024 10:08:11 07/07/20 24 07/09/2024 CBC WITH DIFFE RENTI AL/PL ATELE T RBC 4.49 x10e6 /uL 3.77-5 .28 normal Not Available [facility] ([facility]) [address] [place], [address], 07/09/2024 10:08:11 07/07/20 24 07/09/2024 CBC WITH DIFFE RENTI AL/PL ATELE T hemoglobin 13.0 g/dL 11.1-1 5.9 normal Not Available [facility] ([facility]) [address], [place], [address], 07/09/2024 10:08:11 07/07/20 24 07/09/2024 CBC WITH DIFFE RENTI AL/PL ATELE T hematocrit 41.6 % 34.0-4 6.6 normal Not Available [facility] ([facility]) [address] [place], [address], 07/09/2024 10:08:11 07/07/20 24 07/09/2024 CBC WITH DIFFE RENTI AL/PL ATELE T MCV 93 fL 79-97 normal Not Available [facility] ([facility]) [address] [place], [address], 07/09/2024 10:08:11 07/07/20 24 07/09/2024 CBC WITH DIFFE RENTI AL/PL ATELE T MCH 29.0 pg 26.6-3 3.0 normal Not Available [facility] ([facility]) [address] [place], [address], 07/09/2024 10:08:11 07/07/20 24 07/09/2024 CBC WITH DIFFE RENTI AL/PL ATELE T MCHC 31.3 g/dL 31.5-3 5.7 below low normal Not Available [facility] ([facility]) [address] [place], [address], 07/09/2024 10:08:11 07/07/20 24 07/09/2024 CBC WITH DIFFE RENTI AL/PL ATELE T RDW 12.5 % 11.7-1 5.4 Not Available [facility] ([facility]) [address] [place], [address], 07/09/2024 10:08:11 07/07/20 24 07/09/2024 CBC WITH DIFFE RENTI AL/PL ATELE T platelets 257 x10e3 /uL 150-45 0 normal Not Available [facility] ([facility]) [address] [place], [address], 07/09/2024 10:08:11 07/07/20 24 07/09/2024 CBC WITH DIFFE RENTI AL/PL ATELE T neutrophils 50 % not estab. normal Not Available [facility] ([facility]) [address] [place], [address], 07/09/2024 10:08:11 07/07/20 24 07/09/2024 CBC WITH DIFFE RENTI AL/PL ATELE T lymphs 44 % not estab. normal Not Available [facility] ([facility]) [address], [place], [address], 07/09/2024 10:08:11 07/07/20 24 07/09/2024 CBC WITH DIFFE RENTI AL/PL ATELE T monocytes 6 % not estab. normal Not Available [facility] ([facility]) [address], [place], [address], 07/09/2024 10:08:11 07/07/20 24 07/09/2024 CBC WITH DIFFE RENTI AL/PL ATELE T eos 0 % not estab. normal Not Available [facility] ([facility]) [address], [place], [address], 07/09/2024 10:08:11 07/07/20 24 07/09/2024 CBC WITH DIFFE RENTI AL/PL ATELE T basos 0 % not estab. normal Not Available [facility] ([facility]) [address], [place], [address], 07/09/2024 10:08:11 07/07/20 24 07/09/2024 CBC WITH DIFFE RENTI AL/PL ATELE T immature cells CIAIO LUMITE INJECTOR Not Available [facility] ([facility]) [address] [place], [address], 07/09/2024 10:08:11 07/07/20 24 07/09/2024 CBC WITH DIFFE RENTI AL/PL ATELE T neutrophils (absolute) 2.9 x10e3 /uL 1.4-7. 0 normal Not Available [facility] ([facility]) [address] [place], [address], 07/09/2024 10:08:11 07/07/20 24 07/09/2024 CBC WITH DIFFE RENTI AL/PL ATELE T lymphs (absolute) 2.5 x10e3 /uL 0.7-3. 1 normal Not Available [facility] ([facility]) [address], [place], [address], 07/09/2024 10:08:11 07/07/20 24 07/09/2024 CBC WITH DIFFE RENTI AL/PL ATELE T monocytes(ab solute) 0.3 x10e3 /uL 0.1-0. 9 normal Not Available [facility] ([facility]) [address], [place], [address], 07/09/2024 10:08:11 07/07/20 24 07/09/2024 CBC WITH DIFFE RENTI AL/PL ATELE T eos (absolute) 0.0 x10e3 /uL 0.0-0. 4 normal Not Available [facility] ([facility]) [address], [place], [address], 07/09/2024 10:08:11 07/07/20 24 07/09/2024 CBC WITH DIFFE RENTI AL/PL ATELE T baso (absolute) 0.0 x10e3 /uL 0.0-0. 2 normal Not Available [facility] ([facility]) [address], [place], [address], 07/09/2024 10:08:11 07/07/20 24 07/09/2024 CBC WITH DIFFE RENTI AL/PL ATELE T immature granulocytes 0 % not estab. Not Available [facility] ([facility]) [address], [place], [address], 07/09/2024 10:08:11 07/07/20 24 07/09/2024 CBC WITH DIFFE RENTI AL/PL ATELE T immature grans (abs) 0.0 x10e3 /uL 0.0-0. 1 Not Available [facility] ([facility]) [address], [place], [address], 07/09/2024 10:08:11 07/07/20 24 07/09/2024 CBC WITH DIFFE RENTI AL/PL ATELE T NRBC CIAIO LUMITE INJECTOR Not Available [facility] ([facility]) [address], [place], [address], 07/09/2024 10:08:11 07/07/20 24 07/09/2024 CBC WITH DIFFE MAURICIO AL/PL CHULA [facility] hematology comments: CIAIO LUMITE INJECTOR Not Available [facility] ([facility]) [address], [place], [address], 07/09/2024 10:08:11 07/07/20 24 07/09/2024 COMP. METAB OLIC PANEL (14) glucose 100 mg/dL 70-99 above high normal Not Available [facility] ([facility]) [address], [place], [address], 07/09/2024 10:08:12 07/07/20 24 07/09/2024 COMP. METAB OLIC PANEL (14) BUN 12 mg/dL 6-20 normal Not Available [facility] ([facility]) [address], [place], [address], 07/09/2024 10:08:12 07/07/20 24 07/09/2024 COMP. METAB OLIC PANEL (14) creatinine 0.75 mg/dL 0.57-1 .00 normal Not Available [facility] ([facility]) [address], [place], [address], 07/09/2024 10:08:12 07/07/20 24 07/09/2024 COMP. METAB OLIC PANEL (14) eGFR 110 mL/mi n/1.7 3 >59 normal Not Available [facility] ([facility]) [address] [place], [address], 07/09/2024 10:08:12 07/07/20 24 07/09/2024 COMP. METAB OLIC PANEL (14) BUN/creatini ne ratio 16 9-23 normal Not Available [facility] ([facility]) [address], [place], [address], 07/09/2024 10:08:12 07/07/20 24 07/09/2024 COMP. METAB OLIC PANEL (14) sodium 139 mmol/ L 134-14 4 normal Not Available [facility] ([facility]) [address] [place], [address], 07/09/2024 10:08:12 07/07/20 24 07/09/2024 COMP. METAB OLIC PANEL (14) potassium 4.3 mmol/ L 3.5-5. 2 normal Not Available [facility] ([facility]) [address] [place], [address], 07/09/2024 10:08:12 07/07/20 24 07/09/2024 COMP. METAB OLIC PANEL (14) chloride 105 mmol/ L 96-106 normal Not Available [facility] ([facility]) [address] [place], [address], 07/09/2024 10:08:12 07/07/20 24 07/09/2024 COMP. METAB OLIC PANEL (14) carbon dioxide, total 21 mmol/ L 20-29 normal Not Available [facility] ([facility]) [address] [place], [address], 07/09/2024 10:08:12 07/07/20 24 07/09/2024 COMP. METAB OLIC PANEL (14) calcium 9.1 mg/dL 8.7-10 .2 normal Not Available [facility] ([facility]) [address] [place], [address], 07/09/2024 10:08:12 07/07/20 24 07/09/2024 COMP. METAB OLIC PANEL (14) protein, total 6.9 g/dL 6.0-8. 5 normal Not Available [facility] ([facility]) [address] [place], [address], 07/09/2024 10:08:12 07/07/20 24 07/09/2024 COMP. METAB OLIC PANEL (14) albumin 4.1 g/dL 4.0-5. 0 normal Not Available [facility] ([facility]) [address] [place], [address], 07/09/2024 10:08:12 07/07/20 24 07/09/2024 COMP. METAB OLIC PANEL (14) globulin, total 2.8 g/dL 1.5-4. 5 Not Available [facility] ([facility]) [address] [place], [address], 07/09/2024 10:08:12 07/07/20 24 07/09/2024 COMP. METAB OLIC PANEL (14) bilirubin, total <0.2 mg/dL 0.0-1. 2 Not Available [facility] ([facility]) [address] [place], [address], 07/09/2024 10:08:12 07/07/20 24 07/09/2024 COMP. METAB OLIC PANEL (14) alkaline phosphatase 86 IU/L 44-121 normal Not Available [facility]) [address], [place], [address], 07/09/2024 10:08:12 07/07/20 24 07/09/2024 COMP. METAB OLIC PANEL (14) AST (SGOT) 19 IU/L 0-40 normal Not Available [facility] ([facility]) [address] [place], [address], 07/09/2024 10:08:12 07/07/20 24 07/09/2024 COMP. METAB OLIC PANEL (14) ALT (SGPT) 17 IU/L 0-32 normal Not Available [facility] ([facility]) [address] [place], [address], 07/09/2024 10:08:12 07/07/20 24 07/09/2024 LIPID PANEL cholesterol, total 161 mg/dL 100-19 9 normal Not Available [facility] ([facility]) [address], [place], [address], 07/09/2024 10:08:12 07/07/20 24 07/09/2024 LIPID PANEL triglyceride s 144 mg/dL 0-149 normal Not Available [facility] ([facility]) [address], [place], [address], 07/09/2024 10:08:12 07/07/20 24 07/09/2024 LIPID PANEL HDL cholesterol 39 mg/dL >39 below low normal Not Available [facility] ([facility]) [address], [place], [address], 07/09/2024 10:08:12 07/07/20 24 07/09/2024 LIPID PANEL VLDL cholesterol nurys 26 mg/dL 5-40 Not Available [facility] ([facility]) [address], [place], [address], 07/09/2024 10:08:12 07/07/20 24 07/09/2024 LIPID PANEL LDL chol calc ([facility]) 96 mg/dL 0-99 Not Available [facility] ([facility]) [address], [place], [address], 07/09/2024 10:08:12 07/07/20 24 07/09/2024 LIPID PANEL LDL calc comment: CIAIO LUMITE INJECTOR Not Available [facility] ([facility]) [address], [place], [address], 07/09/2024 10:08:12 07/07/20 24 07/09/2024 VITAM IN B12 AND FOLAT E vitamin B12 381 pg/mL 232-12 45 normal Not Available [facility] ([facility]) [address], [place], [address], 07/09/2024 10:08:13 07/07/20 24 07/09/2024 VITAM IN B12 AND FOLAT E folate (folic acid), serum 7.0 NG/mL >3.0 normal A serum folat e west ntrat ion of less than 3.1 ng/mL is consi dered to repre sent clini nurys defic iency . Not Available [facility] ([facility]) [address], [place], [address], 07/09/2024 10:08:13 07/07/20 24 07/09/2024 TSH TSH 0.421 uIU/m L 0.450- 4.500 below low normal Not Available [facility] ([facility]) [address], [place], [address], 07/09/2024 10:08:13 07/07/20 24 07/09/2024 VITAM IN [...] jason es for calci um and D. Rik ibarra DC: [facility] . 2. Cate valerio MF, Silvano rojas [place], Kaylan off-F errar i CAMARENA, et al. Evalu ation , treat ment, and preve ntion of vitam in D defic iency : an Endoc rine Socie ty clini nurys pract ice guide line. JCEM. 2010; 96(7) :1911 -30. Not Available [facility] ([facility]) [address], [place], [address], 07/09/2024 10:08:14 07/07/20 24 07/09/2024 HCG QL W/REF PONCE TO HCG QN HCG,beta subunit,qual Negati ve mIU/m L negati ve <6 Not Available [facility] ([facility]) [address], [place], [address], 07/09/2024 10:08:15 08/03/20 24 08/08/2024 TOXAS SURE [...] nurys consu ltati on, pleas e call [phone]. ===== ===== ===== ===== ===== ===== ===== ===== ===== ===== ===== ===== ===== === Not Available [facility] ([facility]) [address] [place], [address], 08/08/2024 12:06:44 08/03/20 24 08/08/2024 TOXAS SURE FLEX 19, UR pdf . Not Available [facility] ([facility]) [address], [place], [address], 08/08/2024 12:06:44 08/03/20 24 08/08/2024 TOXAS SURE FLEX 19, UR creatinine 319 mg/dL REFER ENCE RANGE : Ref Range >=20 Not Available [facility] ([facility]) [address] [place], [address], 08/08/2024 12:06:44 08/03/20 24 08/08/2024 TOXAS SURE FLEX 19, UR amphetamines ia Negati ve NG/mL cutoff :300 Not Available [facility] ([facility]) [address] [place], [address], 08/08/2024 12:06:44 08/03/20 24 08/08/2024 TOXAS SURE FLEX 19, UR benzodiazepi dariel Negati ve Not Available [facility] ([facility]) [address] [place], [address], 08/08/2024 12:06:44 08/03/20 24 08/08/2024 TOXAS SURE FLEX 19, UR diazepam Not Detect ed NG/mg _crea t Not Available [facility] ([facility]) [address] [place], [address], 08/08/2024 12:06:44 08/03/20 24 08/08/2024 TOXAS SURE FLEX 19, UR desmethyldia zepam Not Detect ed NG/mg _crea t Not Available [facility] ([facility]) [address] [place], [address], 08/08/2024 12:06:44 08/03/20 24 08/08/2024 TOXAS SURE FLEX 19, UR oxazepam Not Detect ed NG/mg _crea t Not Available [facility] ([facility]) [address] [place], [address], 08/08/2024 12:06:44 08/03/20 24 08/08/2024 TOXAS SURE [...] gerard Oxaze gerard: None Not Available [facility] ([facility]) [address], [place], [address], 08/08/2024 12:06:44 08/03/20 24 08/08/2024 TOXAS SURE FLEX 19, UR alprazolam Not Detect ed NG/mg _crea t Not Available [facility] ([facility]) [address] [place], [address], 08/08/2024 12:06:44 08/03/20 24 08/08/2024 TOXAS SURE FLEX 19, UR alpha-hydrox yalprazolam Not Detect ed NG/mg _crea t Not Available [facility] ([facility]) [address] [place], [address], 08/08/2024 12:06:44 08/03/20 24 08/08/2024 TOXAS SURE FLEX 19, UR desalkylflur azepam Not Detect ed NG/mg _crea t Not Available [facility] ([facility]) [address] [place], [address], 08/08/2024 12:06:44 08/03/20 24 08/08/2024 TOXAS SURE FLEX 19, UR lorazepam Not Detect ed NG/mg _crea t Not Available [facility] ([facility]) [address] [place], [address], 08/08/2024 12:06:44 08/03/20 24 08/08/2024 TOXAS SURE FLEX 19, UR alpha-hydrox ytriazolam Not Detect ed NG/mg _crea t Not Available [facility] ([facility]) [address], [place], [address], 08/08/2024 12:06:44 08/03/20 24 08/08/2024 TOXAS SURE FLEX 19, UR clonazepam Not Detect ed NG/mg _crea t Not Available [facility] ([facility]) [address] [place], [address], 08/08/2024 12:06:44 08/03/20 24 08/08/2024 TOXAS SURE FLEX 19, UR 7-aminoclona zepam Not Detect ed NG/mg _crea t Not Available [facility] ([facility]) [address] [place], [address], 08/08/2024 12:06:44 08/03/20 24 08/08/2024 TOXAS SURE FLEX 19, UR midazolam Not Detect ed NG/mg _crea t Not Available [facility] ([facility]) [address] [place], [address], 08/08/2024 12:06:44 08/03/20 24 08/08/2024 TOXAS SURE FLEX 19, UR alpha-hydrox ymidazolam Not Detect ed NG/mg _crea t Not Available [facility] ([facility]) [address] [place], [address], 08/08/2024 12:06:44 08/03/20 24 08/08/2024 TOXAS SURE FLEX 19, UR flunitrazepa m Not Detect ed NG/mg _crea t Not Available [facility] ([facility]) [address] [place], [address], 08/08/2024 12:06:44 08/03/20 24 08/08/2024 TOXAS SURE FLEX 19, UR desmethylflu nitrazepam Not Detect ed NG/mg _crea t Not Available [facility] ([facility]) [address] [place], [address], 08/08/2024 12:06:44 08/03/20 24 08/08/2024 TOXAS SURE FLEX 19, UR cocaine metabolite ia Negati ve NG/mL cutoff :150 Not Available [facility] ([facility]) [address] [place], [address], 08/08/2024 12:06:44 08/03/20 24 08/08/2024 TOXAS SURE FLEX 19, UR ethanol biomarkers ia Negati ve NG/mL cutoff :500 Not Available [facility] ([facility]) [address] [place], [address], 08/08/2024 12:06:44 08/03/20 24 08/08/2024 TOXAS SURE FLEX 19, UR cannabinoids ia COMMEN T NG/mL cutoff :20 Furth er testi ng indic ated Not Available [facility] ([facility]) [address] [place], [address], 08/08/2024 12:06:44 08/03/20 24 08/08/2024 TOXAS SURE FLEX 19, UR 6-acetylmorp ciro ia Negati ve NG/mL cutoff :10 Not Available [facility] ([facility]) [address] [place], [address], 08/08/2024 12:06:44 08/03/20 24 08/08/2024 TOXAS SURE FLEX 19, UR opiate class ia Negati ve NG/mL cutoff :100 Not Available [facility] ([facility]) [address] [place], [address], 08/08/2024 12:06:44 08/03/20 24 08/08/2024 TOXAS SURE FLEX 19, UR oxycodone class ia Negati ve NG/mL cutoff :100 Not Available [facility] ([facility]) [address] [place], [address], 08/08/2024 12:06:44 08/03/20 24 08/08/2024 TOXAS SURE FLEX 19, UR methadone ia Negati ve NG/mL cutoff :100 Not Available [facility] ([facility]) [address] [place], [address], 08/08/2024 12:06:44 08/03/20 24 08/08/2024 TOXAS SURE FLEX 19, UR methadone mtb ia Negati ve NG/mL cutoff :100 Not Available [facility] ([facility]) [address] [place], [address], 08/08/2024 12:06:44 08/03/20 24 08/08/2024 TOXAS SURE FLEX 19, UR buprenorphin e ia Negati ve NG/mL cutoff :5.0 Not Available [facility] ([facility]) [address] [place], [address], 08/08/2024 12:06:44 08/03/20 24 08/08/2024 TOXAS SURE FLEX 19, UR fentanyl ia Negati ve NG/mL cutoff :2.0 Not Available [facility] ([facility]) [address] [place], [address], 08/08/2024 12:06:44 08/03/20 24 08/08/2024 TOXAS SURE FLEX 19, UR tapentadol ia Negati ve NG/mL cutoff :200 Not Available [facility] ([facility]) [address] [place] [address], [address], 08/08/2024 12:06:44 08/03/20 24 08/08/2024 TOXAS SURE FLEX 19, UR propoxyphene ia Negati ve NG/mL cutoff :300 Not Available [facility] ([facility]) [address] [place] [address], [address], 08/08/2024 12:06:44 08/03/20 24 08/08/2024 TOXAS SURE FLEX 19, UR tramadol ia Negati ve NG/mL cutoff :200 Not Available [facility] ([facility]) [address] [place], [address], 08/08/2024 12:06:44 08/03/20 24 08/08/2024 TOXAS SURE FLEX 19, UR methylphenid ate ia Commen t NG/mL cutoff :100 Furth er testi ng indic ated Not Available [facility] ([facility]) [address] [place], [address], 08/08/2024 12:06:44 08/03/20 24 08/08/2024 TOXAS SURE FLEX 19, UR barbiturates ia Negati ve NG/mL cutoff :200 Not Available [facility] ([facility]) [address] [place], [address], 08/08/2024 12:06:44 08/03/20 24 08/08/2024 TOXAS SURE FLEX 19, UR phencyclidin e ia Negati ve NG/mL cutoff :25 Not Available [facility] ([facility]) [address] [place], [address], 08/08/2024 12:06:44 08/03/20 24 08/08/2024 TOXAS SURE FLEX 19, UR gabapentin ia Negati ve ug/mL cutoff :1.0 Not Available [facility] ([facility]) [address] [place], [address], 08/08/2024 12:06:44 08/03/20 24 08/08/2024 TOXAS SURE FLEX 19, UR anticonvulsa nts Negati ve Not Available [facility] ([facility]) [address] [place], [address], 08/08/2024 12:06:44 08/03/20 24 08/08/2024 TOXAS SURE FLEX 19, UR pregabalin Not Detect ed Not Available [facility] ([facility]) [address] [place], [address], 08/08/2024 12:06:44 08/03/20 24 08/08/2024 TOXAS SURE FLEX 19, UR carisoprodol ia Negati ve NG/mL cutoff :100 Not Available [facility] ([facility]) [address], [place], [address], 08/08/2024 12:06:44 08/03/20 24 08/08/2024 RICHARDSON YOUNGER DS, MS, UR RFX cannabinoids +POSIT AMY+ Not Available [facility] ([facility]) [address], [place], [address], 08/08/2024 12:06:45 08/03/20 24 08/08/2024 RICHARDSON YOUNGER [...] other krysa karleneoi ds. Not Available [facility] ([facility]) [address], [place], [address], 08/08/2024 12:06:45 08/03/20 24 08/04/2024 TSH TSH 1.040 uIU/m L 0.450- 4.500 normal Not Available [facility] ([facility]) [address] [place], [address], 08/08/2024 12:06:46 08/03/20 24 08/08/2024 METHY LPHEN IDATE , MS, UR RFX sympathomime tics +POSIT AMY+ Not Available [facility] ([facility]) [address] [place], [address], 08/08/2024 12:06:46 08/03/20 24 08/08/2024 METHY LPHEN IDATE , MS, UR RFX methylphenid ate Not Detect ed Not Available [facility] ([facility]) [address] [place], [address], 08/08/2024 12:06:46 08/03/20 24 08/08/2024 METHY LPHEN IDATE , MS, UR RFX ritalinic acid PRESEN T Not Available [facility] ([facility]) [address] [place], [address], 08/08/2024 12:06:46 10/31/1910/31/2024 FE+TI BC+FE R iron bind.cap.(TI BC) 370 ug/dL 250-45 0 normal Not Available [facility] ([facility]) [address] [place], [address], 10/31/2024 11:08:00 10/31/19 25 10/31/2024 FE+TI BC+FE R UIBC 299 ug/dL 131-42 5 normal Not Available [facility] ([facility]) [address] [place], [address], 10/31/2024 11:08:00 10/31/19 25 10/31/2024 FE+TI BC+FE R iron 71 ug/dL 27-159 normal Not Available [facility] ([facility]) [address] [place], [address], 10/31/2024 11:08:00 10/31/19 25 10/31/2024 FE+TI BC+FE R iron saturation 19 % 15-55 normal Not Available [facility] ([facility]) [address] [place], [address], 10/31/2024 11:08:00 10/31/19 25 10/31/2024 FE+TI BC+FE R ferritin 115 NG/mL 15-150 normal Not Available [facility] ([facility]) [address] [place], [address], 10/31/2024 11:08:00 10/31/19 25 10/31/2024 CBC WITH DIFFE RENTI AL/PL ATELE T WBC 7.0 x10e3 /uL 3.4-10 .8 normal Not Available [facility] ([facility]) [address], [place], [address], 10/31/2024 11:08:00 10/31/19 25 10/31/2024 CBC WITH DIFFE RENTI AL/PL ATELE T RBC 4.76 x10e6 /uL 3.77-5 .28 normal Not Available [facility] ([facility]) [address] [place], [address], 10/31/2024 11:08:00 10/31/19 25 10/31/2024 CBC WITH DIFFE RENTI AL/PL ATELE T hemoglobin 13.8 g/dL 11.1-1 5.9 normal Not Available [facility] ([facility]) [address] [place], [address], 10/31/2024 11:08:00 10/31/19 25 10/31/2024 CBC WITH DIFFE RENTI AL/PL ATELE T hematocrit 41.9 % 34.0-4 6.6 normal Not Available [facility] ([facility]) [address] [place], [address], 10/31/2024 11:08:00 10/31/19 25 10/31/2024 CBC WITH DIFFE RENTI AL/PL ATELE T MCV 88 fL 79-97 normal Not Available [facility] ([facility]) [address] [place], [address], 10/31/2024 11:08:00 10/31/19 25 10/31/2024 CBC WITH DIFFE RENTI AL/PL ATELE T MCH 29.0 pg 26.6-3 3.0 normal Not Available [facility] ([facility]) [address], [place], [address], 10/31/2024 11:08:00 10/31/19 25 10/31/2024 CBC WITH DIFFE RENTI AL/PL ATELE T MCHC 32.9 g/dL 31.5-3 5.7 normal Not Available [facility] ([facility]) [address], [place], [address], 10/31/2024 11:08:00 10/31/19 25 10/31/2024 CBC WITH DIFFE RENTI AL/PL ATELE T RDW 12.9 % 11.7-1 5.4 Not Available [facility] ([facility]) [address], [place], [address], 10/31/2024 11:08:00 10/31/19 25 10/31/2024 CBC WITH DIFFE RENTI AL/PL ATELE T platelets 280 x10e3 /uL 150-45 0 normal Not Available [facility] ([facility]) [address] [place], [address], 10/31/2024 11:08:00 10/31/19 25 10/31/2024 CBC WITH DIFFE RENTI AL/PL ATELE T neutrophils 56 % not estab. normal Not Available [facility] ([facility]) [address], [place], [address], 10/31/2024 11:08:00 10/31/19 25 10/31/2024 CBC WITH DIFFE RENTI AL/PL ATELE T lymphs 38 % not estab. normal Not Available [facility] ([facility]) [address] [place], [address], 10/31/2024 11:08:00 10/31/19 25 10/31/2024 CBC WITH DIFFE RENTI AL/PL ATELE T monocytes 6 % not estab. normal Not Available [facility] ([facility]) [address], [place], [address], 10/31/2024 11:08:00 10/31/19 25 10/31/2024 CBC WITH DIFFE RENTI AL/PL ATELE T eos 0 % not estab. normal Not Available [facility] ([facility]) [address], [place], [address], 10/31/2024 11:08:00 10/31/19 25 10/31/2024 CBC WITH DIFFE RENTI AL/PL ATELE T basos 0 % not estab. normal Not Available [facility] ([facility]) [address], [place], [address], 10/31/2024 11:08:00 10/31/19 25 10/31/2024 CBC WITH DIFFE RENTI AL/PL ATELE T immature cells CIAIO LUMITE INJECTOR Not Available [facility] ([facility]) [address], [place], [address], 10/31/2024 11:08:00 10/31/19 25 10/31/2024 CBC WITH DIFFE RENTI AL/PL ATELE T neutrophils (absolute) 3.9 x10e3 /uL 1.4-7. 0 normal Not Available [facility] ([facility]) [address] [place], [address], 10/31/2024 11:08:00 10/31/19 25 10/31/2024 CBC WITH DIFFE RENTI AL/PL ATELE T lymphs (absolute) 2.7 x10e3 /uL 0.7-3. 1 normal Not Available [facility] ([facility]) [address] [place], [address], 10/31/2024 11:08:00 10/31/19 25 10/31/2024 CBC WITH DIFFE RENTI AL/PL ATELE T monocytes(ab solute) 0.4 x10e3 /uL 0.1-0. 9 normal Not Available [facility] ([facility]) [address], [place], [address], 10/31/2024 11:08:00 10/31/19 25 10/31/2024 CBC WITH DIFFE RENTI AL/PL ATELE T eos (absolute) 0.0 x10e3 /uL 0.0-0. 4 normal Not Available [facility] ([facility]) [address], [place], [address], 10/31/2024 11:08:00 10/31/19 25 10/31/2024 CBC WITH DIFFE RENTI AL/PL ATELE T baso (absolute) 0.0 x10e3 /uL 0.0-0. 2 normal Not Available [facility] ([facility]) [address], [place], [address], 10/31/2024 11:08:00 10/31/19 25 10/31/2024 CBC WITH DIFFE RENTI AL/PL ATELE T immature granulocytes 0 % not estab. Not Available [facility] ([facility]) [address], [place], [address], 10/31/2024 11:08:00 10/31/19 25 10/31/2024 CBC WITH DIFFE RENTI AL/PL ATELE T immature grans (abs) 0.0 x10e3 /uL 0.0-0. 1 Not Available [facility] ([facility]) [address] [place], [address], 10/31/2024 11:08:00 10/31/19 25 10/31/2024 CBC WITH DIFFE RENTI AL/PL ATELE T NRBC CIAIO LUMITE INJECTOR Not Available [facility] ([facility]) [address], [place], [address], 10/31/2024 11:08:00 10/31/19 25 10/31/2024 CBC WITH DIFFE RENTI AL/PL ATELE T hematology comments: CIAIO LUMITE INJECTOR Not Available [facility] ([facility]) [address] [place], [address], 10/31/2024 11:08:00 10/31/19 25 10/31/2024 COMP. METAB OLIC PANEL (14) glucose 90 mg/dL 70-99 normal Not Available [facility] ([facility]) [address] [place], [address], 10/31/2024 11:08:01 10/31/19 25 10/31/2024 COMP. METAB OLIC PANEL (14) BUN 8 mg/dL 6-20 normal Not Available [facility] ([facility]) [address] [place], [address], 10/31/2024 11:08:01 10/31/19 25 10/31/2024 COMP. METAB OLIC PANEL (14) creatinine 0.68 mg/dL 0.57-1 .00 normal Not Available [facility] ([facility]) [address] [place], [address], 10/31/2024 11:08:01 10/31/19 25 10/31/2024 COMP. METAB OLIC PANEL (14) eGFR 120 mL/mi n/1.7 3 >59 normal Not Available [facility] ([facility]) [address] [place], [address], 10/31/2024 11:08:01 10/31/19 25 10/31/2024 COMP. METAB OLIC PANEL (14) BUN/creatini ne ratio 12 9-23 normal Not Available [facility] ([facility]) [address] [place], [address], 10/31/2024 11:08:01 10/31/19 25 10/31/2024 COMP. METAB OLIC PANEL (14) sodium 140 mmol/ L 134-14 4 normal Not Available [facility] ([facility]) [address] [place], [address], 10/31/2024 11:08:01 10/31/19 25 10/31/2024 COMP. METAB OLIC PANEL (14) potassium 4.1 mmol/ L 3.5-5. 2 normal Not Available [facility] ([facility]) [address], [place], [address], 10/31/2024 11:08:01 10/31/19 25 10/31/2024 COMP. METAB OLIC PANEL (14) chloride 104 mmol/ L 96-106 normal Not Available [facility] ([facility]) [address], [place], [address], 10/31/2024 11:08:01 10/31/19 25 10/31/2024 COMP. METAB OLIC PANEL (14) carbon dioxide, total 22 mmol/ L 20-29 normal Not Available [facility] ([facility]) [address], [place], [address], 10/31/2024 11:08:01 10/31/19 25 10/31/2024 COMP. METAB OLIC PANEL (14) calcium 9.0 mg/dL 8.7-10 .2 normal Not Available [facility] ([facility]) [address], [place], [address], 10/31/2024 11:08:01 10/31/19 25 10/31/2024 COMP. METAB OLIC PANEL (14) protein, total 7.3 g/dL 6.0-8. 5 normal Not Available [facility] ([facility]) [address], [place], [address], 10/31/2024 11:08:01 10/31/19 25 10/31/2024 COMP. METAB OLIC PANEL (14) albumin 4.4 g/dL 4.0-5. 0 normal Not Available [facility] ([facility]) [address] [place], [address], 10/31/2024 11:08:01 10/31/19 25 10/31/2024 COMP. METAB OLIC PANEL (14) globulin, total 2.9 g/dL 1.5-4. 5 Not Available [facility] ([facility]) [address] [place], [address], 10/31/2024 11:08:01 10/31/19 25 10/31/2024 COMP. METAB OLIC PANEL (14) bilirubin, total 0.2 mg/dL 0.0-1. 2 normal Not Available [facility] ([facility]) [address] [place], [address], 10/31/2024 11:08:01 10/31/19 25 10/31/2024 COMP. METAB OLIC PANEL (14) alkaline phosphatase 94 IU/L 44-121 normal Not Available [facility] ([facility]) [address] [place], [address], 10/31/2024 11:08:01 10/31/19 25 10/31/2024 COMP. METAB OLIC PANEL (14) AST (SGOT) 33 IU/L 0-40 normal Not Available [facility] ([facility]) [address] [place], [address], 10/31/2024 11:08:01 10/31/19 25 10/31/2024 COMP. METAB OLIC PANEL (14) ALT (SGPT) 35 IU/L 0-32 above high normal Not Available [facility] ([facility]) [address] [place], [address], 10/31/2024 11:08:01 10/31/19 25 10/31/2024 LIPID PANEL cholesterol, total 165 mg/dL 100-19 9 normal Not Available [facility] ([facility]) [address] [place], [address], 10/31/2024 11:08:01 10/31/19 25 10/31/2024 LIPID PANEL triglyceride s 203 mg/dL 0-149 above high normal Not Available [facility] ([facility]) [address] [place], [address], 10/31/2024 11:08:01 10/31/19 25 10/31/2024 LIPID PANEL HDL cholesterol 39 mg/dL >39 below low normal Not Available [facility] ([facility]) [address] [place], [address], 10/31/2024 11:08:01 10/31/19 25 10/31/2024 LIPID PANEL VLDL cholesterol nurys 35 mg/dL 5-40 Not Available [facility] ([facility]) [address] [place], [address], 10/31/2024 11:08:01 10/31/19 25 10/31/2024 LIPID PANEL LDL chol calc ([facility]) 91 mg/dL 0-99 Not Available [facility] ([facility]) [address] [place], [address], 10/31/2024 11:08:01 10/31/19 25 10/31/2024 LIPID PANEL LDL calc comment: CIAIO LUMITE INJECTOR Not Available [facility] ([facility]) [address] [place], [address], 10/31/2024 11:08:01 10/31/19 25 10/31/2024 VITAM IN B12 AND FOLAT E vitamin B12 406 pg/mL 232-12 45 normal Not Available [facility] ([facility]) [address] [place], [address], 10/31/2024 11:08:01 10/31/19 25 10/31/2024 VITAM IN B12 AND FOLAT E folate (folic acid), serum 11.2 NG/mL >3.0 normal A serum folat e west ntrat ion of less than 3.1 ng/mL is consi dered to repre sent clini nurys defic iency . Not Available [facility] ([facility]) [address] [place], [address], 10/31/2024 11:08:01 10/31/19 25 10/31/2024 TSH TSH 0.828 uIU/m L 0.450- 4.500 normal Not Available [facility] ([facility]) [address], [place], [address], 10/31/2024 11:08:02 10/31/19 25 10/31/2024 VITAM IN [...] um and D. Rik ibarra DC: [facility] . 2. Cate valerio MF, Silvano rojas [place], Kaylan off-F errar i CAMARENA, et al. Evalu ation , treat ment, and preve ntion of vitam in D defic iency : an Endoc rine Socie ty clini nurys pract ice guide line. JCEM. 2010; 96(7) :1911 -30. Not Available [facility] ([facility]) [address], [place], [address], 10/31/2024 11:08:02 01/01/20 25 01/06/2025 TOXAS SURE [...] nurys consu ltati on, pleas e call . ===== ===== ===== ===== ===== ===== ===== ===== ===== ===== ===== ===== ===== === Not Available [facility] ([facility]) [address] [place], [address], 01/06/2025 18:08:08 01/01/20 25 01/06/2025 TOXAS SURE FLEX 19, UR pdf . Not Available [facility] ([facility]) [address] [place], [address], 01/06/2025 18:08:08 01/01/2001/06/2025 TOXAS SURE FLEX 19, UR creatinine 308 mg/dL >=20 REFER ENCE RANGE : Ref Range >=20 Not Available [facility] ([facility]) [address] [place], [address], 01/06/2025 18:08:08 01/01/2001/06/2025 TOXAS SURE FLEX 19, UR amphetamines ia Negati ve NG/mL cutoff :300 Not Available [facility] ([facility]) [address] [place], [address], 01/06/2025 18:08:08 01/01/20 25 01/06/2025 TOXAS SURE FLEX 19, UR benzodiazepi dariel Negati ve Not Available [facility] ([facility]) [address] [place], [address], 01/06/2025 18:08:08 01/01/20 25 01/06/2025 TOXAS SURE FLEX 19, UR diazepam Not Detect ed NG/mg _crea t Not Available [facility] ([facility]) [address] [place], [address], 01/06/2025 18:08:08 01/01/20 25 01/06/2025 TOXAS SURE FLEX 19, UR desmethyldia zepam Not Detect ed NG/mg _crea t Not Available [facility] ([facility]) [address] [place], [address], 01/06/2025 18:08:08 01/01/20 25 01/06/2025 TOXAS SURE FLEX 19, UR oxazepam Not Detect ed NG/mg _crea t Not Available [facility] ([facility]) [address] [place], [address], 01/06/2025 18:08:08 01/01/20 25 01/06/2025 TOXAS SURE [...] gerard Oxaze gerard: None Not Available [facility] ([facility]) [address] [place], [address], 01/06/2025 18:08:08 01/01/20 25 01/06/2025 TOXAS SURE FLEX 19, UR alprazolam Not Detect ed NG/mg _crea t Not Available [facility] ([facility]) [address] [place], [address], 01/06/2025 18:08:08 01/01/20 25 01/06/2025 TOXAS SURE FLEX 19, UR alpha-hydrox yalprazolam Not Detect ed NG/mg _crea t Not Available [facility] ([facility]) [address] [place], [address], 01/06/2025 18:08:08 01/01/20 25 01/06/2025 TOXAS SURE FLEX 19, UR desalkylflur azepam Not Detect ed NG/mg _crea t Not Available [facility] ([facility]) [address], [place], [address], 01/06/2025 18:08:08 01/01/20 25 01/06/2025 TOXAS SURE FLEX 19, UR lorazepam Not Detect ed NG/mg _crea t Not Available [facility] ([facility]) [address] [place], [address], 01/06/2025 18:08:08 01/01/20 25 01/06/2025 TOXAS SURE FLEX 19, UR alpha-hydrox ytriazolam Not Detect ed NG/mg _crea t Not Available [facility] ([facility]) [address] [place], [address], 01/06/2025 18:08:08 01/01/20 25 01/06/2025 TOXAS SURE FLEX 19, UR clonazepam Not Detect ed NG/mg _crea t Not Available [facility] ([facility]) [address] [place], [address], 01/06/2025 18:08:08 01/01/20 25 01/06/2025 TOXAS SURE FLEX 19, UR 7-aminoclona zepam Not Detect ed NG/mg _crea t Not Available [facility] ([facility]) [address] [place], [address], 01/06/2025 18:08:08 01/01/20 25 01/06/2025 TOXAS SURE FLEX 19, UR midazolam Not Detect ed NG/mg _crea t Not Available [facility] ([facility]) [address] [place], [address], 01/06/2025 18:08:08 01/01/20 25 01/06/2025 TOXAS SURE FLEX 19, UR alpha-hydrox ymidazolam Not Detect ed NG/mg _crea t Not Available [facility] ([facility]) [address] [place], [address], 01/06/2025 18:08:08 01/01/20 25 01/06/2025 TOXAS SURE FLEX 19, UR flunitrazepa m Not Detect ed NG/mg _crea t Not Available [facility] ([facility]) [address] [place], [address], 01/06/2025 18:08:08 01/01/20 25 01/06/2025 TOXAS SURE FLEX 19, UR desmethylflu nitrazepam Not Detect ed NG/mg _crea t Not Available [facility] ([facility]) [address] [place], [address], 01/06/2025 18:08:08 01/01/20 25 01/06/2025 TOXAS SURE FLEX 19, UR cocaine metabolite ia Negati ve NG/mL cutoff :150 Not Available [facility] ([facility]) [address] [place], [address], 01/06/2025 18:08:08 01/01/20 25 01/06/2025 TOXAS SURE FLEX 19, UR ethanol biomarkers ia Negati ve NG/mL cutoff :500 Not Available [facility] ([facility]) [address] [place], [address], 01/06/2025 18:08:08 01/01/20 25 01/06/2025 TOXAS SURE FLEX 19, UR cannabinoids ia COMMEN T NG/mL cutoff :20 Furth er testi ng indic ated Not Available [facility] ([facility]) [address] [place], [address], 01/06/2025 18:08:08 01/01/20 25 01/06/2025 TOXAS SURE FLEX 19, UR 6-acetylmorp ciro ia Negati ve NG/mL cutoff :10 Not Available [facility] ([facility]) [address] [place], [address], 01/06/2025 18:08:08 01/01/20 25 01/06/2025 TOXAS SURE FLEX 19, UR opiate class ia Negati ve NG/mL cutoff :100 Not Available [facility] ([facility]) [address] [place], [address], 01/06/2025 18:08:08 01/01/20 25 01/06/2025 TOXAS SURE FLEX 19, UR oxycodone class ia Negati ve NG/mL cutoff :100 Not Available [facility] ([facility]) [address] [place], [address], 01/06/2025 18:08:08 01/01/20 25 01/06/2025 TOXAS SURE FLEX 19, UR methadone ia Negati ve NG/mL cutoff :100 Not Available [facility] ([facility]) [address] [place], [address], 01/06/2025 18:08:08 01/01/20 25 01/06/2025 TOXAS SURE FLEX 19, UR methadone mtb ia Negati ve NG/mL cutoff :100 Not Available [facility] ([facility]) [address] [place], [address], 01/06/2025 18:08:08 01/01/20 25 01/06/2025 TOXAS SURE FLEX 19, UR buprenorphin e ia Negati ve NG/mL cutoff :5.0 Not Available [facility] ([facility]) [address] [place], [address], 01/06/2025 18:08:08 01/01/20 25 01/06/2025 TOXAS SURE FLEX 19, UR fentanyl ia Negati ve NG/mL cutoff :2.0 Not Available [facility] ([facility]) [address] [place], [address], 01/06/2025 18:08:08 01/01/20 25 01/06/2025 TOXAS SURE FLEX 19, UR tapentadol ia Negati ve NG/mL cutoff :200 Not Available [facility] ([facility]) [address] [place], [address], 01/06/2025 18:08:08 01/01/20 25 01/06/2025 TOXAS SURE FLEX 19, UR propoxyphene ia Negati ve NG/mL cutoff :300 Not Available [facility] ([facility]) [address] [place], [address], 01/06/2025 18:08:08 01/01/20 25 01/06/2025 TOXAS SURE FLEX 19, UR tramadol ia Negati ve NG/mL cutoff :200 Not Available [facility] ([facility]) [address] [place], [address], 01/06/2025 18:08:08 01/01/20 25 01/06/2025 TOXAS SURE FLEX 19, UR methylphenid ate ia COMMEN T NG/mL cutoff :100 Furth er testi ng indic ated Not Available [facility] ([facility]) [address] [place], [address], 01/06/2025 18:08:08 01/01/20 25 01/06/2025 TOXAS SURE FLEX 19, UR barbiturates ia Negati ve NG/mL cutoff :200 Not Available [facility] ([facility]) [address] [place], [address], 01/06/2025 18:08:08 01/01/20 25 01/06/2025 TOXAS SURE FLEX 19, UR phencyclidin e ia Negati ve NG/mL cutoff :25 Not Available [facility] ([facility]) [address] [place], [address], 01/06/2025 18:08:08 01/01/20 25 01/06/2025 TOXAS SURE FLEX 19, UR gabapentin ia Negati ve ug/mL cutoff :1.0 Not Available [facility] ([facility]) [address] [place], [address], 01/06/2025 18:08:08 01/01/20 25 01/06/2025 TOXAS SURE FLEX 19, UR anticonvulsa nts Negati ve Not Available [facility] ([facility]) [address] [place], [address], 01/06/2025 18:08:08 01/01/20 25 01/06/2025 TOXAS SURE FLEX 19, UR pregabalin Not Detect ed Not Available [facility] ([facility]) [address] [place], [address], 01/06/2025 18:08:08 01/01/20 25 01/06/2025 TOXAS SURE FLEX 19, UR carisoprodol ia Negati ve NG/mL cutoff :100 Not Available [facility] ([facility]) [address] [place], [address], 01/06/2025 18:08:08 01/01/20 25 01/06/2025 CANNA KARLENEOI DS, MS, UR RFX cannabinoids +POSIT AMY+ Not Available [facility] ([facility]) [address] [place], [address], 01/06/2025 18:08:09 01/01/20 25 01/06/2025 RICHARDSON YOUNGER [...] other richardson younger ds. Not Available [facility] ([facility]) [address], [place], [address], 01/06/2025 18:08:09 01/01/20 25 01/06/2025 METHY LPHEN IDATE , MS, UR RFX sympathomime tics +POSIT AMY+ Not Available [facility] ([facility]) [address], [place], [address], 01/06/2025 18:08:09 01/01/20 25 01/06/2025 METHY LPHEN IDATE , MS, UR RFX methylphenid ate Not Detect ed Not Available [facility] ([facility]) [address], [place], [address], 01/06/2025 18:08:09 01/01/20 25 01/06/2025 METHY LPHEN IDATE , MS, UR RFX ritalinic acid PRESEN T Not Available [facility] ([facility]) [address] [place], [address], 01/06/2025 18:08:09 11/18/19 25 11/10/2024 MRI, knee, w/o contr ast No observ ation record ed. [facility] ([facility]) [address], [place], [address], 11/17/2024 11:34:12 05/26/2005/26/2025 XR, chest , 2 view No observ ation record ed. [address], [place], [address], 05/27/2025 12:09:22 05/26/2005/26/2025 CT, angio gram, chest , w/wo contr ast No observ ation record ed. [address], [place], [address], 05/27/2025 12:10:09 05/26/2005/26/2025 US, echoc ardio gram No observ ation record ed. [address], [place], [address], 05/27/2025 12:10:30 05/28/20 25 05/26/2025 elect rocar diogr am, routi ne ECG, 12 leads min No observ ation record ed. [address], [place], [address], 05/31/2025 10:13:57 05/28/20 25 05/26/2025 elect rocar diogr am, routi ne ECG, 12 leads min No observ ation record ed. [address], [place], [address], 05/31/2025 10:13:38 05/28/2005/27/2025 elect rocar diogr am No observ ation record ed. [address], [place], [address], 05/31/2025 08:34:12 05/30/20 25 05/29/2025 XR, chest No observ ation record ed. [address], [place], [address], 05/31/2025 08:34:27 05/31/2005/31/2025 , echo ardio gram No observ ation record ed. [email or web address] [facility] [address], [place], [address], 06/01/2025 08:13:52 06/03/20 25 05/29/2025 rosita berg am No observ ation record ed. [email or web address] [facility] [address], [place], [address], 06/03/2025 11:52:29 Result Notes None recorded. Problems Name Problem SNOMED Code Status Onset Date Resolution Date Notes Provider Name and Address Organization Details Recorded Time Bipolar disorder 82326905 Active 2023 TANK Arango [address] [place] [address], [address], [employer] 15:16:30 Attention deficit hyperactivi ty disorder, predominant ly inattentive type 87305316 Active 2023 TANK Arango [address] [place] [address], 789[address]-827 8, [employer] 15:16:24 Vitamin D deficiency 98701094 Active 2023 TANK Arango [address] [place] [address], 25803-[address] 8, [employer] 15:16:33 Iron deficiency anemia 50121318 Active 2023 TANK Arango [address] [place] [address], 98756-493 8, [employer] 15:16:39 Generalized anxiety disorder 63831387 Active 2023 TNAK Arango [address] [place] [address], 13213-190 8, [employer] 4 15:16:35 Post-trauma tic stress disorder 78227232 Active 2023 TANK Arango [address] [place] [address], 04320-155 8, [employer] 4 15:16:42 Vertigo 098525727 Active 2023 TANK Arango [address] [place] [address], 73305-517 8, [employer] 4 15:31:47 Insomnia 959906315 Active 2023 TANK Arango [address] [place] [address], 89200-677 8, [place] [employer] 4 13:19:43 Pain in bilateral feet 3816643877453 9102 Active 2024 TANK Arango [address] [place] [address], 77916-216 8, [employer] 5 13:58:03 Migraine without aura, not refractory 926230206 Active 2024 TANK Arango [address] [place] [address], 50558-343 8, [employer] 5 14:09:19 Irritable bowel syndrome with diarrhea 336225447 Active 2024 TANK Arango [address] [place] [address], 34912-379 8, [employer] 5 14:09:33 Dysfunction of bilateral eustachian tubes 7531362517630 100 Active 2024 TANK Arango [address] [place] [address], 06718-110 8, [employer] 5 14:11:45 Problem Notes None recorded. Procedures Surgical History Date Name Laterality Status Provider Name and Address Organization Details Recorded Time Gallbladder Surgery completed [facility] 06/05/2024 14:41:59 Caesarean Section completed [facility] [employer] 06/05/2024 14:42:11 Imaging Results None recorded. Procedure Notes None recorded. Medical Equipment None Reported. Allergies Allergen ID Allergen Name Allergen Category Reaction Reaction Severity Criticality Documentation Date Start Date Code Code System Note Provider Name and Address Organization Details Recorded Time 99855 morphine medicatio n Not available Not available Not available 06/05/2024 7052 RxNorm Katjatanya [place], [facility] [employer], [facility]. 14:29:38 Medications Name Sig Start Date Stop [...] Avai lable prednisone 20 mg tablet TAKE TWO TABLETS BY MOUTH EVERY DAY FOR 3 DAYS, THEN TAKE ONE TABLET EVERY DAY FOR 5 DAYS, THEN TAKE 1/2 TABLET EVERY DAY FOR 5 DAYS active Not Available Not Available No t Available meloxicam 7.5 mg tablet TAKE 1 TABLET BY MOUTH EVERY DAY FOR PAIN FOR 30 DAYS 06/05 completed Not Available Not Available Not Available isosorbide mononitrate ER 60 mg tablet,exte nded release 24 hr TAKE ONE TABLET BY MOUTH EVERY DAY active Not Available Not Available No t Available amoxicillin 875 mg tablet TAKE 1 TABLET BY MOUTH TWICE A DAY UNTIL FINISHED 06/05 completed Not Available Not Available Not Available temazepam 15 mg capsule TAKE 1 CAPSULE BY MOUTH NIGHTLY AT BEDTIME 06/05 completed Not Available Not Available Not Available pantoprazol e 40 mg tablet,braydon yed release TAKE ONE TABLET BY MOUTH EVERY DAY AT BEDTIME active Not Available Not Available No t Available mirtazapine 30 mg tablet TAKE 1 [...] Not Available Not Available No t Available indomethaci n 25 mg capsule TAKE TWO CAPSULES BY MOUTH THREE TIMES DAILY with meals active Not Available Not Available No t Available Advair Diskus 500 mcg-50 mcg/dose powder for inhalation INHALE 1 PUFF BY MOUTH TWICE DAILY --RINSE MOUTH AFTER USE-- active Not Available Not Available No t Available nitroglycer in 0.4 mg sublingual tablet DISSOLVE 1 TABLET UNDER THE TONGUE EVERY 5 MINUTES NEEDED FOR CHEST PAIN. DO NOT EXCEED A TOTAL OF 3 DOSES IN 15 MINUTES. IF NO RELIEF AFTER 3 DOSES CALL 911/GO TO ER active Not Available Not Available No t [...] completed Not Available Not Available Not Available colchicine 0.6 mg tablet TAKE ONE TABLET BY MOUTH TWICE DAILY active Not Available Not Available No t Available bromphenira mine-pseudo ephedrine-D M 2 mg-30 [...] Not Available Not Available Not Avai lable Ventolin HFA 90 mcg/actuati on aerosol inhaler INHALE TWO PUFFS BY MOUTH FOUR TIMES DAILY NEEDED active Not Available Not Available No t Available hydroxyzine pamoate 25 mg capsule Take 1 [...] Updated DateTime 5 165.1 cm 43.1 kg/m2 356179. 42 g 98 % 98 % 100 /min 98.3 [degF] 122/80 mm[Hg] [facility] [employer], [facility]. 5 13:19:07 Date Recorded Body height Body mass index (BMI) Body weight Body temperature Heart rate Oxygen saturation Oxygen saturation in Arterial blood by Pulse oximetry Systolic And Diastolic Provider Name and Address Organization Details Last Updated DateTime 5 165.1 cm 42.3 kg/m2 853266. 86 g 98.5 [degF] 79 /min 96 % 96 % 121/76 mm[Hg] Lucía Healy [email or web address]. 5 13:03:47 Date Recorded Body height Body mass index (BMI) Body weight Heart rate Oxygen saturation Oxygen saturation in Arterial blood by Pulse oximetry Body temperature Systolic And Diastolic Provider Name and Address Organization Details Last Updated DateTime 5 165.1 cm 41.7 kg/m2 193834. 97 g 88 /min 98 % 98 % 98.4 [degF] 114/80 mm[Hg] Katja [email or web address] 5 13:50:47 Date Recorded Body height Body mass index (BMI) Body weight Oxygen saturation Oxygen saturation in Arterial blood by Pulse oximetry Heart rate Systolic And Diastolic Provider Name and Address Organization Details Last Updated DateTime 4 165.1 cm 43.2 kg/m2 605012. 58 g 96 % 96 % 82 /min 113/73 mm[Hg] Katja Barbour [email or web address]. 4 15:11:48 Date Recorded Body height Body mass index (BMI) Body weight Oxygen saturation Oxygen saturation in Arterial blood by Pulse oximetry Heart rate Systolic And Diastolic Provider Name and Address Organization Details Last Updated DateTime 4 165.1 cm 42.2 kg/m2 229620. 31 g 98 % 98 % 86 /min 123/63 mm[Hg] Katja [email or web address] 4 13:01:21 Social History Question Answer Notes LastModified by Organizat ion Details LastModified Time Tobacco Smoking Status Former Smoker Katja Barbour [employer]. 06/05/2024 14:38:45 Do You Have An Advance [...] Or The Highest Degree You Have Received? [id number] Information not available 06/05/2024 Who Is Your Employer? [employer] Information not available 06/05/2024 Have There Been Any Changes To Your Family Or Social Situation? No Information no t available 06/05/2024 When Did You Quit Smoking? 1-5yearssincel astcigarette Information not available 06/05/2024 Are There Any Guns Present In Your Home? No Information not available 06/05/2024 Which Of Your Hands Is Dominant? Right Information not available 06/05/2024 Do You Have A Medical Power Of Lobby Porter? No Information not available 06/05/2024 What Was [...] Functional Status Question Answer Note LastModified by [employer] Details LastModified Time Do you use any [...] Mental Status Question Answer Note LastModified by [employer] ion Details LastModified Time Do you feel stressed (tense, restless, nervous, or anxious, or unable to sleep at night)? [id number] Information not available 06/05/2024 Do you have [...] Lung Disease N COPD N Depression Y Dermatologic Disorders N Hypothyroidism N Defects or Inherited Disease [...] Recorded Time Tdap 4 completed TANK Arango [address] [place] [address], [address], [employer] 08/03/2024 14:27:57 MMR 8 completed Katja Vice null, [employer] 08/03/2024 12:59:13 varicella 9 completed Katja Vice null, [employer] 08/03/2024 12:59:13 OPV, trivalent 8 completed Katja Vice null, [employer] 08/03/2024 12:59:13 HPV, quadrivalent 7 completed Katja Vice null, [employer] 08/03/2024 12:59:13 Td (adult), 2 Lf tetanus toxoid, preservative free, adsorbed 5 completed Katja Vice null, [employer] 08/03/2024 12:59:13 DTaP, unspecified formulation 6 completed Katja Vice null, [employer] 08/03/2024 12:59:13 DTaP, unspecified formulation 8 completed Katja Vice null, [employer] 08/03/2024 12:59:13 Past Encounters Encounter ID Performer Location Encounter Start Date Encounter Closed Date Diagnosis/Indication Diagnosis SNOMED-CT Code Diagnosis ICD10 Code Diagnosis IMO Codes Diagnosis Note [id number] TANK Arango [facility] [address] [place] [address] 2 06/05/2024 14:12:54 06/05/2024 15:07:03 Bipolar disorder 08788926 F31.9 Restart Caplyta and [employer] packet givenSpoke at length about PHQ/[place] screen and she states that she has no intention of ever acting on the intrusive thoughts, but would like to seek more treatment to get them to stop Counseling 462531565 Z71 .9 Attention deficit hyperactivity disorder, 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 Vitamin D deficiency 347 22173 E55.9 Iron defic iency anemia 31674305 D50.9 Generalize d anxiety disorder 05729172 F41.1 Post-traum atic stress disorder 55830389 F43.10 [id number] TANK Arango [address] [address] 06/26/2024 14:38:23 06/26/2024 16:17:44 Vertigo 679431420 R42 [id number] TANK Arango [facility] [address] [place] [address] 08/03/2024 12:50:35 08/03/2024 13:51:18 Thyroid stimulating hormone level below reference range 814900977 R94.6 Insomnia 704268910 G47.0 0 Generalize d anxiety disorder 14966405 F41.1 Body mass index 40+ - severely obese 246862940 Z68.41 Administra tion of diphtheria, pertussis, and tetanus vaccine 190563467 Z23 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 for attention deficit hyperactivity disorder 8497698866 51618 Z79.899 Gynecologi c examination 05302807 Z01.419 Adult heal th examination 337599951 Z00.00 [id number] TANK Arango [address] [address] 10/30/2024 12:47:01 10/30/2024 13:57:33 Attention deficit hyperactivity disorder, predominantly inattentive type 25624840 F90.0 Bipolar disorder 8900612 4 F31.9 Generalize d anxiety disorder 80581989 F41.1 Iron defic iency anemia 73969535 D50.9 Post-traum atic stress disorder 19939196 F43.10 Vitamin D deficiency 347 66282 E55.9 Pain in bi lateral feet 7830104740 0604609 M79.671 M79.672 Instabilit y of joint of left knee 6832931372 560199 M25.362 Vertigo 488523634 R42 Body mass index 40+ - severely obese 581751372 Z68.41 [id number] Kimberly Avalos [address] [address] 12/31/2024 12:37:59 12/31/2024 13:24:43 Long-term current use of drug therapy 676955636 Z79.899 75848504 Bipolar disorder 9682383 4 F31.9 Attention deficit hyperactivity disorder, predominantly inattentive type 77182812 F90.[address] Hale ure done today Generalize d anxiety disorder 88730795 F41.1 Post-traum atic stress disorder 36918663 F43.10 Iron defic iency anemia 65192043 D50.9 Vitamin D deficiency 347 48258 E55.9 Insomnia 288306435 G47.0 0 [id number] Kimberly Avalos [address] [address] 04/15/2025 13:40:23 04/15/2025 15:33:50 Migraine without aura, not refractory 931366932 G43.035 1153364 Irritable bowel syndrome with diarrhea 692839494 K58.0 318551 Dysfunctio n of bilateral eustachian tubes 1697186909 360453 H69.93 82010046 Bipolar disorder 4571609 4 F31.9 Vitamin D deficiency 347 99100 E55.9 Iron defic iency anemia 54004923 D50.9 Generalize d anxiety disorder 56149856 F41.1 Insomnia 143772990 G47.0 0 Health Concerns Section Related Observation LastModified by Organization Detai ls LastModified Time None Recorded Concern Status LastModified by Organization Details LastModified Time None Recorded Advance Directives Directive N: Payers Insurance Date Sequence Insurance Name Policy Number Policy Bean Covered Member ID Bean Member ID Guarantor Name 06/04/2025 1 [facility] [facility] [place]) Karlene Martinez [id number] Karlene Juan 10/30/2024 1 [place] [id number] Karlene Martinez [id number] Karlene Martinez Notes Date Note Type Note [...] doesn't. Family history of diabetes. TANK Arango [address] [place] [address], [address], [employer]. 06/26/2024 17:38:21 08/03/2024 text/html Patient presents for followup on ADHD. States Concerta is working well. Denies side effects. Due for refills.Anxiety is better at times, but is not sleeping well. Due for refills on hydroxyzine. Would like to increase Remeron.Needs repeat TSH due to abnormal TSH last visit. TANK Arango [address] [place], [address], [employer] 08/03/2024 14:30:48 10/30/2024 text/html ROS as [...] just collapsed. No injury. TANK Arango [address] [place], [address], [employer], [employer]. 11/03/2024 09:51:09 12/31/2024 text/html ROS as noted [...] distractions and makes mistakes. TANK Arango [address] [place], [address], [employer], [employer]. 12/31/2024 16:19:51 04/15/2025 text/html ROS as noted [...] migraine which sometimes helps. TANK Arango [address] [place], [address], [employer] 04/15/2025 16:31:06 OBGyn Episode No OBEpisode recorded.
--- OUTSIDE RECORDS SUMMARY | 2025-06-06 21:39 | XMS_ITS | Continuity of Care Document ---
Author Organization [place] [facility] [email or web address], [employer] [facility] Address [address] [place] [address] Assessment No assessment recorded. Plan of Treatment Reminders Order Date Submit Date Provider Last Modified By Organization Details Last Modified Time Details Appointments FOLLOW UP 2024 10:00A Brea Avalos PA-C Not available Not available Not available FOLLOW UP 2024 01:00P Brea Avalos PA-C Not available Not available Not available Lab None recorded. Referral None recorded. Procedures None recorded. Surgeries None recorded. Imaging None recorded. Medication Orders Imitrex 100 mg tablet 2024 025 [facility] #3016, [address] [place], [address], 04/15/2025 14:12:45 Xifaxan 550 mg tablet 2024 025 [facility] #3016, [address] [place], [address], 05/06/2025 05:01:23 mirtazapi ne 30 mg tablet 2024 025 [facility] #3016, [address] [place], [address], 04/15/2025 14:29:42 Caplyta 42 mg capsule 2024 025 [facility] #3016, [address] [place], [address], 04/15/2025 14:29:41 desvenlaf axine succinate ER 50 mg tablet,ex tended release 24 hr 2024 025 [facility] [address] [place], [address], 04/15/2025 14:29:41 Xyzal 5 mg tablet 2024 025 [facility] [address] [place] [address], [address], 04/15/2025 14:12:44 hydroxyzi ne pamoate 25 mg capsule 2024 025 [facility] [address] [place] [address], [address], 04/15/2025 14:29:41 cholecalc iferol (vitamin D3) 125 mcg (5,000 unit) capsule 2024 025 [facility] [address] [place] [address], [address], 04/15/2025 14:29:41 ergocalci ferol (vitamin D2) 1,250 mcg (50,000 unit) capsule 2024 025 [facility] [address] [place] [address], [address], 04/15/2025 14:29:41 ferrous sulfate 324 mg (65 mg iron) tablet,de layed release 2024 025 [facility] [address] [place] [address], [address], 04/15/2025 14:29:40 Patient TargetsNo targets recorded. Patient InstructionsNo instructions recorded. Reason for Referral None Reported. Results Created Date Observation Date Name Description Value Unit Range Abnormal Flag Note LastModifiedBy Organization Detail LastModifiedTime 05/26/20 25 05/26/2025 XR, chest , 2 view No observ ation record ed. [email or web address] [facility] [address], [place], [address], 05/27/2025 12:09:22 05/26/20 25 05/26/2025 CT, angio gram, chest , w/wo contr ast No observ ation record ed. [address], [place], [address], 05/27/2025 12:10:09 05/26/20 25 05/26/2025 US, echoc ardio gram No observ ation record ed. [place] [address], [place], [address], 05/27/2025 12:10:30 05/28/20 25 05/26/2025 elect rocar diogr am, routi ne ECG, 12 leads min No observ ation record ed. [address], [place], [address], 05/31/2025 10:13:57 05/28/20 25 05/26/2025 elect rocar diogr am, routi ne ECG, 12 leads min No observ ation record ed. [address], [place], [address], 05/31/2025 10:13:38 05/28/20 25 05/27/2025 elect rocar diogr am No observ ation record ed. [address], [place], [address], 05/31/2025 08:34:12 05/30/20 25 05/29/2025 XR, chest No observ ation record ed. [address], [place], [address], 05/31/2025 08:34:27 05/31/20 25 05/31/2025 US, echoc ardio gram No observ ation record ed. [address], [place], [address], 06/01/2025 08:13:52 06/03/2005/29/2025 elect kira berg am No observ ation record ed. [facility] [address], [address], 06/03/2025 11:52:29 Result Notes None recorded. Problems Name Problem SNOMED Code Status Onset Date Resolution Date Notes Provider Name and Address Organization Details Recorded Time Bipolar disorder 66125742 Active 2023 TANK Arango [address] [place] [address], [address], [employer] 15:16:30 Attention deficit hyperactivi ty disorder, predominant ly inattentive type 02699204 Active 2023 TANK Arango [address] [place] [address], [address] 8, [employer] 15:16:24 Vitamin D deficiency 58461649 Active 2023 TANK Arango [address] [place] [address], [address] 8, [employer] 15:16:33 Iron deficiency anemia 59772999 Active 2023 TANK Arango [address] [place] [address], [address] 8, [place] [employer] 15:16:39 Generalized anxiety disorder 97899501 Active 2023 TANK Arango [address] [place] [address], [address] 8, [employer] 15:16:35 Post-trauma tic stress disorder 03285075 Active 2023 TANK Arango [address] [place] [address], [address] 8, [employer] 15:16:42 Vertigo 145842322 Active 2023 TANK Arango [address] [place] [address], [address] 8, [employer] 4 15:31:47 Insomnia 097890552 Active 2023 TANK Arango [address] [place] [address], [address] 8, [employer] 4 13:19:43 Pain in bilateral feet 6692081134491 9102 Active 2024 TANK Arango [address] [place] [address], [address] 8, [employer] 5 13:58:03 Migraine without aura, not refractory 279256209 Active 2024 TANK Arango [address] [place] [address], [address] 8, [employer] 5 14:09:19 Irritable bowel syndrome with diarrhea 064477114 Active 2024 TANK Arango [address] [place] [address], [address] 8, [employer] 5 14:09:33 Dysfunction of bilateral eustachian tubes 7251171222487 100 Active 2024 TANK Arango [address] [place] [address], [address] 8, [employer] 5 14:11:45 Problem Notes None recorded. Procedures Surgical History Date Name Laterality Status Provider Name and Address Organization Details Recorded Time Gallbladder Surgery completed [facility] 06/05/2024 14:41:59 Caesarean Section completed [employer] 06/05/2024 14:42:11 Imaging Results None recorded. Procedure Notes None recorded. Medical Equipment None Reported. Allergies Allergen ID Allergen Name Allergen Category Reaction Reaction Severity Criticality Documentation Date Start Date Code Code System Note Provider Name and Address Organization Details Recorded Time 01478 morphine medicatio n Not available Not available Not available 06/05/2024 7052 [employer] 4 14:29:38 Medications Name Sig Start [...] and Address Organization Details Last Updated DateTime 165.1 cm 41.7 kg/m2 269625. 97 g 88 /min 98 % 98 % 98.4 [degF] 114/80 mm[Hg] Katja Barbour [employer]. 13:50:47 Social History Question Answer Notes LastModified by Organizat ion Details LastModified Time Tobacco Smoking Status Former Smoker Katja hedrick [employer] 06/05/2024 14:38:45 Do You Have An Advance [...] Or The Highest Degree You Have Received? [id number] Information not available 06/05/2024 Who Is Your Employer? [employer] Information not available 06/05/2024 Have There Been Any Changes To Your Family Or Social Situation? No Information no t available 06/05/2024 When Did You Quit Smoking? 1-5yearssincel astcigarette Information not available 06/05/2024 Are There Any Guns Present In Your Home? No Information not available 06/05/2024 Which Of Your Hands Is Dominant? Right Information not available 06/05/2024 Do You Have A Medical Power Of Vessel Scrapper? No Information not available 06/05/2024 What Was [...] Functional Status Question Answer Note LastModified by Organizat ion Details LastModified Time Do you use [...] anxious, or unable to sleep at night)? [id number] Information not available 06/05/2024 Do you have [...] Psychiatric/Mental Health Condition N Organ Transplant N Dialysis N Schizophrenia N Fibromyalgia N Headaches N Kidney Disease N Allergies/Hayfever [...] Recorded Time Tdap 4 completed TANK Arango [address] [place] [address], [address], [employer]. 08/03/2024 14:27:57 MMR 8 completed Katja Vice null, [employer]. 08/03/2024 12:59:13 varicella 9 completed Katja Vice null, [employer] 08/03/2024 12:59:13 OPV, trivalent 8 completed Katja Vice null, [employer] 08/03/2024 12:59:13 HPV, quadrivalent 7 completed Katja Vice null, [employer] 08/03/2024 12:59:13 Td (adult), 2 Lf tetanus toxoid, preservative free, adsorbed 5 completed Katja Vice null, [employer] 08/03/2024 12:59:13 DTaP, unspecified formulation 6 completed Katja Vice null, [employer] 08/03/2024 12:59:13 DTaP, unspecified formulation 8 completed Katja Vice null, [employer]. 08/03/2024 12:59:13 Past Encounters Encounter ID Performer Location Encounter Start Date Encounter Closed Date Diagnosis/Indication Diagnosis SNOMED-CT Code Diagnosis ICD10 Code Diagnosis IMO Codes Diagnosis Note [id number] TANK Arango [facility] [address] [place] [address] 04/15/2025 13:40:23 04/15/2025 15:33:50 Migraine without aura, not refractory 694626075 G43.125 1646984 Irritable bowel syndrome with diarrhea 083966508 K58.0 448655 Dysfunctio n of bilateral eustachian tubes 3544818235 743501 H69.93 38022518 Bipolar disorder 6816429 4 F31.9 Vitamin D deficiency 347 50106 E55.9 Iron defic iency anemia 04771870 D50.9 Generalize d anxiety disorder 98663247 F41.1 Insomnia 847966458 G47.0 0 Health Concerns Section Related Observation LastModified by Organization Detai ls LastModified Time None Recorded Concern Status LastModified by Organization Details LastModified Time None Recorded Payers Encounter Date Sequence Insurance Name Policy Number Policy Bean Covered Member ID Bean Member ID Guarantor Name 04/15/2025 1 [facility] (MEDICAID REPLACEMENT - HMO) Karlene Martinez [id number] Karlene Martinez Notes Date Note Type Note [...] Excedrin migraine which sometimes helps. TANK Arango [address] [place] [address], [place], [address], [facility] [employer] 04/15/2025 16:31:06 OBGyn Episode No OBEpisode recorded.
[2025-06-06 22:27] LABS: Hematocrit 36.5 % (37.0-47.0); Hemoglobin 12.4 g/dL (12.2-16.2); Immature Granulocytes % 4.5 %; Mean Corpuscular HGB Conc 34.0 g/dL (31.8-35.4); Mean Corpuscular Hemoglobin 30.8 pg (27.0-31.2); Mean Corpuscular Volume 90.6 fl (81-99); Nucleated Red Blood Cells % 0 %; Platelet Count 357 K/mm3 (142-424); Red Blood Count 4.03 M/mm3 (4.20-5.40); Red Cell Distribution Width-SD 41.5 fL; White Blood Count 14.5 K/mm3 (4.8-10.8)
[2025-06-06 22:37] LABS: Alanine Aminotransferase 32 U/L (12-78); Albumin Level 3.3 g/dl (3.5-5.0); Albumin/Globulin Ratio 0.8 (1.1-1.8); Alkaline Phosphatase 118 U/L (38-126); Anion Gap 6.4 mEq/L (5-15); Aspartate Amino Transferase 32 U/L (14-36); Bilirubin,Total 0.3 mg/dl (0.2-1.3); Blood Urea Nitrogen 21 mg/dl (7-17); Calcium 9.0 mg/dl (8.4-10.2); Carbon Dioxide 29 mmol/L (22.0-30.0); Chloride 101 mmol/L (98-107); Creatinine Clearance Estimated 162 mL/min (50-200); Creatinine,Serum 0.90 mg/dl (0.52-1.04); Estimated Glomerular Filt Rate 73 ml/min (>60); GFR (African American) 88 ML/MIN (>60); Globulin 3.9 g/dL (1.3-3.2); Glucose 117 mg/dl (74-100); Potassium 3.4 mmoL/L (3.5-5.1); Sodium 133 mmol/L (136-145); Total Protein,Serum 7.2 g/dl (6.3-8.2)
[2025-06-06 22:50] LABS: NT Pro Brain Natriuretic Pep. 109 pg/mL (0-125)
[2025-06-06 22:51] LABS: Activated Partial Thrombo Time 22.3 seconds (22.8-30.6); INR 0.97 (0.9-1.1); Prothrombin Time 10.8 seconds (10.1-12.5); Troponin I < 0.01 ng/ml (0.00-0.034)
[2025-06-06 22:53] LABS: RBC Morphology Normal; Total Cells Counted 100
[2025-06-07] VITALS (9 sets, daily range): BP systolic 122–130; BP diastolic 70–79; PULSE 78–80; RESP 16–22; TEMP 36.9; O2SAT 96–98
[2025-06-07 00:17] LABS: HCG Qualitative, Serum Negative (Negative)
[2025-06-07] MEDS: ACETAMINOPHEN 500MG TAB 1000 MG PO (00:17)
[2025-06-07] MEDS: KETOROLAC 30MG/ML VIAL 30 MG IV (00:17)
[2025-06-07] MEDS: BELLADONNA ALKALOIDS 60 ML ML PO (00:31)
[2025-06-07 01:35] LABS: Troponin I < 0.01 ng/ml (0.00-0.034)
== END 2025-06-07 02:02 | disposition home or self-care (01) ==
PROVIDERS: Emergency Medicine; Nurse Practitioner; Emergency Provider Student in an Organized Health Care Education/Training Program; PCP Physician Assistant
DX: R07.9 Chest pain, unspecified (principal); R60.0 Localized edema
CPT/HCPCS: 71045; 80053; 83880; 84484; 84703; 85007; 85025; 85610; 85730; 93005; 96374; 99285; J1885

== ENCOUNTER 2025-06-24 07:40 | Outpatient (CLI) | payer MEDICAID, SELFPAY ==
--- OUTSIDE RECORDS SUMMARY | 2025-06-24 07:42 | XMS_ITS | Clinical Summary ---
Author Organization Healthcare Address [address] [id number] Care Team Providers Care Insolvency Consultant Name Role Phone Pcp, No Primary Care Provider Unavailabl e Allergies No known active allergies Medications Adderall XR 10 MG 24 hr capsule Take by mouth 1 (one) time each day. 07/12/2022 Active bumetanide (Bumex) 0.5 MG tablet Take 1 tablet (0.5 mg) by mouth 1 (one) time each day. 03/12/2023 Active Vitamin D3 1.25 MG (78136 UT) capsule TAKE 1 CAPSULE BY MOUTH [...] 2014 [facility]-Cervical Cancer Screening 12/29/2023 [facility]-HPV/Cotest 12/29/2023 [id number] Vaccine (1 - season) 2025 [facility]-Influenza Vaccine [...] age to complete this topic Care Teams Insolvency Consultant Relationship Specialty Start Date End Date Pcp, No [address] [place] [address] PCP - General 04/13/21
--- NOTE | 2025-06-24 08:00 | US_ITS ---
FINAL REPORT CLINICAL HISTORY: pain FINDINGS: ULTRASOUND ABDOMEN There are fatty changes to the liver. Spleen has a normal sonographic appearance. The gallbladder is surgically absent. No biliary ductal dilatation is identified. Kidneys show no evidence of mass or obstruction. Pancreas is not well visualized. IVC and aorta are grossly unremarkable. There is no obvious fluid collection. IMPRESSION: Fatty liver. Reviewed, Interpreted and Dictated by Ирина Ramey MD Transcribed by Vicki Jarquin Authenticated and [facility]
== END 2025-06-24 23:59 | disposition home or self-care (01) ==
LOC: RAD 07:40
PROVIDERS: PCP Physician Assistant; Visit Provider Nurse Practitioner Family
DX: K76.0 Fatty (change of) liver, not elsewhere classified (principal); R11.0 Nausea; R10.9 Unspecified abdominal pain
CPT/HCPCS: 76700

== ENCOUNTER 2025-06-29 09:42 | Outpatient (CLI) | payer MEDICAID, SELFPAY ==
[2025-06-29 07:39] VITALS: BMI 41.4
--- NOTE | 2025-06-29 09:45 | CT_ITS ---
FINAL REPORT TECHNIQUE: Routine axial images were obtained from the lung apices to below the diaphragm following IV contrast administration. Individualized dose reduction techniques using automated exposure control or adjustment of the mA and/or kV according to the patient size were employed. CLINICAL HISTORY: nodule, recent heart attack COMPARISON: 05/26/2025 FINDINGS: CT CHEST WITH CONTRAST: There is an enlarged left hilar node measuring up to 2.7 cm in size, similar to the prior exam of 2024. There is a conglomerate elisha mass in the subcarinal region, which measures 2.4 x 1.5 cm in size, slightly smaller than seen on the prior exam. There is a left infrahilar density (described on the prior CT examination as a mixed density nodular opacity) which measures 1.9 x 1.3 cm in size, slightly larger than on the prior exam and best seen on image #43 of series 2. No pleural or pericardial effusions are noted. IMPRESSION: Mediastinal adenopathy in the left hilum and the subcarinal regions remain present, and the left infrahilar adenopathy is larger than seen on the prior exam. Neoplasm is not excluded, would consider PET/CT for further evaluation. Reviewed, Interpreted and Dictated by Zane Maloney MD Transcribed by Angelica Contreras Authenticated and [facility]
[2025-06-29] MEDS: SODIUM CHLORIDE 0.9% 10ML SYR (RAD ONLY) 10 ML IV (10:04)
[2025-06-29] MEDS: IOPAMIDOL-370 (76%);100ML BOTTLE 75 ML IV (10:04)
[2025-06-29 10:54] LABS: Hematocrit 36.8 % (37.0-47.0); Hemoglobin 12.4 g/dL (12.2-16.2); Immature Granulocytes % 0.2 %; Mean Corpuscular HGB Conc 33.7 g/dL (31.8-35.4); Mean Corpuscular Hemoglobin 29.7 pg (27.0-31.2); Mean Corpuscular Volume 88.2 fl (81-99); Nucleated Red Blood Cells % 0 %; Platelet Count 260 K/mm3 (142-424); Red Blood Count 4.17 M/mm3 (4.20-5.40); Red Cell Distribution Width-SD 38.5 fL; White Blood Count 4.0 K/mm3 (4.8-10.8)
[2025-06-29 11:02] LABS: Potassium 3.7 mmoL/L (3.5-5.1); Sodium 140 mmol/L (136-145)
[2025-06-29 11:05] LABS: Blood Urea Nitrogen 4 mg/dl (7-17); Calcium 8.9 mg/dl (8.4-10.2); Carbon Dioxide 27 mmol/L (22.0-30.0); Creatinine Clearance Estimated 85 mL/min (50-200); Creatinine,Serum 0.90 mg/dl (0.52-1.04); Estimated Glomerular Filt Rate 73 ml/min (>60); GFR (African American) 88 ML/MIN (>60); Glucose 97 mg/dl (74-100)
[2025-06-29 11:13] LABS: Anion Gap 13.7 mEq/L (5-15); Chloride 103 mmol/L (98-107)
[2025-06-29 11:28] LABS: HCG Qualitative, Serum Negative (Negative)
== END 2025-06-29 23:59 | disposition home or self-care (01) ==
PROVIDERS: Nurse Anesthetist, Certified Registered; PCP Physician Assistant; Visit Provider Internal Medicine Pulmonary Disease
DX: R59.0 Localized enlarged lymph nodes (principal); R91.1 Solitary pulmonary nodule
CPT/HCPCS: 71260; 80048; 84703; 85025; Q9967